=== PATIENT | male | born 1950 | race Caucasian/White ===

== ENCOUNTER 2022-06-06 20:53 | Inpatient (IN) ==
[2022-06-06] MEDS ORDERED: IOPAMIDOL 100 ML BOTTLE IV ONE (20:54)
[2022-06-06 22:09] LABS: Basophils # (Auto) 0.05 K/mcL (0.00-0.30); Basophils % (Auto) 0.4 % (0.0-2.0); Eosinophils # (Auto) 0.09 K/mcL (0.00-0.70); Eosinophils % (Auto) 0.6 % (0.0-7.0); Hematocrit 43.5 % (40.1-51.0); Hemoglobin 14.6 g/dL (13.7-17.5); Lymphocytes # (Auto) 2.25 K/mcL (1.50-4.80); Lymphocytes % (Auto) 16.2 % (15.5-49.0); Mean Cell Volume 90.4 fL (80.0-100.0); Mean Corpuscular HGB Conc 33.6 g/dL (31.0-36.0); Mean Platelet Volume 10.6 fL (7.4-10.4); Monocytes # (Auto) 0.84 K/mcL (0.10-0.90); Monocytes % (Auto) 6.1 % (1.0-12.0); Neutrophils % (Auto) 75.9 % (38.0-78.0); Platelet Count 277 K/mcL (140-440); RBC 4.81 M/mcL (4.63-6.08); WBC 13.9 K/mcL (4.5-11.0)
[2022-06-06] MEDS ORDERED: ONDANSETRON 4 MG/2 ML VIAL IV ONE (22:50)
[2022-06-06] MEDS ORDERED: morphine 4 MG/ML VIAL IV ONE (22:50)
[2022-06-06] MEDS ORDERED: LACTATED RINGERS 1,000 ML IV ONE (22:50)
[2022-06-06 22:55] LABS: ALT/SGPT 19 U/L (<40); AST/SGOT 18 U/L (<40); Albumin/Globulin Ratio 1.3 (1.0-2.3); Alkaline Phosphatase 52 U/L (39-117); Bilirubin,Total 0.7 mg/dL (0.1-1.0); Blood Urea Nitrogen 25 mg/dL (8-23); Carbon Dioxide 25 mmol/L (22-30); Chloride 100 mmol/L (96-108); Globulin 3.1 gm/dL (2.2-3.7); Glomerular Filtration Rate 34; Glucose 146 mg/dL (70-105)
[2022-06-07] MEDS ORDERED: METOCLOPRAMIDE 10 MG/2 ML VIAL IV ONE (00:09)
[2022-06-07] MEDS: LACTATED RINGERS 1,000 ML IV SCH ×4 (01:32→23:05)
[2022-06-07] MEDS ORDERED: morphine 4 MG/ML VIAL IV ONE ×2 (02:42→05:28)
--- NOTE | 2022-06-07 05:42 | Emergency Department Note ---
Abdominal Pain HPI General Chief Complaint: Abdominal Pain Stated Complaint: Abdominal pain Time Seen by Provider: 06/06/22 21:02 Source: patient Mode of arrival: wheelchair Limitations: no limitations History of Present Illness HPI Narrative: Narrative: Patient with a history of a complicated course of diverticulitis in the distant past requiring a partial colectomy ostomy and subsequent reversal and has since had several small bowel obstructions in the past presenting to the ED with 1 day of acute generalized abdominal pain initially starting on his left lower side becoming more diffuse associate with some nausea vomiting. Has not had bowel movement in about 24 hours which is atypical for him and as of the last few hours no longer passing flatus. Says it feels like either a developing bowel obstruction or diverticulitis no fever no chills no other complaints. Related Data Home Medications Medication Instructions Recorded Confirmed adalimumab 40 mg/0.8 mL 40 mg SQ WEEKLY 04/24/18 05/07/21 subcutaneous syringe kit (Humira) amlodipine 5 mg tablet 5 mg PO DAILY 04/24/18 05/07/21 aspirin 81 mg tablet,delayed 81 mg PO DAILY 04/24/18 05/07/21 release (Lo-Dose Aspirin) furosemide 20 mg tablet (Lasix) 20 mg PO BID 04/24/18 05/07/21 lisinopril 10 mg tablet (Zestril) 10 mg PO DAILY 04/24/18 05/07/21 ranitidine HCl 150 mg tablet (Acid 150 mg PO BID 04/24/18 05/07/21 Synchronizer (ranitidine)) atorvastatin 20 mg tablet 20 mg PO ONCE 04/24/21 05/07/21 metoprolol succinate 25 mg 25 mg PO ONCE 04/24/21 05/07/21 tablet,extended release 24 hr losartan 50 mg-hydrochlorothiazide 1 tab PO QDAY 05/07/21 05/07/21 12.5 mg tablet Allergies Allergy/AdvReac Type Severity Reaction Status Date / Time No Known Drug Allergies Allergy Verified 06/06/22 20:55 Review of Systems ROS ROS Narrative: Narrative: All systems ED: reviewed and negative except as stated. [facility] Narrative Patient History Narrative: Narrative: Medical/Surgical/Family History All Active Problems SBO (small bowel obstruction) (Acute) Radiculopathy, lumbosacral region (Acute) Lumbar radiculopathy (Chronic) Lumbar stenosis with neurogenic claudication (Chronic) GERD (gastroesophageal reflux disease) (Chronic) Psoriasis (Chronic) Diverticulitis (Chronic) Hypertension (Chronic) Kidney disease (Chronic) Lower back pain (Chronic) Strain of thoracic region (Chronic) Common cold virus (Chronic) Unstable angina pectoris (Chronic) Coronary atherosclerosis (Chronic) CRF (chronic renal failure) (Chronic) Medical History Common cold virus Coronary atherosclerosis CRF (chronic renal failure) stage III to IV Diverticulitis GERD (gastroesophageal reflux disease) Hypertension Kidney disease Lower back pain Lumbar radiculopathy Lumbar stenosis with neurogenic claudication Psoriasis Radiculopathy, lumbosacral region Strain of thoracic region Unstable angina pectoris Surgical History History of appendectomy History of back surgery L4-5 decompression History of cholecystectomy History of gastric surgery History of hernia repair History of neck surgery ACD History of spinal fusion Family History Father Heart attack Hypertension Arthritis Mother Heart attack Coronary artery disease Hypertension Family/Other Diabetes Cancer Kidney disease Brother Cancer Diabetes Hypertension Sister Diabetes Social History Smoking Status: Former smoker Alcohol Intake Frequency: does not drink Substance Use: does not use Exam Narrative Narrative: Narrative: Constitutional: normally developed, appears uncomfortable Head: Normocephalic, atraumatic, Eyes: No Icterus, ENT: Moist mucus membranes, Neck: Supple, Cardiac: Normal heart sounds, palpable radial pulses, Pulmonary: Normal respiratory effort. Breath sounds clear, no wheeze, rhonchi, rales, Gastrointestinal: Abdomen soft, multiple prior surgical scars, tender to his left mid abdomen no rebound no guarding, mildly distended Musculoskeletal: No gross deformities, well perfused Skin: warm, dry Neuro: Alert and oriented. General Limitations: no limitations Course Vital Signs Vital signs: Vital Signs Temperature 36.0 C L 06/06/22 20:53 Pulse Rate 81 06/06/22 20:53 Respiratory Rate 17 06/06/22 20:53 Blood Pressure 140/73 06/06/22 20:53 Pulse Oximetry (%) 99 06/06/22 20:53 Oxygen Delivery Method 06/06/22 20:53 Temperature 37.2 C 06/07/22 06:01 Pulse Rate 61 06/07/22 06:41 Respiratory Rate 17 06/06/22 20:53 Blood Pressure 116/67 06/07/22 06:41 Pulse Oximetry (%) 95 06/07/22 06:41 Oxygen Delivery Method 06/06/22 20:53 Oxygen Flow Rate (L/min) 0 06/07/22 06:01 [facility] MDM Narrative Medical decision making narrative: Narrative: Patient with a history of diverticulitis requiring partial colectomy, subsequent multiple bowel obstructions in the past presenting with acute left l ower abdominal pain for 1 day no longer passing flatus and nausea vomiting. Work-up is initiated Given antiemetics analgesics IV fluids Labs do show a leukocytosis 13.9 electrolytes show slight bump in his CKD creatinine 1.[address] of the abdomen per direct radiology reports some small bowel dilation 2.8 cm interpreted as a small bowel ileus functional no high-grade obstruction or perf oration. No evidence of diverticulitis Clinically given patient's history as well as his presentation I do suspect this is more likely an developing bowel obstruction given his known similar history as well as the fact he is no longer having bowel movements or passing flatus. Did discuss the case with Dr. Nobles who also agrees more likely early developing small bowel obstruction, recommends continue with SBO mgt, recommends medical admission given patient's comorbidities such as his CKD, continue symptom control, NG tube if patient starts vomiting otherwise okay without. Patient is agreeable to this plan. Will board in the ER for the remainder the night until bed becomes available later in the morning. 0700: accepted by hospitalist, Dr Darnell Lab Data Result diagrams: 06/06/22 21:09 06/06/22 21:09 Labs: Lab Results 06/06/22 06/06/22 Range/Units 21:09 21:09 WBC 13.9 H (4.5-11.0) K/mcL RBC 4.81 (4.63-6.08) M/mcL Hgb 14.6 (13.7-17.5) g/dL Hct 43.5 (40.1-51.0) % MCV 90.4 (80.0-100.0) fL MCH 30.4 (26.0-34.0) pg MCHC 33.6 (31.0-36.0) g/dL RDW 12.0 (11.5-14.5) % Plt Count 277 (140-440) K/mcL MPV 10.6 H (7.4-10.4) fL Immature Gran % (Auto) 0.8 H (0.0-0.5) % Neut % (Auto) 75.9 (38.0-78.0) % Lymph % (Auto) 16.2 (15.5-49.0) % Lares % (Auto) 6.1 (1.0-12.0) % Eos % (Auto) 0.6 (0.0-7.0) % Baso % (Auto) 0.4 (0.0-2.0) % Lymph # (Auto) 2.25 (1.50-4.80) K/mcL Lares # (Auto) 0.84 (0.10-0.90) K/mcL Eos # (Auto) 0.09 (0.00-0.70) K/mcL Baso # (Auto) 0.05 (0.00-0.30) K/mcL Immature Gran # 0.11 H (0.00-0.05) K/mcl Absolute Neutrophils 10.52 H (1.80-8.00) K/mcL Sodium 140 (133-145) mmol/L Potassium 4.6 (3.3-5.1) mmol/L Chloride 100 (96-108) mmol/L Carbon Dioxide 25 (22-30) mmol/L Anion Gap 15.0 (8.0-16.0) BUN 25 H (8-23) mg/dL Creatinine 1.9 H (0.7-1.2) mg/dL GFR Calculation 34 Glucose 146 H (70-105) mg/dL Calcium 10.0 (8.6-10.4) mg/dL Total Bilirubin 0.7 (0.1-1.0) mg/dL AST 18 (<40) U/L ALT 19 (<40) U/L Alkaline Phosphatase 52 (39-117) U/L Total Protein 7.1 (5.9-8.4) gm/dL Albumin 4.0 (3.2-5.2) gm/dL Globulin 3.1 (2.2-3.7) gm/dL Albumin/Globulin Ratio 1.3 (1.0-2.3) Lipase 16 (7-60) U/L Discharge Plan Patient/Caregiver Discharge Instructions Pt seen by [employer]/PA only: No Clinical Impression: SBO (small bowel obstruction) Patient Disposition: Xfer As Inpt ([facility]) Condition: Fair Follow up with: Kaylynn Lopes ARNP [Primary Care Provider] - Prescriptions: No Action metoprolol succinate 25 mg tablet extended release 24 hr 25 mg PO ONCE atorvastatin 20 mg tablet 20 mg PO ONCE losartan-hydrochlorothiazide 50-12.5 mg tablet 1 tab PO QDAY amlodipine 5 MG tablet 5 mg PO DAILY aspirin [Lo-Dose Aspirin] 81 MG tablet,delayed release (DR/EC) 81 mg PO DAILY ranitidine HCl [Acid Synchronizer (ranitidine)] 150 MG tablet 150 mg PO BID lisinopril [Zestril] 10 MG tablet 10 mg PO DAILY furosemide [Lasix] 20 MG tablet 20 mg PO BID adalimumab [Humira] 40 MG/0.8 ML syringe kit 40 mg SQ WEEKLY
--- NOTE | 2022-06-07 05:50 | Cat Scan Report ---
INDICATION: L sided pain, h/o divertics, h/o SBOs COMPARISON: None. TECHNIQUE: Axial images were obtained through the abdomen and pelvis. Sagittally and coronally reformatted images. 80 mL Isovue 370 injected intravenously. Oral contrast material was not administered FINDINGS: Examination was initially interpreted by [facility] Lung bases:Negative. No pulmonary parenchymal nodule. No pleural fluid or pericardial fluid Liver:Negative. No focal intrahepatic mass. No focal abnormality. Liver contour is smooth. No evidence for cirrhosis. Incidental note is made of a benign 13 mm cyst in the left lobe Gallbladder, bilary:Previous cholecystectomy. No dilated bile ducts Spleen:No splenomegaly. Normal enhancement of splenic and portal veins. Pancreas:No pancreatic mass. No peripancreatic abnormality Adrenal glands:Negative Kidneys,ureters,bladder:No solid renal mass. No hydronephrosis. No obstructing or nonobstructing calculi. Benign 3 cm right lower pole renal cyst No hydroureter. No ureteral calculus. No bladder stone. No detectable bladder mass. Gastrointestinal:Previous partial colectomy with anastomotic colonic suture line in the pelvis. There is no diverticulitis. No detectable colonic mass. There is dilated small bowel in the mid abdomen. This is deep to an anterior wall hernia patch. Small bowel is dilated to approximately 2.7 cm in cross-sectional diameter. There is mild small bowel feces. Appearance is consistent with partial mechanical small bowel obstruction. There is no closed-loop obstruction. There is no evidence for bowel ischemia. Negative stomach and duodenum. No focal abnormality. Appendix: The appendix is not identified. History of appendectomy Vascular:Extensive calcified atherosclerotic plaque. No abdominal aortic aneurysm. There is plaque at the origin of the celiac trunk and superior mesenteric artery but no stenosis. Lymphatic:No retroperitoneal or mesenteric adenopathy Mesentery, peritoneum: No free intraperitoneal fluid. No mesenteric or retroperitoneal mass. No intra-abdominal abscess. Reproductive:Prostate is not significantly enlarged Musculoskeletal:Multilevel degenerative disc disease. No lumbar compression fractures. Sacrum and pelvis are negative. Hips are negative. There is no inguinal hernia. Other findings consistent with anterior wall hernia patch. This is to the left of midline IMPRESSION: 1. Mildly distended fluid filled small bowel with small bowel feces. Deep to the hernia patch and findings are consistent with partial mechanical small bowel obstruction. There is no closed-loop obstruction 2. Previous partial colectomy. No diverticulitis 3. Previous cholecystectomy and appendectomy 4. Previous anterior wall hernia repair. No recurrent hernia 5. Atherosclerotic calcification. No abdominal aortic aneurysm The exam was performed using radiation dose optimization techniques including, but not limited to, automated exposure control, adjustment of the mA and/or kV according to patient size and use of iterative reconstruction technique. Interpreted and Authenticated by: Rosendo Gastelum 06/07/22
--- NOTE | 2022-06-07 07:35 | General Surg History&Physical ---
HPI History of Present Illness Patient information: Note initiated : 06/07/22 at 7:32 am Service Date, if different from initiated Date: [] Patient: Neo Chamorro a 71 y/o M admitted on for Abdominal pain. Chief Complaint: [] Chief complaint: Abdominal pain, nausea History of present illness: Mr. Chamorro is a 71 year old M with a significant past medical and surgical history of perforated diverticulitis, status post exploratory laparotomy with end ostomy. Patient then got his ostomy reversed. Since that time he has had several small bowel obstructions, none requiring operative intervention. He presents with 1 day history of abdominal distention, decreased bowel movements, decreased flatus associated with mild nausea without emesis at this time. He was seen and evaluated emergency room where CT scan is consistent with a partial small bowel obstruction without evidence of closed-loop obstruction. PFSH PFSH All Active Problems SBO (small bowel obstruction) (Acute) Radiculopathy, lumbosacral region (Acute) Lumbar radiculopathy (Chronic) Lumbar stenosis with neurogenic claudication (Chronic) GERD (gastroesophageal reflux disease) (Chronic) Psoriasis (Chronic) Diverticulitis (Chronic) Hypertension (Chronic) Kidney disease (Chronic) Lower back pain (Chronic) Strain of thoracic region (Chronic) Common cold virus (Chronic) Unstable angina pectoris (Chronic) Coronary atherosclerosis (Chronic) CRF (chronic renal failure) (Chronic) Medical History Common cold virus Coronary atherosclerosis CRF (chronic renal failure) stage III to IV Diverticulitis GERD (gastroesophageal reflux disease) Hypertension Kidney disease Lower back pain Lumbar radiculopathy Lumbar stenosis with neurogenic claudication Psoriasis Radiculopathy, lumbosacral region Strain of thoracic region Unstable angina pectoris Surgical History History of appendectomy History of back surgery L4-5 decompression History of cholecystectomy History of gastric surgery History of hernia repair History of neck surgery ACD History of spinal fusion Family History Father Heart attack Hypertension Arthritis Mother Heart attack Coronary artery disease Hypertension Family/Other Diabetes Cancer Kidney disease Brother Cancer Diabetes Hypertension Sister Diabetes Social History (Updated 05/07/21 @ 13:29 by Christi Allan) marital status: education level: high school occupational status: retired occupation: [employer] smoking status: Former smoker alcohol intake frequency: does not drink substance use type: does not use MEDS/ALLERGIES Home Medications and Allergies Home Medications Medication Instructions Recorded Confirmed Type adalimumab 40 mg/0.8 mL 40 mg SQ WEEKLY 04/24/18 05/07/21 History subcutaneous syringe kit (Humira) amlodipine 5 mg tablet 5 mg PO DAILY 04/24/18 05/07/21 History aspirin 81 mg tablet,delayed 81 mg PO DAILY 04/24/18 05/07/21 History release (Lo-Dose Aspirin) furosemide 20 mg tablet (Lasix) 20 mg PO BID 04/24/18 05/07/21 History lisinopril 10 mg tablet (Zestril) 10 mg PO DAILY 04/24/18 05/07/21 History ranitidine HCl 150 mg tablet (Acid 150 mg PO BID 04/24/18 05/07/21 History Mems Engineer (ranitidine)) atorvastatin 20 mg tablet 20 mg PO ONCE 04/24/21 05/07/21 History metoprolol succinate 25 mg 25 mg PO ONCE 04/24/21 05/07/21 History tablet,extended release 24 hr losartan 50 mg-hydrochlorothiazide 1 tab PO QDAY 05/07/21 05/07/21 History 12.5 mg tablet Allergies Allergy/AdvReac Type Severity Reaction Status Date / Time No Known Drug Allergies Allergy Verified 06/06/22 20:55 Physical Examination Vital Signs Vital signs: Temp Pulse Resp BP Pulse Ox O2 Del Method O2 Flow Rate 98.9 F 60 17 129/72 98 0 06/07/22 06:01 06/07/22 07:01 06/06/22 20:53 06/07/22 07:01 06/07/22 07:01 06/06/22 20:53 06/07/22 06:01 General physical appearance General physical exam: well developed, well nourished and no distress Eyes Eye exam: PERRL and normal ocular movement ENT ENT exam: normal pinna, normal nares, normal mucosa, no hearing loss and no congestion Head Head exam IM: Present atraumatic and normocephalic Neck Neck exam: no masses, no bruits, trachea midline, no lymphadenopathy and no venous distension Cardiovascular Cardiovascular exam IM: Present normal rate and rhythm Respiratory Respiratory exam: normal expansion, normal respiratory effort, clear to percussion and clear to auscultation Abdomen Abdomen: Present soft, non tender, surgical scars and distended; Absent bowel sounds, masses, guarding or rigid Hernia: Present none Genitourinary Genitourinary (Male): Present normal penis with no external lesions Rectum Rectum: Present normal sphincter tone, no hemorrhoids, no tenderness, no masses and no bleeding Integumentary Integumentary: Present no rash, no growths and no abnormal pigmentation Neurologic Neurologic: Present normal coordination and normal sensation Musculoskeletal Musculoskeletal: Present normal gait and normal posture Psychiatric Psychiatric: Present oriented to time, oriented to person, oriented to place, speech is normal and memory intact Results Labs Result diagrams: 06/06/22 21:09 06/06/22 21:09 Labs: Abnormal lab results 06/06/22 06/06/22 Range/Units 21:09 21:09 WBC 13.9 H (4.5-11.0) K/mcL MPV 10.6 H (7.4-10.4) fL Immature Gran % (Auto) 0.8 H (0.0-0.5) % Immature Gran # 0.11 H (0.00-0.05) K/mcl Absolute Neutrophils 10.52 H (1.80-8.00) K/mcL BUN 25 H (8-23) mg/dL Creatinine 1.9 H (0.7-1.2) mg/dL Glucose 146 H (70-105) mg/dL Diabetes panel 06/06/22 Range/Units 21:09 Sodium 140 (133-145) mmol/L Potassium 4.6 (3.3-5.1) mmol/L Chloride 100 (96-108) mmol/L Carbon Dioxide 25 (22-30) mmol/L BUN 25 H (8-23) mg/dL Creatinine 1.9 H (0.7-1.2) mg/dL Glucose 146 H (70-105) mg/dL Calcium 10.0 (8.6-10.4) mg/dL AST 18 (<40) U/L ALT 19 (<40) U/L Alkaline Phosphatase 52 (39-117) U/L Total Protein 7.1 (5.9-8.4) gm/dL Albumin 4.0 (3.2-5.2) gm/dL Calcium panel 06/06/22 Range/Units 21:09 Calcium 10.0 (8.6-10.4) mg/dL Albumin 4.0 (3.2-5.2) gm/dL Pituitary panel 06/06/22 Range/Units 21:09 Sodium 140 (133-145) mmol/L Potassium 4.6 (3.3-5.1) mmol/L Chloride 100 (96-108) mmol/L Carbon Dioxide 25 (22-30) mmol/L BUN 25 H (8-23) mg/dL Creatinine 1.9 H (0.7-1.2) mg/dL Glucose 146 H (70-105) mg/dL Calcium 10.0 (8.6-10.4) mg/dL Adrenal panel 06/06/22 Range/Units 21:09 Sodium 140 (133-145) mmol/L Potassium 4.6 (3.3-5.1) mmol/L Chloride 100 (96-108) mmol/L Carbon Dioxide 25 (22-30) mmol/L BUN 25 H (8-23) mg/dL Creatinine 1.9 H (0.7-1.2) mg/dL Glucose 146 H (70-105) mg/dL Calcium 10.0 (8.6-10.4) mg/dL Total Bilirubin 0.7 (0.1-1.0) mg/dL AST 18 (<40) U/L ALT 19 (<40) U/L Alkaline Phosphatase 52 (39-117) U/L Total Protein 7.1 (5.9-8.4) gm/dL Albumin 4.0 (3.2-5.2) gm/dL All other labs normal. A/P Assessment and plan (1) SBO (small bowel obstruction): Plan: This is a pleasant 71-year-old gentleman with a significant past surgical history with a known history of prior small bowel obstructions who presents with his typical small bowel obstruction symptoms. CT scan is consistent with a small bowel obstruction. Plan: Admit, n.p.o. Small bowel follow-through today. Status: Acute Time Spent With Patient Time: Total time spent is greater than 50% in coordination of care (as documented) at patient's floor/unit and/or counseling patient:
[2022-06-07] MEDS: ONDANSETRON 4 MG/2 ML VIAL IV PRN ×3 (08:13→18:33)
[2022-06-07] MEDS ORDERED: ROCURONIUM 10 MG/ML ML IV ONE (09:50)
[2022-06-07] MEDS ORDERED: MAGNESIUM SULFATE 2 GM/50 ML BAG IV ONE (09:50)
[2022-06-07] MEDS ORDERED: KETAMINE 50 MG/ML Syringe (ANEST) IV ONE (09:50)
[2022-06-07] MEDS ORDERED: SUCCINYLCHOLINE 20 MG/ML ML IV ONE (09:50)
[2022-06-07] MEDS ORDERED: PROPOFOL 200 MG/20 ML VIAL IV ONE (09:50)
[2022-06-07] MEDS ORDERED: SUGAMMADEX SODIUM 200 MG/2 ML VIAL IV ONE (09:50)
[2022-06-07] MEDS ORDERED: PHENYLephrine 1 MG/10 ML SYRINGE (ANEST) ONE (09:50)
[2022-06-07] MEDS ORDERED: LIDOCAINE HCL/PF 100 MG/5 ML SYRINGE IV ONE (09:50)
[2022-06-07] MEDS ORDERED: DEXAMETHASONE 10 MG/ML VIAL ONE (09:50)
[2022-06-07] MEDS ORDERED: GLYCOPYRROLATE 0.2 MG/ML VIAL IV ONE (09:50)
[2022-06-07] MEDS ORDERED: HYDROmorphone 1 MG/ML SYRINGE ONE (09:50)
[2022-06-07] MEDS ORDERED: ONDANSETRON 4 MG/2 ML VIAL ONE (09:50)
[2022-06-07] MEDS ORDERED: fentaNYL 250 MCG/5 ML VIAL IV ONE (09:50)
[2022-06-07] MEDS ORDERED: DEXTROSE 31 GM ORAL.SUSP PO PRN (14:10)
[2022-06-07] MEDS ORDERED: DEXTROSE 50% 50 ML VIAL IV PRN (14:10)
[2022-06-07] MEDS: ACETAMINOPHEN 650 MG/65 ML BAG IV PRN (14:28)
[2022-06-07] MEDS: 0.9 % SODIUM CHLORIDE 10 ML SYRINGE IV SCH ×2 (14:32→20:03)
[2022-06-07] MEDS ORDERED: DIATRIZOATE MEGLU/DIATRIZO SOD 120 ML BOTTLE PO ONE (15:17)
--- NOTE | 2022-06-07 15:41 | Internal Med History&Physical ---
HPI History of Present Illness Patient information: Note initiated : 06/07/22 at 3:37 pm Service Date, if different from initiated Date: [] Patient: Neo Chamorro a 71 y/o M admitted on 06/07/22 for Abdominal pain. Chief Complaint: [Abdominal pain, nausea and vomiting] Chief complaint: Abdominal pain History of present illness: Mr. Chamorro is a 71 year old M with a complex past medical history significant for multiple abdominal surgeries, diabetes mellitus type 2, CAD, hypertension, and CKD who presents to the hospital with 24-hour history of abdominal pain associate with nausea and vomiting. The patient's had prior episodes of bowel obstruction and states that this is very similar. As mentioned, he has had multiple abdominal surgeries including partial colectomy for diverticulitis, appendectomy, and cholecystectomy. The patient states that he was his usual self up until yesterday. He noticed that his abdomen was distended, and he was unable to have a bowel movement or pass gas. On presentation to the hospital, he was hemodynamically stable and afebrile. CT abdomen pelvis revealed mildly distended fluid-filled small bowel. Deep to the hernia patch and findings are consistent with partial mechanical small bowel obstruction. There was no closed-loop obstruction. He has a history of partial colectomy, partial cholecystectomy and appendectomy. There is previous anterior wall hernia repair. The hospitalist service was asked admit the patient in the setting of multiple medical comorbidities. General surgery were also consulted. Review of Systems All systems: reviewed and no additional remarkable complaints except as stated Constitutional Constitutional: Present as per HPI EENT Eyes: Present as per HPI; Absent blurry vision Cardiovascular Cardiovascular: Present as per HPI; Absent chest pain, dyspnea, dyspnea on exertion, leg edema or palpatations Respiratory Respiratory: Present as per HPI; Absent cough, dyspnea, dyspnea on exertion, wheezing or stridor Gastrointestinal Gastrointestinal: Present as per HPI, abdominal pain, nausea and vomiting; Absent diarrhea, dysphagia, hematemesis or melena Musculoskeletal Musculoskeletal: Present as per HPI; Absent joint swelling, limited range of motion, muscle cramps, muscle weakness or myalgias Integumentary Integumentary: Present as per HPI; Absent erythema, new lesions, rash or wounds Neurological Neurological: Present as per HPI; Absent abnormal gait, behavioral changes, focal weakness, headache(s), loss of vision, numbness, sensory deficit or syncope Endocrine Endocrine: Absent change in body appearance, fatigue or heat intolerance Hematologic/Lymphatic Hematologic/Lymphatic: Present as per HPI PFSH PFSH All Active Problems (Updated 06/07/22 @ 15:44 by Waldemar Darnell MD) CKD (chronic kidney disease) (Acute) DM2 (diabetes mellitus, type 2) (Acute) SBO (small bowel obstruction) (Acute) Radiculopathy, lumbosacral region (Acute) Lumbar radiculopathy (Chronic) Lumbar stenosis with neurogenic claudication (Chronic) GERD (gastroesophageal reflux disease) (Chronic) Psoriasis (Chronic) Diverticulitis (Chronic) Hypertension (Chronic) Kidney disease (Chronic) Lower back pain (Chronic) Strain of thoracic region (Chronic) Common cold virus (Chronic) Unstable angina pectoris (Chronic) Coronary atherosclerosis (Chronic) CRF (chronic renal failure) (Chronic) Medical History Common cold virus Coronary atherosclerosis CRF (chronic renal failure) stage III to IV Diverticulitis GERD (gastroesophageal reflux disease) Hypertension Kidney disease Lower back pain Lumbar radiculopathy Lumbar stenosis with neurogenic claudication Psoriasis Radiculopathy, lumbosacral region Strain of thoracic region Unstable angina pectoris Surgical History History of appendectomy History of back surgery L4-5 decompression History of cholecystectomy History of gastric surgery History of hernia repair History of neck surgery ACD History of spinal fusion Family History Father Heart attack Hypertension Arthritis Mother Heart attack Coronary artery disease Hypertension Family/Other Diabetes Cancer Kidney disease Brother Cancer Diabetes Hypertension Sister Diabetes Social History (Updated 05/07/21 @ 13:29 by Christi Allan) marital status: education level: high school occupational status: retired occupation: [employer] smoking status: Former smoker alcohol intake frequency: does not drink substance use type: does not use MEDS/ALLERGIES Home Medications and Allergies Home Medications Medication Instructions Recorded Confirmed Type adalimumab 40 mg/0.8 mL 40 mg SQ WEEKLY 04/24/18 06/07/22 History subcutaneous syringe kit (Humira) atorvastatin 20 mg tablet 20 mg PO ONCE 04/24/21 06/07/22 History metoprolol succinate 25 mg 25 mg PO BID 04/24/21 06/07/22 History tablet,extended release 24 hr losartan 50 mg-hydrochlorothiazide 1 tab PO QDAY 05/07/21 06/07/22 History 12.5 mg tablet Pepcid 20 mg PO DAILY 06/07/22 06/07/22 History amlodipine 5 mg tablet 1 tab PO QDAY 06/07/22 06/07/22 History cholecalciferol (vitamin D3) 50 mcg PO DAILY 06/07/22 06/07/22 History gabapentin 100 mg capsule 1 cap PO QID 06/07/22 06/07/22 History loperamide 2 mg capsule 1 cap PO QDAY 06/07/22 06/07/22 History (Anti-Diarrheal (loperamide)) metformin 500 mg tablet,extended 1 tab PO BID 06/07/22 06/07/22 History release 24 hr Allergies Allergy/AdvReac Type Severity Reaction Status Date / Time No Known Drug Allergies Allergy Verified 06/06/22 20:55 EXAM Constitutional Vitals: Temp Pulse Resp BP Pulse Ox O2 Del Method O2 Flow Rate 98.9 F 86 17 155/76 97 0 06/07/22 14:07 06/07/22 14:07 06/07/22 14:07 06/07/22 14:07 06/07/22 14:07 06/07/22 14:04 06/07/22 06:01 General appearance: average body habitus Head Head exam: Present atraumatic, normal inspection and normocephalic Eye Eye exam: Present EOMI, normal appearance and PERRL; Absent conjunctival injection ENT ENT exam: Present mucous membranes dry and normal exam Neck Neck exam: Present full ROM; Absent lymphadenopathy Respiratory Respiratory exam: Present normal respiratory exam and CTAB; Absent decreased breath sounds, respiratory distress or wheezes Cardiovascular Cardiovascular exam: Present normal rate and rhythm and RRR; Absent JVD GI/Abdominal GI/Abdominal exam: Present soft and distended; Absent normal bowel sounds, diminished bowel sounds, guarding, mass, rebound or tenderness Neurological Exam Neurological exam: Present alert, CN II-XII intact and oriented X3 Psychiatric Psychiatric exam: Present normal affect and normal mood Skin Skin exam: Present intact and warm; Absent erythema, pallor, petechiae or rash DATA Data Completed and Pending Labs: Labs from last 24 hours 06/06/22 06/06/22 21:09 21:09 WBC 13.9 H RBC 4.81 Hgb 14.6 Hct 43.5 MCV 90.4 MCH 30.4 MCHC 33.6 RDW 12.0 Plt Count 277 MPV 10.6 H Immature Gran % (Auto) 0.8 H Neut % (Auto) 75.9 Lymph % (Auto) 16.2 [place] % (Auto) 6.1 Eos % (Auto) 0.6 Baso % (Auto) 0.4 Lymph # (Auto) 2.25 [place] # (Auto) 0.84 Eos # (Auto) 0.09 Baso # (Auto) 0.05 Immature Gran # 0.11 H Absolute Neutrophils 10.52 H Sodium 140 Potassium 4.6 Chloride 100 Carbon Dioxide 25 Anion Gap 15.0 BUN 25 H Creatinine 1.9 H GFR Calculation 34 Glucose 146 H Calcium 10.0 Total Bilirubin 0.7 AST 18 ALT 19 Alkaline Phosphatase 52 Total Protein 7.1 Albumin 4.0 Globulin 3.1 Albumin/Globulin Ratio 1.3 Lipase 16 A/P Assessment and plan (1) SBO (small bowel obstruction): Status: Acute (2) Lumbar radiculopathy: Status: Chronic (3) Psoriasis: Status: Chronic (4) Coronary atherosclerosis: Status: Chronic Qualifiers: Associated angina: with unstable angina Coronary Disease-Associated Artery/Lesion type: [place] artery [place] vs. transplanted heart: [place] heart Qualified Code(s): I25.110 - Atherosclerotic heart disease of [place] coronary artery with unstable angina pectoris (5) DM2 (diabetes mellitus, type 2): Status: Acute (6) CKD (chronic kidney disease): Status: Acute Narrative A/P Narrative: The patient likely has a mechanical small bowel obstruction due to adhesions as he has a history of multiple intra-abdominal surgeries. General surgery will manage SBO. He may need NG tube decompression however placing an NG tube is difficult from patient report due to his anatomy. He may need to have this done under fluoroscopy. At this time the patient has multiple medical comorbidities and is on Humira for psoriasis. He gets 40 mg subcu weekly injection. We will hold his antihypertensives, his atorvastatin, gabapentin, losartanhydrochlorothiazide, metoprolol, and metformin. The patient will be placed on insulin sliding scale. Continue n.p.o. status, IV fluids, and monitor clinically. Time Spent With Patient Time: Total time spent is greater than 50% in coordination of care (as documented) at patient's floor/unit and/or counseling patient: Total time spent with greater than 50% in coordination of care (as documented) at patient's floor/unit and/or counseling patient:: Greater than 70 minutes QUALITY VTE Deep Vein Thrombosis/Pulmonary Embolism Present on Admission: No
[2022-06-07] MEDS: INSULIN LISPRO 1 UNIT/0.01 ML UNIT SQ SCH ×2 (16:59→20:03)
[2022-06-07] MEDS ORDERED: SENNOSIDES 1 TABLET PO SCH (21:00)
[2022-06-07] MEDS ORDERED: DOCUSATE SODIUM 100 MG CAPSULE PO SCH (21:00)
[2022-06-07] MEDS: HEPARIN 5,000 UNIT/ML VIAL SQ SCH (23:05)
[2022-06-08] MEDS: ACETAMINOPHEN 650 MG/65 ML BAG IV PRN ×2 (00:36→08:51)
[2022-06-08] MEDS: LACTATED RINGERS 1,000 ML IV SCH ×4 (00:40→20:13)
[2022-06-08] MEDS: 0.9 % SODIUM CHLORIDE 10 ML SYRINGE IV SCH ×3 (05:09→20:13)
[2022-06-08 06:17] LABS: Basophils # (Auto) 0.03 K/mcL (0.00-0.30); Basophils % (Auto) 0.3 % (0.0-2.0); Eosinophils # (Auto) 0.03 K/mcL (0.00-0.70); Eosinophils % (Auto) 0.3 % (0.0-7.0); Hematocrit 38.6 % (40.1-51.0); Hemoglobin 13.1 g/dL (13.7-17.5); Lymphocytes # (Auto) 1.68 K/mcL (1.50-4.80); Lymphocytes % (Auto) 16.3 % (15.5-49.0); Mean Corpuscular HGB Conc 33.9 g/dL (31.0-36.0); Mean Platelet Volume 10.4 fL (7.4-10.4); Monocytes # (Auto) 0.98 K/mcL (0.10-0.90); Monocytes % (Auto) 9.5 % (1.0-12.0); Platelet Count 233 K/mcL (140-440); RBC 4.29 M/mcL (4.63-6.08); Red Cell Distribution Width 12.1 % (11.5-14.5); WBC 10.3 K/mcL (4.5-11.0)
--- NOTE | 2022-06-08 06:27 | XRay Report ---
INDICATION: NGT placement TECHNIQUE: Supine abdomen. COMPARISON: None FINDINGS:There is an esophagogastric tube within the stomach. Sidehole of the catheter is just below the gastroesophageal junction. Catheter may be advanced for positioning more distally within the stomach. IMPRESSION: Esophagogastric tube within the stomach. Interpreted and Authenticated by: Rosendo Gastelum 06/08/22
[2022-06-08 06:46] LABS: Blood Urea Nitrogen 19 mg/dL (8-23); Calcium 9.7 mg/dL (8.6-10.4); Carbon Dioxide 30 mmol/L (22-30); Chloride 98 mmol/L (96-108); Glomerular Filtration Rate 39; Glucose 108 mg/dL (70-105)
--- NOTE | 2022-06-08 08:13 | XRay Report ---
INDICATION: follow up sbo TECHNIQUE: Water-soluble contrast material was ingested. Less than one cup of contrast was ingested. COMPARISON: CT scan dated 06/06/2022 FINDINGS: There is dilated small bowel consistent with mechanical small bowel obstruction. There is very slow passage of contrast material. At 24 hours post ingestion most of the contrast. No definite contrast within the colon. IMPRESSION: No colonic contrast identified by 24 hours postingestion Interpreted and Authenticated by: Rosendo Gastelum 06/08/22
--- NOTE | 2022-06-08 08:35 | General Surgery Progress Note ---
SUBJECTIVE Subjective Patient information: Note initiated : 06/08/22 at 8:32 am Service Date, if different from initiated Date: [] Patient: Neo Chamorro 71 y/o M admitted on 06/07/22 for Abdominal pain. Chief Complaint: [] Interval history: Small bowel follow-through done yesterday shows no contrast to the colon by 24 hours, patient got more distended overnight, more nauseous. NG tube was placed. Constitutional Vitals: Vital Signs Temp Pulse Resp BP Pulse Ox O2 Del Method O2 Flow Rate 97.7 F 79 18 139/74 94 0 06/08/22 07:07 06/08/22 07:07 06/08/22 07:07 06/08/22 07:07 06/08/22 07:07 06/08/22 07:07 06/07/22 06:01 Period Temp Pulse Resp BP Sys/[place] Pulse Ox O2 Del Method O2 Flow Rate Last 24 Hr 97.7 F-98.9 F 65-99 16-18 93-170/65-90 90-99 Room Air-Room Air Intake and Output 06/07/22 06/08/22 06/08/22 21:59 05:59 13:59 Intake Total 390 1065 Output Total 950 800 Balance -560 265 Weight 236 lb Intake & Output: Intake & Output 06/07/22 06/08/22 06/08/22 21:59 05:59 13:59 Intake Total 390 1065 Output Total 950 800 Balance -560 265 Weight 236 lb Intake: IV 290 1065 Lactated Ringers 1,000 ml @ 388 228 2826 mls/hr IV .Q10H [facility] Rx#: [id number] Oral 50 NG Tube Flush 50 Right Nare NG/OG 50 Output: Gastric Drainage 950 700 Right Nare NG/OG 950 700 Void Amount 100 Other: Urine Appearance Clear Urine Color Yellow Urine Odor Normal # Voids 1 General appearance: cooperative and no acute distress GI/Abdominal GI/Abdominal exam: Present soft and distended; Absent tenderness A/P Assessment and plan (1) SBO (small bowel obstruction): Plan: 71-year-old gentleman presented with partial small bowel obstruction, small bowel follow-through without contrast into the colon by 24 hours. Risk, benefits, alternatives to treatment including continued NG tube decompression versus operative intervention discussed with the patient at length. He verbalizes understanding, desires to continue with surgery. Plan: Robotic assisted exploratory laparoscopy. Status: Acute Time Spent With Patient Time: Total time spent is greater than 50% in coordination of care (as documented) at patient's floor/unit and/or counseling patient:
[2022-06-08] MEDS: INSULIN LISPRO 1 UNIT/0.01 ML UNIT SQ SCH ×4 (09:10→20:13)
[2022-06-08] MEDS: HEPARIN 5,000 UNIT/ML VIAL SQ SCH ×2 (09:10→20:16)
[2022-06-08] MEDS ORDERED: LIDOCAINE 1% 20 ML, BUPIVACAINE W/EPI 0.5% 20 ML SQ ONE (10:57)
[2022-06-08] MEDS ORDERED: IPRATROPIUM/ALBUTEROL 3 ML AMPUL.NEB NEB PRN (11:26)
[2022-06-08] MEDS ORDERED: ONDANSETRON 4 MG/2 ML VIAL IV PRN (11:26)
[2022-06-08] MEDS ORDERED: HYDROmorphone 0.5 MG/0.5 ML SYRINGE IV PRN (11:26)
[2022-06-08] MEDS ORDERED: METOPROLOL TARTRATE 5 MG/5 ML VIAL IV PRN (11:26)
[2022-06-08] MEDS ORDERED: METHOCARBAMOL 1,000 MG/10 ML VIAL IV PRN (11:26)
[2022-06-08] MEDS ORDERED: MEPERIDINE 25 MG/ML VIAL IV PRN (11:26)
[2022-06-08] MEDS ORDERED: LABETALOL 5 MG/ML ML IV PRN (11:26)
[2022-06-08] MEDS ORDERED: ACETAMINOPHEN 1,000 MG/100 ML BAG IV ONE (11:26)
[2022-06-08] MEDS ORDERED: NALOXONE HCL 0.4 MG/ML VIAL IV PRN (11:26)
[2022-06-08] MEDS ORDERED: LACTATED RINGERS 250 ML IV PRN (11:26)
[2022-06-08] MEDS ORDERED: LACTATED RINGERS 1,000 ML IV SCH (11:30)
--- NOTE | 2022-06-08 13:15 | Operative Note ---
Brief Operative Note Date of procedure: 06/08/22 Pre-op diagnosis: Partial small bowel obstruction secondary to adhesions Post-op diagnosis: same Procedure: Robotic assisted exploratory laparoscopy, extensive lysis of adhesions, removal of intra-abdominal mesh Grafts/Implants: No Anesthesia: GETA Findings: Extensive adhesions to prior abdominal mesh Complications: none Surgeon: Devon Nobles Estimated blood loss (cc): 50 Specimens Removed/Pathology: other (Prior abdominal mesh) Condition: stable Disposition: PACU Operative Note Operative Note: After all risk benefits and alternatives to the procedure were discussed with the patient at length he verbalized understanding and desire to continue with the procedure. Patient was taken main operating placed upon operative table. General esthesia was induced over a orotracheal tube. Patient's prepped and draped in the standard sterile surgical fashion. Surgical timeout was taken to verify patient and procedure being performed. 1% lidocaine half percent Marcaine was used for local anesthesia throughout the case. The left upper quadrant was then used to introduce a varies needle and the abdominal cavity was insufflated with carbon dioxide. Abdominal cavity was then entered under direct vision using a millimeter Optiview da Deven trocar and a right upper quadrant incision. Visual inspection revealed no injuries and the varies needle was removed under direct vision. Right-sided 8 mm and right lower quadrant 8 mm trochars were then placed under direct vision. The da Deven robot was then docked in standard fashion. Abdominal expiration revealed extensive midline adhesions with a point of transition in the left lower quadrant. Extensive lysis of adhesions was then carried out using sharp and electrocautery dissection. There was a large amount of omentum attached to the prior midline and this was carefully taken down. There were several loops of small bowel attached to the midline these were also taken down with sharp dissection. In the left lower quadrant a prior mesh hernia repair was identified and there was several loops of bowel densely adherent to the mesh. Several enterotomies were made which were inherent to the dense adhesions to the mesh these were carefully taken down and identified. The enterotomies were closed with interrupted 3-0 Vicryl sutures. Full lysis of adhesion was then taken care of to unkinked the bowel that was prior stuck to the mesh which was the area of obstruction. The abdominal cavity was then irrigated and all fluid was suctioned free from the abdominal cavity. The bowel was ran from the ligament of Treitz down to the terminal ileum and no further injuries were identified. No further kinking was identified. Secondary to the bowel being adherent to the mesh decision was made to remove the mesh therefore it was detached from the anterior abdominal wall with sharp and electrocautery dissection. Once it was removed it was passed off field for surgical pathology. Due to the enterotomies being stuck to the mesh decision was made to leave a drain therefore a 19 Arabic Efren drain was passed through the right lower quadrant trocar and placed into the pelvis. Once was done further exploration revealed no further injuries therefore the da Deven robot was undocked the CO2 and trochars were removed under direct vision. Trocar sites were inspected for hemostasis. Skin edges were closed with interrupted 4- 0 Monocryl sutures and the drain was sutured in place with a interrupted 2-0 nylon suture. Skin glue dressings were applied. Patient was then awakened from anesthesia transferred postanesthesia care unit awake alert in good condition.
[2022-06-08] MEDS: fentaNYL 100 MCG/2 ML VIAL IV PRN ×2 (13:22→13:26)
--- NOTE | 2022-06-08 14:54 | Internal Med Progress Note ---
SUBJECTIVE Subjective Patient information: Note initiated : 06/08/22 at 2:51 pm Service Date, if different from initiated Date: [] Patient: Neo Chamorro 71 y/o M admitted on 06/07/22 for Abdominal pain. Chief Complaint: [SBO] Principal diagnosis: SBO Interval history: The patient was resting comfortably in bed. Discussed the plan of care with the RN who was present at the bedside. Constitutional Vitals: Vital Signs Temp Pulse Resp BP Pulse Ox O2 Del Method O2 Flow Rate 97.7 F 91 H 10 L 142/68 91 4 06/08/22 07:07 06/08/22 13:51 06/08/22 13:51 06/08/22 13:51 06/08/22 13:51 06/08/22 07:07 06/08/22 13:25 Period Temp Pulse Resp BP Sys/[place] Pulse Ox O2 Del Method O2 Flow Rate Last 24 Hr 97.7 F-98.9 F 76-99 8-18 93-166/64-145 88-98 Room Air-Room Air 4-6 Intake and Output 06/08/22 06/08/22 06/08/22 05:59 13:59 21:59 Intake Total 1065 2165 1000 Output Total 800 215 400 Balance 265 1950 600 Weight 107.048 kg Patient Weight 06/09/22 05:59 Weight 107.048 kg Intake & Output: Intake & Output 06/08/22 06/08/22 06/08/22 05:59 13:59 21:59 Intake Total 1065 2165 1000 Output Total 800 215 400 Balance 265 1950 600 Weight 107.048 kg Intake: IV 7464 552 9317 Lactated Ringers 1,000 ml @ 100 1000 1000 mls/hr IV .Q10H [facility] Rx#: [id number] IV - Manual Only 1999 Output: Gastric Drainage 700 400 Right Nare NG/OG 700 400 Drainage 40 Right Lower Abdomen 40 Void Amount 100 150 Estimated Blood Loss 25 Other: Urine Appearance Clear Clear Urine Color Yellow Yellow Urine Odor Normal Normal Head Head exam: Present atraumatic and normal inspection Eye Eye exam: Present normal appearance ENT ENT exam: Present mucous membranes moist, normal exam and normal external ear exam Neck Neck exam: Present normal inspection Respiratory Respiratory exam: Present normal respiratory exam Cardiovascular Cardiovascular exam: Present normal rate and rhythm GI/Abdominal GI/Abdominal exam: Present soft, distended and tenderness; Absent normal bowel sounds Back Exam Back exam: Present normal inspection Neurological Exam Neurological exam: Present alert and oriented X3 Skin Skin exam: Present intact and warm OBJ DATA Labs CBC & Chem 7: 06/08/22 05:10 06/08/22 05:10 Labs: Abnormal Lab Results 06/08/22 06/08/22 06/06/22 05:10 05:10 21:09 WBC RBC 4.29 L Hgb 13.1 L Hct 38.6 L MPV Immature Gran % (Auto) 0.6 H [place] # (Auto) 0.98 H Immature Gran # 0.06 H Absolute Neutrophils BUN 25 H Creatinine 1.7 H 1.9 H Glucose 108 H 146 H 06/06/22 21:09 WBC 13.9 H RBC Hgb Hct MPV 10.6 H Immature Gran % (Auto) 0.8 H [place] # (Auto) Immature Gran # 0.11 H Absolute Neutrophils 10.52 H BUN Creatinine Glucose Meds: Medications Dextrose (Dextrose 50% 50 Ml Vial) 0 ml IV UD PRN PRN Reason: Per Sliding Scale Diagnostic Test (Pha) (Accu-Chek 1 Each Strip) 1 each FS [facility] Last Admin: 06/08/22 14:20 Dose: Not Given Glucose (Dextrose 31 Gm Oral.Susp) 15 gm PO PRN PRN PRN Reason: Hypoglycemia Heparin Sodium (Porcine) (Heparin 5,000 Unit/Ml Vial) 5,000 unit SQ Q12 [facility] Last Admin: 06/08/22 09:10 Dose: Not Given Lactated Ringer's (Lactated Ringers) 1,000 mls @ 100 mls/hr IV .Q10H [facility] Last Infusion: 06/08/22 14:13 Dose: Infused Acetaminophen (Ofirmev) 650 mg in 65 mls @ 130 mls/hr IV Q6HP PRN; Protocol PRN Reason: PAIN/FEVER > 101 Insulin Human Lispro (Insulin Lispro 1 Unit/0.01 Ml Unit) 0 unit SQ ACHS [facility]; Protocol Last Admin: 06/08/22 14:21 Dose: Not Given Ondansetron HCl (Ondansetron 4 Mg/2 Ml Vial) 4 mg IV Q6HP PRN PRN Reason: Nausea And Vomiting Last Admin: 06/07/22 18:33 Dose: 4 mg Sodium Chloride (0.9 % Sodium Chloride 10 Ml Syringe) 10 ml IV Q8 [facility] Last Admin: 06/08/22 05:09 Dose: Not Given A/P Assessment and plan (1) SBO (small bowel obstruction): Status: Acute (2) Lumbar radiculopathy: Status: Chronic (3) Psoriasis: Status: Chronic (4) Coronary atherosclerosis: Status: Chronic Qualifiers: Associated angina: with unstable angina Coronary Disease-Associated Artery/Lesion type: [place] artery [place] vs. transplanted heart: [place] heart Qualified Code(s): I25.110 - Atherosclerotic heart disease of [place] coronary artery with unstable angina pectoris (5) DM2 (diabetes mellitus, type 2): Status: Acute (6) CKD (chronic kidney disease): Status: Acute Narrative A/P Narrative: The patient likely has a mechanical small bowel obstruction due to adhesions as he has a history of multiple intra-abdominal surgeries. General surgery will manage SBO. He may need NG tube decompression however placing an NG tube is difficult from patient report due to his anatomy. He may need to have this done under fluoroscopy. At this time the patient has multiple medical comorbidities and is on Humira for psoriasis. He gets 40 mg subcu weekly injection. We will hold his antihypertensives, his atorvastatin, gabapentin, losartanhydrochlorothiazide, metoprolol, and metformin. The patient will be placed on insulin sliding scale. Continue n.p.o. status, IV fluids, and monitor clinically. 06/08: I evaluated the patient after he returned from the OR. The patient had lysis of his adhesions. He underwent exploratory laparotomy. He has an NG tube in place. Advance diet as tolerated per general surgery. He is on narcotic analgesics. A clamp trial will be performed once he has active bowel function. From a medical standpoint, we will continue to hold most of his oral medications from home. Continue insulin sliding scale. Time Spent With Patient Time: Total time spent is greater than 50% in coordination of care (as documented) at patient's floor/unit and/or counseling patient: Total time spent with greater than 50% in coordination of care (as documented) at patient's floor/unit and/or counseling patient:: 25 - 35 minutes QUALITY VTE Deep Vein Thrombosis/Pulmonary Embolism Present on Admission: No
[2022-06-08] MEDS: HYDROmorphone 0.5 MG/0.5 ML SYRINGE IV PRN (18:49)
[2022-06-08] MEDS ORDERED: HYDROmorphone 0.5 MG/0.5 ML SYRINGE ONE (18:56)
[2022-06-08] MEDS ORDERED: ACETAMINOPHEN 650 MG/65 ML BAG IV PRN (19:00)
[2022-06-08] MEDS: ACETAMINOPHEN 1,000 MG/100 ML BAG IV PRN (20:02)
[2022-06-09] MEDS: HYDROmorphone 0.5 MG/0.5 ML SYRINGE IV PRN ×3 (00:51→06:16)
[2022-06-09] MEDS: ACETAMINOPHEN 1,000 MG/100 ML BAG IV PRN ×4 (01:14→23:03)
[2022-06-09] MEDS: LACTATED RINGERS 1,000 ML IV SCH ×3 (01:53→14:36)
[2022-06-09 05:54] LABS: Basophils # (Auto) 0.01 K/mcL (0.00-0.30); Basophils % (Auto) 0.1 % (0.0-2.0); Eosinophils # (Auto) 0 K/mcL (0.00-0.70); Eosinophils % (Auto) 0 % (0.0-7.0); Hematocrit 41.9 % (40.1-51.0); Hemoglobin 14.1 g/dL (13.7-17.5); Lymphocytes # (Auto) 0.83 K/mcL (1.50-4.80); Lymphocytes % (Auto) 5.8 % (15.5-49.0); Mean Cell Volume 90.5 fL (80.0-100.0); Mean Corpuscular HGB Conc 33.7 g/dL (31.0-36.0); Mean Platelet Volume 10.2 fL (7.4-10.4); Monocytes # (Auto) 1.15 K/mcL (0.10-0.90); Monocytes % (Auto) 8.1 % (1.0-12.0); Neutrophils % (Auto) 85.4 % (38.0-78.0); Platelet Count 242 K/mcL (140-440); RBC 4.63 M/mcL (4.63-6.08); Red Cell Distribution Width 12.2 % (11.5-14.5); WBC 14.3 K/mcL (4.5-11.0)
[2022-06-09] MEDS: 0.9 % SODIUM CHLORIDE 10 ML SYRINGE IV SCH ×3 (05:59→20:27)
[2022-06-09 06:18] LABS: ALT/SGPT 14 U/L (<40); AST/SGOT 16 U/L (<40); Albumin 3.1 gm/dL (3.2-5.2); Albumin/Globulin Ratio 1.1 (1.0-2.3); Alkaline Phosphatase 37 U/L (39-117); Bilirubin,Total 0.8 mg/dL (0.1-1.0); Blood Urea Nitrogen 18 mg/dL (8-23); Calcium 9.1 mg/dL (8.6-10.4); Carbon Dioxide 28 mmol/L (22-30); Chloride 95 mmol/L (96-108); Globulin 2.7 gm/dL (2.2-3.7); Glomerular Filtration Rate 36; Glucose 150 mg/dL (70-105)
[2022-06-09] MEDS: INSULIN LISPRO 1 UNIT/0.01 ML UNIT SQ SCH ×4 (08:11→20:32)
[2022-06-09] MEDS: HEPARIN 5,000 UNIT/ML VIAL SQ SCH ×2 (08:12→20:32)
--- NOTE | 2022-06-09 09:05 | General Surgery Progress Note ---
SUBJECTIVE Subjective Patient information: Note initiated : 06/09/22 at 9:03 am Service Date, if different from initiated Date: [] Patient: Neo Chamorro 71 y/o M admitted on 06/07/22 for Abdominal pain. Chief Complaint: [] Principal diagnosis: SBO Interval history: Postop day #1 status post robotic exploration and removal of intra-abdominal mesh. Patient feels sore this morning, did ambulate a small amount last night. Tachycardic low-grade fever this morning. Constitutional Vitals: Vital Signs Temp Pulse Resp BP Pulse Ox O2 Del Method O2 Flow Rate 100.6 F H 121 H 16 132/67 94 4 06/09/22 06:23 06/09/22 06:23 06/09/22 06:23 06/09/22 06:23 06/09/22 06:23 06/09/22 06:23 06/08/22 13:25 Period Temp Pulse Resp BP Sys/[place] Pulse Ox O2 Del Method O2 Flow Rate Last 24 Hr 97.3 F-100.6 F 76-121 8-20 122-177/64-145 88-99 Room Air-Room Air 4-6 Intake and Output 06/08/22 06/09/22 06/09/22 21:59 05:59 13:59 Intake Total 1100 100 Output Total 873 355 Balance 227 -255 Weight 237 lb 11.2 oz Intake & Output: Intake & Output 06/08/22 06/09/22 06/09/22 21:59 05:59 13:59 Intake Total 1100 100 Output Total 873 355 Balance 227 -255 Weight 237 lb 11.2 oz Intake: IV 1100 100 Lactated Ringers 1,000 ml @ 100 1000 mls/hr IV .Q10H MEÑO Rx#: [id number] Oral 0 Output: Gastric Drainage 400 100 Right Nare NG/OG 400 100 Drainage 30 Right Lower Abdomen 30 Urine Catheter Amount 473 Void Amount 225 Other: Urine Appearance Clear Clear Urine Color Straw Yellow # Voids 1 General appearance: no acute distress GI/Abdominal GI/Abdominal exam: Present soft and tenderness; Absent distended Additional comments: [place] drain with serosanguineous fluid. A/P Assessment and plan (1) SBO (small bowel obstruction): Plan: Postop day #1 status post extensive robotic exploration with extensive lysis of adhesions. Mesh was densely adherent to the small bowel, mesh was removed. Clamp NG tube, clear liquid diet. Encourage ambulation. Follow white blood cell count and fever curve. Status: Acute Time Spent With Patient Time: Total time spent is greater than 50% in coordination of care (as documented) at patient's floor/unit and/or counseling patient:
--- NOTE | 2022-06-09 09:57 | Internal Med Progress Note ---
SUBJECTIVE Subjective Patient information: Note initiated : 06/09/22 at 9:55 am Service Date, if different from initiated Date: [] Patient: Neo Chamorro 71 y/o M admitted on 06/07/22 for Abdominal pain. Chief Complaint: [Abdominal pain, nausea, vomiting] Principal diagnosis: SBO Interval history: The patient is postoperative day #1. He continues to complain of abdominal pain and nausea. There was not much output from the NG tube. He denies passing flatus or having a bowel movement. Discussed plan of care with the RN who was present at the bedside Constitutional Vitals: Vital Signs Temp Pulse Resp BP Pulse Ox O2 Del Method O2 Flow Rate 100.6 F H 121 H 16 132/67 94 4 06/09/22 06:23 06/09/22 06:23 06/09/22 06:23 06/09/22 06:23 06/09/22 06:23 06/09/22 06:23 06/08/22 13:25 Period Temp Pulse Resp BP Sys/[place] Pulse Ox O2 Del Method O2 Flow Rate Last 24 Hr 97.3 F-100.6 F 76-121 8-20 122-177/64-145 88-99 Room Air-Room Air 4-6 Intake and Output 06/08/22 06/09/22 06/09/22 21:59 05:59 13:59 Intake Total 1100 100 Output Total 873 355 100 Balance 227 -255 -100 Weight 107.819 kg Intake & Output: Intake & Output 06/08/22 06/09/22 06/09/22 21:59 05:59 13:59 Intake Total 1100 100 Output Total 873 355 100 Balance 227 -255 -100 Weight 107.819 kg Intake: IV 1100 100 Lactated Ringers 1,000 ml @ 100 1000 mls/hr IV .Q10H MEÑO Rx#: [id number] Oral 0 Output: Gastric Drainage 400 100 Right Nare NG/OG 400 100 Drainage 30 Right Lower Abdomen 30 Urine Catheter Amount 473 Void Amount 225 100 Other: Urine Appearance Clear Clear Clear Urine Color Straw Yellow Dark Yellow # Voids 1 Head Head exam: Present atraumatic and normal inspection Eye Eye exam: Present normal appearance ENT ENT exam: Present mucous membranes moist, normal exam and normal external ear exam Neck Neck exam: Present normal inspection Respiratory Respiratory exam: Present normal respiratory exam Cardiovascular Cardiovascular exam: Present normal rate and rhythm GI/Abdominal GI/Abdominal exam: Present distended and tenderness; Absent normal bowel sounds, hyperactive bowel sounds, mass or rigid Back Exam Back exam: Present normal inspection Neurological Exam Neurological exam: Present alert and oriented X3 Skin Skin exam: Present intact and warm OBJ DATA Labs CBC & Chem 7: 06/09/22 05:09 06/09/22 05:09 Labs: Abnormal Lab Results 06/09/22 06/09/22 06/08/22 05:09 05:09 05:10 WBC 14.3 H RBC Hgb Hct MPV Immature Gran % (Auto) 0.6 H Neut % (Auto) 85.4 H Lymph % (Auto) 5.8 L Lymph # (Auto) 0.83 L [place] # (Auto) 1.15 H Immature Gran # 0.09 H Absolute Neutrophils 12.17 H Chloride 95 L BUN Creatinine 1.8 H 1.7 H Glucose 150 H 108 H Alkaline Phosphatase 37 L Total Protein 5.8 L Albumin 3.1 L 06/08/22 06/06/22 06/06/22 05:10 21:09 21:09 WBC 13.9 H RBC 4.29 L Hgb 13.1 L Hct 38.6 L MPV 10.6 H Immature Gran % (Auto) 0.6 H 0.8 H Neut % (Auto) Lymph % (Auto) Lymph # (Auto) [place] # (Auto) 0.98 H Immature Gran # 0.06 H 0.11 H Absolute Neutrophils 10.52 H Chloride BUN 25 H Creatinine 1.9 H Glucose 146 H Alkaline Phosphatase Total Protein Albumin Meds: Medications Dextrose (Dextrose 50% 50 Ml Vial) 0 ml IV UD PRN PRN Reason: Per Sliding Scale Diagnostic Test (Pha) (Accu-Chek 1 Each Strip) 1 each FS ACHS [facility] Last Admin: 06/09/22 07:40 Dose: 1 each Glucose (Dextrose 31 Gm Oral.Susp) 15 gm PO PRN PRN PRN Reason: Hypoglycemia Heparin Sodium (Porcine) (Heparin 5,000 Unit/Ml Vial) 5,000 unit SQ Q12 [facility] Last Admin: 06/09/22 08:12 Dose: 5,000 unit Hydromorphone HCl (Hydromorphone 0.5 Mg/0.5 Ml Syringe) 0.5 mg IV Q2HP PRN; P rotocol PRN Reason: Per Pain Protocol Last Admin: 06/09/22 06:16 Dose: 0.5 mg Lactated Ringer's (Lactated Ringers) 1,000 mls @ 100 mls/hr IV .Q10H MEÑO Last Admin: 06/09/22 06:51 Dose: Not Given Acetaminophen (Ofirmev) 1,000 mg in 100 mls @ 200 mls/hr IV Q6HP PRN; Protocol PRN Reason: PAIN/FEVER > 101 Last Admin: 06/09/22 08:11 Dose: 200 mls/hr Piperacillin Sod/Tazobactam (Sod 3.375 gm/ Dextrose) 50 mls @ 100 mls/hr IV Q6H MEÑO; Protocol Insulin Human Lispro (Insulin Lispro 1 Unit/0.01 Ml Unit) 0 unit SQ ACHS MEÑO; Protocol Last Admin: 06/09/22 08:11 Dose: Not Given Ondansetron HCl (Ondansetron 4 Mg/2 Ml Vial) 4 mg IV Q6HP PRN PRN Reason: Nausea And Vomiting Last Admin: 06/07/22 18:33 Dose: 4 mg Sodium Chloride (0.9 % Sodium Chloride 10 Ml Syringe) 10 ml IV Q8 MEÑO Last Admin: 06/09/22 05:59 Dose: Not Given A/P Assessment and plan (1) SBO (small bowel obstruction): Status: Acute (2) Lumbar radiculopathy: Status: Chronic (3) Psoriasis: Status: Chronic (4) Coronary atherosclerosis: Status: Chronic Qualifiers: Associated angina: with unstable angina Coronary Disease-Associated Artery/Lesion type: [place] artery [place] vs. transplanted heart: [place] heart Qualified Code(s): I25.110 - Atherosclerotic heart disease of [place] coronary artery with unstable angina pectoris (5) DM2 (diabetes mellitus, type 2): Status: Acute (6) CKD (chronic kidney disease): Status: Acute Narrative A/P Narrative: The patient likely has a mechanical small bowel obstruction due to adhesions as he has a history of multiple intra-abdominal surgeries. General surgery will manage SBO. He may need NG tube decompression however placing an NG tube is difficult from patient report due to his anatomy. He may need to have this done under fluoroscopy. At this time the patient has multiple medical comorbidities and is on Humira for psoriasis. He gets 40 mg subcu weekly injection. We will hold his antihypertensives, his atorvastatin, gabapentin, losartanhydr ochlorothiazide, metoprolol, and metformin. The patient will be placed on insulin sliding scale. Continue n.p.o. status, IV fluids, and monitor clinically. 06/08: I evaluated the patient after he returned from the OR. The patient had lysis of his adhesions. He underwent exploratory laparotomy. He has an NG tube in place. Advance diet as tolerated per general surgery. He is on narcotic analgesics. A clamp trial will be performed once he has active bowel function. From a medical standpoint, we will continue to hold most of his oral medications from home. Continue insulin sliding scale. 06/09: The patient is febrile with a temp of 100.6 and is tachycardic. Due to his recent intra-abdominal surgery, we will start Zosyn. Once the patient has passed gas or has had a bowel movement, he will have a clamp trial and subsequent NG tube removal and then advance diet as tolerated. l Time Spent With Patient Time: Total time spent is greater than 50% in coordination of care (as documented) at patient's floor/unit and/or counseling patient: Total time spent with greater than 50% in coordination of care (as documented) at patient's floor/unit and/or counseling patient:: 25 - 35 minutes QUALITY VTE Deep Vein Thrombosis/Pulmonary Embolism Present on Admission: No
[2022-06-09] MEDS: PIPERACILLIN SODIUM/TAZOBACTAM 3.375 GM in DEXTROSE 5% IN WATER 50 ML IV SCH ×4 (10:33→23:48)
[2022-06-10] MEDS: HYDROmorphone 0.5 MG/0.5 ML SYRINGE IV PRN ×4 (01:11→19:18)
[2022-06-10] MEDS: ONDANSETRON 4 MG/2 ML VIAL IV PRN (02:05)
[2022-06-10] MEDS: LACTATED RINGERS 1,000 ML IV SCH ×2 (02:05→12:26)
[2022-06-10] MEDS: ACETAMINOPHEN 1,000 MG/100 ML BAG IV PRN ×3 (04:56→21:26)
[2022-06-10] MEDS: 0.9 % SODIUM CHLORIDE 10 ML SYRINGE IV SCH ×3 (05:14→21:28)
[2022-06-10] MEDS: PIPERACILLIN SODIUM/TAZOBACTAM 3.375 GM in DEXTROSE 5% IN WATER 50 ML IV SCH ×3 (06:02→17:13)
[2022-06-10 06:23] LABS: Basophils # (Auto) 0.02 K/mcL (0.00-0.30); Basophils % (Auto) 0.2 % (0.0-2.0); Eosinophils # (Auto) 0 K/mcL (0.00-0.70); Eosinophils % (Auto) 0 % (0.0-7.0); Hematocrit 44.6 % (40.1-51.0); Hemoglobin 14.2 g/dL (13.7-17.5); Lymphocytes # (Auto) 0.49 K/mcL (1.50-4.80); Mean Cell Volume 92.9 fL (80.0-100.0); Mean Corpuscular HGB Conc 31.8 g/dL (31.0-36.0); Mean Platelet Volume 10.3 fL (7.4-10.4); Monocytes # (Auto) 0.72 K/mcL (0.10-0.90); Monocytes % (Auto) 5.9 % (1.0-12.0); Platelet Count 242 K/mcL (140-440); Red Cell Distribution Width 12.4 % (11.5-14.5); WBC 12.2 K/mcL (4.5-11.0)
[2022-06-10 06:53] LABS: ALT/SGPT 14 U/L (<40); AST/SGOT 14 U/L (<40); Albumin 2.8 gm/dL (3.2-5.2); Albumin/Globulin Ratio 0.8 (1.0-2.3); Alkaline Phosphatase 43 U/L (39-117); Bilirubin,Total 1.6 mg/dL (0.1-1.0); Blood Urea Nitrogen 19 mg/dL (8-23); Calcium 8.6 mg/dL (8.6-10.4); Carbon Dioxide 25 mmol/L (22-30); Chloride 95 mmol/L (96-108); Globulin 3.3 gm/dL (2.2-3.7); Glomerular Filtration Rate 34; Glucose 131 mg/dL (70-105)
[2022-06-10] MEDS: INSULIN LISPRO 1 UNIT/0.01 ML UNIT SQ SCH ×3 (07:33→17:13)
--- NOTE | 2022-06-10 08:06 | EKG ---
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 Measurements Intervals [place] Rate: 87 P: 30 GA: 141 QRS: 39 QRSD: 88 T: 29 QT: 362 QTc: 436 Interpretive Statements Sinus rhythm Borderline low voltage, extremity leads Electronically Signed On 06-10-2022 8:06:08 PDT by Rosendo Blackburn M.D. /store/[email or web address]/[id number].pdf
[2022-06-10] MEDS: HEPARIN 5,000 UNIT/ML VIAL SQ SCH ×2 (08:55→21:28)
[2022-06-10 13:38] LABS: Neutrophils % (Auto) 89.5 % (38.0-78.0)
--- NOTE | 2022-06-10 15:10 | XRay Report ---
CLINICAL INFORMATION: abdominal pain reason abdominal mesh removal. COMPARISON: None. FINDINGS: The stool gas pattern is unremarkable. There is no free air, soft tissue mass, organomegaly or pathologic calcification. Surgical drain overlies the false pelvis IMPRESSION: Normal abdomen Interpreted and Authenticated by: Rosendo Abdalla 06/10/22
--- NOTE | 2022-06-10 16:28 | Internal Med Progress Note ---
SUBJECTIVE Subjective Patient information: Note initiated : 06/10/22 at 4:28 pm Service Date, if different from initiated Date: [] Patient: Neo Chamorro 71 y/o M admitted on 06/07/22 for Abdominal pain. Chief Complaint: [] Principal diagnosis: SBO Interval history: Mr. Chamorro is a 71 year old M with a complex past medical history significant for multiple abdominal surgeries, diabetes mellitus type 2, CAD, hypertension, and CKD who presents to the hospital with 24-hour history of abdominal pain associate with nausea and vomiting. The patient's had prior episodes of bowel obstruction and states that this is very similar. As mentioned, he has had multiple abdominal surgeries including partial colectomy for diverticulitis, appendectomy, and cholecystectomy. The patient states that he was his usual self up until yesterday. He noticed that his abdomen was distended, and he was unable to have a bowel movement or pass gas. On presentation to the hospital, he was hemodynamically stable and afebrile. CT abdomen pelvis revealed mildly distended fluid-filled small bowel. Deep to the hernia patch and findings are consistent with partial mechanical small bowel obstruction. There was no closed-loop obstruction. He has a history of partial colectomy, partial cholecystectomy and appendectomy. There is previous anterior wall hernia repair. The hospitalist service was asked admit the patient in the setting of multiple medical comorbidities. General surgery were also consulted. 06/08: I evaluated the patient after he returned from the OR. The patient had laparoscopic lysis of adhesions. He has an NG tube in place. Advance diet as tolerated per general surgery. He is on narcotic analgesics. A clamp trial will be performed once he has active bowel function. From a medical standpoint, we will continue to hold most of his oral medications from home. Continue insulin sliding scale. 06/09: The patient is febrile with a temp of 100.6 and is tachycardic. Due to his recent intra-abdominal surgery, we will start Zosyn. Once the patient has passed gas or has had a bowel movement, he will have a clamp trial and subsequent NG tube removal and then advance diet as tolerated. 06/10: Postop day #2. Fever to 103 yesterday afternoon. Remains tachycardic. Home meds include metoprolol XL, which has been held. Still with abdominal pain, minimal nausea. Not much NG tube output this morning, is picked up this afternoon. KUB with normal bowel gas pattern this afternoon. Constitutional Vitals: Vital Signs Temp Pulse Resp BP Pulse Ox O2 Del Method O2 Flow Rate 98.3 F 126 H 20 133/71 92 4 06/10/22 15:15 06/10/22 11:58 06/10/22 11:58 06/10/22 11:58 06/10/22 11:58 06/10/22 11:58 06/08/22 13:25 Period Temp Pulse Resp BP Sys/[place] Pulse Ox O2 Del Method O2 Flow Rate Last 24 Hr 98.3 F-103.6 F 97-126 16-20 124-147/68-78 91-94 Room Air-Room Air Intake and Output 06/10/22 06/10/22 06/10/22 05:59 13:59 21:59 Intake Total 1525 1100 100 Output Total 290 360 100 Balance 1235 740 0 Intake & Output: Intake & Output 06/10/22 06/10/22 06/10/22 05:59 13:59 21:59 Intake Total 1525 1100 100 Output Total 290 360 100 Balance 1235 740 0 Intake: IV 1250 1100 100 Lactated Ringers 1,000 ml @ 100 1000 1000 mls/hr IV .Q10H MEÑO Rx#: [id number] Zosyn 3.375 gm In Dextrose 5% 50 100 in Water 50 ml @ 100 mls/hr IV Q6H MEÑO Rx#:[id number] Oral 275 Output: Drainage 65 10 Right Lower Abdomen 65 10 Void Amount 225 350 100 Other: Urine Appearance Clear Clear Urine Color Dark Yellow Dark Yellow Dark Yellow Urine Odor Normal Normal GENERAL: In bed, appears uncomfortable RESPIRATORY: Diminished at bases, no wheezes, no rales CARDIOVASCULAR: Regular ABDOMEN: Distended, mild diffuse tenderness to palpation without guarding or rebound tenderness, rare bowel sounds EXTREMITIES: Trace edema NEURO: Alert, oriented x3, moves all extremities OBJ DATA Labs CBC & Chem 7: 06/10/22 05:11 06/10/22 05:11 Labs: Abnormal Lab Results 06/10/22 06/10/22 06/09/22 05:11 05:11 05:09 WBC 12.2 H RBC Hgb Hct Immature Gran % (Auto) Neut % (Auto) 89.5 H Lymph % (Auto) 4.0 L Lymph # (Auto) 0.49 L [place] # (Auto) Immature Gran # Absolute Neutrophils 10.94 H Sodium 132 L Chloride 95 L 95 L Creatinine 1.9 H 1.8 H Glucose 131 H 150 H Total Bilirubin 1.6 H Alkaline Phosphatase 37 L Total Protein 5.8 L Albumin 2.8 L 3.1 L Albumin/Globulin Ratio 0.8 L 06/09/22 06/08/22 06/08/22 05:09 05:10 05:10 WBC 14.3 H RBC 4.29 L Hgb 13.1 L Hct 38.6 L Immature Gran % (Auto) 0.6 H 0.6 H Neut % (Auto) 85.4 H Lymph % (Auto) 5.8 L Lymph # (Auto) 0.83 L [place] # (Auto) 1.15 H 0.98 H Immature Gran # 0.09 H 0.06 H Absolute Neutrophils 12.17 H Sodium Chloride Creatinine 1.7 H Glucose 108 H Total Bilirubin Alkaline Phosphatase Total Protein Albumin Albumin/Globulin Ratio Meds: Medications Dextrose (Dextrose 50% 50 Ml Vial) 0 ml IV UD PRN PRN Reason: Per Sliding Scale Diagnostic Test (Pha) (Accu-Chek 1 Each Strip) 1 each FS ACHS [facility] Last Admin: 06/10/22 11:42 Dose: 1 each Glucose (Dextrose 31 Gm Oral.Susp) 15 gm PO PRN PRN PRN Reason: Hypoglycemia Heparin Sodium (Porcine) (Heparin 5,000 Unit/Ml Vial) 5,000 unit SQ Q12 [facility] Last Admin: 06/10/22 08:55 Dose: 5,000 unit Hydromorphone HCl (Hydromorphone 0.5 Mg/0.5 Ml Syringe) 0.5 mg IV Q2HP PRN; Protocol PRN Reason: Per Pain Protocol Last Admin: 06/10/22 08:55 Dose: 0.5 mg Lactated Ringer's (Lactated Ringers) 1,000 mls @ 100 mls/hr IV .Q10H MEÑO Last Admin: 06/10/22 12:26 Dose: 100 mls/hr Acetaminophen (Ofirmev) 1,000 mg in 100 mls @ 200 mls/hr IV Q6HP PRN; Protocol PRN Reason: PAIN/FEVER > 101 Last Infusion: 06/10/22 16:07 Dose: Infused Piperacillin Sod/Tazobactam (Sod 3.375 gm/ Dextrose) 50 mls @ 100 mls/hr IV Q6H MEÑO; Protocol Last Infusion: 06/10/22 13:01 Dose: Infused Insulin Human Lispro (Insulin Lispro 1 Unit/0.01 Ml Unit) 0 unit SQ ACHS MEÑO; Protocol Last Admin: 06/10/22 11:43 Dose: Not Given Metoprolol Tartrate (Metoprolol Tartrate 5 Mg/5 Ml Vial) 5 mg IV Q8H MEÑO Stop: 06/11/22 08:01 Ondansetron HCl (Ondansetron 4 Mg/2 Ml Vial) 4 mg IV Q6HP PRN PRN Reason: Nausea And Vomiting Last Admin: 06/10/22 02:05 Dose: 4 mg Sodium Chloride (0.9 % Sodium Chloride 10 Ml Syringe) 10 ml IV Q8 MEÑO Last Admin: 06/10/22 13:01 Dose: Not Given A/P Narrative A/P Narrative: 72-year-old male with psoriasis on Humira, coronary disease, lumbar disc disease and multiple prior abdominal surgeries presents with abdominal pain, found to have small bowel obstruction Small bowel obstruction -Lysis of adhesions with exploratory laparoscopy on 06/08 -Continues with distention and abdominal pain 06/10 -Repeat imaging 06/10 with normal bowel gas pattern on KUB -Remains on piperacillin/tazobactam (started 06/09) Fever -Unclear etiology -Remains on piperacillin/tazobactam -Immunosuppressed with Humira therapy -May need further abdominal imaging -Blood cultures obtained 06/10 Type 2 diabetes mellitus -On sliding scale insulin while n.p.o. Coronary artery disease -No current symptoms -Has had tachycardia postoperatively -Normally is on metoprolol XL at baseline, may represent beta-neno rebound Psoriasis -On Humira Chronic kidney disease -Creatinine 1.7 up to 1.9 Plan: * Continue NG to low wall suction * Further imaging as per surgery * Continue piperacillin/tazobactam * Follow-up cultures drawn 06/10 * Begin scheduled metoprolol, 5 mg every 8 hours to prevent beta-neno withdrawal * Continue with sliding scale insulin * Holding metformin * Holding atorvastatin, losartan/HCTZ * Holding gabapentin * Resume blood pressure and gabapentin when able to take p.o. Case discussed with Dr. Nobles Time Spent With Patient Time: Total time spent is greater than 50% in coordination of care (as documented) at patient's floor/unit and/or counseling patient: Total time spent with greater than 50% in coordination of care (as documented) at patient's floor/unit and/or counseling patient:: 35 - 50 minutes QUALITY VTE Deep Vein Thrombosis/Pulmonary Embolism Present on Admission: No
[2022-06-10] MEDS: METOPROLOL TARTRATE 5 MG/5 ML VIAL IV SCH (17:12)
[2022-06-10] MEDS: 0.9 % SODIUM CHLORIDE 1,000 ML IV SCH (21:27)
[2022-06-10] MEDS ORDERED: 0.9 % SODIUM CHLORIDE 1,000 ML IV ONE (22:42)
[2022-06-11] MEDS: METOPROLOL TARTRATE 5 MG/5 ML VIAL IV SCH ×2 (00:03→07:33)
[2022-06-11] MEDS: PIPERACILLIN SODIUM/TAZOBACTAM 3.375 GM in DEXTROSE 5% IN WATER 50 ML IV SCH ×5 (00:04→23:54)
[2022-06-11] MEDS: HYDROmorphone 0.5 MG/0.5 ML SYRINGE IV PRN ×5 (01:31→23:54)
[2022-06-11] MEDS: INSULIN LISPRO 1 UNIT/0.01 ML UNIT SQ SCH ×5 (01:58→21:59)
[2022-06-11] MEDS: ACETAMINOPHEN 1,000 MG/100 ML BAG IV PRN ×3 (04:44→19:30)
--- NOTE | 2022-06-11 04:46 | Cat Scan Report ---
CLINICAL INFORMATION: Hypotension with postoperative abdominal pain and dyspnea COMPARISON: None. TECHNIQUE: Enteric contrast was utilized. 80 cc of Isovue-370 were injected intravenously, and 50 seconds later, 0.625 mm helical slices were obtained from the lung apices through the subtrochanteric regions of the femurs. Following reconstruction, 2.5 mm sagittal, coronal and axial reformatted images were processed and reviewed at multiple windows and levels. 7 mm MIP reconstructions were obtained through the lungs to optimize nodule detection.The exam was performed using radiation dose optimization techniques including, but not limited to, automated exposure control, adjustment of the mA and/or kV according to patient size and use of iterative reconstruction technique. FINDINGS: Pulmonary parenchymal windows show small bilateral pleural effusions and subsegmental atelectasis in both posterior lower lobes. Mediastinal windows show the heart is mildly enlarged with heavy calcific plaque scattered within the coronary arteries. There is also likely scattered calcifications the mitral and aortic valves. The noncontrast thoracic aorta and pulmonary arteries are normal diameter. There is no adenopathy. Mild pneumomediastinum is seen anterior/inferiorly-predominantly in the pericardial fat. NG tube extends through the esophagus with the tip in the distal gastric antrum. Thyroid is unremarkable. Abdominal images show the gallbladder is surgically absent. Intrahepatic and common bile ducts are normal caliber: CBD is 6 mm. The noncontrasted liver, left kidney, both adrenal glands, spleen and aorta are normal in size, configuration and attenuation without focal lesion. A 3 cm simple cyst inferior pole right kidney is unchanged. No significant renal lesion. Pelvic images show prostate, seminal vesicles and urinary bladder are normal. A surgical drain enters Camper's fascia in the right lower quadrant and extends transversely across peritoneal cavity of the false pelvis. The distal end of the drain is located in the paracolic region of the left colon. There are few loops of mildly dilated small bowel in the lower central abdomen, adjacent to the anterior abdominal wall hernia repair site. The remainder of the small and large bowel are grossly normal. Minimal free intraperitoneal fluid and fluid are present-more concentrated in this region. There are also small amounts of extraperitoneal gas with a small amount of gas in Camper's fascia as expected in the immediate postoperative period. Edema is also seen in the subcutaneous soft tissue the left flank with scattered gas. Bone windows show no osseous abnormality. L3-4 L4-5 there is severe central canal stenosis due to facet arthropathy and disc protrusions. The lesion that IMPRESSION: 1. Mild dilatation of a few loops of small bowel in the left anterior false pelvis deep to the surgical site. This is nonspecific likely related to atypical ileus rather partial small bowel obstruction. Minimal free intraperitoneal fluid and gas are expected in the immediate postsurgical state. Minimal gas in the extraperitoneal soft tissues and Camper's fascia as expected. Pneumomediastinum in the pericardial fat and lower anterior mediastinum likely transmigrated from the peritoneal cavity. There is no support for esophageal perforation or other primary mediastinal pathology. There is no evidence of hemorrhage throughout the chest, abdomen or pelvis 2. Mild pancreatic atrophy. 3. Small bilateral pleural effusions with subsegmental atelectasis both posterior lower lobes Interpreted and Authenticated by: Rosendo Abdalla 06/11/22
[2022-06-11] MEDS: 0.9 % SODIUM CHLORIDE 10 ML SYRINGE IV SCH ×4 (05:39→22:00)
[2022-06-11 07:02] LABS: Blood Urea Nitrogen 32 mg/dL (8-23); Calcium 7.9 mg/dL (8.6-10.4); Carbon Dioxide 22 mmol/L (22-30); Chloride 99 mmol/L (96-108); Glomerular Filtration Rate 24; Glucose 112 mg/dL (70-105)
[2022-06-11] MEDS ORDERED: LACTATED RINGERS 1,000 ML IV ONE ×2 (07:33→20:44)
[2022-06-11 07:43] LABS: Basophils # (Auto) 0.09 K/mcL (0.00-0.30); Basophils % (Auto) 1.1 % (0.0-2.0); Eosinophils # (Auto) 0 K/mcL (0.00-0.70); Eosinophils % (Auto) 0 % (0.0-7.0); Hematocrit 42.1 % (40.1-51.0); Hemoglobin 13.9 g/dL (13.7-17.5); Lymphocytes % (Auto) 4.7 % (15.5-49.0); Mean Cell Volume 91.7 fL (80.0-100.0); Mean Platelet Volume 10.7 fL (7.4-10.4); Monocytes # (Auto) 0.43 K/mcL (0.10-0.90); Monocytes % (Auto) 5.1 % (1.0-12.0); Neutrophils % (Auto) 88.3 % (38.0-78.0); Platelet Count 184 K/mcL (140-440); RBC 4.59 M/mcL (4.63-6.08); Red Cell Distribution Width 12.5 % (11.5-14.5); WBC 8.5 K/mcL (4.5-11.0)
[2022-06-11] MEDS: 0.9 % SODIUM CHLORIDE 1,000 ML IV SCH ×3 (08:41→21:20)
[2022-06-11] MEDS: HEPARIN 5,000 UNIT/ML VIAL SQ SCH ×2 (09:52→21:57)
--- NOTE | 2022-06-11 11:13 | Internal Med Progress Note ---
SUBJECTIVE Subjective Patient information: Note initiated : 06/11/22 at 11:11 am Service Date, if different from initiated Date: [] Patient: Neo Chamorro 71 y/o M admitted on 06/07/22 for Abdominal pain. Chief Complaint: [] Principal diagnosis: SBO Interval history: Mr. Chamorro is a 71 year old M with a complex past medical history significant for multiple abdominal surgeries, diabetes mellitus type 2, CAD, hypertension, and CKD who presents to the hospital with 24-hour history of abdominal pain associate with nausea and vomiting. The patient's had prior episodes of bowel obstruction and states that this is very similar. As mentioned, he has had multiple abdominal surgeries including partial colectomy for diverticulitis, appendectomy, and cholecystectomy. The patient states that he was his usual self up until yesterday. He noticed that his abdomen was distended, and he was unable to have a bowel movement or pass gas. On presentation to the hospital, he was hemodynamically stable and afebrile. CT abdomen pelvis revealed mildly distended fluid-filled small bowel. Deep to the hernia patch and findings are consistent with partial mechanical small bowel obstruction. There was no closed-loop obstruction. He has a history of partial colectomy, partial cholecystectomy and appendectomy. There is previous anterior wall hernia repair. The hospitalist service was asked admit the patient in the setting of multiple medical comorbidities. General surgery were also consulted. 06/08: I evaluated the patient after he returned from the OR. The patient had laparoscopic lysis of adhesions. He has an NG tube in place. Advance diet as tolerated per general surgery. He is on narcotic analgesics. A clamp trial will be performed once he has active bowel function. From a medical standpoint, we will continue to hold most of his oral medications from home. Continue insulin sliding scale. 06/09: The patient is febrile with a temp of 100.6 and is tachycardic. Due to his recent intra-abdominal surgery, we will start Zosyn. Once the patient has passed gas or has had a bowel movement, he will have a clamp trial and subsequent NG tube removal and then advance diet as tolerated. 06/10: Postop day #2. Fever to 103 yesterday afternoon. Remains tachycardic. Home meds include metoprolol XL, which has been held. Still with abdominal pain, minimal nausea. Not much NG tube output this morning, is picked up this afternoon. KUB with normal bowel gas pattern this afternoon. 06/11: Postop day #3. Had recurrent fever yesterday, then yesterday evening blood pressure dropped to the 60s systolic. Responded to IV fluids. Overnight had blood pressures right at a map of 65. Urine output dropped off and CAROLINE on this morning's labs. Urine output has picked up after further fluid boluses. CTAP yesterday evening generally unrevealing. Initially when Dr. Nobles and I reviewed scan, concern for possible mediastinitis. Official read less concerning for that. For barium swallow to check for esophageal extravasation today. White count has normalized. Constitutional Vitals: Vital Signs Temp Pulse Resp BP Pulse Ox O2 Del Method O2 Flow Rate 98.6 F 104 H 25 H 113/80 93 2 06/11/22 10:00 06/11/22 10:00 06/11/22 10:00 06/11/22 10:00 06/11/22 10:00 06/11/22 07:49 06/11/22 09:00 Period Temp Pulse Resp BP Sys/Medellin Pulse Ox O2 Del Method O2 Flow Rate Last 24 Hr 98.1 F-100.8 F 95-135 19-40 62-163/40-109 89-100 Oxymask-Room Air 2-4 Intake and Output 06/10/22 06/11/22 06/11/22 21:59 05:59 13:59 Intake Total 247 3050 1150 Output Total 300 140 156 Balance -53 2910 994 Weight 241 lb 3.2 oz 242 lb 7 oz Intake & Output: Intake & Output 06/10/22 06/11/22 06/11/22 21:59 05:59 13:59 Intake Total 247 3050 1150 Output Total 300 140 156 Balance -53 2910 994 Weight 241 lb 3.2 oz 242 lb 7 oz Intake: IV 247 3050 1150 Sodium Chloride 0.9% 1,000 ml @ 2000 125 mls/hr IV .Q8H [facility] Rx#: [id number] Lactated Ringers 1,000 ml @ 1000 1000 Wide Open IV BOLUS ONE Rx#: [id number] Zosyn 3.375 gm In Dextrose 5% 50 50 50 in Water 50 ml @ 100 mls/hr IV Q6H [facility] Rx#:[id number] Oral 0 Tube Feeding 0 Output: Gastric Drainage 10 Right Nare NG/OG 10 Drainage 30 10 Right Lower Abdomen 30 10 Urine Catheter Amount 110 136 Void Amount 300 Other: Urine Appearance Clear Sediment Clear Uretheral (Woods) Sediment Urine Color Dark Yellow Dark Anita Dark Anita Uretheral (Woods) Dark Anita Dark Anita Urine Odor Normal GENERAL: Ill-appearing, in PCU RESPIRATORY: Lungs diminished bases, otherwise clear, unlabored CARDIOVASCULAR: Regular/tachycardic, no murmur ABDOMEN: Moderately distended, tender with mild-mod rebound tenderness, diminished bowel sounds EXTREMITIES: No peripheral edema NEURO: Alert, oriented x3, moves all extremities OBJ DATA Labs CBC & Chem 7: 06/11/22 05:40 06/11/22 05:40 Labs: Abnormal Lab Results 06/11/22 06/11/22 06/10/22 05:40 05:40 05:11 WBC RBC 4.59 L MPV 10.7 H Immature Gran % (Auto) 0.8 H Neut % (Auto) 88.3 H Lymph % (Auto) 4.7 L Lymph # (Auto) 0.[address] [place] # (Auto) Immature Gran # 0.07 H Absolute Neutrophils Sodium 132 L Chloride 95 L BUN 32 H Creatinine 2.5 H 1.9 H Glucose 112 H 131 H Calcium 7.9 L Total Bilirubin 1.6 H Alkaline Phosphatase Total Protein Albumin 2.8 L Albumin/Globulin Ratio 0.8 L 06/10/22 06/09/22 06/09/22 05:11 05:09 05:09 WBC 12.2 H 14.3 H RBC MPV Immature Gran % (Auto) 0.6 H Neut % (Auto) 89.5 H 85.4 H Lymph % (Auto) 4.0 L 5.8 L Lymph # (Auto) 0.[address] [place] # (Auto) 1.15 H Immature Gran # 0.09 H Absolute Neutrophils 10.94 H 12.17 H Sodium Chloride 95 L BUN Creatinine 1.8 H Glucose 150 H Calcium Total Bilirubin Alkaline Phosphatase 37 L Total Protein 5.8 L Albumin 3.1 L Albumin/Globulin Ratio Meds: Medications Dextrose (Dextrose 50% 50 Ml Vial) 0 ml IV UD PRN PRN Reason: Per Sliding Scale Diagnostic Test (Pha) (Accu-Chek 1 Each Strip) 1 each FS ACHS [facility] Last Admin: 06/11/22 07:07 Dose: 1 each Glucose (Dextrose 31 Gm Oral.Susp) 15 gm PO PRN PRN PRN Reason: Hypoglycemia Heparin Sodium (Porcine) (Heparin 5,000 Unit/Ml Vial) 5,000 unit SQ Q12 [facility] Last Admin: 06/11/22 09:52 Dose: 5,000 unit Hydromorphone HCl (Hydromorphone 0.5 Mg/0.5 Ml Syringe) 0.5 mg IV Q2HP PRN; Protocol PRN Reason: Per Pain Protocol Last Admin: 06/11/22 01:31 Dose: 0.5 mg Acetaminophen (Ofirmev) 1,000 mg in 100 mls @ 200 mls/hr IV Q6HP PRN; Protocol PRN Reason: PAIN/FEVER > 101 Last Infusion: 06/11/22 06:22 Dose: Infused Piperacillin Sod/Tazobactam (Sod 3.375 gm/ Dextrose) 50 mls @ 100 mls/hr IV Q6H [facility]; Protocol Last Infusion: 06/11/22 06:33 Dose: Infused Sodium Chloride (Sodium Chloride 0.9%) 1,000 mls @ 125 mls/hr IV .Q8H [facility] Last Admin: 06/11/22 08:41 Dose: 125 mls/hr Insulin Human Lispro (Insulin Lispro 1 Unit/0.01 Ml Unit) 0 unit SQ ACHS [facility]; Protocol Last Admin: 06/11/22 07:06 Dose: Not Given Ondansetron HCl (Ondansetron 4 Mg/2 Ml Vial) 4 mg IV Q6HP PRN PRN Reason: Nausea And Vomiting Last Admin: 06/10/22 02:05 Dose: 4 mg Sodium Chloride (0.9 % Sodium Chloride 10 Ml Syringe) 10 ml IV Q8 [facility] Last Admin: 06/11/22 05:39 Dose: 10 ml Imaging and cardiology CT scan - abdomen: Status: image reviewed by me Additional comments: IMPRESSION: 1. Mild dilatation of a few loops of small bowel in the left anterior false pelvis deep to the surgical site. This is nonspecific likely related to atypical ileus rather partial small bowel obstruction. Minimal free intraperitoneal fluid and gas are expected in the immediate postsurgical state. Minimal gas in the extraperitoneal soft tissues and Camper's fascia as expected. Pneumomediastinum in the pericardial fat and lower anterior mediastinum likely transmigrated from the peritoneal cavity. There is no support for esophageal perforation or other primary mediastinal pathology. There is no evidence of hemorrhage throughout the chest, abdomen or pelvis 2. Mild pancreatic atrophy. 3. Small bilateral pleural effusions with subsegmental atelectasis both posterior lower lobes A/P Narrative A/P Narrative: 72-year-old male with psoriasis on Humira, coronary disease, lumbar disc disease and multiple prior abdominal surgeries presents with abdominal pain, found to have small bowel obstruction Small bowel obstruction -Lysis of adhesions with exploratory laparoscopy on 06/08 -Continues with distention and abdominal pain 06/10 -Repeat imaging 06/10 with normal bowel gas pattern on KUB -Remains on piperacillin/tazobactam (started 06/09) -Transferred to PCU for hypotension evening 06/10 -Barium swallow to eval for esophageal perforation 06/11 Shock -Systolic blood pressures into the 60s evening 06/10 -Responded to IV fluid bolus of 1 L -As required further boluses a.m. 06/11 -Appears hypovolemia, less likely sepsis Acute kidney injury -Creatinine 2.5 06/11 -At presentation creatinine 1.6 -Suspect prerenal etiology Fever -Unclear etiology -Remains on piperacillin/tazobactam -Immunosuppressed with Humira therapy -May need further abdominal imaging -Blood cultures obtained 06/10, no growth to date 06/11 Type 2 diabetes mellitus -On sliding scale insulin while n.p.o. Coronary artery disease -No current symptoms -Has had tachycardia postoperatively -Normally is on metoprolol XL at baseline, may represent beta-neno rebound Psoriasis -On Humira Chronic kidney disease -Creatinine 1.7 up to 1.9 Plan: * Barium swallow to evaluate for esophageal perforation * Continue piperacillin/tazobactam * Follow-up blood cultures * Recheck renal function electrolytes this afternoon * Hold scheduled metoprolol due to low blood pressure * Continue with NG at low wall suction * Continue to hold metformin, atorvastatin, losartan/HCTZ, gabapentin * Further evaluation pending outcome of barium swallow Case discussed with Dr. Nobles last evening and this morning Time Spent With Patient Time: Total time spent is greater than 50% in coordination of care (as documented) at patient's floor/unit and/or counseling patient: Total time spent with greater than 50% in coordination of care (as documented) at patient's floor/unit and/or counseling patient:: 35 - 50 minutes QUALITY VTE Deep Vein Thrombosis/Pulmonary Embolism Present on Admission: No
[2022-06-11] MEDS ORDERED: DIATRIZOATE MEGLU/DIATRIZO SOD 120 ML BOTTLE PO ONE (11:48)
--- NOTE | 2022-06-11 12:24 | XRay Report ---
CLINICAL INFORMATION: Pneumomediastinum and pneumoperitoneum in the epigastric region on CT. Evaluate for esophageal perforation. TECHNIQUE: Water-soluble contrast was ingested under fluoroscopy was performed of the esophagus during deglutition. Total fluoroscopy time 16 seconds. FINDINGS: NG tube is in place. Tip is in the gastric body. Esophagus is normal in contour and caliber and motility. There is no extravasation to suggest esophageal perforation. The gastric fundus and proximal body are opacified. No extravasation from these regions. IMPRESSION: Normal esophagram. No evidence of extravasation to suggest esophageal perforation Interpreted and Authenticated by: Rosendo Abdalla 06/11/22
--- NOTE | 2022-06-11 14:01 | Internal Med Progress Note ---
SUBJECTIVE Subjective Patient information: Note initiated : 06/11/22 at 1:51 pm Service Date, if different from initiated Date: [] Patient: Neo Chamorro 71 y/o M admitted on 06/07/22 for Abdominal pain. Chief Complaint: [] Principal diagnosis: SBO Interval history: Mr. Chamorro is a 71 year old M with a complex past medical history significant for multiple abdominal surgeries, diabetes mellitus type 2, CAD, hypertension, and CKD who presents to the hospital with 24-hour history of abdominal pain associate with nausea and vomiting. The patient's had prior episodes of bowel obstruction and states that this is very similar. As mentioned, he has had multiple abdominal surgeries including partial colectomy for diverticulitis, appendectomy, and cholecystectomy. The patient states that he was his usual self up until yesterday. He noticed that his abdomen was distended, and he was unable to have a bowel movement or pass gas. On presentation to the hospital, he was hemodynamically stable and afebrile. CT abdomen pelvis revealed mildly distended fluid-filled small bowel. Deep to the hernia patch and findings are consistent with partial mechanical small bowel obstruction. There was no closed-loop obstruction. He has a history of partial colectomy, partial cholecystectomy and appendectomy. There is previous anterior wall hernia repair. The hospitalist service was asked admit the patient in the setting of multiple medical comorbidities. General surgery were also consulted. 06/08: I evaluated the patient after he returned from the OR. The patient had laparoscopic lysis of adhesions. He has an NG tube in place. Advance diet as tolerated per general surgery. He is on narcotic analgesics. A clamp trial will be performed once he has active bowel function. From a medical standpoint, we will continue to hold most of his oral medications from home. Continue insulin sliding scale. 06/09: The patient is febrile with a temp of 100.6 and is tachycardic. Due to his recent intra-abdominal surgery, we will start Zosyn. Once the patient has passed gas or has had a bowel movement, he will have a clamp trial and subsequent NG tube removal and then advance diet as tolerated. 06/10: Postop day #2. Fever to 103 yesterday afternoon. Remains tachycardic. Home meds include metoprolol XL, which has been held. Still with abdominal pain, minimal nausea. Not much NG tube output this morning, is picked up this afternoon. KUB with normal bowel gas pattern this afternoon. 06/11: Postop day #3. Had recurrent fever yesterday, then yesterday evening blood pressure dropped to the 60s systolic. Responded to IV fluids. Overnight had blood pressures right at a map of 65. Urine output dropped off and CAROLINE on this morning's labs. Urine output has picked up after further fluid boluses. CTAP yesterday evening generally unrevealing. Initially when Dr. Nobles and I reviewed scan, concern for possible mediastinitis. Official read less concerning for that. For barium swallow to check for esophageal extravasation today. White count has normalized. Constitutional Vitals: Vital Signs Temp Pulse Resp BP Pulse Ox O2 Del Method O2 Flow Rate 99.3 F H 104 H 23 H 124/82 93 1 06/11/22 12:11 06/11/22 10:00 06/11/22 12:11 06/11/22 12:11 06/11/22 10:00 06/11/22 07:49 06/11/22 12:11 Period Temp Pulse Resp BP Sys/Medellin Pulse Ox O2 Del Method O2 Flow Rate Last 24 Hr 98.1 F-100.8 F 95-135 19-40 62-163/40-109 89-100 Oxymask-Room Air 1-4 Intake and Output 06/10/22 06/11/22 06/11/22 21:59 05:59 13:59 Intake Total 247 3050 1300 Output Total 300 140 197 Balance -53 2910 1103 Weight 109.406 kg 109.968 kg 109.968 kg Patient Weight 06/12/22 05:59 Weight 109.968 kg Intake & Output: Intake & Output 06/10/22 06/11/22 06/11/22 21:59 05:59 13:59 Intake Total 247 3050 1300 Output Total 300 140 197 Balance -53 2910 1103 Weight 109.406 kg 109.968 kg 109.968 kg Intake: IV 247 3050 1300 Sodium Chloride 0.9% 1,000 ml @ 2000 125 mls/hr IV .Q8H [facility] Rx#: [id number] Lactated Ringers 1,000 ml @ 1000 1000 Wide Open IV BOLUS ONE Rx#: [id number] Zosyn 3.375 gm In Dextrose 5% 50 50 100 in Water 50 ml @ 100 mls/hr IV Q6H [facility] Rx#:[id number] Oral 0 Tube Feeding 0 Output: Gastric Drainage 10 Right Nare NG/OG 10 Drainage 30 10 Right Lower Abdomen 30 10 Urine Catheter Amount 110 177 Void Amount 300 Other: Urine Appearance Clear Sediment Clear Uretheral ([place]) Sediment Urine Color Dark Yellow Dark Anita Dark Anita Uretheral ([place]) Dark Anita Dark Anita Urine Odor Normal Exam: General: Alert, Awake, Ill-appearing, obese Eyes/N/T: EOMI, Head/Neck: neck supple, CV: RRR, No murmurs, Pulm: Lungs diminished bases, no wheezing Abd: Moderately distended, tender with mild-mod rebound tenderness, diminished bowel sounds Ext: no clubbing/cyanosis/edema Neuro: Alert, no focal deficits, moves all extremities, Skin: warm/dry OBJ DATA Labs CBC & Chem 7: 06/11/22 05:40 06/11/22 05:40 Labs: Abnormal Lab Results 06/11/22 06/11/22 06/10/22 05:40 05:40 05:11 WBC RBC 4.59 L MPV 10.7 H Immature Gran % (Auto) 0.8 H Neut % (Auto) 88.3 H Lymph % (Auto) 4.7 L Lymph # (Auto) 0.40 L [place] # (Auto) Immature Gran # 0.07 H Absolute Neutrophils Sodium 132 L Chloride 95 L BUN 32 H Creatinine 2.5 H 1.9 H Glucose 112 H 131 H Calcium 7.9 L Total Bilirubin 1.6 H Alkaline Phosphatase Total Protein Albumin 2.8 L Albumin/Globulin Ratio 0.8 L 06/10/22 06/09/22 06/09/22 05:11 05:09 05:09 WBC 12.2 H 14.3 H RBC MPV Immature Gran % (Auto) 0.6 H Neut % (Auto) 89.5 H 85.4 H Lymph % (Auto) 4.0 L 5.8 L Lymph # (Auto) 0.49 L 0.83 L [place] # (Auto) 1.15 H Immature Gran # 0.09 H Absolute Neutrophils 10.94 H 12.17 H Sodium Chloride 95 L BUN Creatinine 1.8 H Glucose 150 H Calcium Total Bilirubin Alkaline Phosphatase 37 L Total Protein 5.8 L Albumin 3.1 L Albumin/Globulin Ratio Meds: Medications Dextrose (Dextrose 50% 50 Ml Vial) 0 ml IV UD PRN PRN Reason: Per Sliding Scale Diagnostic Test (Pha) (Accu-Chek 1 Each Strip) 1 each FS ACHS [facility] Last Admin: 06/11/22 11:59 Dose: 1 each Glucose (Dextrose 31 Gm Oral.Susp) 15 gm PO PRN PRN PRN Reason: Hypoglycemia Heparin Sodium (Porcine) (Heparin 5,000 Unit/Ml Vial) 5,000 unit SQ Q12 [facility] Last Admin: 06/11/22 09:52 Dose: 5,000 unit Hydromorphone HCl (Hydromorphone 0.5 Mg/0.5 Ml Syringe) 0.5 mg IV Q2HP PRN; Protocol PRN Reason: Per Pain Protocol Last Admin: 06/11/22 01:31 Dose: 0.5 mg Acetaminophen (Ofirmev) 1,000 mg in 100 mls @ 200 mls/hr IV Q6HP PRN; Protocol PRN Reason: PAIN/FEVER > 101 Last Infusion: 06/11/22 12:40 Dose: Infused Piperacillin Sod/Tazobactam (Sod 3.375 gm/ Dextrose) 50 mls @ 100 mls/hr IV Q6H [facility]; Protocol Last Infusion: 06/11/22 12:40 Dose: Infused Sodium Chloride (Sodium Chloride 0.9%) 1,000 mls @ 125 mls/hr IV .Q8H [facility] Last Admin: 06/11/22 12:58 Dose: Not Given Insulin Human Lispro (Insulin Lispro 1 Unit/0.01 Ml Unit) 0 unit SQ [facility]; Protocol Last Admin: 06/11/22 11:59 Dose: Not Given Ondansetron HCl (Ondansetron 4 Mg/2 Ml Vial) 4 mg IV Q6HP PRN PRN Reason: Nausea And Vomiting Last Admin: 06/10/22 02:05 Dose: 4 mg Sodium Chloride (0.9 % Sodium Chloride 10 Ml Syringe) 10 ml IV Q8 [facility] Last Admin: 06/11/22 12:58 Dose: Not Given A/P Narrative A/P Narrative: A: *Small bowel obstruction: s/p Ex-lap w/Lysis of adhesions (06/08) -Continues with distention/abdominal pain -Repeat imaging 06/10 with normal bowel gas pattern on KUB -Transferred to PCU for hypotension evening 06/10 *Shock: Appears hypovolemia, less likely sepsis *CAROLINE on CKD III: possible ATN from hypotension -1.2>2.5 *Fever: Unclear etiology -Immunosuppressed with Humira therapy -Blood cultures obtained 06/10, no growth to date 06/11 *DM 2 w/neuropathy: *CAD: No current symptoms -Has had tachycardia postoperatively, Normally on BB at baseline, may represent beta-neno rebound *Psoriasis: On Humira *HTN: on bb/ccb/arb/hctz Plan: -Bowels and NGT per Surgery -Barium swallow to evaluate for esophageal perforation per surgery -IVF, NPO -Continue piperacillin/tazobactam, Follow-up blood cultures -Recheck renal function electrolytes this afternoon, monitor UOP -Hold scheduled metoprolol due to low blood pressure -Continue to hold norvasc/losartan/HCTZ -SSI, hold metformin -ppx: Heparin / H2 full code Time Spent With Patient Time: Total time spent is greater than 50% in coordination of care (as documented) at patient's floor/unit and/or counseling patient: QUALITY VTE Deep Vein Thrombosis/Pulmonary Embolism Present on Admission: No
[2022-06-11 14:14] LABS: Albumin 1.7 gm/dL (3.2-5.2); Blood Urea Nitrogen 35 mg/dL (8-23); Calcium 7.8 mg/dL (8.6-10.4); Carbon Dioxide 24 mmol/L (22-30); Chloride 99 mmol/L (96-108); Glomerular Filtration Rate 26; Glucose 127 mg/dL (70-105); Phosphorous 4.4 mg/dL (2.5-4.5)
[2022-06-11] MEDS ORDERED: ALBUMIN HUMAN 25 GM/100 ML BAG IV ONE (14:56)
[2022-06-11 16:02] LABS: Band Neutrophils % 4 % (0-10); Lymphocytes % 5 % (15-49); Monocytes % (Manual) 4 % (1-12); Platelet Estimate NORMAL (Normal); RBC Morphology NORMAL (Normal); Segmented Neutrophils % 87 % (38-78); Toxic Granulation OCC (None Seen)
--- NOTE | 2022-06-11 16:34 | General Surgery Progress Note ---
SUBJECTIVE Subjective Patient information: Note initiated : 06/11/22 at 4:32 pm Service Date, if different from initiated Date: [] Patient: Neo Chamorro 71 y/o M admitted on 06/07/22 for Abdominal pain. Chief Complaint: [] Principal diagnosis: SBO Interval history: Overnight events noted, CT scan with was read as normal postoperative changes. Swallow done today shows no esophageal perforation. Patient continues to have progressive and increasing abdominal pain, white blood cell count down to normal however lactate is elevated, creatinine elevated. Constitutional Vitals: Vital Signs Temp Pulse Resp BP Pulse Ox O2 Del Method O2 Flow Rate 99.2 F H 116 H 25 H 126/79 91 2 06/11/22 16:00 06/11/22 16:00 06/11/22 16:00 06/11/22 16:00 06/11/22 16:00 06/11/22 07:49 06/11/22 16:00 Period Temp Pulse Resp BP Sys/Medellin Pulse Ox O2 Del Method O2 Flow Rate Last 24 Hr 98.1 F-100.3 F 95-135 17-40 62-127/40-109 89-100 Oxymask-Room Air 1-4 Intake and Output 06/11/22 06/11/22 06/11/22 05:59 13:59 21:59 Intake Total 3050 1300 100 Output Total 140 197 78 Balance 2910 1103 22 Weight 242 lb 7 oz 242 lb 7 oz Patient Weight 06/12/22 05:59 Weight 242 lb 7 oz Intake & Output: Intake & Output 06/11/22 06/11/22 06/11/22 05:59 13:59 21:59 Intake Total 3050 1300 100 Output Total 140 197 78 Balance 2910 1103 22 Weight 242 lb 7 oz 242 lb 7 oz Intake: IV 3050 1300 100 Sodium Chloride 0.9% 1,000 ml @ 2000 125 mls/hr IV .Q8H [facility] Rx#: [id number] Lactated Ringers 1,000 ml @ 1000 1000 Wide Open IV BOLUS ONE Rx#: [id number] Zosyn 3.375 gm In Dextrose 5% 50 100 in Water 50 ml @ 100 mls/hr IV Q6H [facility] Rx#:[id number] Oral 0 Tube Feeding 0 Output: Gastric Drainage 10 Right Nare NG/OG 10 Drainage 30 10 15 Right Lower Abdomen 30 10 15 Drainage 25 Right Lower Abdomen 25 Urine Catheter Amount 110 177 38 Other: Urine Appearance Sediment Clear Clear Uretheral ([place]) Sediment Urine Color Dark Anita Dark Anita Dark Anita Uretheral ([place]) Dark Anita Dark Anita Urine Odor Strong General appearance: no acute distress GI/Abdominal GI/Abdominal exam: Present soft, distended, rebound and tenderness; Absent rigid A/P Assessment and plan (1) SBO (small bowel obstruction): Plan: Postop day #3 status post extensive lysis of adhesions. It is not progressing with increasing abdominal pain. Long discussion with patient and about continued conservative management versus repeat exploration. They verbalized understanding and desire to continue with exploration. Plan: Exploratory laparotomy. Status: Acute Time Spent With Patient Time: Total time spent is greater than 50% in coordination of care (as documented) at patient's floor/unit and/or counseling patient:
[2022-06-11] MEDS ORDERED: fentaNYL 100 MCG/2 ML VIAL IV ONE (17:40)
[2022-06-11] MEDS ORDERED: ROCURONIUM 10 MG/ML ML IV ONE (17:40)
[2022-06-11] MEDS ORDERED: SUGAMMADEX SODIUM 200 MG/2 ML VIAL IV ONE (17:40)
[2022-06-11] MEDS ORDERED: PHENYLephrine 1 MG/10 ML SYRINGE (ANEST) ONE (17:40)
[2022-06-11] MEDS ORDERED: DEXAMETHASONE 10 MG/ML VIAL ONE (17:40)
[2022-06-11] MEDS ORDERED: ONDANSETRON 4 MG/2 ML VIAL ONE (17:40)
[2022-06-11] MEDS ORDERED: LIDOCAINE HCL/PF 100 MG/5 ML SYRINGE IV ONE (17:40)
[2022-06-11] MEDS ORDERED: PROPOFOL 200 MG/20 ML VIAL IV ONE (17:40)
[2022-06-11] MEDS ORDERED: KETAMINE 50 MG/ML Syringe (ANEST) IV ONE (17:40)
--- NOTE | 2022-06-11 18:45 | Procedure Note ---
Procedures - Central Line Placement Right IJ Consent obtained: verbal consent (Performed at surgeons request while patient under anesthesia), written consent Date of Procedure: 06/11/22 Time out performed: Yes Patient placed on monitor/pulse ox: Yes prep: mask, sterile gown, sterile gloves, cap Central line prep: 2% Chlorhexidine scrub, large sterile drapes applied, proper hand hygiene Ultrasound used for placement: Yes Central line lumen inserted: 20 cm Post procedure: sutured in place, good blood return, all ports aspirated, flushed, capped, sterile dressing applied Patient tolerated procedure: well, no complications Complications: none Additional comments: Awaiting CXR; hospitalist to manage
[2022-06-11] MEDS ORDERED: ONDANSETRON 4 MG/2 ML VIAL IV PRN (18:47)
[2022-06-11] MEDS ORDERED: PROMETHAZINE 25 MG/ML VIAL IV PRN (18:47)
[2022-06-11] MEDS ORDERED: HYDROmorphone 0.5 MG/0.5 ML SYRINGE IV PRN (18:47)
[2022-06-11] MEDS ORDERED: IPRATROPIUM/ALBUTEROL 3 ML AMPUL.NEB NEB PRN (18:47)
[2022-06-11] MEDS ORDERED: LACTATED RINGERS 250 ML IV PRN (18:47)
[2022-06-11] MEDS ORDERED: NALOXONE HCL 0.4 MG/ML VIAL IV PRN (18:47)
[2022-06-11] MEDS ORDERED: MEPERIDINE 25 MG/ML VIAL IV PRN (18:47)
[2022-06-11] MEDS ORDERED: diphenhydrAMINE 50 MG/ML VIAL IV PRN (18:47)
[2022-06-11] MEDS ORDERED: METHOCARBAMOL 1,000 MG/10 ML VIAL IV PRN (18:47)
[2022-06-11] MEDS ORDERED: LACTATED RINGERS 1,000 ML IV SCH (19:00)
--- NOTE | 2022-06-11 19:26 | Operative Note ---
Brief Operative Note Date of procedure: 06/11/22 Pre-op diagnosis: Postop exploratory laparotomy extensive lysis of adhesions w ith suspected b Post-op diagnosis: same Procedure: Exploratory laparotomy, small bowel resection Grafts/Implants: No Anesthesia: GETA Findings: Several small perforations Complications: none Surgeon: Devon Nobles Estimated blood loss (cc): 50 Specimens Removed/Pathology: other (Portion of small bowel) Condition: stable Disposition: PACU Operative Note Operative Note: After all risk benefits and alternatives to the procedure were discussed with the patient at length he verbalized understanding and desire to continue with the procedure. Patient was taken main operating placed upon the operative table. General anesthesia was induced over endotracheal tube. Patient's prepped and draped in the standard sterile surgical fashion. Surgical timeout was taken to verify patient and procedure being performed. My incision was made carried down through skin subcutaneous tissue this was carried from just below the xiphoid to just below the umbilicus. The incision was carried down through the fascia and into the abdominal cavity. Upon entry into the abdominal cavity there was several 100 cc of yudi succus. This was suctioned free from the abdominal cavity the abdominal cavity was copiously irrigated and then extensive lysis of adhesion was taken out to be able to run the bowel from the ligament of Treitz down to the terminal ileum. At this time due to the extensive nature of the operation decision was made to have anesthesia place a central line. The portion of the bowel that had been densely adherent to the left lower quadrant mesh had 2 other small perforations, the prior enterotomies repairs were completely intact without evidence of perforation. Since this segment of bowel and had multiple injuries the decision was made to resect this part of the bowel. Just proximal and distal to the area of bowel that had been into the mesh was transected with a ELINOR stapler. The mesentery was removed with a energy device. The bowel was passed off the field for surgical pathology. A [id number] functional end-to-end stapled anastomosis was performed, the enterotomy was closed with a running 3-0 PDS suture. Lembert sutures of 3-0 Vicryl were then used to strengthen the staple line. The bowel was then returned to its anatomical location after once again running the bowel from the ligament of Treitz down to the terminal ileum with no further areas of suspected injury or serosal damage. The abdominal cavity was then copiously irrigated with 5 L of warmed normal saline. Full abdominal expiration was then once again undertaken, the stomach, remainder of the small bowel, colon were all intact without evidence of injury. A 19 [place] drain was then placed into the pelvis and brought out through the right upper quadrant stab incision. The midline fascial defect was then reapproximated with a running oh looped PDS suture. Skin was loosely approximated with surgical sandoval. Drain and midline dressings were then applied. Patient was then awakened from anesthesia transferred postanesthesia care unit awake alert in good condition.
[2022-06-11] MEDS: fentaNYL 100 MCG/2 ML VIAL IV PRN ×2 (19:49→19:53)
[2022-06-11] MEDS ORDERED: ALBUMIN HUMAN 12.5 GM/50 ML BAG IV ONE (20:44)
[2022-06-11] MEDS ORDERED: NOREPINEPHRINE BITARTRATE 8 MG in 0.9 % SODIUM CHLORIDE 242 ML IV PRN (20:46)
[2022-06-11] MEDS ORDERED: 0.9 % SODIUM CHLORIDE 250 ML IV SCH (21:00)
[2022-06-11] MEDS ORDERED: ALBUMIN HUMAN 50 ML IV ONE (21:09)
[2022-06-11] MEDS: FAMOTIDINE/PF 20 MG/2 ML VIAL IV SCH (21:57)
--- NOTE | 2022-06-12 02:53 | XRay Report ---
CLINICAL INFORMATION: Central line placement COMPARISON: 04/26/2018 TECHNIQUE: Portable FINDINGS: Moderate cardiomegaly is likely unchanged given technique differences. Mild mediastinal widening noted. Right IJ central line tip overlies the SVC right atrial junction. NG tube extends obvious the thrombolytics the gastric body. Moderate consolidated at atelectasis of most of the left lower lobe with small left pleural effusion is a new finding. Smaller region of atelectasis in the right lower lobe. IMPRESSION: Central line in satisfactory position. No complication from line placement Densely consolidated atelectasis of most of the left lower lobe with small left pleural effusion. Small region of right lower lobe atelectasis Moderate cardiomegaly-no evidence of CHF Interpreted and Authenticated by: Rosendo Abdalla 06/12/22
[2022-06-12] MEDS: HYDROmorphone 0.5 MG/0.5 ML SYRINGE IV PRN ×7 (04:19→21:14)
[2022-06-12] MEDS: 0.9 % SODIUM CHLORIDE 10 ML SYRINGE IV SCH ×3 (05:47→21:15)
[2022-06-12] MEDS: PIPERACILLIN SODIUM/TAZOBACTAM 3.375 GM in DEXTROSE 5% IN WATER 50 ML IV SCH ×3 (05:47→17:40)
[2022-06-12] MEDS: 0.9 % SODIUM CHLORIDE 1,000 ML IV SCH ×3 (05:51→23:30)
[2022-06-12 06:21] LABS: Hematocrit 39.6 % (40.1-51.0); Hemoglobin 12.7 g/dL (13.7-17.5); Mean Corpuscular HGB Conc 32.1 g/dL (31.0-36.0); Platelet Count 155 K/mcL (140-440); RBC 4.26 M/mcL (4.63-6.08); Red Cell Distribution Width 12.8 % (11.5-14.5); WBC 9.2 K/mcL (4.5-11.0)
[2022-06-12 06:47] LABS: ALT/SGPT 11 U/L (<40); AST/SGOT 17 U/L (<40); Albumin 2.1 gm/dL (3.2-5.2); Albumin/Globulin Ratio 0.8 (1.0-2.3); Alkaline Phosphatase 39 U/L (39-117); Bilirubin,Direct 0.5 mg/dL (<0.3); Blood Urea Nitrogen 41 mg/dL (8-23); Calcium 7.1 mg/dL (8.6-10.4); Carbon Dioxide 24 mmol/L (22-30); Chloride 101 mmol/L (96-108); Globulin 2.7 gm/dL (2.2-3.7); Glomerular Filtration Rate 24; Glucose 126 mg/dL (70-105); Lactate Dehydrogenase 208 U/L (135-225); Phosphorous 4.6 mg/dL (2.5-4.5); Triglycerides 183 mg/dL (<150); Uric Acid 5.3 mg/dL (2.5-8.0)
[2022-06-12 06:56] LABS: Band Neutrophils % 30 % (0-10); Lymphocytes % 3 % (15-49); Monocytes % (Manual) 4 % (1-12); Platelet Estimate NORMAL (Normal); RBC Morphology NORMAL (Normal); Segmented Neutrophils % 63 % (38-78)
[2022-06-12] MEDS: INSULIN LISPRO 1 UNIT/0.01 ML UNIT SQ SCH ×4 (07:00→21:26)
[2022-06-12] MEDS: ACETAMINOPHEN 1,000 MG/100 ML BAG IV PRN ×2 (07:01→16:23)
--- NOTE | 2022-06-12 07:26 | Internal Med Progress Note ---
SUBJECTIVE Subjective Patient information: Note initiated : 06/12/22 at 7:19 am Service Date, if different from initiated Date: [] Patient: Neo Chamorro 71 y/o M admitted on 06/07/22 for Abdominal pain. Chief Complaint: [] Principal diagnosis: SBO Interval history: Mr. Chamorro is a 71 year old M with a complex past medical history significant for multiple abdominal surgeries, diabetes mellitus type 2, CAD, hypertension, and CKD who presents to the hospital with 24-hour history of abdominal pain associate with nausea and vomiting. The patient's had prior episodes of bowel obstruction and states that this is very similar. As mentioned, he has had multiple abdominal surgeries including partial colectomy for diverticulitis, appendectomy, and cholecystectomy. The patient states that he was his usual self up until yesterday. He noticed that his abdomen was distended, and he was unable to have a bowel movement or pass gas. On presentation to the hospital, he was hemodynamically stable and afebrile. CT abdomen pelvis revealed mildly distended fluid-filled small bowel. Deep to the hernia patch and findings are consistent with partial mechanical small bowel obstruction. There was no closed-loop obstruction. He has a history of partial colectomy, partial cholecystectomy and appendectomy. There is previous anterior wall hernia repair. The hospitalist service was asked admit the patient in the setting of multiple medical comorbidities. General surgery were also consulted. 06/08: I evaluated the patient after he returned from the OR. The patient had laparoscopic lysis of adhesions. He has an NG tube in place. Advance diet as tolerated per general surgery. He is on narcotic analgesics. A clamp trial will be performed once he has active bowel function. From a medical standpoint, we will continue to hold most of his oral medications from home. Continue insulin sliding scale. 06/09: The patient is febrile with a temp of 100.6 and is tachycardic. Due to his recent intra-abdominal surgery, we will start Zosyn. Once the patient has passed gas or has had a bowel movement, he will have a clamp trial and subsequent NG tube removal and then advance diet as tolerated. 06/10: Postop day #2. Fever to 103 yesterday afternoon. Remains tachycardic. Home meds include metoprolol XL, which has been held. Still with abdominal pain, minimal nausea. Not much NG tube output this morning, is picked up this afternoon. KUB with normal bowel gas pattern this afternoon. 06/11: Postop day #3. Had recurrent fever yesterday, then yesterday evening blood pressure dropped to the 60s systolic. Responded to IV fluids. Overnight had blood pressures right at a map of 65. Urine output dropped off and CAROLIEN on this morning's labs. Urine output has picked up after further fluid boluses. CTAP yesterday evening generally unrevealing. Initially when Dr. Nobles and I reviewed scan, concern for possible mediastinitis. Official read less concerning for that. For barium swallow to check for esophageal extravasation today. White count has normalized. 06/12 Patient feeling a little better today after exploratory laparotomy yesterday with several small micro perforations noted and subsequent bowel resection. Urine output borderline at 30 cc/h the last 1 was 15 cc. Patient just went into A. fib RVR, asymptomatic. Patient denies history of A. fib. Abdominal pain relatively controlled. He has some nausea but no vomiting. Patient denies flatus or bowel movements Review of Systems: denies headache/fever/chills/vomiting/chest pain/diarrhea. Otherwise see above. Constitutional Vitals: Vital Signs Temp Pulse Resp BP Pulse Ox O2 Del Method O2 Flow Rate 97.1 F 96 H 22 116/91 96 4 06/12/22 07:01 06/12/22 07:01 06/12/22 07:01 06/12/22 07:01 06/12/22 07:01 06/11/22 21:00 06/12/22 07:01 Period Temp Pulse Resp BP Sys/Medellin Pulse Ox O2 Del Method O2 Flow Rate Last 24 Hr 97.1 F-99.5 F 75-123 14-33 86-173/34-111 86-100 Oxymask-Simple Mask 1-6 Intake and Output 06/11/22 06/12/22 06/12/22 21:59 05:59 13:59 Intake Total 2899 2049 50 Output Total 548 627 26 Balance 2352 1423 24 Weight 112.151 kg Intake & Output: Intake & Output 06/11/22 06/12/22 06/12/22 21:59 05:59 13:59 Intake Total 2902049 50 Output Total 548 627 26 Balance 2352 1423 24 Weight 112.151 kg Intake: IV 1300 2050 50 Sodium Chloride 0.9% 1,000 ml @ 1000 1000 125 mls/hr IV .Q8H [facility] Rx#: [id number] Lactated Ringers 1,000 ml @ 1000 Wide Open IV BOLUS ONE Rx#: [id number] Zosyn 3.375 gm In Dextrose 5% 50 50 50 in Water 50 ml @ 100 mls/hr IV Q6H [facility] Rx#:[id number] Oral 0 Tube Feeding 0 IV - Manual Only 1600 Output: Gastric Drainage 100 300 Right Nare NG/OG 100 300 Drainage 105 80 Abdomen [place] Drain 80 Right Lower Abdomen 105 Drainage 105 Abdomen [place] Drain 80 Right Lower Abdomen 25 Urine Catheter Amount 188 247 26 Estimated Blood Loss 50 Other: Urine Appearance Sediment Sediment Clear Uretheral (Woods) Sediment Clear Urine Color Tea Colored Yellow Brown Dark Yellow Uretheral (Woods) Tea Colored Dark Anita Urine Odor Strong Exam: General: Alert, Awake, obese Eyes/N/T: EOMI, Head/Neck: neck supple, CV: Tacky and irregular, No murmurs, Pulm: Lungs diminished bases, no wheezing Abd: Moderately distended, tender generalized, diminished bowel sounds Ext: no clubbing/cyanosis, trace b/l LE edema Neuro: Alert, no focal deficits, moves all extremities, Skin: warm/dry OBJ DATA Labs CBC & Chem 7: 06/12/22 04:41 06/12/22 04:42 Labs: Abnormal Lab Results 06/12/22 06/12/22 06/11/22 04:42 04:41 14:47 WBC RBC 4.26 L Hgb 12.7 L Hct 39.6 L MPV 11.0 H Immature Gran % (Auto) Neut % (Auto) Lymph % (Auto) Lymph # (Auto) Seg Neutrophils % Band Neutrophils % 30 H Lymphocytes % 3 L Immature Gran # Absolute Neutrophils Toxic Granulation VBG Lactic Acid 3.7 H Sodium Chloride BUN 41 H Creatinine 2.5 H Glucose 126 H Calcium 7.1 L Phosphorus 4.6 H Total Bilirubin Direct Bilirubin 0.5 H GGT 7 L Total Protein 4.8 L Albumin 2.1 L Albumin/Globulin Ratio 0.8 L Triglycerides 183 H 06/11/22 06/11/22 06/11/22 14:40 13:13 05:40 WBC RBC Hgb Hct MPV Immature Gran % (Auto) Neut % (Auto) Lymph % (Auto) Lymph # (Auto) Seg Neutrophils % 87 H Band Neutrophils % Lymphocytes % 5 L Immature Gran # Absolute Neutrophils Toxic Granulation Occ A VBG Lactic Acid Sodium Chloride BUN 35 H 32 H Creatinine 2.4 H 2.5 H Glucose 127 H 112 H Calcium 7.8 L 7.9 L Phosphorus Total Bilirubin Direct Bilirubin GGT Total Protein Albumin 1.7 L Albumin/Globulin Ratio Triglycerides 06/11/22 06/10/22 06/10/22 05:40 05:11 05:11 WBC 12.2 H RBC 4.59 L Hgb Hct MPV 10.7 H Immature Gran % (Auto) 0.8 H Neut % (Auto) 88.3 H 89.5 H Lymph % (Auto) 4.7 L 4.0 L Lymph # (Auto) 0.40 L 0.49 L Seg Neutrophils % Band Neutrophils % Lymphocytes % Immature Gran # 0.07 H Absolute Neutrophils 10.94 H Toxic Granulation VBG Lactic Acid Sodium 132 L Chloride 95 L BUN Creatinine 1.9 H Glucose 131 H Calcium Phosphorus Total Bilirubin 1.6 H Direct Bilirubin GGT Total Protein Albumin 2.8 L Albumin/Globulin Ratio 0.8 L Triglycerides Meds: Medications Dextrose (Dextrose 50% 50 Ml Vial) 0 ml IV UD PRN PRN Reason: Per Sliding Scale Diagnostic Test (Pha) (Accu-Chek 1 Each Strip) 1 each FS ACHS [facility] Last Admin: 06/12/22 07:00 Dose: 1 each Famotidine (Famotidine/Pf 20 Mg/2 Ml Vial) 20 mg IV HS [facility] Last Admin: 06/11/22 21:57 Dose: 20 mg Glucose (Dextrose 31 Gm Oral.Susp) 15 gm PO PRN PRN PRN Reason: Hypoglycemia Heparin Sodium (Porcine) (Heparin 5,000 Unit/Ml Vial) 5,000 unit SQ Q12 [facility] Last Admin: 06/11/22 21:57 Dose: 5,000 unit Hydromorphone HCl (Hydromorphone 0.5 Mg/0.5 Ml Syringe) 0.5 mg IV Q2HP PRN; Protocol PRN Reason: Per Pain Protocol Last Admin: 06/12/22 04:19 Dose: 0.5 mg Acetaminophen (Ofirmev) 1,000 mg in 100 mls @ 200 mls/hr IV Q6HP PRN; Protocol PRN Reason: PAIN/FEVER > 101 Last Admin: 06/12/22 07:01 Dose: 200 mls/hr Piperacillin Sod/Tazobactam (Sod 3.375 gm/ Dextrose) 50 mls @ 100 mls/hr IV Q6H [facility]; Protocol Last Infusion: 06/12/22 06:17 Dose: Infused Sodium Chloride (Sodium Chloride 0.9%) 1,000 mls @ 125 mls/hr IV .Q8H [facility] Last Admin: 06/12/22 05:51 Dose: 125 mls/hr Norepinephrine Bitartrate 8 mg (/ Sodium Chloride) 250 mls @ 18.75 mls/hr IV Q12HP PRN; Protocol PRN Reason: Hypotension Sodium Chloride (Sodium Chloride 0.9%) 250 mls @ 20 mls/hr IV .[id number] [facility] Last Admin: 06/12/22 00:05 Dose: Not Given Insulin Human Lispro (Insulin Lispro 1 Unit/0.01 Ml Unit) 0 unit SQ ACHS [facility]; Protocol Last Admin: 06/12/22 07:00 Dose: Not Given Ondansetron HCl (Ondansetron 4 Mg/2 Ml Vial) 4 mg IV Q6HP PRN PRN Reason: Nausea And Vomiting Last Admin: 06/10/22 02:05 Dose: 4 mg Sodium Chloride (0.9 % Sodium Chloride 10 Ml Syringe) 10 ml IV Q8 [facility] Last Admin: 06/12/22 05:47 Dose: Not Given Sodium Chloride (0.9 % Sodium Chloride 10 Ml Syringe) 10 ml IV Q12 [facility] Last Admin: 06/11/22 21:59 Dose: 10 ml Sodium Chloride (0.9 % Sodium Chloride 10 Ml Syringe) 10 ml IV UD PRN PRN Reason: Maintain line patency A/P Narrative A/P Narrative: A: *Small bowel obstruction: s/p Ex-lap w/Lysis of adhesions (06/08), s/p Ex-lap SB resection for microperf's (06/11) -Transferred to PCU for hypotension evening 06/10 *Shock,septic: responded to IVF -bandemia, fevers(improved) -cvp *CAROLINE on CKD III: possible ATN from hypotension -1.9>1.7>>1.9>>2.5 -UOP mediocre *Atelectasis: *Afib w/RVR: no history of, likely 2/2 acute illness and being off home BB *CAD: No current symptoms -Has had tachycardia postoperatively, Normally on BB at baseline, may represent beta-neno rebound *DM 2 w/neuropathy: *Psoriasis: On Humira *HTN: on bb/ccb/arb/hctz Plan: -Bowels and NGT per Surgery -IVF, NPO -monitor cvp and UOP -Continue piperacillin/tazobactam, Follow-up blood cultures -IS -restart home metoprolol but as IV d/t npo, prn lopressor, echo for afib -Continue to hold norvasc/losartan/HCTZ -SSI, hold metformin -ppx: Heparin / H2 full code Time Spent With Patient Time: Total time spent is greater than 50% in coordination of care (as documented) at patient's floor/unit and/or counseling patient: Critical Care Time: Yes Total Critical Care Time: 50 QUALITY VTE Deep Vein Thrombosis/Pulmonary Embolism Present on Admission: No
[2022-06-12] MEDS: HEPARIN 5,000 UNIT/ML VIAL SQ SCH ×2 (09:19→21:14)
[2022-06-12] MEDS: METOPROLOL TARTRATE 5 MG/5 ML VIAL IV SCH ×3 (09:19→21:45)
[2022-06-12] MEDS ORDERED: ALBUMIN HUMAN 12.5 GM/50 ML BAG IV ONE (11:35)
[2022-06-12] MEDS: METOPROLOL TARTRATE 5 MG/5 ML VIAL IV PRN ×2 (11:39→19:33)
[2022-06-12] MEDS: oxyCODONE HCL 5 MG TABLET PO PRN (11:52)
--- NOTE | 2022-06-12 12:26 | General Surgery Progress Note ---
SUBJECTIVE Subjective Patient information: Note initiated : 06/12/22 at 12:23 pm Service Date, if different from initiated Date: [] Patient: Neo Chamorro 71 y/o M admitted on 06/07/22 for Abdominal pain. Chief Complaint: [] Principal diagnosis: SBO Interval history: Postop day #1 status post exploratory laparotomy, small bowel resection. Patient feels somewhat better today, minimal output out of NG tube. Constitutional Vitals: Vital Signs Temp Pulse Resp BP Pulse Ox O2 Del Method O2 Flow Rate 97.3 F 117 H 19 116/82 94 3 06/12/22 12:01 06/12/22 12:01 06/12/22 12:01 06/12/22 12:01 06/12/22 12:01 06/12/22 08:28 06/12/22 12:01 Period Temp Pulse Resp BP Sys/Medellin Pulse Ox O2 Del Method O2 Flow Rate Last 24 Hr 96.9 F-99.5 F 61-134 0-33 86-173/34-138 86-100 Nasal Cannula- Simple Mask 2-6 Intake and Output 06/11/22 06/12/22 06/12/22 21:59 05:59 13:59 Intake Total 2900 2050 150 Output Total 548 627 130 Balance 2352 1423 20 Weight 247 lb 4 oz Intake & Output: Intake & Output 06/11/22 06/12/22 06/12/22 21:59 05:59 13:59 Intake Total 2900 2050 150 Output Total 548 627 130 Balance 2352 1423 20 Weight 247 lb 4 oz Intake: IV 1300 2050 150 Sodium Chloride 0.9% 1,000 ml @ 1000 1000 125 mls/hr IV .Q8H [facility] Rx#: [id number] Lactated Ringers 1,000 ml @ 1000 Wide Open IV [facility]OLUS ONE Rx#: [id number] Zosyn 3.375 gm In Dextrose 5% 50 50 50 in Water 50 ml @ 100 mls/hr IV Q6H [facility] Rx#:[id number] Oral 0 Tube Feeding 0 0 IV - Manual Only 1600 Output: Gastric Drainage 100 300 Right Nare NG/OG 100 300 Drainage 105 80 Abdomen [place] Drain 80 Right Lower Abdomen 105 Drainage 105 Abdomen [place] Drain 80 Right Lower Abdomen 25 Urine Catheter Amount 188 247 130 Estimated Blood Loss 50 Other: Urine Appearance Sediment Sediment Clear Uretheral (Woods) Sediment Clear Cloudy Urine Color Tea Colored Yellow Brown Dark Yellow Uretheral ([place]s) Tea Colored Dark Anita Light Ainta Urine Color Tea Colored Urine Odor Strong General appearance: no acute distress GI/Abdominal GI/Abdominal exam: Present soft and tenderness; Absent distended Additional comments: Dressing is clean dry and intact A/P Assessment and plan (1) SBO (small bowel obstruction): Plan: Continue n.p.o. Continuing G-tube. Continue to follow labs, encourage ambulation. Status: Acute Time Spent With Patient Time: Total time spent is greater than 50% in coordination of care (as documented) at patient's floor/unit and/or counseling patient:
--- NOTE | 2022-06-12 13:00 | EKG ---
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 Measurements Intervals [place] Rate: 139 P: [place]: QRS: 11 QRSD: 77 T: -88 QT: 352 QTc: 536 Interpretive Statements Atrial fibrillation Low voltage, extremity leads Nonspecific T abnormalities, lateral leads Prolonged QT interval Electronically Signed On 06-12-2022 13:00:30 PDT by Charles Hood D.O. /store/M0/[id number]
[2022-06-12] MEDS ORDERED: LACTATED RINGERS 1,000 ML IV ONE (18:02)
[2022-06-12] MEDS ORDERED: AMIODARONE 150 MG in DEXTROSE 5% IN WATER 50 ML IV ONE (20:27)
[2022-06-12] MEDS ORDERED: AMIODARONE 150 MG/3 ML VIAL IV ONE (21:10)
[2022-06-12] MEDS: FAMOTIDINE/PF 20 MG/2 ML VIAL IV SCH (21:15)
[2022-06-12] MEDS ORDERED: DILTIAZEM 125 MG/25 ML VIAL IV ONE (22:33)
[2022-06-12] MEDS: DILTIAZEM 125 MG in DEXTROSE 5% IN WATER 100 ML IV SCH (22:34)
[2022-06-13] MEDS: PIPERACILLIN SODIUM/TAZOBACTAM 3.375 GM in DEXTROSE 5% IN WATER 50 ML IV SCH ×2 (00:06→05:43)
[2022-06-13] MEDS: ACETAMINOPHEN 1,000 MG/100 ML BAG IV PRN ×2 (01:26→09:18)
[2022-06-13] MEDS ORDERED: LACTATED RINGERS 250 ML IV ONE (02:05)
[2022-06-13] MEDS: HYDROmorphone 0.5 MG/0.5 ML SYRINGE IV PRN ×3 (05:08→18:01)
[2022-06-13] MEDS: 0.9 % SODIUM CHLORIDE 1,000 ML IV SCH ×3 (05:22→16:37)
[2022-06-13 07:22] LABS: ALT/SGPT 12 U/L (<40); AST/SGOT 17 U/L (<40); Albumin 1.8 gm/dL (3.2-5.2); Albumin/Globulin Ratio 0.6 (1.0-2.3); Alkaline Phosphatase 58 U/L (39-117); Bilirubin,Direct 0.3 mg/dL (<0.3); Bilirubin,Total 0.6 mg/dL (0.1-1.0); Blood Urea Nitrogen 58 mg/dL (8-23); Calcium 6.8 mg/dL (8.6-10.4); Carbon Dioxide 22 mmol/L (22-30); Chloride 105 mmol/L (96-108); Globulin 3.1 gm/dL (2.2-3.7); Glomerular Filtration Rate 22; Glucose 127 mg/dL (70-105); Lactate Dehydrogenase 263 U/L (135-225); Phosphorous 4.5 mg/dL (2.5-4.5); Triglycerides 239 mg/dL (<150); Uric Acid 6.3 mg/dL (2.5-8.0)
--- NOTE | 2022-06-13 07:38 | Internal Med Progress Note ---
SUBJECTIVE Subjective Patient information: Note initiated : 06/13/22 at 7:30 am Service Date, if different from initiated Date: [] Patient: Neo Chamorro 71 y/o M admitted on 06/07/22 for Abdominal pain. Chief Complaint: [] Principal diagnosis: SBO Interval history: Mr. Chamorro is a 71 year old M with a complex past medical history significant for multiple abdominal surgeries, diabetes mellitus type 2, CAD, hypertension, and CKD who presents to the hospital with 24-hour history of abdominal pain associate with nausea and vomiting. The patient's had prior episodes of bowel obstruction and states that this is very similar. As mentioned, he has had multiple abdominal surgeries including partial colectomy for diverticulitis, appendectomy, and cholecystectomy. The patient states that he was his usual self up until yesterday. He noticed that his abdomen was distended, and he was unable to have a bowel movement or pass gas. On presentation to the hospital, he was hemodynamically stable and afebrile. CT abdomen pelvis revealed mildly distended fluid-filled small bowel. Deep to the hernia patch and findings are consistent with partial mechanical small bowel obstruction. There was no closed-loop obstruction. He has a history of partial colectomy, partial cholecystectomy and appendectomy. There is previous anterior wall hernia repair. The hospitalist service was asked admit the patient in the setting of multiple medical comorbidities. General surgery were also consulted. 06/08: I evaluated the patient after he returned from the OR. The patient had laparoscopic lysis of adhesions. He has an NG tube in place. Advance diet as tolerated per general surgery. He is on narcotic analgesics. A clamp trial will be performed once he has active bowel function. From a medical standpoint, we will continue to hold most of his oral medications from home. Continue insulin sliding scale. 06/09: The patient is febrile with a temp of 100.6 and is tachycardic. Due to his recent intra-abdominal surgery, we will start Zosyn. Once the patient has passed gas or has had a bowel movement, he will have a clamp trial and subsequent NG tube removal and then advance diet as tolerated. 06/10: Postop day #2. Fever to 103 yesterday afternoon. Remains tachycardic. Home meds include metoprolol XL, which has been held. Still with abdominal pain, minimal nausea. Not much NG tube output this morning, is picked up this afternoon. KUB with normal bowel gas pattern this afternoon. 06/11: Postop day #3. Had recurrent fever yesterday, then yesterday evening blood pressure dropped to the 60s systolic. Responded to IV fluids. Overnight had blood pressures right at a map of 65. Urine output dropped off and CAROLINE on this morning's labs. Urine output has picked up after further fluid boluses. CTAP yesterday evening generally unrevealing. Initially when Dr. Nobles and I reviewed scan, concern for possible mediastinitis. Official read less concerning for that. For barium swallow to check for esophageal extravasation today. White count has normalized. 06/12 Patient feeling a little better today after exploratory laparotomy yesterday with several small micro perforations noted and subsequent bowel resection. Urine output borderline at 30 cc/h the last 1 was 15 cc. Patient just went into A. fib RVR, asymptomatic. Patient denies history of A. fib. Abdominal pain relatively controlled. He has some nausea but no vomiting. Patient denies flatus or bowel movements 06/13 Patient is not passing gas. Patient has abdominal pain. Feels about the same as yesterday. Urine output mediocre. Creatinine mild minimally worse today. We will get renal ultrasound and consult nephrology. Patient started on diltiazem drip last night for difficult to control A. fib flutter. Converted to normal sinus rhythm early this morning. Will need to start nutrition today, TPN given his n.p.o. status. Leukocytosis but bandemia improving. Lactic acidosis improved. Review of Systems: denies headache/fever/chills/vomiting/chest pain/diarrhea. Otherwise see above. Constitutional Vitals: Vital Signs Temp Pulse Resp BP Pulse Ox O2 Del Method O2 Flow Rate 97.2 F 79 18 179/157 93 0 06/13/22 06:00 06/13/22 06:00 06/13/22 06:00 06/13/22 06:00 06/13/22 06:00 06/12/22 20:00 06/13/22 06:00 Period Temp Pulse Resp BP Sys/Medellin Pulse Ox O2 Del Method O2 Flow Rate Last 24 Hr 96.9 F-98.4 F 59-134 0-31 87-179/64-157 91-99 Nasal Cannula- Oxymask 0-5 Intake and Output 06/12/22 06/13/22 06/13/22 21:59 05:59 13:59 Intake Total 902 1421 50 Output Total 458 464 27 Balance 444 957 23 Weight 116.392 kg Intake & Output: Intake & Output 06/12/22 06/13/22 06/13/22 21:59 05:59 13:59 Intake Total 902 1421 50 Output Total 458 464 27 Balance 444 957 23 Weight 116.392 kg Intake: IV 902 1421 50 Sodium Chloride 0.9% 1,000 ml @ 1000 125 mls/hr IV .Q8H [facility] Rx#: [id number] Cordarone 150 mg In Dextrose 5% 53 in Water 50 ml @ 300 mls/hr IV ONCE ONE Rx#:[id number] Cardizem 125 mg In Dextrose 5% 21 in Water 100 ml @ 5 MG/HR 5 mls /hr IV Q12H [facility] Rx#:[id number] Lactated Ringers 250 ml @ Wide 699 250 Open IV BOLUS ONE Rx#: [id number] Zosyn 3.375 gm In Dextrose 5% 50 50 50 in Water 50 ml @ 100 mls/hr IV Q6H [facility] Rx#:[id number] Tube Feeding 0 Output: Gastric Drainage 200 200 Right Nare NG/OG 200 200 Drainage 40 10 Abdomen [place] Drain 40 10 Urine Catheter Amount 218 254 27 Other: Urine Appearance Clear Clear Clear Uretheral (Woods) Clear Clear Urine Color Bright Yellow Bright Yellow Bright Yellow Uretheral (Woods) Bright Yellow Bright Yellow Exam: General: Alert, Awake, obese Eyes/N/T: EOMI, Head/Neck: neck supple, CV: RRR, No murmurs, Pulm: mildly diminished b/l, no wheezing Abd: Moderately distended, tender generalized, diminished bowel sounds Ext: no clubbing/cyanosis, trace b/l LE edema, UE edema Neuro: Alert, no focal deficits, moves all extremities, Skin: warm/dry OBJ DATA Labs CBC & Chem 7: 06/13/22 05:47 06/13/22 05:47 Labs: Abnormal Lab Results 06/13/22 06/12/22 06/12/22 05:47 08:08 04:42 RBC Hgb Hct MPV Immature Gran % (Auto) Neut % (Auto) Lymph % (Auto) Lymph # (Auto) Seg Neutrophils % Band Neutrophils % Lymphocytes % Immature Gran # Toxic Granulation VBG Lactic Acid 3.2 H BUN 58 H 41 H Creatinine 2.7 H 2.5 H Glucose 127 H 126 H Calcium 6.8 L 7.1 L Phosphorus 4.6 H Magnesium 2.6 H Direct Bilirubin 0.3 H 0.5 H GGT 6 L 7 L Lactate Dehydrogenase 263 H Total Protein 4.9 L 4.8 L Albumin 1.8 L 2.1 L Albumin/Globulin Ratio 0.6 L 0.8 L Triglycerides 239 H 183 H 06/12/22 06/11/22 06/11/22 04:41 14:47 14:40 RBC 4.26 L Hgb 12.7 L Hct 39.6 L MPV 11.0 H Immature Gran % (Auto) Neut % (Auto) Lymph % (Auto) Lymph # (Auto) Seg Neutrophils % 87 H Band Neutrophils % 30 H Lymphocytes % 3 L 5 L Immature Gran # Toxic Granulation Occ A VBG Lactic Acid 3.7 H BUN Creatinine Glucose Calcium Phosphorus Magnesium Direct Bilirubin GGT Lactate Dehydrogenase Total Protein Albumin Albumin/Globulin Ratio Triglycerides 06/11/22 06/11/22 06/11/22 13:13 05:40 05:40 RBC 4.59 L Hgb Hct MPV 10.7 H Immature Gran % (Auto) 0.8 H Neut % (Auto) 88.3 H Lymph % (Auto) 4.7 L Lymph # (Auto) 0.40 L Seg Neutrophils % Band Neutrophils % Lymphocytes % Immature Gran # 0.07 H Toxic Granulation VBG Lactic Acid BUN 35 H 32 H Creatinine 2.4 H 2.5 H Glucose 127 H 112 H Calcium 7.8 L 7.9 L Phosphorus Magnesium Direct Bilirubin GGT Lactate Dehydrogenase Total Protein Albumin 1.7 L Albumin/Globulin Ratio Triglycerides 06/10/22 05:11 RBC Hgb Hct MPV Immature Gran % (Auto) Neut % (Auto) 89.5 H Lymph % (Auto) Lymph # (Auto) Seg Neutrophils % Band Neutrophils % Lymphocytes % Immature Gran # Toxic Granulation VBG Lactic Acid BUN Creatinine Glucose Calcium Phosphorus Magnesium Direct Bilirubin GGT Lactate Dehydrogenase Total Protein Albumin Albumin/Globulin Ratio Triglycerides Meds: Medications Dextrose (Dextrose 50% 50 Ml Vial) 0 ml IV UD PRN PRN Reason: Per Sliding Scale Diagnostic Test (Pha) (Accu-Chek 1 Each Strip) 1 each FS ACHS SOFIA Last Admin: 06/12/22 21:25 Dose: 1 each Famotidine (Famotidine/Pf 20 Mg/2 Ml Vial) 20 mg IV HS SOFIA Last Admin: 06/12/22 21:15 Dose: 20 mg Glucose (Dextrose 31 Gm Oral.Susp) 15 gm PO PRN PRN PRN Reason: Hypoglycemia Heparin Sodium (Porcine) (Heparin 5,000 Unit/Ml Vial) 5,000 unit SQ Q12 SOFIA Last Admin: 06/12/22 21:14 Dose: 5,000 unit Hydromorphone HCl (Hydromorphone 0.5 Mg/0.5 Ml Syringe) 0.5 mg IV Q1HP PRN; Protocol PRN Reason: Per Pain Protocol Last Admin: 06/13/22 05:08 Dose: 0.5 mg Acetaminophen (Ofirmev) 1,000 mg in 100 mls @ 200 mls/hr IV Q6HP PRN; Protocol PRN Reason: PAIN/FEVER > 101 Last Infusion: 06/13/22 02:56 Dose: Infused Piperacillin Sod/Tazobactam (Sod 3.375 gm/ Dextrose) 50 mls @ 100 mls/hr IV Q6H [facility]; Protocol Last Infusion: 06/13/22 06:13 Dose: Infused Sodium Chloride (Sodium Chloride 0.9%) 1,000 mls @ 125 mls/hr IV .Q8H [facility] Last Admin: 06/13/22 05:22 Dose: Not Given Norepinephrine Bitartrate 8 mg (/ Sodium Chloride) 250 mls @ 18.75 mls/hr IV Q12HP PRN; Protocol PRN Reason: Hypotension Diltiazem HCl 125 mg/ Dextrose 125 mls @ 5 mls/hr IV Q12H [facility]; Protocol Last Titration: 06/13/22 02:40 Dose: 0 mg/hr, 0 mls/hr Insulin Human Lispro (Insulin Lispro 1 Unit/0.01 Ml Unit) 0 unit SQ [facility]; Protocol Last Admin: 06/12/22 21:26 Dose: Not Given Metoprolol Tartrate (Metoprolol Tartrate 5 Mg/5 Ml Vial) 5 mg IV Q2HP PRN PRN Reason: Tachyarrhythmias HR>110 Last Admin: 06/12/22 19:33 Dose: 5 mg Ondansetron HCl (Ondansetron 4 Mg/2 Ml Vial) 4 mg IV Q6HP PRN PRN Reason: Nausea And Vomiting Last Admin: 06/10/22 02:05 Dose: 4 mg Oxycodone HCl (Oxycodone Hcl 5 Mg Tablet) 5 mg PO Q4HP PRN; Protocol PRN Reason: Per Pain Protocol Last Admin: 06/12/22 11:52 Dose: 5 mg Sodium Chloride (0.9 % Sodium Chloride 10 Ml Syringe) 10 ml IV Q12 SOFIA Last Admin: 06/12/22 21:15 Dose: 10 ml Sodium Chloride (0.9 % Sodium Chloride 10 Ml Syringe) 10 ml IV UD PRN PRN Reason: Maintain line patency A/P Narrative A/P Narrative: A: *Small bowel obstruction: s/p Ex-lap w/Lysis of adhesions (06/08), s/p Ex-lap SB resection for microperf's (06/11) -Transferred to PCU for hypotension evening 06/10 *Severe Sepsis w/Hypotension and lactic acidosis: responded to IVF -Leukocytosis but bandemia resolved, fevers(resolved) -lactic acidosis resolved *CAROLINE on CKD III: possible ATN from hypotension -1.9>1.7>>1.9>>2.5>>2.7 -UOP mediocre *Atelectasis: *Afib/flutter w/RVR: no history of, likely 2/2 acute illness and being off home BB -echo with good EF -started on dilt gtt last night and converted to NSR 0238 *CAD: No current symptoms -Has had tachycardia postoperatively, Normally on BB at baseline, may represent beta-neno rebound *DM 2 w/neuropathy: *Psoriasis: On Humira *HTN: on bb/ccb/arb/hctz Plan: -Bowels and NGT per Surgery -NPO, start TPN, IVF per nephro -monitor UOP -renal u/s and Consult nephrology -Continue piperacillin/tazobactam, Follow-up blood cultures neg thus far -wean of dilt gtt to sofia IV BB -IS -Continue to hold norvasc/losartan/HCTZ -SSI, hold metformin -ppx: Heparin / H2 full code Time Spent With Patient Time: Total time spent is greater than 50% in coordination of care (as documented) at patient's floor/unit and/or counseling patient: Total time spent with greater than 50% in coordination of care (as documented) at patient's floor/unit and/or counseling patient:: 35 - 50 minutes QUALITY VTE Deep Vein Thrombosis/Pulmonary Embolism Present on Admission: No
[2022-06-13 07:48] LABS: Basophils % (Auto) 0.6 % (0.0-2.0); Eosinophils # (Auto) 0 K/mcL (0.00-0.70); Eosinophils % (Auto) 0 % (0.0-7.0); Hematocrit 38.4 % (40.1-51.0); Hemoglobin 12.6 g/dL (13.7-17.5); Lymphocytes # (Auto) 0.71 K/mcL (1.50-4.80); Lymphocytes % (Auto) 4.1 % (15.5-49.0); Mean Cell Volume 92.3 fL (80.0-100.0); Mean Corpuscular HGB Conc 32.8 g/dL (31.0-36.0); Mean Platelet Volume 11.4 fL (7.4-10.4); Monocytes # (Auto) 0.62 K/mcL (0.10-0.90); Monocytes % (Auto) 3.6 % (1.0-12.0); Neutrophils % (Auto) 85.4 % (38.0-78.0); Platelet Count 146 K/mcL (140-440); RBC 4.16 M/mcL (4.63-6.08); Red Cell Distribution Width 13.1 % (11.5-14.5); WBC 17.4 K/mcL (4.5-11.0)
[2022-06-13] MEDS: INSULIN LISPRO 1 UNIT/0.01 ML UNIT SQ SCH ×3 (07:54→17:32)
[2022-06-13 08:01] LABS: Anisocytosis 1+ (None Seen); Band Neutrophils % 1 % (0-10); Dohle Bodies OCC (None Seen); Lymphocytes % 2 % (15-49); Metamyelocytes % 1 %; Myelocytes % 1 %; Platelet Estimate NORMAL (Normal); Poikilocytosis 1+ (None Seen); Polychromasia OCC (None Seen); RBC Morphology ABNORMAL (Normal); Reactive Lymphocytes 1 % (0-2); Segmented Neutrophils % 94 % (38-78); Toxic Granulation 1+ (None Seen)
--- NOTE | 2022-06-13 08:40 | Nephrology Consult Note ---
HPI Data of Consult Patient: new to practice Consult date: 06/13/22 Requesting physician: Prashanth Chaves Primary Care Provider: Kaylynn Lopes Consult Narrative Patient Information: Note initiated : 06/13/22 at 8:33 am Patient: Neo Chamorro 71 y/o M admitted on 06/07/22 for Abdominal pain. Chief Complaint: Abdominal pain Neo Chamorro is a 71-year-old male with a history of multiple abdominal surgeries, diabetes mellitus type 2, CAD, hypertension, and CKD stage 3 (followed by Dr. Paulino). He presented to ED for 24-hour history of abdominal pain associated with nausea and vomiting. He was admitted on 06/07/22. He had robotic assisted exploratory laparoscopy, extensive lysis of adhesions, removal of intra-abdominal mesh on 06/08/22. He had exploratory laparotomy, small bowel resection on 06/11/22. Serum creatinine had a rising trend since admission. Urine output has been >500 ml/day. cc:: CC: Waldemar Darnell MD Constitutional Constitutional: Present lethargy and weakness EENT Nose, mouth and throat: Present other (NG tube) Cardiovascular Cardiovascular: Present edema; Absent chest pain Respiratory Respiratory: Absent dyspnea or wheezing Gastrointestinal Gastrointestinal: Present abdominal pain Genitourinary Genitourinary: other (Woods catheter) Musculoskeletal Musculoskeletal: Absent joint swelling Integumentary Integumentary: Absent pruritus or rash Neurological Neurological: Present weakness; Absent confusion Psychiatric Psychiatric: Absent anxiety or panic attacks Hematologic/Lymphatic Hematologic/Lymphatic: Absent easy bleeding or easy bruising Allergic/Immunologic Allergic/Immunologic: Absent tongue swelling or uticaria PFSH PFSH All Active Problems (Updated 06/13/22 @ 08:38 by Vilma Bliss MD) Acute renal failure with acute tubular necrosis superimposed on stage 3a chronic kidney disease (Acute) CKD (chronic kidney disease) (Acute) DM2 (diabetes mellitus, type 2) (Acute) SBO (small bowel obstruction) (Acute) Radiculopathy, lumbosacral region (Acute) Lumbar radiculopathy (Chronic) Lumbar stenosis with neurogenic claudication (Chronic) GERD (gastroesophageal reflux disease) (Chronic) Psoriasis (Chronic) Diverticulitis (Chronic) Hypertension (Chronic) Kidney disease (Chronic) Lower back pain (Chronic) Strain of thoracic region (Chronic) Common cold virus (Chronic) Unstable angina pectoris (Chronic) Coronary atherosclerosis (Chronic) CRF (chronic renal failure) (Chronic) Medical History Common cold virus Coronary atherosclerosis CRF (chronic renal failure) stage III to IV Diverticulitis GERD (gastroesophageal reflux disease) Hypertension Kidney disease Lower back pain Lumbar radiculopathy Lumbar stenosis with neurogenic claudication Psoriasis Radiculopathy, lumbosacral region Strain of thoracic region Unstable angina pectoris Surgical History History of appendectomy History of back surgery L4-5 decompression History of cholecystectomy History of gastric surgery History of hernia repair History of neck surgery ACD History of spinal fusion Family History Father Heart attack Hypertension Arthritis Mother Heart attack Coronary artery disease Hypertension Family/Other Diabetes Cancer Kidney disease Brother Cancer Diabetes Hypertension Sister Diabetes Social History (Updated 05/07/21 @ 13:29 by Christi Allan) marital status: education level: high school occupational status: retired occupation: [employer] smoking status: Former smoker alcohol intake frequency: does not drink substance use type: does not use MEDS/ALLERGIES Home Medications and Allergies Home Medications Medication Instructions Recorded Confirmed Type adalimumab 40 mg/0.8 mL 40 mg SQ WEEKLY 04/24/18 06/07/22 History subcutaneous syringe kit (Humira) atorvastatin 20 mg tablet 20 mg PO ONCE 04/24/21 06/07/22 History metoprolol succinate 25 mg 25 mg PO BID 04/24/21 06/07/22 History tablet,extended release 24 hr losartan 50 mg-hydrochlorothiazide 1 tab PO QDAY 05/07/21 06/07/22 History 12.5 mg tablet Pepcid 20 mg PO DAILY 06/07/22 06/07/22 History amlodipine 5 mg tablet 1 tab PO QDAY 06/07/22 06/07/22 History cholecalciferol (vitamin D3) 50 mcg PO DAILY 06/07/22 06/07/22 History gabapentin 100 mg capsule 1 cap PO QID 06/07/22 06/07/22 History loperamide 2 mg capsule 1 cap PO QDAY 06/07/22 06/07/22 History (Anti-Diarrheal (loperamide)) metformin 500 mg tablet,extended 1 tab PO BID 06/07/22 06/07/22 History release 24 hr Allergies Allergy/AdvReac Type Severity Reaction Status Date / Time No Known Drug Allergies Allergy Verified 06/06/22 20:55 Physical Examination Vital Signs Vital signs: Temp Pulse Resp BP Pulse Ox O2 Del Method O2 Flow Rate 97.2 F 87 26 H 131/96 92 0 06/13/22 08:00 06/13/22 08:00 06/13/22 08:00 06/13/22 08:00 06/13/22 08:00 06/12/22 20:00 06/13/22 06:00 General Appearance General appearance: well-developed and well-nourished EENT EENT: mucous membranes moist Respiratory Respiratory: course breath sounds Cardiovascular Cardiology: edema and regular rate Gastrointestinal Gastrointestinal: tenderness Integumentary Integumentary: no rash Neurologic Neurologic: no focal deficit and alert and oriented x3 Psychiatric Psychiatric: mood/affect appropriate and cooperative Results Lab Results Result Diagrams: 06/13/22 05:47 06/13/22 05:47 Lab results: Most recent lab results Calcium 6.8 mg/dL (8.6-10.4) L 06/13/22 05:47 Phosphorus 4.5 mg/dL (2.5-4.5) 06/13/22 05:47 Magnesium 2.6 mg/dL (1.6-2.5) H 06/13/22 05:47 A/P Assessment and plan (1) Acute renal failure with acute tubular necrosis superimposed on stage 3a chronic kidney disease: Assessment and plan: Neo Chamorro is a 71-year-old male with a history of multiple abdominal surgeries, diabetes mellitus type 2, CAD, hypertension, and CKD stage 3 (followed by Dr. Paulino). He presented to ED for 24-hour history of abdominal pain associated with nausea and vomiting. He was admitted on 06/07/22. He had robotic assisted exploratory laparoscopy, extensive lysis of adhesions, removal of intra-abdominal mesh on 06/08/22. He had exploratory laparotomy, small bowel resection on 06/11/22. Serum creatinine had a rising trend since admission. Urine output has been >500 ml/day. Acute kidney injury, likely prerenal initially, suspected progression to acute tubular necrosis on chronic kidney disease stage 3a. There is recent IV contrast administration with CT on 06/06/22. There is no history of NSAID use. Work up: No urinalysis. Urine Sodium on 06/11/22: 14 mmol/L. CT Abdomen and Pelvis without contrast on 06/11/22: The noncontrasted liver, left kidney, both adrenal glands, spleen and aorta are normal in size, configuration and attenuation without focal lesion. A 3 cm simple cyst inferior pole right kidney is unchanged. No significant renal lesion. CT Abdomen and Pelvis with contrast on 06/06/22: No solid renal mass. No hydronephrosis. No obstructing or nonobstructing calculi. Benign 3 cm right lower pole renal cyst. No hydroureter. No ureteral calculus. No bladder stone. No detectable bladder mass. Progress: Serum creatinine increased from 2.5 to 2.7 in the past 24 hours. Baseline serum creatinine: 1.5 (eGFR 47) on 04/24/18, 1.9 (eGFR 34) on 06/06/22. Urine output: 350 ml reported in the past 12 hours. Fluid overload. I/O: +16L since admit. No obvious uremic symptoms. Recommendations/Plan: No urgent acute hemodialysis need. Avoid fluid overload which may lead to hemodialysis. IVF at a total rate of 100 ml/hr or less. Furosemide 80 mg IV Q12 ordered. Avoid NSAIDs, nephrotoxic medications and IV contrast. Monitor BMP and urine output. Status: Acute Time Spent With Patient Time: Total time spent is greater than 50% in coordination of care (as documented) at patient's floor/unit and/or counseling patient:
[2022-06-13] MEDS: FUROSEMIDE 100 MG/10 ML VIAL IV SCH ×2 (08:57→20:35)
[2022-06-13] MEDS: 0.9 % SODIUM CHLORIDE 10 ML SYRINGE IV SCH ×2 (08:57→20:37)
[2022-06-13] MEDS: HEPARIN 5,000 UNIT/ML VIAL SQ SCH ×2 (08:57→20:36)
[2022-06-13] MEDS ORDERED: TPN PER PHARMACY IV SCH (09:00)
[2022-06-13] MEDS: DILTIAZEM 125 MG in DEXTROSE 5% IN WATER 100 ML IV SCH ×2 (10:49→21:25)
[2022-06-13] MEDS: METOPROLOL TARTRATE 5 MG/5 ML VIAL IV SCH ×4 (10:51→22:34)
[2022-06-13] MEDS: PIPERACILLIN SODIUM/TAZOBACTAM 2.25 GM in DEXTROSE 5% IN WATER 50 ML IV SCH ×2 (11:30→17:32)
--- NOTE | 2022-06-13 12:06 | Ultrasound Report ---
CLINICAL INFORMATION: Acute renal failure COMPARISON: Abdomen and pelvic CT 06/06/2022 FINDINGS: Both kidneys are normal and symmetric in size, position, configuration and echotexture: The right is 11.5 x 5 cm and the left ethmoid 6 x 6 cm. A 3.2 cm simple cyst is again seen in the inferior pole the right kidney. No stones or solid lesions. No evidence of hydronephrosis. The arterial blood flow is grossly normal to both kidneys on color Doppler. Woods catheter is within the urinary bladder which is decompressed. No gross abnormality. IMPRESSION: 2 x 2 centimeters simple cyst inferior pole right kidney unchanged from CT. No significant renal abnormality. Interpreted and Authenticated by: Rosendo Abdalla 06/13/22
--- NOTE | 2022-06-13 13:09 | General Surgery Progress Note ---
SUBJECTIVE Subjective Patient information: Note initiated : 06/13/22 at 1:07 pm Service Date, if different from initiated Date: [] Patient: Neo Chamorro 71 y/o M admitted on 06/07/22 for Abdominal pain. Chief Complaint: [] Principal diagnosis: SBO Interval history: Status post exploratory laparotomy with small bowel resection for bowel perforation. Patient feels somewhat better this morning although still distended, no flatus, no bowel movement. Patient having difficulty ambulating. Constitutional Vitals: Vital Signs Temp Pulse Resp BP Pulse Ox O2 Del Method O2 Flow Rate 97.2 F 87 26 H 131/96 92 0 06/13/22 08:00 06/13/22 08:00 06/13/22 08:00 06/13/22 08:00 06/13/22 08:00 06/12/22 20:00 06/13/22 06:00 Period Temp Pulse Resp BP Sys/Medellin Pulse Ox O2 Del Method O2 Flow Rate Last 24 Hr 97.0 F-98.4 F 59-133 12-31 87-179/64-157 92-99 Oxymask 0-3 Intake and Output 06/12/22 06/13/22 06/13/22 21:59 05:59 13:59 Intake Total 902 1421 1200 Output Total 458 464 440 Balance 444 957 760 Weight 256 lb 9.6 oz 256 lb 9.6 oz Patient Weight 06/14/22 05:59 Weight 256 lb 9.6 oz Intake & Output: Intake & Output 06/12/22 06/13/22 06/13/22 21:59 05:59 13:59 Intake Total 902 1421 1200 Output Total 458 464 440 Balance 444 957 760 Weight 256 lb 9.6 oz 256 lb 9.6 oz Intake: IV 902 1421 1200 Sodium Chloride 0.9% 1,000 ml @ 1000 1000 125 mls/hr IV .Q8H [facility] Rx#: [id number] Cordarone 150 mg In Dextrose 5% 53 in Water 50 ml @ 300 mls/hr IV ONCE ONE Rx#:[id number] Cardizem 125 mg In Dextrose 5% 21 in Water 100 ml @ 5 MG/HR 5 mls /hr IV Q12H [facility] Rx#:[id number] Lactated Ringers 250 ml @ Wide 699 250 Open IV BOLUS ONE Rx#: [id number] Zosyn 2.25 gm In Dextrose 5% in 50 Water 50 ml @ 100 mls/hr IV Q6H [facility] Rx#:[id number] Zosyn 3.375 gm In Dextrose 5% 50 50 50 in Water 50 ml @ 100 mls/hr IV Q6H [facility] Rx#:[id number] Tube Feeding 0 0 Output: Gastric Drainage 200 200 Right Nare NG/OG 200 200 Drainage 40 10 Abdomen [place] Drain 40 10 Urine Catheter Amount 218 254 440 Other: Urine Appearance Clear Clear Clear Uretheral (Woods) Clear Clear Clear Urine Color Bright Yellow Bright Yellow Tea Colored Uretheral (Woods) Bright Yellow Bright Yellow Tea Colored General appearance: no acute distress GI/Abdominal GI/Abdominal exam: Present soft, distended and tenderness Additional comments: Incision clean dry and intact, [place] drain with serous fluid A/P Assessment and plan (1) SBO (small bowel obstruction): Plan: Continue to push abilities. Agree with decision to start TPN. Physical therapy to help with ambulation. Status: Acute Time Spent With Patient Time: Total time spent is greater than 50% in coordination of care (as documented) at patient's floor/unit and/or counseling patient:
[2022-06-13] MEDS ORDERED: [UNRECOGNIZED DRUG - REMARK] IV SCH (14:00)
[2022-06-13] MEDS ORDERED: FAT EMULSION 20% 250 ML in PREMIX 1 BAG IV SCH (16:00)
[2022-06-13] MEDS: LABETALOL 5 MG/ML ML IV PRN ×2 (17:31→21:37)
[2022-06-13] MEDS: FAMOTIDINE/PF 20 MG/2 ML VIAL IV SCH (20:36)
[2022-06-13] MEDS ORDERED: HALOPERIDOL LACTATE 5 MG/ML VIAL IV PRN ×2 (20:56→21:04)
[2022-06-13] MEDS ORDERED: diphenhydrAMINE 50 MG/ML VIAL IV ONE (21:00)
[2022-06-13] MEDS: HALOPERIDOL LACTATE 5 MG/ML VIAL IV PRN (21:15)
[2022-06-13] MEDS ORDERED: HALOPERIDOL LACTATE 5 MG/ML VIAL ONE (21:20)
[2022-06-13] MEDS ORDERED: diphenhydrAMINE 50 MG/ML VIAL ONE (21:20)
[2022-06-14] MEDS: HYDROmorphone 0.5 MG/0.5 ML SYRINGE IV PRN ×5 (00:34→17:35)
[2022-06-14] MEDS: INSULIN LISPRO 1 UNIT/0.01 ML UNIT SQ SCH ×5 (00:36→23:50)
[2022-06-14] MEDS: ACETAMINOPHEN 1,000 MG/100 ML BAG IV PRN ×3 (00:41→18:02)
[2022-06-14] MEDS: METOPROLOL TARTRATE 5 MG/5 ML VIAL IV SCH ×4 (04:13→22:11)
[2022-06-14] MEDS: PIPERACILLIN SODIUM/TAZOBACTAM 2.25 GM in DEXTROSE 5% IN WATER 50 ML IV SCH ×5 (05:29→23:50)
--- NOTE | 2022-06-14 08:03 | EKG ---
[facility] Test Date: 2022-06-12 Pat Name: Neo Chamorro Department: ICU Room: 120A Gender: Male Speech Coach: : [id number] Requested By: Prashanth Chaves Order Number: [id number] Reading MD: García Self Measurements Intervals [place] Rate: 133 P: SC: QRS: 24 QRSD: 75 T: -8 QT: 335 QTc: 499 Interpretive Statements Atrial flutter with predominant 2:1 AV block Low voltage, extremity and precordial leads Minimal ST depression Borderline prolonged QT interval Baseline wander in lead(s) V2 Electronically Signed On 06-14-2022 8:02:30 PDT by García Self /store/[email or web address]/[id number]
--- NOTE | 2022-06-14 08:04 | Internal Med Progress Note ---
SUBJECTIVE Subjective Patient information: Note initiated : 06/14/22 at 7:58 am Service Date, if different from initiated Date: [] Patient: Neo Chamorro 71 y/o M admitted on 06/07/22 for Abdominal pain. Chief Complaint: [] Principal diagnosis: SBO Interval history: Mr. Chamorro is a 71 year old M with a complex past medical history significant for multiple abdominal surgeries, diabetes mellitus type 2, CAD, hypertension, and CKD who presents to the hospital with 24-hour history of abdominal pain associate with nausea and vomiting. The patient's had prior episodes of bowel obstruction and states that this is very similar. As mentioned, he has had multiple abdominal surgeries including partial colectomy for diverticulitis, appendectomy, and cholecystectomy. The patient states that he was his usual self up until yesterday. He noticed that his abdomen was distended, and he was unable to have a bowel movement or pass gas. On presentation to the hospital, he was hemodynamically stable and afebrile. CT abdomen pelvis revealed mildly distended fluid-filled small bowel. Deep to the hernia patch and findings are consistent with partial mechanical small bowel obstruction. There was no closed-loop obstruction. He has a history of partial colectomy, partial cholecystectomy and appendectomy. There is previous anterior wall hernia repair. The hospitalist service was asked admit the patient in the setting of multiple medical comorbidities. General surgery were also consulted. 06/08: I evaluated the patient after he returned from the OR. The patient had laparoscopic lysis of adhesions. He has an NG tube in place. Advance diet as tolerated per general surgery. He is on narcotic analgesics. A clamp trial will be performed once he has active bowel function. From a medical standpoint, we will continue to hold most of his oral medications from home. Continue insulin sliding scale. 06/09: The patient is febrile with a temp of 100.6 and is tachycardic. Due to his recent intra-abdominal surgery, we will start Zosyn. Once the patient has passed gas or has had a bowel movement, he will have a clamp trial and subsequent NG tube removal and then advance diet as tolerated. 06/10: Postop day #2. Fever to 103 yesterday afternoon. Remains tachycardic. Home meds include metoprolol XL, which has been held. Still with abdominal pain, minimal nausea. Not much NG tube output this morning, is picked up this afternoon. KUB with normal bowel gas pattern this afternoon. 06/11: Postop day #3. Had recurrent fever yesterday, then yesterday evening blood pressure dropped to the 60s systolic. Responded to IV fluids. Overnight had blood pressures right at a map of 65. Urine output dropped off and CAROLINE on this morning's labs. Urine output has picked up after further fluid boluses. CTAP yesterday evening generally unrevealing. Initially when Dr. Nobles and I reviewed scan, concern for possible mediastinitis. Official read less concerning for that. For barium swallow to check for esophageal extravasation today. White count has normalized. 06/12 Patient feeling a little better today after exploratory laparotomy yesterday with several small micro perforations noted and subsequent bowel resection. Urine output borderline at 30 cc/h the last 1 was 15 cc. Patient just went into A. fib RVR, asymptomatic. Patient denies history of A. fib. Abdominal pain relatively controlled. He has some nausea but no vomiting. Patient denies flatus or bowel movements 06/13 Patient is not passing gas. Patient has abdominal pain. Feels about the same as yesterday. Urine output mediocre. Creatinine mild minimally worse today. We will get renal ultrasound and consult nephrology. Patient started on diltiazem drip last night for difficult to control A. fib flutter. Converted to normal sinus rhythm early this morning. Will need to start nutrition today, TPN given his n.p.o. status. Leukocytosis but bandemia improving. Lactic acidosis improved. 06/14 Patient did spike a fever of 101.8 last night. His white blood cell count still elevated at 20 today 17 yesterday although his bandemia prior to that was 30% and no more bandemia yesterday or today. We will repeat blood cultures check procalcitonin. Patient did have a large bowel movement overnight which was quite positive sign. Renal function remains the same. Did have good urine output over the past 24 hours with the high-dose IV Lasix per nephrology. Patient did have confusion last night for some agitation concern for safety of IV's lines and patient did get Haldol. Review of Systems: denies headache/fever/chills/vomiting/chest pain/diarrhea. Otherwise see above. Constitutional Vitals: Vital Signs Temp Pulse Resp BP Pulse Ox O2 Del Method O2 Flow Rate 98.8 F 83 20 149/68 95 0 06/14/22 04:01 06/14/22 06:01 06/14/22 04:01 06/14/22 06:01 06/14/22 06:01 06/13/22 19:23 06/14/22 06:01 Period Temp Pulse Resp BP Sys/Medellin Pulse Ox O2 Del Method O2 Flow Rate Last 24 Hr 97.2 F-101.8 F 74-100 - 81-171/42-104 89-99 Room Air 0-0 Intake and Output 06/13/22 06/14/22 06/14/22 21:59 05:59 13:59 Intake Total 702 450 50 Output Total 1235 1860 410 Balance -533 -1410 -360 Weight 116.619 kg Intake & Output: Intake & Output 06/13/22 06/14/22 06/14/22 21:59 05:59 13:59 Intake Total 702 450 50 Output Total 1235 1860 410 Balance -533 -1410 -360 Weight 116.619 kg Intake: IV 702 400 50 Sodium Chloride 0.9% 1,000 ml @ 652 125 mls/hr IV .Q8H [facility] Rx#: [id number] Intralipid 20% 250 ml In Premix 250 1 Bag @ 25 mls/hr IV TuThSa@ 1600 [facility] Rx#:[id number] Zosyn 2.25 gm In Dextrose 5% in 50 50 50 Water 50 ml @ 100 mls/hr IV Q6H SO[facility] Rx#:[id number] Oral 50 Tube Feeding 0 0 Input, Drain Irrigation Amount 0 Abdomen [place] Drain 0 Output: Gastric Drainage 200 200 Right Nare NG/OG 200 200 Drainage 5 5 Abdomen [place] Drain 5 5 Urine Catheter Amount 1030 1655 410 Other: Urine Appearance Clear Clear Clear Uretheral (Woods) Clear Clear Urine Color Bright Yellow Bright Yellow Yellow Uretheral (Woods) Bright Yellow Bright Yellow Urine Odor Normal Stool Size Small Smear Stool Color Black Brown # Bowel Movements 1 # of times incontinent of 1 Bowels Exam: General: drowsy, Awakens, obese Eyes/N/T: EOMI, Head/Neck: neck supple, CV: RRR, No murmurs, Pulm: mildly diminished b/l, no wheezing Abd: distended, mild tender generalized, better bowel sounds Ext: no clubbing/cyanosis, mild LE/UE edema, Neuro: drowsy but answers questions, no focal deficits, moves all extremities, Skin: warm/dry OBJ DATA Labs CBC & Chem 7: 06/14/22 05:26 06/14/22 05:26 Labs: Abnormal Lab Results 06/13/22 06/13/22 06/13/22 05:47 05:47 05:30 WBC 17.4 H RBC 4.16 L Hgb 12.6 L Hct 38.4 L MPV 11.4 H Immature Gran % (Auto) 6.3 H Neut % (Auto) 85.4 H Lymph % (Auto) 4.1 L Lymph # (Auto) 0.71 L Seg Neutrophils % 94 H Band Neutrophils % Lymphocytes % 2 L Immature Gran # 1.09 H Absolute Neutrophils 14.91 H Toxic Granulation 1+ A Dohle Bodies Occ A RBC Morphology Abnormal A Polychromasia Occ A Poikilocytosis 1+ A Anisocytosis 1+ A VBG Lactic Acid BUN 58 H Creatinine 2.7 H Glucose 127 H Calcium 6.8 L Phosphorus Magnesium 2.6 H Direct Bilirubin 0.3 H GGT 6 L Lactate Dehydrogenase 263 H Total Protein 4.9 L Albumin 1.8 L Albumin/Globulin Ratio 0.6 L Triglycerides 239 H 06/12/22 06/12/22 06/12/22 08:08 04:42 04:41 WBC RBC 4.26 L Hgb 12.7 L Hct 39.6 L MPV 11.0 H Immature Gran % (Auto) Neut % (Auto) Lymph % (Auto) Lymph # (Auto) Seg Neutrophils % Band Neutrophils % 30 H Lymphocytes % 3 L Immature Gran # Absolute Neutrophils Toxic Granulation Dohle Bodies RBC Morphology Polychromasia Poikilocytosis Anisocytosis VBG Lactic Acid 3.2 H BUN 41 H Creatinine 2.5 H Glucose 126 H Calcium 7.1 L Phosphorus 4.6 H Magnesium Direct Bilirubin 0.5 H GGT 7 L Lactate Dehydrogenase Total Protein 4.8 L Albumin 2.1 L Albumin/Globulin Ratio 0.8 L Triglycerides 183 H 06/11/22 06/11/22 06/11/22 14:47 14:40 13:13 WBC RBC Hgb Hct MPV Immature Gran % (Auto) Neut % (Auto) Lymph % (Auto) Lymph # (Auto) Seg Neutrophils % 87 H Band Neutrophils % Lymphocytes % 5 L Immature Gran # Absolute Neutrophils Toxic Granulation Occ A Dohle Bodies RBC Morphology Polychromasia Poikilocytosis Anisocytosis VBG Lactic Acid 3.7 H BUN 35 H Creatinine 2.4 H Glucose 127 H Calcium 7.8 L Phosphorus Magnesium Direct Bilirubin GGT Lactate Dehydrogenase Total Protein Albumin 1.7 L Albumin/Globulin Ratio Triglycerides Meds: Medications Diagnostic Test (Pha) (Accu-Chek 1 Each Strip) 1 each FS Q6 [facility] Last Admin: 06/14/22 05:28 Dose: 1 each Famotidine (Famotidine/Pf 20 Mg/2 Ml Vial) 20 mg IV HS [facility] Last Admin: 06/13/22 20:36 Dose: 20 mg Furosemide (Furosemide 100 Mg/10 Ml Vial) 80 mg IV Q12 [facility] Last Admin: 06/13/22 20:35 Dose: 80 mg Haloperidol Lactate (Haloperidol Lactate 5 Mg/Ml Vial) 2 - 5 mg IV Q6HP PRN PRN Reason: ANXIETY/SEDATION Last Admin: 06/13/22 21:15 Dose: 4 mg Heparin Sodium (Porcine) (Heparin 5,000 Unit/Ml Vial) 5,000 unit SQ Q12 [facility] Last Admin: 06/13/22 20:36 Dose: 5,000 unit Hydromorphone HCl (Hydromorphone 0.5 Mg/0.5 Ml Syringe) 0.5 mg IV Q1HP PRN; Protocol PRN Reason: Per Pain Protocol Last Admin: 06/14/22 07:25 Dose: 0.5 mg Acetaminophen (Ofirmev) 1,000 mg in 100 mls @ 200 mls/hr IV Q6HP PRN; Protocol PRN Reason: PAIN/FEVER > 101 Last Admin: 06/14/22 07:26 Dose: 200 mls/hr Norepinephrine Bitartrate 8 mg (/ Sodium Chloride) 250 mls @ 18.75 mls/hr IV Q12HP PRN; Protocol PRN Reason: Hypotension Diltiazem HCl 125 mg/ Dextrose 125 mls @ 5 mls/hr IV Q12H [facility]; Protocol Last Admin: 06/13/22 21:25 Dose: Not Given Piperacillin Sod/Tazobactam (Sod 2.25 gm/ Dextrose) 50 mls @ 100 mls/hr IV Q6H [facility] Last Infusion: 06/14/22 06:06 Dose: Infused Calcium Gluconate 5 meq/Potassium Chloride 20 meq/Multivitamins/Minerals 10 ml/Amino Acids 1,030.7526 mls @ 40 mls/hr IV Q24H [facility] Last Admin: 06/13/22 14:13 Dose: 40 mls/hr Fat Emulsion Intravenous 250 (ml/ Premix) 250 mls @ 25 mls/hr IV TuThSa@1600 [facility] Last Infusion: 06/14/22 02:25 Dose: Infused Insulin Human Lispro (Insulin Lispro 1 Unit/0.01 Ml Unit) 0 unit SQ Q6 [facility]; Protocol Last Admin: 06/14/22 05:33 Dose: 2 units Labetalol HCl (Labetalol 5 Mg/Ml Ml) 0 mg IV Q2HP PRN PRN Reason: Hypertension Last Admin: 06/13/22 21:37 Dose: 10 mg Metoprolol Tartrate (Metoprolol Tartrate 5 Mg/5 Ml Vial) 5 mg IV Q2HP PRN PRN Reason: Tachyarrhythmias HR>110 Last Admin: 06/12/22 19:33 Dose: 5 mg Metoprolol Tartrate (Metoprolol Tartrate 5 Mg/5 Ml Vial) 5 mg IV Q6H [facility] Last Admin: 06/14/22 04:13 Dose: 5 mg Ondansetron HCl (Ondansetron 4 Mg/2 Ml Vial) 4 mg IV Q6HP PRN PRN Reason: Nausea And Vomiting Last Admin: 06/10/22 02:05 Dose: 4 mg Oxycodone HCl (Oxycodone Hcl 5 Mg Tablet) 5 mg PO Q4HP PRN; Protocol PRN Reason: Per Pain Protocol Last Admin: 06/12/22 11:52 Dose: 5 mg Sodium Chloride (0.9 % Sodium Chloride 10 Ml Syringe) 10 ml IV Q12 [facility] Last Admin: 06/13/22 20:37 Dose: 10 ml Sodium Chloride (0.9 % Sodium Chloride 10 Ml Syringe) 10 ml IV UD PRN PRN Reason: Maintain line patency A/P Narrative A/P Narrative: A: *Small bowel obstruction: s/p Ex-lap w/Lysis of adhesions (06/08) & s/p Ex-lap w/SB-resection for microperf's (06/11) -Transferred to PCU for hypotension evening 06/10 -awaiting bowel function *Severe Sepsis w/Hypotension and Lactic acidosis(resolved): responded to IVF -Leukocytosis but bandemia resolved, fevers(resolved) *CAROLINE on CKD III: possible ATN from hypotension -1.9>1.7>>1.9>>2.5>>2.7>2.8 -UOP improved with diuresis *Atelectasis: *Afib/flutter w/RVR episode: no history of, likely 2/2 acute illness and being off home BB -echo with good EF -started on dilt gtt and converted to NSR 06/13 @0238 *CAD: No current symptoms *DM 2 w/neuropathy: *Psoriasis: On Humira *HTN: on bb/ccb/arb/hctz Plan: -Bowels and NGT per Surgery -NPO, TPN started, IVF/diuretics per nephro -monitor UOP/renal fxn -Nephrology following -Continue piperacillin/tazobactam, repeat BC, -cont sofia IV BB -IS -Continue to hold norvasc/losartan/HCTZ. BP now elevating > prn IV meds -SSI, hold metformin -ppx: Heparin / H2 full code Time Spent With Patient Time: Total time spent is greater than 50% in coordination of care (as documented) at patient's floor/unit and/or counseling patient: Total time spent with greater than 50% in coordination of care (as documented) at patient's floor/unit and/or counseling patient:: 50 - 70 minutes QUALITY VTE Deep Vein Thrombosis/Pulmonary Embolism Present on Admission: No
[2022-06-14 08:35] LABS: Hematocrit 33.8 % (40.1-51.0); Mean Cell Volume 91.8 fL (80.0-100.0); Mean Corpuscular HGB Conc 32.5 g/dL (31.0-36.0); Mean Platelet Volume 11.8 fL (7.4-10.4); Platelet Count 111 K/mcL (140-440); RBC 3.68 M/mcL (4.63-6.08); Red Cell Distribution Width 13.3 % (11.5-14.5)
[2022-06-14 08:50] LABS: ALT/SGPT 13 U/L (<40); AST/SGOT 29 U/L (<40); Albumin 1.9 gm/dL (3.2-5.2); Albumin/Globulin Ratio 0.6 (1.0-2.3); Alkaline Phosphatase 85 U/L (39-117); Bilirubin,Direct 0.3 mg/dL (<0.3); Bilirubin,Total 0.6 mg/dL (0.1-1.0); Blood Urea Nitrogen 77 mg/dL (8-23); Calcium 6.9 mg/dL (8.6-10.4); Carbon Dioxide 24 mmol/L (22-30); Chloride 102 mmol/L (96-108); Globulin 3.2 gm/dL (2.2-3.7); Glomerular Filtration Rate 21; Glucose 163 mg/dL (70-105); Lactate Dehydrogenase 395 U/L (135-225); Phosphorous 4.1 mg/dL (2.5-4.5); Triglycerides 219 mg/dL (<150)
[2022-06-14 08:59] LABS: Band Neutrophils % 6 % (0-10); Lymphocytes % 6 % (15-49); Monocytes % (Manual) 6 % (1-12); Myelocytes % 2 %; Platelet Estimate DECREASED (Normal); RBC Morphology NORMAL (Normal); Reactive Lymphocytes 2 % (0-2); Segmented Neutrophils % 78 % (38-78)
--- NOTE | 2022-06-14 09:03 | Nephrology Progress Note ---
SUBJECTIVE Subjective Patient information: Note initiated : 06/14/22 at 9:02 am Patient: Neo Chamorro 71 y/o M admitted on 06/07/22 for Abdominal pain. Chief Complaint: Abdominal discomfort Principal diagnosis: SBO Pertinent ROS: Weakness NG tube Abdomen distended Edema of all four extremities and dependent areas Woods catheter with clear yellow urine Constitutional Vitals: Vital Signs Temp Pulse Resp BP Pulse Ox O2 Del Method O2 Flow Rate 98.9 F 91 H 20 137/64 95 0 06/14/22 08:01 06/14/22 08:01 06/14/22 04:01 06/14/22 08:01 06/14/22 08:01 06/14/22 08:00 06/14/22 06:01 Period Temp Pulse Resp BP Sys/Medellin Pulse Ox O2 Del Method O2 Flow Rate Last 24 Hr 98.4 F-101.8 F 74-100 16-20 81-171/42-104 89-99 Room Air-Room Air 0-0 Intake and Output 06/13/22 06/14/22 06/14/22 21:59 05:59 13:59 Intake Total 702 450 150 Output Total 1235 1860 410 Balance -533 -1410 -260 Weight 257 lb 1.6 oz Intake & Output: Intake & Output 06/13/22 06/14/22 06/14/22 21:59 05:59 13:59 Intake Total 702 450 150 Output Total 1235 1860 410 Balance -533 -1410 -260 Weight 257 lb 1.6 oz Intake: IV 702 400 150 Sodium Chloride 0.9% 1,000 ml @ 652 125 mls/hr IV .Q8H [facility] Rx#: [id number] Intralipid 20% 250 ml In Premix 250 1 Bag @ 25 mls/hr IV TuThSa@ 1600 [facility] Rx#:[id number] Zosyn 2.25 gm In Dextrose 5% in 50 50 50 Water 50 ml @ 100 mls/hr IV Q6H [facility] Rx#:[id number] Oral 50 Tube Feeding 0 0 Input, Drain Irrigation Amount 0 Abdomen [place] Drain 0 Output: Gastric Drainage 200 200 Right Nare NG/OG 200 200 Drainage 5 5 Abdomen [place] Drain 5 5 Urine Catheter Amount 1030 1655 410 Other: Urine Appearance Clear Clear Clear Uretheral (Woods) Clear Clear Clear Urine Color Bright Yellow Bright Yellow Yellow Uretheral (Woods) Bright Yellow Bright Yellow Bright Yellow Urine Odor Normal Stool Size Small Smear Stool Color Black Brown # Bowel Movements 1 # of times incontinent of 1 Bowels General appearance: cooperative and no acute distress Head Head exam: Present normal inspection Eye Eye exam: Present normal appearance ENT ENT exam: Present mucous membranes dry Additional comments: NG tube Respiratory Respiratory exam: Absent respiratory distress Cardiovascular Cardiovascular exam: Present normal rate and rhythm GI/Abdominal GI/Abdominal exam: Present distended Extremities Exam Extremities exam: Present pedal edema; Absent joint swelling Neurological Exam Neurological exam: Present alert and oriented X3 Psychiatric Psychiatric exam: Present normal affect and normal mood Skin Skin exam: Present warm; Absent rash A/P Assessment and plan (1) Acute renal failure with acute tubular necrosis superimposed on stage 3a chronic kidney disease: Assessment and plan: Neo Chamorro is a 71-year-old male with a history of multiple abdominal surgeries, diabetes mellitus type 2, CAD, hypertension, and CKD stage 3 (followed by Dr. Paulino). He presented to ED for 24-hour history of abdominal pain associated with nausea and vomiting. He was admitted on 06/07/22. He had robotic assisted exploratory laparoscopy, extensive lysis of adhesions, removal of intra-abdominal mesh on 06/08/22. He had exploratory laparotomy, small bowel resection on 06/11/22. Serum creatinine had a rising trend since admission. Urine output has been >500 ml/day. Acute kidney injury, likely prerenal initially, suspected progression to acute tubular necrosis on chronic kidney disease stage 3a. History of IV contrast administration with CT on 06/06/22. No history of NSAID use. Work up: No urinalysis. Urine Sodium on 06/11/22: 14 mmol/L. Renal US on 06/13/22: 2 x 2 centimeters simple cyst inferior pole right kidney unchanged from CT. No significant renal abnormality. CT Abdomen and Pelvis without contrast on 06/11/22: The noncontrasted liver, left kidney, both adrenal glands, spleen and aorta are normal in size, configuration and attenuation without focal lesion. A 3 cm simple cyst inferior pole right kidney is unchanged. No significant renal lesion. CT Abdomen and Pelvis with contrast on 06/06/22: No solid renal mass. No hydronephrosis. No obstructing or nonobstructing calculi. Benign 3 cm right lower pole renal cyst. No hydroureter. No ureteral calculus. No bladder stone. No detectable bladder mass. Progress: Serum creatinine increased from 2.7 to 2.8 in the past 24 hours. Baseline serum creatinine: 1.5 (eGFR 47) on 04/24/18, 1.9 (eGFR 34) on 06/06/22. Corrected serum calcium calcium 8.5. Urine output: 3,265 ml reported in the past 12 hours. Fluid overload. I/O: +14.4L since admit. No obvious uremic symptoms. Recommendations/Plan: No acute hemodialysis need. Continue TPN without IVF. Continue Furosemide 80 mg IV Q12. Avoid NSAIDs, nephrotoxic medications and IV contrast. Monitor BMP and urine output. Status: Acute Time Spent With Patient Time: Total time spent is greater than 50% in coordination of care (as documented) at patient's floor/unit and/or counseling patient:
[2022-06-14] MEDS: FUROSEMIDE 100 MG/10 ML VIAL IV SCH (09:10)
[2022-06-14] MEDS: 0.9 % SODIUM CHLORIDE 10 ML SYRINGE IV SCH ×2 (09:11→20:45)
[2022-06-14] MEDS: HEPARIN 5,000 UNIT/ML VIAL SQ SCH (09:11)
[2022-06-14] MEDS: DILTIAZEM 125 MG in DEXTROSE 5% IN WATER 100 ML IV SCH ×2 (09:55→20:45)
[2022-06-14] MEDS ORDERED: CALCIUM GLUCONATE 4.65 MEQ in DEXTROSE 5% IN WATER 50 ML IV ONE (10:07)
--- NOTE | 2022-06-14 11:19 | General Surgery Progress Note ---
SUBJECTIVE Subjective Patient information: Note initiated : 06/14/22 at 11:16 am Service Date, if different from initiated Date: [] Patient: Neo Chamorro 71 y/o M admitted on 06/07/22 for Abdominal pain. Chief Complaint: [] Principal diagnosis: SBO Interval history: Large bowel movement overnight, decreased NG tube output. Fever overnight, increase white blood cell count this morning. Constitutional Vitals: Vital Signs Temp Pulse Resp BP Pulse Ox O2 Del Method O2 Flow Rate 98.9 F 81 20 131/78 96 0 06/14/22 08:01 06/14/22 10:01 06/14/22 04:01 06/14/22 10:01 06/14/22 10:01 06/14/22 08:00 06/14/22 06:01 Period Temp Pulse Resp BP Sys/Medellin Pulse Ox O2 Del Method O2 Flow Rate Last 24 Hr 98.4 F-101.8 F 74-100 16-20 81-171/42-104 89-99 Room Air-Room Air 0-0 Intake and Output 06/13/22 06/14/22 06/14/22 21:59 05:59 13:59 Intake Total 702 450 150 Output Total 1235 1860 870 Balance -533 -1410 -720 Weight 257 lb 1.6 oz Intake & Output: Intake & Output 06/13/22 06/14/22 06/14/22 21:59 05:59 13:59 Intake Total 702 450 150 Output Total 1235 1860 870 Balance -533 -1410 -720 Weight 257 lb 1.6 oz Intake: IV 702 400 150 Sodium Chloride 0.9% 1,000 ml @ 652 125 mls/hr IV .Q8H [facility] Rx#: [id number] Intralipid 20% 250 ml In Premix 250 1 Bag @ 25 mls/hr IV TuThSa@ 1600 [facility] Rx#:[id number] Zosyn 2.25 gm In Dextrose 5% in 50 50 50 Water 50 ml @ 100 mls/hr IV Q6H [facility] Rx#:[id number] Oral 50 Tube Feeding 0 0 Input, Drain Irrigation Amount 0 Abdomen [place] Drain 0 Output: Gastric Drainage 200 200 Right Nare NG/OG 200 200 Drainage 5 5 Abdomen [place] Drain 5 5 Urine Catheter Amount 1030 1655 870 Other: Urine Appearance Clear Clear Clear Uretheral (Woods) Clear Clear Clear Urine Color Bright Yellow Bright Yellow Bright Yellow Uretheral (Woods) Bright Yellow Bright Yellow Bright Yellow Urine Odor Normal Stool Size Small Small Stool Color Black Brown Stool Consistency Liquid # Bowel Movements 1 # of times incontinent of 1 Bowels General appearance: cooperative and no acute distress GI/Abdominal GI/Abdominal exam: Present soft, distended and tenderness Additional comments: [place] drain with serous fluid, no bilious fluid. A/P Assessment and plan (1) SBO (small bowel obstruction): Plan: Postop day #2 status post exploratory laparotomy small bowel resection. Clinically has evidence of return of bowel function, fever and increased white blood cell count continues concern of intra-abdominal problems. [place] drain with serous fluid which counteracts question of intra-abdominal pathology. Discussed with hospitalist changing antibiotics. Continue n.p.o., TPN. Continue to work with physical therapy. Status: Acute Time Spent With Patient Time: Total time spent is greater than 50% in coordination of care (as documented) at patient's floor/unit and/or counseling patient:
[2022-06-14] MEDS ORDERED: [UNRECOGNIZED DRUG - REMARK] IV SCH (14:00)
[2022-06-14] MEDS: hydrALAZINE 20 MG/ML VIAL IV PRN ×2 (14:05→17:07)
[2022-06-14] MEDS ORDERED: 0.9 % SODIUM CHLORIDE 250 ML IV SCH (15:30)
--- NOTE | 2022-06-14 15:49 | Event Note ---
Event Note Event Note: Patient with heme positive stool and gastric contents. We will stop heparin DVT prophylaxis and keep SCDs. protonix drip placed. Gen Surg to evaluate.
[2022-06-14] MEDS: PANTOPRAZOLE 80 MG in 0.9 % SODIUM CHLORIDE 100 ML IV SCH (16:18)
[2022-06-14 16:19] LABS: Hematocrit 36.3 % (40.1-51.0); Hemoglobin 11.9 g/dL (13.7-17.5)
[2022-06-14 16:36] LABS: Blood Urea Nitrogen 89 mg/dL (8-23); Calcium 7.5 mg/dL (8.6-10.4); Carbon Dioxide 25 mmol/L (22-30); Chloride 102 mmol/L (96-108); Glomerular Filtration Rate 22; Glucose 157 mg/dL (70-105); Phosphorous 3.4 mg/dL (2.5-4.5)
[2022-06-14] MEDS: HALOPERIDOL LACTATE 5 MG/ML VIAL IV PRN (16:38)
--- NOTE | 2022-06-14 16:46 | XRay Report ---
CLINICAL INFORMATION: r/o free air in abd abdominal pain COMPARISON: None. FINDINGS: The stool gas pattern is unremarkable. There is no free air, soft tissue mass, organomegaly or pathologic calcification. IMPRESSION: Normal abdomen. No free air to suggest GI tract rupture Interpreted and Authenticated by: Rosendo Abdalla 06/14/22
[2022-06-14] MEDS: LORazepam 2 MG/ML VIAL IV PRN (17:50)
[2022-06-14] MEDS ORDERED: LORazepam 2 MG/ML VIAL ONE (17:55)
[2022-06-14] MEDS: METOPROLOL TARTRATE 5 MG/5 ML VIAL IV PRN (18:03)
[2022-06-14] MEDS ORDERED: FAMOTIDINE/PF 20 MG/2 ML VIAL IV SCH (21:00)
[2022-06-14 21:05] LABS: Hematocrit 31.6 % (40.1-51.0); Hemoglobin 10.5 g/dL (13.7-17.5)
[2022-06-15] MEDS: PANTOPRAZOLE 80 MG in 0.9 % SODIUM CHLORIDE 100 ML IV SCH ×3 (01:17→21:10)
[2022-06-15] MEDS: METOPROLOL TARTRATE 5 MG/5 ML VIAL IV SCH ×4 (04:03→21:50)
[2022-06-15] MEDS: hydrALAZINE 20 MG/ML VIAL IV PRN ×2 (04:07→14:01)
--- NOTE | 2022-06-15 04:16 | Cat Scan Report ---
CLINICAL INFORMATION: Hypotension with postoperative abdominal pain and dyspnea COMPARISON: Chest abdomen and pelvic CT 06/10/2022 TECHNIQUE: Enteric contrast was utilized. 80 cc of Isovue-370 were injected intravenously, and 50 seconds later, 0.625 mm helical slices were obtained from the lung apices through the subtrochanteric regions of the femurs. Following reconstruction, 2.5 mm sagittal, coronal and axial reformatted images were processed and reviewed at multiple windows and levels. 7 mm MIP reconstructions were obtained through the lungs to optimize nodule detection.The exam was performed using radiation dose optimization techniques including, but not limited to, automated exposure control, adjustment of the mA and/or kV according to patient size and use of iterative reconstruction technique. FINDINGS: Pulmonary parenchymal windows show interval increase in left pleural effusion now moderate there is now near complete left lower lobe atelectasis with superior segment sparing. Small right pleural effusion with subsegmental atelectasis posterior right lower lobe is unchanged. Mediastinal windows show the heart is mildly enlarged with heavy calcific plaque scattered within the coronary arteries. There is also likely scattered calcifications the mitral and aortic valves. The noncontrast thoracic aorta and pulmonary arteries are normal diameter. There is no adenopathy. Pneumomediastinum in the lower region has resolved since prior exam. NG tube extends through the esophagus with the tip in the distal gastric antrum. Thyroid is unremarkable. Abdominal images show the gallbladder is surgically absent. Intrahepatic and common bile ducts are normal caliber: CBD is 6 mm. The noncontrasted liver, left kidney, both adrenal glands, spleen and aorta are normal in size, configuration and attenuation without focal lesion. A 3 cm simple cyst inferior pole right kidney is unchanged. No significant renal lesion. Pelvic images show prostate, seminal vesicles and urinary bladder are normal. The surgical drain, previously seen anterior in the right lower quadrant has been removed. A new drain enters the right upper quadrant descend in the right anterior mesenteric cavity with the main tip in the central false pelvis. Since prior CT, a midline laparotomy has been performed. Minimal gas and and edema is seen in Camper's fascia-as expected. There are few loops of nonopacified small bowel in the anterior mesenteric cavity of the lower abdomen with interloop fluid demonstrates typical postoperative surgical appearance. Surgical clips present in the mid sigmoid following primary anastomosis. Stomach is grossly normal. Bone windows show no osseous abnormality. L3-4 L4-5 there is severe central canal stenosis due to facet arthropathy and disc protrusions. IMPRESSION: 1. Mild dilatation of a few loops of small bowel in the anterior mesenteric cavity with minimal interloop fluid as expected in the immediate postsurgical state. No evidence of abdominal or intrapelvic hemorrhage. 2. Mild pancreatic atrophy. 3. Small /moderate left pleural effusion which shows elevated attenuation. This could indicate hemothorax. Subtotal atelectasis left lower lobe superior segment sparing-progressing. Interpreted and Authenticated by: Rosendo Abdalla 06/15/22
[2022-06-15] MEDS: PIPERACILLIN SODIUM/TAZOBACTAM 2.25 GM in DEXTROSE 5% IN WATER 50 ML IV SCH ×4 (05:26→23:45)
[2022-06-15] MEDS: INSULIN LISPRO 1 UNIT/0.01 ML UNIT SQ SCH ×4 (05:28→23:45)
[2022-06-15 07:00] LABS: INR 0.9 (0.9-1.1); Prothrombin Time 12.1 sec (11.9-14.5)
[2022-06-15] MEDS: ACETAMINOPHEN 1,000 MG/100 ML BAG IV PRN ×2 (07:04→15:23)
[2022-06-15 07:20] LABS: ALT/SGPT 16 U/L (<40); AST/SGOT 40 U/L (<40); Albumin 1.8 gm/dL (3.2-5.2); Albumin/Globulin Ratio 0.5 (1.0-2.3); Alkaline Phosphatase 93 U/L (39-117); Bilirubin,Direct 0.3 mg/dL (<0.3); Bilirubin,Total 0.7 mg/dL (0.1-1.0); Blood Urea Nitrogen 86 mg/dL (8-23); Calcium 7.8 mg/dL (8.6-10.4); Carbon Dioxide 24 mmol/L (22-30); Chloride 104 mmol/L (96-108); Globulin 3.4 gm/dL (2.2-3.7); Glomerular Filtration Rate 26; Glucose 203 mg/dL (70-105); Lactate Dehydrogenase 403 U/L (135-225); Phosphorous 1.9 mg/dL (2.5-4.5); Triglycerides 255 mg/dL (<150); Uric Acid 8.1 mg/dL (2.5-8.0)
[2022-06-15] MEDS: METOPROLOL TARTRATE 5 MG/5 ML VIAL IV PRN (07:35)
--- NOTE | 2022-06-15 07:53 | Internal Med Progress Note ---
SUBJECTIVE Subjective Patient information: Note initiated : 06/15/22 at 7:48 am Service Date, if different from initiated Date: [] Patient: Neo Chamorro 71 y/o M admitted on 06/07/22 for Abdominal pain. Chief Complaint: [] Principal diagnosis: SBO Interval history: Mr. Chamorro is a 71 year old M with a complex past medical history significant for multiple abdominal surgeries, diabetes mellitus type 2, CAD, hypertension, and CKD who presents to the hospital with 24-hour history of abdominal pain associate with nausea and vomiting. The patient's had prior episodes of bowel obstruction and states that this is very similar. As mentioned, he has had multiple abdominal surgeries including partial colectomy for diverticulitis, appendectomy, and cholecystectomy. The patient states that he was his usual self up until yesterday. He noticed that his abdomen was distended, and he was unable to have a bowel movement or pass gas. On presentation to the hospital, he was hemodynamically stable and afebrile. CT abdomen pelvis revealed mildly distended fluid-filled small bowel. Deep to the hernia patch and findings are consistent with partial mechanical small bowel obstruction. There was no closed-loop obstruction. He has a history of partial colectomy, partial cholecystectomy and appendectomy. There is previous anterior wall hernia repair. The hospitalist service was asked admit the patient in the setting of multiple medical comorbidities. General surgery were also consulted. 06/08: I evaluated the patient after he returned from the OR. The patient had laparoscopic lysis of adhesions. He has an NG tube in place. Advance diet as tolerated per general surgery. He is on narcotic analgesics. A clamp trial will be performed once he has active bowel function. From a medical standpoint, we will continue to hold most of his oral medications from home. Continue insulin sliding scale. 06/09: The patient is febrile with a temp of 100.6 and is tachycardic. Due to his recent intra-abdominal surgery, we will start Zosyn. Once the patient has passed gas or has had a bowel movement, he will have a clamp trial and subsequent NG tube removal and then advance diet as tolerated. 06/10: Postop day #2. Fever to 103 yesterday afternoon. Remains tachycardic. Home meds include metoprolol XL, which has been held. Still with abdominal pain, minimal nausea. Not much NG tube output this morning, is picked up this afternoon. KUB with normal bowel gas pattern this afternoon. 06/11: Postop day #3. Had recurrent fever yesterday, then yesterday evening blood pressure dropped to the 60s systolic. Responded to IV fluids. Overnight had blood pressures right at a map of 65. Urine output dropped off and THEO on this morning's labs. Urine output has picked up after further fluid boluses. CTAP yesterday evening generally unrevealing. Initially when Dr. Nobles and I reviewed scan, concern for possible mediastinitis. Official read less concerning for that. For barium swallow to check for esophageal extravasation today. White count has normalized. 06/12 Patient feeling a little better today after exploratory laparotomy yesterday with several small micro perforations noted and subsequent bowel resection. Urine output borderline at 30 cc/h the last 1 was 15 cc. Patient just went into A. fib RVR, asymptomatic. Patient denies history of A. fib. Abdominal pain relatively controlled. He has some nausea but no vomiting. Patient denies flatus or bowel movements 06/13 Patient is not passing gas. Patient has abdominal pain. Feels about the same as yesterday. Urine output mediocre. Creatinine mild minimally worse today. We will get renal ultrasound and consult nephrology. Patient started on diltiazem drip last night for difficult to control A. fib flutter. Converted to normal sinus rhythm early this morning. Will need to start nutrition today, TPN given his n.p.o. status. Leukocytosis but bandemia improving. Lactic acidosis improved. 06/14 Patient did spike a fever of 101.8 last night. His white blood cell count still elevated at 20 today 17 yesterday although his bandemia prior to that was 30% and no more bandemia yesterday or today. We will repeat blood cultures check procalcitonin. Patient did have a large bowel movement overnight which was quite positive sign. Renal function remains the same. Did have good urine output over the past 24 hours with the high-dose IV Lasix per nephrology. Patient did have confusion last night for some agitation concern for safety of IV's lines and patient did get Haldol. Patient with heme positive stool and gastric contents. We will stop heparin DVT prophylaxis and keep SCDs. protonix drip placed. Gen Surg to evaluate. CT c/a/p no acute path. 06/15 Patient seems to be feeling a little better today. Have a T-max of 101 last night. Tachycardic in the low 100s. Good urine output and creatinine improving today to 2.4. Patient complains of some shortness of breath but no coughing chest pain, stomach pain seems to be a bit better. Leukocytosis that went from 17-20 yesterday is now back down to 17 and no more bandemia. Thrombocytopenia noted at 87, down from 111 yesterday. likely from consumtion d/t bleeding, but will send HIT-ab's. Review of Systems: denies headache/fever/chills/vomiting/chest pain. Otherwise see above. Constitutional Vitals: Vital Signs Temp Pulse Resp BP Pulse Ox O2 Del Method O2 Flow Rate 100.2 F H 108 H 29 H 128/64 93 0 06/15/22 06:56 06/15/22 06:01 06/15/22 06:56 06/15/22 06:01 06/15/22 06:01 06/15/22 01:55 06/15/22 06:01 Period Temp Pulse Resp BP Sys/Medellin Pulse Ox O2 Del Method O2 Flow Rate Last 24 Hr 97.1 F-101.1 F 79-122 16-31 98-218/53-193 85-100 Room Air-Room Air 0-0 Intake and Output 06/14/22 06/15/22 06/15/22 21:59 05:59 13:59 Intake Total 175 160 170 Output Total 2785 1485 775 Balance -2610 -1325 -605 Weight 110.087 kg Intake & Output: Intake & Output 06/14/22 06/15/22 06/15/22 21:59 05:59 13:59 Intake Total 175 160 170 Output Total 2785 1485 775 Balance -2610 -1325 -605 Weight 110.087 kg Intake: IV 150 140 50 Protonix 80 mg In Sodium 90 Chloride 0.9% 100 ml @ 8 MG/HR 10 mls/hr IV Q10H [facility] Rx#: [id number] Zosyn 2.25 gm In Dextrose 5% in 50 50 50 Water 50 ml @ 100 mls/hr IV Q6H SOFIA Rx#:[id number] Oral 25 20 120 Tube Feeding 0 0 Output: Gastric Drainage 175 200 Right Nare NG/OG 175 200 Drainage 10 10 Abdomen [place] Drain 10 10 Urine Catheter Amount 2600 1050 775 Stool 225 Other: Urine Appearance Clear Clear Clear Uretheral (Woods) Clear Clear Urine Color Bright Yellow Bright Yellow Pale Uretheral (Woods) Bright Yellow Bright Yellow Urine Odor Normal Normal Stool Size Smear Large Stool Color Green Black Black Stool Consistency Liquid Soft Liquid # Bowel Movements 1 3 # of times incontinent of 1 Bowels Exam: General: alert, Awake, obese Eyes/N/T: EOMI, Head/Neck: neck supple, CV: RRR, No murmurs, Pulm: subtle rales at bases, no wheezing Abd: distended, mild tender generalized, better bowel sounds Ext: no clubbing/cyanosis, mild LE/UE edema improving and pedal edema continues, Neuro: alert, no focal deficits, moves all extremities, mentation better this morning Skin: warm/dry OBJ DATA Labs CBC & Chem 7: 06/15/22 05:23 06/15/22 05:22 Labs: Abnormal Lab Results 06/15/22 06/15/22 06/14/22 05:22 05:22 20:30 WBC RBC Hgb 10.5 L Hct 31.6 L Plt Count MPV Immature Gran % (Auto) Neut % (Auto) Lymph % (Auto) Lymph # (Auto) Seg Neutrophils % Lymphocytes % Immature Gran # Absolute Neutrophils Toxic Granulation Dohle Bodies Platelet Estimate RBC Morphology Polychromasia Poikilocytosis Anisocytosis VBG Lactic Acid BUN 86 H Creatinine 2.4 H Glucose 203 H Uric Acid 8.1 H Calcium 7.8 L Phosphorus 1.9 L Magnesium Direct Bilirubin 0.3 H GGT AST 40 H Lactate Dehydrogenase 403 H Total Protein 5.2 L Albumin 1.8 L Albumin/Globulin Ratio 0.5 L Triglycerides 255 H Procalcitonin 12.63 H 06/14/22 06/14/22 06/14/22 15:24 15:24 10:18 WBC RBC Hgb 11.9 L Hct 36.3 L Plt Count MPV Immature Gran % (Auto) Neut % (Auto) Lymph % (Auto) Lymph # (Auto) Seg Neutrophils % Lymphocytes % Immature Gran # Absolute Neutrophils Toxic Granulation Dohle Bodies Platelet Estimate RBC Morphology Polychromasia Poikilocytosis Anisocytosis VBG Lactic Acid BUN 89 H Creatinine 2.7 H Glucose 157 H Uric Acid Calcium 7.5 L Phosphorus Magnesium 2.6 H Direct Bilirubin GGT AST Lactate Dehydrogenase Total Protein Albumin 2.0 L Albumin/Globulin Ratio Triglycerides Procalcitonin 21.11 H 06/14/22 06/14/22 06/13/22 05:26 05:26 05:47 WBC 20.0 H 17.4 H RBC 3.68 L 4.16 L Hgb 11.0 L 12.6 L Hct 33.8 L 38.4 L Plt Count 111 L MPV 11.8 H 11.4 H Immature Gran % (Auto) 6.3 H Neut % (Auto) 85.4 H Lymph % (Auto) 4.1 L Lymph # (Auto) 0.71 L Seg Neutrophils % Lymphocytes % 6 L Immature Gran # 1.09 H Absolute Neutrophils 14.91 H Toxic Granulation Dohle Bodies Platelet Estimate Decreased A RBC Morphology Polychromasia Poikilocytosis Anisocytosis VBG Lactic Acid BUN 77 H Creatinine 2.8 H Glucose 163 H Uric Acid Calcium 6.9 L Phosphorus Magnesium 2.6 H Direct Bilirubin 0.3 H GGT AST Lactate Dehydrogenase 395 H Total Protein 5.1 L Albumin 1.9 L Albumin/Globulin Ratio 0.6 L Triglycerides 219 H Procalcitonin 06/13/22 06/13/22 06/12/22 05:47 05:30 08:08 WBC RBC Hgb Hct Plt Count MPV Immature Gran % (Auto) Neut % (Auto) Lymph % (Auto) Lymph # (Auto) Seg Neutrophils % 94 H Lymphocytes % 2 L Immature Gran # Absolute Neutrophils Toxic Granulation 1+ A Dohle Bodies Occ A Platelet Estimate RBC Morphology Abnormal A Polychromasia Occ A Poikilocytosis 1+ A Anisocytosis 1+ A VBG Lactic Acid 3.2 H BUN 58 H Creatinine 2.7 H Glucose 127 H Uric Acid Calcium 6.8 L Phosphorus Magnesium 2.6 H Direct Bilirubin 0.3 H GGT 6 L AST Lactate Dehydrogenase 263 H Total Protein 4.9 L Albumin 1.8 L Albumin/Globulin Ratio 0.6 L Triglycerides 239 H Procalcitonin Meds: Medications Albuterol/Ipratropium (Ipratropium/Albuterol 3 Ml Ampul.Neb) 3 ml NEB Q4HP PRN PRN Reason: Shortness Of Breath Diagnostic Test (Pha) (Accu-Chek 1 Each Strip) 1 each FS Q6 SOFIA Last Admin: 06/15/22 05:22 Dose: 1 each Haloperidol Lactate (Haloperidol Lactate 5 Mg/Ml Vial) 2 - 5 mg IV Q6HP PRN PRN Reason: ANXIETY/SEDATION Last Admin: 06/14/22 16:38 Dose: 5 mg Hydralazine HCl (Hydralazine 20 Mg/Ml Vial) 0 mg IV Q2HP PRN PRN Reason: Hypertension Last Admin: 06/15/22 04:07 Dose: 10 mg Hydromorphone HCl (Hydromorphone 0.5 Mg/0.5 Ml Syringe) 0.5 mg IV Q1HP PRN; Protocol PRN Reason: Per Pain Protocol Last Admin: 06/14/22 17:35 Dose: 0.5 mg Acetaminophen (Ofirmev) 1,000 mg in 100 mls @ 200 mls/hr IV Q6HP PRN; Protocol PRN Reason: PAIN/FEVER > 101 Last Admin: 06/15/22 07:04 Dose: 200 mls/hr Norepinephrine Bitartrate 8 mg (/ Sodium Chloride) 250 mls @ 18.75 mls/hr IV Q12HP PRN; Protocol PRN Reason: Hypotension Diltiazem HCl 125 mg/ Dextrose 125 mls @ 5 mls/hr IV Q12H [facility]; Protocol Last Admin: 06/14/22 20:45 Dose: Not Given Piperacillin Sod/Tazobactam (Sod 2.25 gm/ Dextrose) 50 mls @ 100 mls/hr IV Q6H [facility] Last Infusion: 06/15/22 06:00 Dose: Infused Fat Emulsion Intravenous 250 (ml/ Premix) 250 mls @ 25 mls/hr IV TuThSa@1600 [facility] Last Infusion: 06/14/22 02:25 Dose: Infused Calcium Gluconate 20 meq/Potassium Chloride 80 meq/Multivitamins/Minerals 10 ml/Amino Acids 2,093.0107 mls @ 85 mls/hr IV Q24H [facility] Last Admin: 06/14/22 13:53 Dose: 85 mls/hr Pantoprazole Sodium 80 mg/ (Sodium Chloride) 100 mls @ 10 mls/hr IV Q10H [facility] Last Admin: 06/15/22 01:17 Dose: 8 mg/hr, 10 mls/hr Insulin Human Lispro (Insulin Lispro 1 Unit/0.01 Ml Unit) 0 unit SQ Q6 [facility]; Protocol Last Admin: 06/15/22 05:28 Dose: 6 units Labetalol HCl (Labetalol 5 Mg/Ml Ml) 0 mg IV Q2HP PRN PRN Reason: Hypertension Last Admin: 06/13/22 21:37 Dose: 10 mg Lorazepam (Lorazepam 2 Mg/Ml Vial) 0.5 mg IV Q4HP PRN PRN Reason: ANXIETY/SEDATION Last Admin: 06/14/22 17:50 Dose: 0.5 mg Metoprolol Tartrate (Metoprolol Tartrate 5 Mg/5 Ml Vial) 5 mg IV Q2HP PRN PRN Reason: Tachyarrhythmias HR>110 Last Admin: 06/15/22 07:35 Dose: 5 mg Metoprolol Tartrate (Metoprolol Tartrate 5 Mg/5 Ml Vial) 5 mg IV Q6H SOFIA Last Admin: 06/15/22 04:03 Dose: 5 mg Ondansetron HCl (Ondansetron 4 Mg/2 Ml Vial) 4 mg IV Q6HP PRN PRN Reason: Nausea And Vomiting Last Admin: 06/10/22 02:05 Dose: 4 mg Oxycodone HCl (Oxycodone Hcl 5 Mg Tablet) 5 mg PO Q4HP PRN; Protocol PRN Reason: Per Pain Protocol Last Admin: 06/12/22 11:52 Dose: 5 mg Sodium Chloride (0.9 % Sodium Chloride 10 Ml Syringe) 10 ml IV Q12 [facility] Last Admin: 06/14/22 20:45 Dose: 10 ml Sodium Chloride (0.9 % Sodium Chloride 10 Ml Syringe) 10 ml IV UD PRN PRN Reason: Maintain line patency A/P Narrative A/P Narrative: A: *Small bowel obstruction & perforations: s/p Ex-lap w/Lysis of adhesions (06/08) & s/p Ex-lap w/SB-resection for microperf's (06/11) -Transferred to PCU for hypotension evening 06/10 -awaiting bowel function *Severe Sepsis w/Hypotension and Lactic acidosis(resolved): responded to IVF -Leukocytosis but bandemia resolved, fevers(resolved) -Tmax 101.1 yesterday evening *THEO on CKD III: possible ATN from hypotension -1.9>1.7>>1.9>>2.8>2.4 -UOP improved with diuresis *GI Bleed, appears to be upper: *Anemia, acute blood loss: hold in 10's *Thrombocytopenia: likely consumptive from bleeding, but r/o HIT, lab sent *Atelectasis: *Afib/flutter w/RVR episode: no history of, likely 2/2 acute illness and being off home BB -echo with good EF -started on dilt gtt and converted to NSR 06/13 @0238 *CAD: No current symptoms *DM 2 w/neuropathy: *Psoriasis: On Humira *HTN: on bb/ccb/arb/hctz, Plan: -Bowels and NGT per Surgery -NPO, TPN started, IVF/diuretics per nephro -monitor UOP/renal fxn -Nephrology following -Continue piperacillin/tazobactam, repeat BC pending, -protonix gtt, monitor H&H/plts -cont sofia IV BB -IS,Acapella -hold oral BP meds (norvasc/losartan/HCTZ) until oral intake and theo resolved. BP now elevating > prn IV meds -SSI, hold metformin -ppx: SCD / H2 full code Time Spent With Patient Time: Total time spent is greater than 50% in coordination of care (as documented) at patient's floor/unit and/or counseling patient: Critical Care Time: Yes Total Critical Care Time: 55 QUALITY VTE Deep Vein Thrombosis/Pulmonary Embolism Present on Admission: No
[2022-06-15 08:18] LABS: Band Neutrophils % 5 % (0-10); Lymphocytes % 4 % (15-49); Metamyelocytes % 1 %; Monocytes % (Manual) 4 % (1-12); Myelocytes % 4 %; Platelet Estimate DECREASED (Normal); RBC Morphology NORMAL (Normal); Segmented Neutrophils % 82 % (38-78)
[2022-06-15] MEDS ORDERED: POTASSIUM PHOSPHATE 40 MEQ in DEXTROSE 5% IN WATER 500 ML IV SCH (08:30)
[2022-06-15 08:44] LABS: Basophils # (Auto) 0.11 K/mcL (0.00-0.30); Basophils % (Auto) 0.6 % (0.0-2.0); Eosinophils # (Auto) 0.01 K/mcL (0.00-0.70); Eosinophils % (Auto) 0.1 % (0.0-7.0); Hematocrit 33.6 % (40.1-51.0); Hemoglobin 10.9 g/dL (13.7-17.5); Lymphocytes # (Auto) 0.93 K/mcL (1.50-4.80); Lymphocytes % (Auto) 5.5 % (15.5-49.0); Mean Cell Volume 92.8 fL (80.0-100.0); Mean Corpuscular HGB Conc 32.4 g/dL (31.0-36.0); Mean Platelet Volume 12.4 fL (7.4-10.4); Monocytes # (Auto) 0.72 K/mcL (0.10-0.90); Monocytes % (Auto) 4.2 % (1.0-12.0); Neutrophils % (Auto) 79.8 % (38.0-78.0); Platelet Count 87 K/mcL (140-440); RBC 3.62 M/mcL (4.63-6.08); Red Cell Distribution Width 13.3 % (11.5-14.5); WBC 17.1 K/mcL (4.5-11.0)
[2022-06-15] MEDS: 0.9 % SODIUM CHLORIDE 10 ML SYRINGE IV SCH ×2 (08:44→21:10)
[2022-06-15] MEDS: DILTIAZEM 125 MG in DEXTROSE 5% IN WATER 100 ML IV SCH (08:44)
--- NOTE | 2022-06-15 09:19 | Nephrology Progress Note ---
SUBJECTIVE Subjective Patient information: Note initiated : 06/15/22 at 9:15 am Patient: Neo Chamorro 71 y/o M admitted on 06/07/22 for Abdominal pain. Chief Complaint: Abdominal pain Principal diagnosis: SBO Pertinent ROS: Weakness Confusion improved NG tube Abdominal pain and distention Edema [place] catheter with clear urine Constitutional Vitals: Vital Signs Temp Pulse Resp BP Pulse Ox O2 Del Method O2 Flow Rate 100.2 F H 108 H 29 H 128/64 93 0 06/15/22 06:56 06/15/22 06:01 06/15/22 06:56 06/15/22 06:01 06/15/22 06:01 06/15/22 01:55 06/15/22 06:01 Period Temp Pulse Resp BP Sys/Medellin Pulse Ox O2 Del Method O2 Flow Rate Last 24 Hr 97.1 F-101.1 F 79-122 16-31 98-218/53-193 85-100 Room Air-Room Air 0-0 Intake and Output 06/14/22 06/15/22 06/15/22 21:59 05:59 13:59 Intake Total 175 160 270 Output Total 2785 1485 775 Balance -2610 -1325 -505 Weight 242 lb 11.2 oz Intake & Output: Intake & Output 06/14/22 06/15/22 06/15/22 21:59 05:59 13:59 Intake Total 175 160 270 Output Total 2785 1485 775 Balance -2610 -1325 -505 Weight 242 lb 11.2 oz Intake: IV 150 140 150 Protonix 80 mg In Sodium 90 Chloride 0.9% 100 ml @ 8 MG/HR 10 mls/hr IV Q10H MEÑO Rx#: [id number] Zosyn 2.25 gm In Dextrose 5% in 50 50 50 Water 50 ml @ 100 mls/hr IV Q6H MEÑO Rx#:[id number] Oral 25 20 120 Tube Feeding 0 0 Output: Gastric Drainage 175 200 Right Nare NG/OG 175 200 Drainage 10 10 Abdomen [place] Drain 10 10 Urine Catheter Amount 2600 1050 775 Stool 225 Other: Urine Appearance Clear Clear Clear Uretheral (Woods) Clear Clear Clear Urine Color Bright Yellow Bright Yellow Pale Uretheral (Woods) Bright Yellow Bright Yellow Pale Urine Odor Normal Normal Stool Size Smear Large Stool Color Green Black Brown Black Stool Consistency Liquid Soft Loose Liquid # Bowel Movements 1 3 # of times incontinent of 1 Bowels General appearance: cooperative and no acute distress Head Head exam: Present normal inspection Eye Eye exam: Present normal appearance ENT ENT exam: Present mucous membranes moist Respiratory Respiratory exam: Absent respiratory distress Cardiovascular Cardiovascular exam: Present normal rate and rhythm GI/Abdominal GI/Abdominal exam: Present distended Extremities Exam Extremities exam: Present pedal edema; Absent joint swelling Neurological Exam Neurological exam: Present alert and oriented X3 Psychiatric Psychiatric exam: Present normal affect and normal mood Skin Skin exam: Present warm; Absent rash A/P Assessment and plan (1) Acute renal failure with acute tubular necrosis superimposed on stage 3a chronic kidney disease: Assessment and plan: Neo Chamorro is a 71-year-old male with a history of multiple abdominal surgeries, diabetes mellitus type 2, CAD, hypertension, and CKD stage 3 (followed by Dr. Paulino). He presented to ED for 24-hour history of abdominal pain associated with nausea and vomiting. He was admitted on 06/07/22. He had robotic assisted exploratory laparoscopy, extensive lysis of adhesions, removal of intra-abdominal mesh on 06/08/22. He had exploratory laparotomy, small bowel resection on 06/11/22. Serum creatinine had a rising trend since admission. Urine output has been >500 ml/day. Acute kidney injury, likely prerenal initially, suspected progression to acute tubular necrosis on chronic kidney disease stage 3a, resolving. History of IV contrast administration with CT on 06/06/22. No history of NSAID use. Work up: No urinalysis. Urine Sodium on 06/11/22: 14 mmol/L. Renal US on 06/13/22: 2 x 2 centimeters simple cyst inferior pole right kidney unchanged from CT. No significant renal abnormality. CT Abdomen and Pelvis without contrast on 06/11/22: The noncontrasted liver, left kidney, both adrenal glands, spleen and aorta are normal in size, configuration and attenuation without focal lesion. A 3 cm simple cyst inferior pole right kidney is unchanged. No significant renal lesion. CT Abdomen and Pelvis with contrast on 06/06/22: No solid renal mass. No hydronephrosis. No obstructing or nonobstructing calculi. Benign 3 cm right lower pole renal cyst. No hydroureter. No ureteral calculus. No bladder stone. No detectable bladder mass. Progress: Serum creatinine decreased from 2.7 to 2.4 in the past 12 hours. Baseline serum creatinine: 1.5 (eGFR 47) on 04/24/18, 1.9 (eGFR 34) on 06/06/22. Serum calcium 7.8. Serum phosphorus 1.9, being replaced. Urine output: 5,370 ml reported in the past 24 hours. Fluid overload, resolving. I/O: +9.7L since admit. No obvious uremic symptoms. Recommendations/Plan: Anticipate no acute hemodialysis need. Nephrology will sign off. Status: Acute Time Spent With Patient Time: Total time spent is greater than 50% in coordination of care (as documented) at patient's floor/unit and/or counseling patient:
[2022-06-15] MEDS ORDERED: [UNRECOGNIZED DRUG - REMARK] IV SCH ×2 (09:30→14:00)
--- NOTE | 2022-06-15 10:08 | General Surgery Progress Note ---
SUBJECTIVE Subjective Patient information: Note initiated : 06/15/22 at 10:05 am Service Date, if different from initiated Date: [] Patient: Neo Chamorro 71 y/o M admitted on 06/07/22 for Abdominal pain. Chief Complaint: [] Principal diagnosis: SBO Interval history: Overnight events noted. Patient was seen and evaluated multiple times throughout the day, abdomen remains soft, CT scan chest abdomen pelvis with no obvious pathology intra-abdominal other than cystitis and pleural effusion. Patient continues to have bowel function, abdomen is less distended this morning. Labs reviewed, decreased white blood cell count, decreased neutrophils, decreased procalcitonin. Constitutional Vitals: Vital Signs Temp Pulse Resp BP Pulse Ox O2 Del Method O2 Flow Rate 99.5 F H 108 H 28 H 137/60 93 0 06/15/22 09:01 06/15/22 06:01 06/15/22 09:01 06/15/22 09:01 06/15/22 07:01 06/15/22 01:55 06/15/22 09:01 Period Temp Pulse Resp BP Sys/Medellin Pulse Ox O2 Del Method O2 Flow Rate Last 24 Hr 97.1 F-101.1 F 79-122 16-31 98-218/53-193 85-100 Room Air-Room Air 0-0 Intake and Output 06/14/22 06/15/22 06/15/22 21:59 05:59 13:59 Intake Total 175 160 270 Output Total 2785 1485 775 Balance -2610 -1325 -505 Weight 242 lb 11.2 oz Intake & Output: Intake & Output 06/14/22 06/15/22 06/15/22 21:59 05:59 13:59 Intake Total 175 160 270 Output Total 2785 1485 775 Balance -2610 -1325 -505 Weight 242 lb 11.2 oz Intake: IV 150 140 150 Protonix 80 mg In Sodium 90 Chloride 0.9% 100 ml @ 8 MG/HR 10 mls/hr IV Q10H [facility] Rx#: [id number] Zosyn 2.25 gm In Dextrose 5% in 50 50 50 Water 50 ml @ 100 mls/hr IV Q6H [facility] Rx#:[id number] Oral 25 20 120 Tube Feeding 0 0 Output: Gastric Drainage 175 200 Right Nare NG/OG 175 200 Drainage 10 10 Abdomen [place] Drain 10 10 Urine Catheter Amount 2600 1050 775 Stool 225 Other: Urine Appearance Clear Clear Clear Uretheral (Woods) Clear Clear Clear Urine Color Bright Yellow Bright Yellow Pale Uretheral (Woods) Bright Yellow Bright Yellow Pale Urine Odor Normal Normal Stool Size Smear Large Stool Color Green Black Brown Black Stool Consistency Liquid Soft Loose Liquid # Bowel Movements 1 3 # of times incontinent of 1 Bowels General appearance: no acute distress GI/Abdominal GI/Abdominal exam: Present soft and tenderness; Absent distended Additional comments: Incision is clean dry and intact, [place] with minimal serous output. A/P Assessment and plan (1) SBO (small bowel obstruction): Plan: Slowly improving. Patient has return of bowel function. We will clamp NG tube, start clear liquid diet. If tolerates clear liquid diet throughout the day will remove NG tube later tonight or first thing tomorrow morning. Continue to observe [place], abdomen and follow labs. Status: Acute Time Spent With Patient Time: Total time spent is greater than 50% in coordination of care (as documented) at patient's floor/unit and/or counseling patient:
[2022-06-15] MEDS: IPRATROPIUM/ALBUTEROL 3 ML AMPUL.NEB NEB PRN (10:34)
[2022-06-15] MEDS: LABETALOL 5 MG/ML ML IV PRN (11:42)
[2022-06-15] MEDS ORDERED: [UNRECOGNIZED DRUG - REMARK] IV SCH (14:00)
[2022-06-15] MEDS: ONDANSETRON 4 MG/2 ML VIAL IV PRN (14:16)
[2022-06-16] MEDS: METOPROLOL TARTRATE 5 MG/5 ML VIAL IV SCH ×4 (04:06→21:19)
[2022-06-16] MEDS: PIPERACILLIN SODIUM/TAZOBACTAM 2.25 GM in DEXTROSE 5% IN WATER 50 ML IV SCH ×3 (05:44→17:43)
[2022-06-16] MEDS: INSULIN LISPRO 1 UNIT/0.01 ML UNIT SQ SCH ×3 (05:44→17:48)
[2022-06-16] MEDS: ACETAMINOPHEN 1,000 MG/100 ML BAG IV PRN (06:24)
[2022-06-16] MEDS: ONDANSETRON 4 MG/2 ML VIAL IV PRN ×2 (06:32→20:34)
[2022-06-16 06:58] LABS: ALT/SGPT 24 U/L (<40); AST/SGOT 39 U/L (<40); Albumin 1.8 gm/dL (3.2-5.2); Albumin/Globulin Ratio 0.6 (1.0-2.3); Alkaline Phosphatase 108 U/L (39-117); Basophils # (Auto) 0.07 K/mcL (0.00-0.30); Basophils % (Auto) 0.4 % (0.0-2.0); Bilirubin,Direct 0.3 mg/dL (<0.3); Bilirubin,Total 0.6 mg/dL (0.1-1.0); Blood Urea Nitrogen 58 mg/dL (8-23); Calcium 7.7 mg/dL (8.6-10.4); Carbon Dioxide 26 mmol/L (22-30); Chloride 107 mmol/L (96-108); Eosinophils # (Auto) 0.01 K/mcL (0.00-0.70); Eosinophils % (Auto) 0.1 % (0.0-7.0); Globulin 3.2 gm/dL (2.2-3.7); Glomerular Filtration Rate 36; Glucose 281 mg/dL (70-105); Hematocrit 31.4 % (40.1-51.0); Hemoglobin 9.9 g/dL (13.7-17.5); Lactate Dehydrogenase 315 U/L (135-225); Lymphocytes # (Auto) 1.08 K/mcL (1.50-4.80); Lymphocytes % (Auto) 6.6 % (15.5-49.0); Mean Cell Volume 94.3 fL (80.0-100.0); Mean Corpuscular HGB Conc 31.5 g/dL (31.0-36.0); Mean Platelet Volume 12.7 fL (7.4-10.4); Monocytes # (Auto) 0.92 K/mcL (0.10-0.90); Monocytes % (Auto) 5.6 % (1.0-12.0); Neutrophils % (Auto) 78.1 % (38.0-78.0); Phosphorous 1.4 mg/dL (2.5-4.5); Platelet Count 78 K/mcL (140-440); RBC 3.33 M/mcL (4.63-6.08); Red Cell Distribution Width 13.3 % (11.5-14.5); Triglycerides 333 mg/dL (<150); Uric Acid 5.7 mg/dL (2.5-8.0); WBC 16.4 K/mcL (4.5-11.0)
--- NOTE | 2022-06-16 08:04 | Internal Med Progress Note ---
SUBJECTIVE Subjective Patient information: Note initiated : 06/16/22 at 7:53 am Service Date, if different from initiated Date: [] Patient: Neo Chamorro 71 y/o M admitted on 06/07/22 for Abdominal pain. Chief Complaint: [] Principal diagnosis: SBO Interval history: Mr. Chamorro is a 71 year old M with a complex past medical history significant for multiple abdominal surgeries, diabetes mellitus type 2, CAD, hypertension, and CKD who presents to the hospital with 24-hour history of abdominal pain associate with nausea and vomiting. The patient's had prior episodes of bowel obstruction and states that this is very similar. As mentioned, he has had multiple abdominal surgeries including partial colectomy for diverticulitis, appendectomy, and cholecystectomy. The patient states that he was his usual self up until yesterday. He noticed that his abdomen was distended, and he was unable to have a bowel movement or pass gas. On presentation to the hospital, he was hemodynamically stable and afebrile. CT abdomen pelvis revealed mildly distended fluid-filled small bowel. Deep to the hernia patch and findings are consistent with partial mechanical small bowel obstruction. There was no closed-loop obstruction. He has a history of partial colectomy, partial cholecystectomy and appendectomy. There is previous anterior wall hernia repair. The hospitalist service was asked admit the patient in the setting of multiple medical comorbidities. General surgery were also consulted. 06/08: I evaluated the patient after he returned from the OR. The patient had laparoscopic lysis of adhesions. He has an NG tube in place. Advance diet as tolerated per general surgery. He is on narcotic analgesics. A clamp trial will be performed once he has active bowel function. From a medical standpoint, we will continue to hold most of his oral medications from home. Continue insulin sliding scale. 06/09: The patient is febrile with a temp of 100.6 and is tachycardic. Due to his recent intra-abdominal surgery, we will start Zosyn. Once the patient has passed gas or has had a bowel movement, he will have a clamp trial and subsequent NG tube removal and then advance diet as tolerated. 06/10: Postop day #2. Fever to 103 yesterday afternoon. Remains tachycardic. Home meds include metoprolol XL, which has been held. Still with abdominal pain, minimal nausea. Not much NG tube output this morning, is picked up this afternoon. KUB with normal bowel gas pattern this afternoon. 06/11: Postop day #3. Had recurrent fever yesterday, then yesterday evening blood pressure dropped to the 60s systolic. Responded to IV fluids. Overnight had blood pressures right at a map of 65. Urine output dropped off and THEO on this morning's labs. Urine output has picked up after further fluid boluses. CTAP yesterday evening generally unrevealing. Initially when Dr. Nobles and I reviewed scan, concern for possible mediastinitis. Official read less concerning for that. For barium swallow to check for esophageal extravasation today. White count has normalized. 06/12 Patient feeling a little better today after exploratory laparotomy yesterday with several small micro perforations noted and subsequent bowel resection. Urine output borderline at 30 cc/h the last 1 was 15 cc. Patient just went into A. fib RVR, asymptomatic. Patient denies history of A. fib. Abdominal pain relatively controlled. He has some nausea but no vomiting. Patient denies flatus or bowel movements 06/13 Patient is not passing gas. Patient has abdominal pain. Feels about the same as yesterday. Urine output mediocre. Creatinine mild minimally worse today. We will get renal ultrasound and consult nephrology. Patient started on diltiazem drip last night for difficult to control A. fib flutter. Converted to normal sinus rhythm early this morning. Will need to start nutrition today, TPN given his n.p.o. status. Leukocytosis but bandemia improving. Lactic acidosis improved. 06/14 Patient did spike a fever of 101.8 last night. His white blood cell count still elevated at 20 today 17 yesterday although his bandemia prior to that was 30% and no more bandemia yesterday or today. We will repeat blood cultures check procalcitonin. Patient did have a large bowel movement overnight which was quite positive sign. Renal function remains the same. Did have good urine output over the past 24 hours with the high-dose IV Lasix per nephrology. Patient did have confusion last night for some agitation concern for safety of IV's lines and patient did get Haldol. Patient with heme positive stool and gastric contents. We will stop heparin DVT prophylaxis and keep SCDs. protonix drip placed. Gen Surg to evaluate. CT c/a/p no acute path. 06/15 Patient seems to be feeling a little better today. Have a T-max of 101 last night. Tachycardic in the low 100s. Good urine output and creatinine improving today to 2.4. Patient complains of some shortness of breath but no coughing chest pain, stomach pain seems to be a bit better. Leukocytosis that went from 17-20 yesterday is now back down to 17 and no more bandemia. Thrombocytopenia noted at 87, down from 111 yesterday. likely from consumtion d/t bleeding, but will send HIT-ab's. 06/16 Patient feeling better today. Bowel movement last night still dark but gastric contents are now clear. Leukocytosis slowly trending in the right direction. Hemoglobin 9.9. Fever curve continues to improve. Still generally tenuous state. Respiratory tenuous at times likely compounded by abdominal process. No function improving. Hypo-phosphatemia replete. Patient states abdominal pain improving. Review of Systems: denies headache/fever/chills/vomiting/chest pain. Otherwise see above. Constitutional Vitals: Vital Signs Temp Pulse Resp BP Pulse Ox O2 Del Method O2 Flow Rate 99.8 F H 100 H 28 H 138/59 95 0 06/16/22 06:00 06/16/22 05:00 06/16/22 06:00 06/16/22 06:00 06/16/22 06:00 06/16/22 02:00 06/16/22 06:00 Period Temp Pulse Resp BP Sys/Medellin Pulse Ox O2 Del Method O2 Flow Rate Last 24 Hr 98.5 F-100.1 F 88-110 19-33 114-170/54-81 91-98 Room Air-Room Air 0-0 Intake and Output 06/15/22 06/16/22 06/16/22 21:59 05:59 13:59 Intake Total 3388.0909 750 150 Output Total 1100 960 Balance 2288.0909 -210 150 Weight 108.409 kg Intake & Output: Intake & Output 06/15/22 06/16/22 06/16/22 21:59 05:59 13:59 Intake Total 3388.0909 750 150 Output Total 1100 960 Balance 2288.0909 -210 150 Weight 108.409 kg Intake: IV 2818.0909 50 150 Calcium Gluconate 20 Meq 2064 Potassium Chloride 80 Meq Infuvite Adult 10 ml In Clinimix 5%-20% Solution 2,000 ml @ 85 mls/hr IV Q24H [facility] Rx#: [id number] Protonix 80 mg In Sodium 95 Chloride 0.9% 100 ml @ 8 MG/HR 10 mls/hr IV Q10H [facility] Rx#: [id number] Zosyn 2.25 gm In Dextrose 5% in 50 50 50 Water 50 ml @ 100 mls/hr IV Q6H [facility] Rx#:[id number] Potassium Phosphate 40 Meq In 509.0909 Dextrose 5% in Water 500 ml @ 63.636 mls/hr IV 0830 [facility] Rx#: [id number] Oral 570 700 Tube Feeding 0 Output: Gastric Drainage 140 Right Nare NG/OG 140 Drainage 10 60 Abdomen [place] Drain 10 60 Urine Catheter Amount 950 850 Stool 50 Other: Urine Appearance Clear Clear Uretheral ([place]s) Clear Clear Clear Urine Color Bright Yellow Yellow Uretheral ([place]s) Bright Yellow Bright Yellow Yellow Stool Size Small Moderate Stool Color Black Green Black Stool Consistency Loose Loose # Bowel Movements 1 1 # of times incontinent of 1 1 Bowels Exam: General: alert, Awake, obese Eyes/N/T: EOMI, Head/Neck: neck supple, CV: RRR, No murmurs, Pulm: subtle rales at bases, no wheezing Abd: distended, mild tender generalized, better bowel sounds Ext: no clubbing/cyanosis, mild LE/UE edema and pedal edema continue to improve Neuro: alert, no focal deficits, moves all extremities, mentation continues to improve Skin: warm/dry OBJ DATA Labs CBC & Chem 7: 06/16/22 05:39 06/16/22 05:39 Labs: Abnormal Lab Results 06/16/22 06/16/22 06/16/22 05:39 05:39 05:39 WBC 16.4 H RBC 3.33 L Hgb 9.9 L Hct 31.4 L Plt Count 78 L MPV 12.7 H Immature Gran % (Auto) 9.2 H Neut % (Auto) 78.1 H Lymph % (Auto) 6.6 L Lymph # (Auto) 1.08 L [place] # (Auto) 0.92 H Seg Neutrophils % Lymphocytes % Immature Gran # 1.51 H Absolute Neutrophils 12.81 H Toxic Granulation Dohle Bodies Platelet Estimate RBC Morphology Polychromasia Poikilocytosis Anisocytosis BUN 58 H Creatinine 1.8 H Glucose 281 H Uric Acid Calcium 7.7 L Phosphorus 1.4 L Magnesium Direct Bilirubin 0.3 H AST Lactate Dehydrogenase 315 H Total Protein 5.0 L Albumin 1.8 L Albumin/Globulin Ratio 0.6 L Prealbumin 13.2 L Triglycerides 333 H Procalcitonin 06/15/22 06/15/22 06/15/22 05:23 05:23 05:22 WBC 17.1 H RBC 3.62 L Hgb 10.9 L Hct 33.6 L Plt Count 87 L MPV 12.4 H Immature Gran % (Auto) 9.8 H Neut % (Auto) 79.8 H Lymph % (Auto) 5.5 L Lymph # (Auto) 0.93 L [place] # (Auto) Seg Neutrophils % 82 H Lymphocytes % 4 L Immature Gran # 1.67 H Absolute Neutrophils 13.62 H Toxic Granulation Dohle Bodies Platelet Estimate Decreased A RBC Morphology Polychromasia Poikilocytosis Anisocytosis BUN Creatinine Glucose Uric Acid Calcium Phosphorus Magnesium Direct Bilirubin AST Lactate Dehydrogenase Total Protein Albumin Albumin/Globulin Ratio Prealbumin Triglycerides Procalcitonin 12.63 H 06/15/22 06/14/22 06/14/22 05:22 20:30 15:24 WBC RBC Hgb 10.5 L Hct 31.6 L Plt Count MPV Immature Gran % (Auto) Neut % (Auto) Lymph % (Auto) Lymph # (Auto) [place] # (Auto) Seg Neutrophils % Lymphocytes % Immature Gran # Absolute Neutrophils Toxic Granulation Dohle Bodies Platelet Estimate RBC Morphology Polychromasia Poikilocytosis Anisocytosis BUN 86 H 89 H Creatinine 2.4 H 2.7 H Glucose 203 H 157 H Uric Acid 8.1 H Calcium 7.8 L 7.5 L Phosphorus 1.9 L Magnesium 2.6 H Direct Bilirubin 0.3 H AST 40 H Lactate Dehydrogenase 403 H Total Protein 5.2 L Albumin 1.8 L 2.0 L Albumin/Globulin Ratio 0.5 L Prealbumin Triglycerides 255 H Procalcitonin 06/14/22 06/14/22 06/14/22 15:24 10:18 05:26 WBC RBC Hgb 11.9 L Hct 36.3 L Plt Count MPV Immature Gran % (Auto) Neut % (Auto) Lymph % (Auto) Lymph # (Auto) [place] # (Auto) Seg Neutrophils % Lymphocytes % Immature Gran # Absolute Neutrophils Toxic Granulation Dohle Bodies Platelet Estimate RBC Morphology Polychromasia Poikilocytosis Anisocytosis BUN 77 H Creatinine 2.8 H Glucose 163 H Uric Acid Calcium 6.9 L Phosphorus Magnesium 2.6 H Direct Bilirubin 0.3 H AST Lactate Dehydrogenase 395 H Total Protein 5.1 L Albumin 1.9 L Albumin/Globulin Ratio 0.6 L Prealbumin Triglycerides 219 H Procalcitonin 21.11 H 06/14/22 06/13/22 05:26 05:30 WBC 20.0 H RBC 3.68 L Hgb 11.0 L Hct 33.8 L Plt Count 111 L MPV 11.8 H Immature Gran % (Auto) Neut % (Auto) Lymph % (Auto) Lymph # (Auto) [place] # (Auto) Seg Neutrophils % 94 H Lymphocytes % 6 L 2 L Immature Gran # Absolute Neutrophils Toxic Granulation 1+ A Dohle Bodies Occ A Platelet Estimate Decreased A RBC Morphology Abnormal A Polychromasia Occ A Poikilocytosis 1+ A Anisocytosis 1+ A BUN Creatinine Glucose Uric Acid Calcium Phosphorus Magnesium Direct Bilirubin AST Lactate Dehydrogenase Total Protein Albumin Albumin/Globulin Ratio Prealbumin Triglycerides Procalcitonin Meds: Medications Albuterol/Ipratropium (Ipratropium/Albuterol 3 Ml Ampul.Neb) 3 ml NEB Q4HP PRN PRN Reason: Shortness Of Breath Last Admin: 06/15/22 10:34 Dose: 3 ml Diagnostic Test (Pha) (Accu-Chek 1 Each Strip) 1 each FS Q6 [facility] Last Admin: 06/16/22 05:43 Dose: 1 each Haloperidol Lactate (Haloperidol Lactate 5 Mg/Ml Vial) 2 - 5 mg IV Q6HP PRN PRN Reason: ANXIETY/SEDATION Last Admin: 06/14/22 16:38 Dose: 5 mg Hydralazine HCl (Hydralazine 20 Mg/Ml Vial) 0 mg IV Q2HP PRN PRN Reason: Hypertension Last Admin: 06/15/22 14:01 Dose: 10 mg Hydromorphone HCl (Hydromorphone 0.5 Mg/0.5 Ml Syringe) 0.5 mg IV Q1HP PRN; Protocol PRN Reason: Per Pain Protocol Last Admin: 06/14/22 17:35 Dose: 0.5 mg Acetaminophen (Ofirmev) 1,000 mg in 100 mls @ 200 mls/hr IV Q6HP PRN; Protocol PRN Reason: PAIN/FEVER > 101 Last Infusion: 06/16/22 07:18 Dose: Infused Norepinephrine Bitartrate 8 mg (/ Sodium Chloride) 250 mls @ 18.75 mls/hr IV Q12HP PRN; Protocol PRN Reason: Hypotension Piperacillin Sod/Tazobactam (Sod 2.25 gm/ Dextrose) 50 mls @ 100 mls/hr IV Q6H [facility] Last Infusion: 06/16/22 06:17 Dose: Infused Pantoprazole Sodium 80 mg/ (Sodium Chloride) 100 mls @ 10 mls/hr IV Q10H [facility] Last Admin: 06/15/22 21:10 Dose: 8 mg/hr, 10 mls/hr Calcium Gluconate 10 meq/Potassium Chloride 40 meq/Multivitamins/Minerals 10 ml/Potassium Phosphate 20 meq/Amino Acids 2,056.0508 mls @ 85 mls/hr IV Q24H [facility] Last Admin: 06/15/22 13:42 Dose: 85 mls/hr Fat Emulsion Intravenous 250 (ml/ Premix) 250 mls @ 25 mls/hr IV TuThSa@1600 SOFIA Insulin Human Lispro (Insulin Lispro 1 Unit/0.01 Ml Unit) 0 unit SQ Q6 [facility]; Protocol Last Admin: 06/16/22 05:44 Dose: 6 units Labetalol HCl (Labetalol 5 Mg/Ml Ml) 0 mg IV Q2HP PRN PRN Reason: Hypertension Last Admin: 06/15/22 11:42 Dose: 10 mg Lorazepam (Lorazepam 2 Mg/Ml Vial) 0.5 mg IV Q4HP PRN PRN Reason: ANXIETY/SEDATION Last Admin: 06/14/22 17:50 Dose: 0.5 mg Metoprolol Tartrate (Metoprolol Tartrate 5 Mg/5 Ml Vial) 5 mg IV Q2HP PRN PRN Reason: Tachyarrhythmias HR>110 Last Admin: 06/15/22 07:35 Dose: 5 mg Metoprolol Tartrate (Metoprolol Tartrate 5 Mg/5 Ml Vial) 5 mg IV Q6H [facility] Last Admin: 06/16/22 04:06 Dose: 5 mg Ondansetron HCl (Ondansetron 4 Mg/2 Ml Vial) 4 mg IV Q6HP PRN PRN Reason: Nausea And Vomiting Last Admin: 06/16/22 06:32 Dose: 4 mg Oxycodone HCl (Oxycodone Hcl 5 Mg Tablet) 5 mg PO Q4HP PRN; Protocol PRN Reason: Per Pain Protocol Last Admin: 06/12/22 11:52 Dose: 5 mg Sodium Chloride (0.9 % Sodium Chloride 10 Ml Syringe) 10 ml IV Q12 [facility] Last Admin: 06/15/22 21:10 Dose: 10 ml Sodium Chloride (0.9 % Sodium Chloride 10 Ml Syringe) 10 ml IV UD PRN PRN Reason: Maintain line patency A/P Narrative A/P Narrative: A: *Small bowel obstruction & perforations: s/p Ex-lap w/Lysis of adhesions (06/08) & s/p Ex-lap w/SB-resection for microperf's (06/11) -Transferred to PCU for hypotension evening 06/10 -awaiting bowel function *Severe Sepsis w/Hypotension and Lactic acidosis(resolved): responded to IVF -Leukocytosis slowly improving -fever curve improved, Tmax 100.0 o/n *THEO on CKD III: possible ATN from hypotension -1.9>1.7>>2.8>>1.8 -UOP improved s/p diuresis *GI Bleed, appears to be upper, possibly gastritis: seems to have stopped *Anemia, acute blood loss: down to 9.9 *Thrombocytopenia: likely consumptive from bleeding, but r/o HIT, lab sent *Atelectasis: *Afib/flutter w/RVR episode: no history of, likely 2/2 acute illness and being off home BB -echo with good EF -started on dilt gtt and converted to NSR 06/13 @0238 *CAD: No current symptoms *DM 2 w/neuropathy: *Psoriasis: On Humira *HTN: on bb/ccb/arb/hctz, *Electrolyte disorder hypophosphatemia: Replete Plan: -Bowels and NGT per Surgery, GI bleed per surgery -clear, TPN started, IVF/diuretics per nephro -Nephrology following -monitor UOP/renal fxn -Continue piperacillin/tazobactam, repeat BC pending neg, -protonix gtt, monitor H&H/plts -cont sofia IV BB -IS,Acapella -hold oral BP meds (norvasc/losartan/HCTZ) until oral intake and theo resolved. BP now elevating > prn IV meds -SSI, hold metformin. lantus 12u today -ppx: SCD / ppi full code Time Spent With Patient Time: Total time spent is greater than 50% in coordination of care (as documented) at patient's floor/unit and/or counseling patient: Total time spent with greater than 50% in coordination of care (as documented) at patient's floor/unit and/or counseling patient:: 35 - 50 minutes QUALITY VTE Deep Vein Thrombosis/Pulmonary Embolism Present on Admission: No
[2022-06-16] MEDS: PANTOPRAZOLE 80 MG in 0.9 % SODIUM CHLORIDE 100 ML IV SCH ×2 (08:14→18:37)
[2022-06-16] MEDS ORDERED: INSULIN GLARGINE, HUMAN 1 UNIT/0.01 ML SQ SCH (08:25)
[2022-06-16] MEDS: NEUTRA PHOS 1 PACKET PO SCH ×2 (08:27→20:35)
[2022-06-16] MEDS ORDERED: POTASSIUM PHOSPHATE 40 MEQ in DEXTROSE 5% IN WATER 500 ML IV SCH (09:00)
[2022-06-16] MEDS: 0.9 % SODIUM CHLORIDE 10 ML SYRINGE IV SCH ×2 (09:04→20:35)
[2022-06-16] MEDS: IPRATROPIUM/ALBUTEROL 3 ML AMPUL.NEB NEB PRN (09:28)
--- NOTE | 2022-06-16 09:38 | General Surgery Progress Note ---
SUBJECTIVE Subjective Patient information: Note initiated : 06/16/22 at 9:35 am Service Date, if different from initiated Date: [] Patient: Neo Chamorro 71 y/o M admitted on 06/07/22 for Abdominal pain. Chief Complaint: [] Principal diagnosis: SBO Interval history: Continues to have bowel movements overnight, tolerated clear liquid diet. Occasionally got some nausea however when NG tube was placed back to suction onl y minimal output. [place] drain, white blood cell count all improved. Constitutional Vitals: Vital Signs Temp Pulse Resp BP Pulse Ox O2 Del Method O2 Flow Rate 99.8 F H 103 H 22 105/62 95 0 06/16/22 08:08 06/16/22 09:28 06/16/22 09:28 06/16/22 08:08 06/16/22 08:08 06/16/22 02:00 06/16/22 06:00 Period Temp Pulse Resp BP Sys/Medellin Pulse Ox O2 Del Method O2 Flow Rate Last 24 Hr 98.5 F-100.0 F 88-110 19-36 105-170/54-81 91-98 Room Air-Room Air 0-0 Intake and Output 06/15/22 06/16/22 06/16/22 21:59 05:59 13:59 Intake Total 3388.0909 750 250 Output Total 1100 960 320 Balance 2288.0909 -210 -70 Weight 239 lb Intake & Output: Intake & Output 06/15/22 06/16/22 06/16/22 21:59 05:59 13:59 Intake Total 3388.0909 750 250 Output Total 1100 960 320 Balance 2288.0909 -210 -70 Weight 239 lb Intake: IV 2818.0909 50 250 Calcium Gluconate 20 Meq 2064 Potassium Chloride 80 Meq Infuvite Adult 10 ml In Clinimix 5%-20% Solution 2,000 ml @ 85 mls/hr IV Q24H [facility] Rx#: [id number] Protonix 80 mg In Sodium 95 100 Chloride 0.9% 100 ml @ 8 MG/HR 10 mls/hr IV Q10H [facility] Rx#: [id number] Zosyn 2.25 gm In Dextrose 5% in 50 50 50 Water 50 ml @ 100 mls/hr IV Q6H [facility] Rx#:[id number] Potassium Phosphate 40 Meq In 509.0909 Dextrose 5% in Water 500 ml @ 63.636 mls/hr IV 0830 [facility] Rx#: [id number] Oral 570 700 Tube Feeding 0 Output: Gastric Drainage 140 Right Nare NG/OG 140 Drainage 10 60 Abdomen [place] Drain 10 60 Urine Catheter Amount 950 850 320 Stool 50 Other: Urine Appearance Clear Clear Uretheral ([place]) Clear Clear Clear Urine Color Bright Yellow Yellow Uretheral ([place]) Bright Yellow Bright Yellow Yellow Stool Size Small Moderate Stool Color Black Green Black Stool Consistency Loose Loose # Bowel Movements 1 1 # of times incontinent of 1 1 Bowels General appearance: no acute distress GI/Abdominal GI/Abdominal exam: Present normal bowel sounds, soft and tenderness; Absent distended Additional comments: Incision clean dry and intact. [place] drain with only serosanguineous fluid. A/P Assessment and plan (1) SBO (small bowel obstruction): Plan: Much improved this morning. DC NG tube. Full liquid diet. Status: Acute Time Spent With Patient Time: Total time spent is greater than 50% in coordination of care (as documented) at patient's floor/unit and/or counseling patient:
[2022-06-16] MEDS ORDERED: [UNRECOGNIZED DRUG - REMARK] IV SCH (14:00)
[2022-06-16] MEDS: hydrALAZINE 20 MG/ML VIAL IV PRN (14:56)
[2022-06-16] MEDS: oxyCODONE HCL 5 MG TABLET PO PRN (16:48)
[2022-06-16] MEDS ORDERED: MAG HYDROX/AL HYDROX/SIMETH 30 ML ORAL.SUSP PO SCH (20:45)
[2022-06-16] MEDS ORDERED: MAGNESIUM HYDROXIDE 30 ML ORAL.SUSP ONE (20:47)
[2022-06-17] MEDS: INSULIN LISPRO 1 UNIT/0.01 ML UNIT SQ SCH ×7 (00:28→23:53)
[2022-06-17] MEDS: PIPERACILLIN SODIUM/TAZOBACTAM 2.25 GM in DEXTROSE 5% IN WATER 50 ML IV SCH ×5 (00:28→23:53)
[2022-06-17] MEDS: METOPROLOL TARTRATE 5 MG/5 ML VIAL IV PRN ×2 (02:34→06:48)
[2022-06-17] MEDS: hydrALAZINE 20 MG/ML VIAL IV PRN (02:34)
[2022-06-17] MEDS: METOPROLOL TARTRATE 5 MG/5 ML VIAL IV SCH ×4 (03:49→21:24)
[2022-06-17] MEDS: PANTOPRAZOLE 80 MG in 0.9 % SODIUM CHLORIDE 100 ML IV SCH ×2 (04:22→05:29)
[2022-06-17 06:45] LABS: ALT/SGPT 43 U/L (<40); AST/SGOT 44 U/L (<40); Albumin 2.1 gm/dL (3.2-5.2); Albumin/Globulin Ratio 0.6 (1.0-2.3); Alkaline Phosphatase 122 U/L (39-117); Bilirubin,Total 0.5 mg/dL (0.1-1.0); Blood Urea Nitrogen 47 mg/dL (8-23); Calcium 7.8 mg/dL (8.6-10.4); Carbon Dioxide 25 mmol/L (22-30); Chloride 106 mmol/L (96-108); Globulin 3.3 gm/dL (2.2-3.7); Glomerular Filtration Rate 42; Glucose 273 mg/dL (70-105)
[2022-06-17] MEDS: ACETAMINOPHEN 1,000 MG/100 ML BAG IV PRN ×3 (07:17→23:59)
--- NOTE | 2022-06-17 07:48 | Internal Med Progress Note ---
SUBJECTIVE Subjective Patient information: Note initiated : 06/17/22 at 7:45 am Service Date, if different from initiated Date: [] Patient: Neo Chamorro 71 y/o M admitted on 06/07/22 for Abdominal pain. Chief Complaint: [] Principal diagnosis: SBO Interval history: Mr. Chamorro is a 71 year old M with a complex past medical history significant for multiple abdominal surgeries, diabetes mellitus type 2, CAD, hypertension, and CKD who presents to the hospital with 24-hour history of abdominal pain associate with nausea and vomiting. The patient's had prior episodes of bowel obstruction and states that this is very similar. As mentioned, he has had multiple abdominal surgeries including partial colectomy for diverticulitis, appendectomy, and cholecystectomy. The patient states that he was his usual self up until yesterday. He noticed that his abdomen was distended, and he was unable to have a bowel movement or pass gas. On presentation to the hospital, he was hemodynamically stable and afebrile. CT abdomen pelvis revealed mildly distended fluid-filled small bowel. Deep to the hernia patch and findings are consistent with partial mechanical small bowel obstruction. There was no closed-loop obstruction. He has a history of partial colectomy, partial cholecystectomy and appendectomy. There is previous anterior wall hernia repair. The hospitalist service was asked admit the patient in the setting of multiple medical comorbidities. General surgery were also consulted. 06/08: I evaluated the patient after he returned from the OR. The patient had laparoscopic lysis of adhesions. He has an NG tube in place. Advance diet as tolerated per general surgery. He is on narcotic analgesics. A clamp trial will be performed once he has active bowel function. From a medical standpoint, we will continue to hold most of his oral medications from home. Continue insulin sliding scale. 06/09: The patient is febrile with a temp of 100.6 and is tachycardic. Due to his recent intra-abdominal surgery, we will start Zosyn. Once the patient has passed gas or has had a bowel movement, he will have a clamp trial and subsequent NG tube removal and then advance diet as tolerated. 06/10: Postop day #2. Fever to 103 yesterday afternoon. Remains tachycardic. Home meds include metoprolol XL, which has been held. Still with abdominal pain, minimal nausea. Not much NG tube output this morning, is picked up this afternoon. KUB with normal bowel gas pattern this afternoon. 06/11: Postop day #3. Had recurrent fever yesterday, then yesterday evening blood pressure dropped to the 60s systolic. Responded to IV fluids. Overnight had blood pressures right at a map of 65. Urine output dropped off and THEO on this morning's labs. Urine output has picked up after further fluid boluses. CTAP yesterday evening generally unrevealing. Initially when Dr. Nobles and I reviewed scan, concern for possible mediastinitis. Official read less concerning for that. For barium swallow to check for esophageal extravasation today. White count has normalized. 06/12 Patient feeling a little better today after exploratory laparotomy yesterday with several small micro perforations noted and subsequent bowel resection. Urine output borderline at 30 cc/h the last 1 was 15 cc. Patient just went into A. fib RVR, asymptomatic. Patient denies history of A. fib. Abdominal pain relatively controlled. He has some nausea but no vomiting. Patient denies flatus or bowel movements 06/13 Patient is not passing gas. Patient has abdominal pain. Feels about the same as yesterday. Urine output mediocre. Creatinine mild minimally worse today. We will get renal ultrasound and consult nephrology. Patient started on diltiazem drip last night for difficult to control A. fib flutter. Converted to normal sinus rhythm early this morning. Will need to start nutrition today, TPN given his n.p.o. status. Leukocytosis but bandemia improving. Lactic acidosis improved. 06/14 Patient did spike a fever of 101.8 last night. His white blood cell count still elevated at 20 today 17 yesterday although his bandemia prior to that was 30% and no more bandemia yesterday or today. We will repeat blood cultures check procalcitonin. Patient did have a large bowel movement overnight which was quite positive sign. Renal function remains the same. Did have good urine output over the past 24 hours with the high-dose IV Lasix per nephrology. Patient did have confusion last night for some agitation concern for safety of IV's lines and patient did get Haldol. Patient with heme positive stool and gastric contents. We will stop heparin DVT prophylaxis and keep SCDs. protonix drip placed. Gen Surg to evaluate. CT c/a/p no acute path. 06/15 Patient seems to be feeling a little better today. Have a T-max of 101 last night. Tachycardic in the low 100s. Good urine output and creatinine improving today to 2.4. Patient complains of some shortness of breath but no coughing chest pain, stomach pain seems to be a bit better. Leukocytosis that went from 17-20 yesterday is now back down to 17 and no more bandemia. Thrombocytopenia noted at 87, down from 111 yesterday. likely from consumtion d/t bleeding, but will send HIT-ab's. 06/16 Patient feeling better today. Bowel movement last night still dark but gastric contents are now clear. Leukocytosis slowly trending in the right direction. Hemoglobin 9.9. Fever curve continues to improve. Still generally tenuous state. Respiratory tenuous at times likely compounded by abdominal process. No function improving. Hypo-phosphatemia replete. Patient states abdominal pain improving. 06/17 Patient started having low-grade fevers again over night. States he feels about the same as yesterday. No bowel movement or passing gas. Little more t achycardic for the past day or 2. Will obtain blood culture through the central line. Previous blood cultures from 126 unremarkable. Leukocytosis worsened again today. We will check manual differential. Obtain chest x-ray. Low Phos but better. Review of Systems: denies headache/fever/chills/vomiting/chest pain. Otherwise see above. Constitutional Vitals: Vital Signs Temp Pulse Resp BP Pulse Ox O2 Del Method O2 Flow Rate 100.2 F H 116 H 28 H 145/62 97 0 06/17/22 06:01 06/17/22 06:01 06/17/22 06:01 06/17/22 06:01 06/17/22 06:01 06/17/22 01:47 06/17/22 06:01 Period Temp Pulse Resp BP Sys/Medellin Pulse Ox O2 Del Method O2 Flow Rate Last 24 Hr 98.8 F-100.6 F 100-120 22-44 105-161/38-74 90-97 Room Air-Room Air 0-0 Intake and Output 06/16/22 06/17/22 06/17/22 21:59 05:59 13:59 Intake Total 3055.1417 750 50 Output Total 1065 770 Balance 50 Weight 109.406 kg Intake & Output: Intake & Output 06/16/22 06/17/22 06/17/22 21:59 05:59 13:59 Intake Total 3055.1417 750 50 Output Total 1065 770 Balance 50 Weight 109.406 kg Intake: Nourishment/Supplement quantity 240 (ml) IV 2715.1417 150 50 Calcium Gluconate 10 Meq 2056.0508 Potassium Chloride 40 Meq Infuvite Adult 10 ml Potassium Phosphate 20 Meq In Clinimix 5% -20% Solution 2,000 ml @ 85 mls /hr IV Q24H [facility] Rx#:[id number] Protonix 80 mg In Sodium 100 100 Chloride 0.9% 100 ml @ 8 MG/HR 10 mls/hr IV Q10H [facility] Rx#: [id number] Zosyn 2.25 gm In Dextrose 5% in 50 50 50 Water 50 ml @ 100 mls/hr IV Q6H [facility] Rx#:[id number] Potassium Phosphate 40 Meq In 509.0909 Dextrose 5% in Water 500 ml @ 63.636 mls/hr IV 0900 [facility] Rx#: [id number] Oral 100 600 Output: Drainage 40 60 Abdomen [place] Drain 40 60 Drainage 60 Abdomen [place] Drain 60 Urine Catheter Amount 1025 650 Other: Nourishment/Supplement name glucerna Urine Appearance Clear Clear Uretheral ([place]) Clear Clear Urine Color Bright Yellow Bright Yellow Uretheral ([place]) Bright Yellow Bright Yellow Urine Odor Normal Stool Size Moderate Moderate Stool Color Green Green Black Black Stool Consistency Soft Soft # Bowel Movements 1 1 # of times incontinent of 1 1 Bowels Exam: General: alert, Awake, obese. appear a little more uncomfortable than yesterday Eyes/N/T: EOMI, Head/Neck: neck supple, CV: RRR, No murmurs, Pulm: subtle rales right side, left clear laterally, no wheezing Abd: distended, mild tender generalized, better bowel sounds Ext: no clubbing/cyanosis, mild LE/UE edema and pedal edema continue to improve. trunk edema Neuro: alert, no focal deficits, moves all extremities, mentation continues to improve Skin: warm/dry OBJ DATA Labs CBC & Chem 7: 06/17/22 08:27 06/17/22 05:36 Labs: Abnormal Lab Results 06/17/22 06/17/22 06/16/22 05:36 05:36 05:39 WBC RBC Hgb Hct Plt Count MPV Immature Gran % (Auto) Neut % (Auto) Lymph % (Auto) Lymph # (Auto) [place] # (Auto) Seg Neutrophils % Lymphocytes % Immature Gran # Absolute Neutrophils Platelet Estimate BUN 47 H Creatinine 1.6 H Glucose 273 H Uric Acid Calcium 7.8 L Phosphorus Magnesium Direct Bilirubin AST 44 H ALT 43 H Alkaline Phosphatase 122 H Lactate Dehydrogenase Total Protein 5.4 L Albumin 2.1 L Albumin/Globulin Ratio 0.6 L Prealbumin 14.6 L Triglycerides Procalcitonin 6.25 H 06/16/22 06/16/22 06/16/22 05:39 05:39 05:39 WBC 16.4 H RBC 3.33 L Hgb 9.9 L Hct 31.4 L Plt Count 78 L MPV 12.7 H Immature Gran % (Auto) 9.2 H Neut % (Auto) 78.1 H Lymph % (Auto) 6.6 L Lymph # (Auto) 1.08 L [place] # (Auto) 0.92 H Seg Neutrophils % Lymphocytes % Immature Gran # 1.51 H Absolute Neutrophils 12.81 H Platelet Estimate BUN 58 H Creatinine 1.8 H Glucose 281 H Uric Acid Calcium 7.7 L Phosphorus 1.4 L Magnesium Direct Bilirubin 0.3 H AST ALT Alkaline Phosphatase Lactate Dehydrogenase 315 H Total Protein 5.0 L Albumin 1.8 L Albumin/Globulin Ratio 0.6 L Prealbumin 13.2 L Triglycerides 333 H Procalcitonin 06/15/22 06/15/22 06/15/22 05:23 05:23 05:22 WBC 17.1 H RBC 3.62 L Hgb 10.9 L Hct 33.6 L Plt Count 87 L MPV 12.4 H Immature Gran % (Auto) 9.8 H Neut % (Auto) 79.8 H Lymph % (Auto) 5.5 L Lymph # (Auto) 0.93 L [place] # (Auto) Seg Neutrophils % 82 H Lymphocytes % 4 L Immature Gran # 1.67 H Absolute Neutrophils 13.62 H Platelet Estimate Decreased A BUN Creatinine Glucose Uric Acid Calcium Phosphorus Magnesium Direct Bilirubin AST ALT Alkaline Phosphatase Lactate Dehydrogenase Total Protein Albumin Albumin/Globulin Ratio Prealbumin Triglycerides Procalcitonin 12.63 H 06/15/22 06/14/22 06/14/22 05:22 20:30 15:24 WBC RBC Hgb 10.5 L Hct 31.6 L Plt Count MPV Immature Gran % (Auto) Neut % (Auto) Lymph % (Auto) Lymph # (Auto) [place] # (Auto) Seg Neutrophils % Lymphocytes % Immature Gran # Absolute Neutrophils Platelet Estimate BUN 86 H 89 H Creatinine 2.4 H 2.7 H Glucose 203 H 157 H Uric Acid 8.1 H Calcium 7.8 L 7.5 L Phosphorus 1.9 L Magnesium 2.6 H Direct Bilirubin 0.3 H AST 40 H ALT Alkaline Phosphatase Lactate Dehydrogenase 403 H Total Protein 5.2 L Albumin 1.8 L 2.0 L Albumin/Globulin Ratio 0.5 L Prealbumin Triglycerides 255 H Procalcitonin 06/14/22 06/14/22 06/14/22 15:24 10:18 05:26 WBC RBC Hgb 11.9 L Hct 36.3 L Plt Count MPV Immature Gran % (Auto) Neut % (Auto) Lymph % (Auto) Lymph # (Auto) [place] # (Auto) Seg Neutrophils % Lymphocytes % Immature Gran # Absolute Neutrophils Platelet Estimate BUN 77 H Creatinine 2.8 H Glucose 163 H Uric Acid Calcium 6.9 L Phosphorus Magnesium 2.6 H Direct Bilirubin 0.3 H AST ALT Alkaline Phosphatase Lactate Dehydrogenase 395 H Total Protein 5.1 L Albumin 1.9 L Albumin/Globulin Ratio 0.6 L Prealbumin Triglycerides 219 H Procalcitonin 21.11 H 06/14/22 05:26 WBC 20.0 H RBC 3.68 L Hgb 11.0 L Hct 33.8 L Plt Count 111 L MPV 11.8 H Immature Gran % (Auto) Neut % (Auto) Lymph % (Auto) Lymph # (Auto) [place] # (Auto) Seg Neutrophils % Lymphocytes % 6 L Immature Gran # Absolute Neutrophils Platelet Estimate Decreased A BUN Creatinine Glucose Uric Acid Calcium Phosphorus Magnesium Direct Bilirubin AST ALT Alkaline Phosphatase Lactate Dehydrogenase Total Protein Albumin Albumin/Globulin Ratio Prealbumin Triglycerides Procalcitonin Meds: Medications Albuterol/Ipratropium (Ipratropium/Albuterol 3 Ml Ampul.Neb) 3 ml NEB Q4HP PRN PRN Reason: Shortness Of Breath Last Admin: 06/16/22 09:28 Dose: 3 ml Diagnostic Test (Pha) (Accu-Chek 1 Each Strip) 1 each FS Q6 [facility] Last Admin: 06/17/22 05:38 Dose: 1 each Haloperidol Lactate (Haloperidol Lactate 5 Mg/Ml Vial) 2 - 5 mg IV Q6HP PRN PRN Reason: ANXIETY/SEDATION Last Admin: 06/14/22 16:38 Dose: 5 mg Hydralazine HCl (Hydralazine 20 Mg/Ml Vial) 0 mg IV Q2HP PRN PRN Reason: Hypertension Last Admin: 06/17/22 02:34 Dose: 10 mg Hydromorphone HCl (Hydromorphone 0.5 Mg/0.5 Ml Syringe) 0.5 mg IV Q1HP PRN; Protocol PRN Reason: Per Pain Protocol Last Admin: 06/14/22 17:35 Dose: 0.5 mg Acetaminophen (Ofirmev) 1,000 mg in 100 mls @ 200 mls/hr IV Q6HP PRN; Protocol PRN Reason: PAIN/FEVER > 101 Last Admin: 06/17/22 07:17 Dose: 200 mls/hr Norepinephrine Bitartrate 8 mg (/ Sodium Chloride) 250 mls @ 18.75 mls/hr IV Q12HP PRN; Protocol PRN Reason: Hypotension Piperacillin Sod/Tazobactam (Sod 2.25 gm/ Dextrose) 50 mls @ 100 mls/hr IV Q6H [facility] Last Infusion: 06/17/22 06:00 Dose: Infused Pantoprazole Sodium 80 mg/ (Sodium Chloride) 100 mls @ 10 mls/hr IV Q10H [facility] Last Admin: 06/17/22 05:29 Dose: 8 mg/hr, 10 mls/hr Fat Emulsion Intravenous 250 (ml/ Premix) 250 mls @ 25 mls/hr IV TuThSa@1600 [facility] Calcium Gluconate 10 meq/Potassium Chloride 20 meq/Multivitamins/Minerals 10 ml/Potassium Phosphate 40 meq/Amino Acids 2,050.5962 mls @ 85 mls/hr IV Q24H [facility] Last Admin: 06/16/22 14:30 Dose: 85 mls/hr Insulin Human Lispro (Insulin Lispro 1 Unit/0.01 Ml Unit) 0 unit SQ Q6 [facility]; Protocol Last Admin: 06/17/22 05:38 Dose: 8 units Labetalol HCl (Labetalol 5 Mg/Ml Ml) 0 mg IV Q2HP PRN PRN Reason: Hypertension Last Admin: 06/15/22 11:42 Dose: 10 mg Lorazepam (Lorazepam 2 Mg/Ml Vial) 0.5 mg IV Q4HP PRN PRN Reason: ANXIETY/SEDATION Last Admin: 06/14/22 17:50 Dose: 0.5 mg Metoprolol Tartrate (Metoprolol Tartrate 5 Mg/5 Ml Vial) 5 mg IV Q2HP PRN PRN Reason: Tachyarrhythmias HR>110 Last Admin: 06/17/22 06:48 Dose: 5 mg Metoprolol Tartrate (Metoprolol Tartrate 5 Mg/5 Ml Vial) 5 mg IV Q6H [facility] Last Admin: 06/17/22 03:49 Dose: Not Given Ondansetron HCl (Ondansetron 4 Mg/2 Ml Vial) 4 mg IV Q6HP PRN PRN Reason: Nausea And Vomiting Last Admin: 06/16/22 20:34 Dose: 4 mg Oxycodone HCl (Oxycodone Hcl 5 Mg Tablet) 5 mg PO Q4HP PRN; Protocol PRN Reason: Per Pain Protocol Last Admin: 06/16/22 16:48 Dose: 5 mg Sodium Chloride (0.9 % Sodium Chloride 10 Ml Syringe) 10 ml IV Q12 [facility] Last Admin: 06/16/22 20:35 Dose: 10 ml Sodium Chloride (0.9 % Sodium Chloride 10 Ml Syringe) 10 ml IV UD PRN PRN Reason: Maintain line patency A/P Narrative A/P Narrative: A: *Small bowel obstruction & perforations: s/p Ex-lap w/Lysis of adhesions (06/08) & s/p Ex-lap w/SB-resection (06/11) -Transferred to PCU for hypotension evening 06/10 -awaiting bowel function *Severe Sepsis w/Hypotension and Lactic acidosis(resolved): responded to IVF -Leukocytosis slowly improving but worsened again -fever curve improved but low grade fevers again 100.6 o/n *THEO on CKD III: possible ATN from hypotension -1.9>1.7>>2.8>>1.8>1.6 -UOP improved s/p diuresis *GI Bleed, appears to be upper, possibly gastritis: seems to have stopped *Anemia, acute blood loss: down to 9.8, stable *Thrombocytopenia: likely consumptive from bleeding, but r/o HIT, lab sent. improving *Atelectasis: *Afib/flutter w/RVR episode: no history of, likely 2/2 acute illness and being off home BB -echo with good EF -started on dilt gtt and converted to NSR 06/13 @0238 *CAD: No current symptoms *DM 2 w/neuropathy: hyperglycemia while on TPN, add long-acting to the sliding scale *Psoriasis: On Humira *HTN: on bb/ccb/arb/hctz, *Electrolyte disorder hypophosphatemia: Replete Plan: -Bowels and NGT per Surgery, GI bleed per surgery -clears diet per surgery, TPN started, -monitor UOP/renal fxn -Continue piperacillin/tazobactam, repeat BC pending neg -protonix gtt, monitor H&H/plts -check BC via CVC and obtain cxr and abg,pct, bnp trend, monitor temp/cbc -cont sofia IV BB -IS,Acapella -restart norvasc, hold losartan/HCTZ for theo resolved -SSI, hold metformin. lantus 15u daily while on tpn -ppx: SCD / ppi full code Time Spent With Patient Time: Total time spent is greater than 50% in coordination of care (as documented) at patient's floor/unit and/or counseling patient: Total time spent with greater than 50% in coordination of care (as documented) at patient's floor/unit and/or counseling patient:: 35 - 50 minutes QUALITY VTE Deep Vein Thrombosis/Pulmonary Embolism Present on Admission: No
[2022-06-17] MEDS ORDERED: 0.9 % SODIUM CHLORIDE 250 ML IV ONE (07:52)
[2022-06-17 08:44] LABS: Basophils % (Auto) 0.5 % (0.0-2.0); Eosinophils # (Auto) 0.04 K/mcL (0.00-0.70); Eosinophils % (Auto) 0.2 % (0.0-7.0); Hematocrit 31.2 % (40.1-51.0); Hemoglobin 9.8 g/dL (13.7-17.5); Lymphocytes # (Auto) 1.35 K/mcL (1.50-4.80); Lymphocytes % (Auto) 7.1 % (15.5-49.0); Mean Cell Volume 94.8 fL (80.0-100.0); Mean Corpuscular HGB Conc 31.4 g/dL (31.0-36.0); Mean Platelet Volume 12.9 fL (7.4-10.4); Monocytes # (Auto) 1.04 K/mcL (0.10-0.90); Monocytes % (Auto) 5.5 % (1.0-12.0); Neutrophils % (Auto) 77.4 % (38.0-78.0); Platelet Count 109 K/mcL (140-440); RBC 3.29 M/mcL (4.63-6.08); Red Cell Distribution Width 13.5 % (11.5-14.5); WBC 19.1 K/mcL (4.5-11.0)
[2022-06-17 08:49] LABS: Phosphorous 1.8 mg/dL (2.5-4.5)
--- NOTE | 2022-06-17 08:53 | XRay Report ---
HISTORY: Short of breath FINDINGS: There is opacification inferiorly and medially in the left lower thorax. This corresponds with atelectasis of the left lower lobe and layering pleural effusion seen on the recent chest CT performed on 06/14/22. The CT scan also revealed a very small layering right-sided pleural effusion which is much less apparent on today's portable chest x-ray. The heart appears enlarged. However, the recent CT scan demonstrated large epicardial fat pads on both sides of the heart, making the heart appear larger than it really is. There is no congestive heart failure. Right internal jugular catheter is placed in the superior vena cava. There is no widening in the mediastinum. IMPRESSION: Stable atelectasis and pleural effusion in the left lower thorax Interpreted and Authenticated by: Arnol Blackburn 06/17/22
[2022-06-17] MEDS ORDERED: GABAPENTIN 100 MG CAPSULE PO SCH (09:00)
[2022-06-17] MEDS ORDERED: POTASSIUM PHOSPHATE 40 MEQ in DEXTROSE 5% IN WATER 500 ML IV SCH (09:30)
[2022-06-17] MEDS: INSULIN GLARGINE, HUMAN 1 UNIT/0.01 ML SQ SCH (09:34)
[2022-06-17] MEDS: 0.9 % SODIUM CHLORIDE 10 ML SYRINGE IV SCH ×2 (09:34→20:54)
[2022-06-17] MEDS: GABAPENTIN 100 MG CAPSULE PO SCH ×4 (09:34→21:24)
[2022-06-17] MEDS: amLODIPine 5 MG TABLET PO SCH (09:34)
[2022-06-17 09:48] LABS: Band Neutrophils % 6 % (0-10); Hypochromasia FEW (None Seen); Lymphocytes % 10 % (15-49); Metamyelocytes % 2 %; Monocytes % (Manual) 5 % (1-12); Myelocytes % 7 %; Platelet Estimate DECREASED (Normal); Polychromasia FEW (None Seen); RBC Morphology ABNORMAL (Normal); Reactive Lymphocytes 1 % (0-2); Segmented Neutrophils % 69 % (38-78); Toxic Granulation 1+ (None Seen)
--- NOTE | 2022-06-17 09:58 | General Surgery Progress Note ---
SUBJECTIVE Subjective Patient information: Note initiated : 06/17/22 at 9:56 am Service Date, if different from initiated Date: [] Patient: Neo Chamorro 71 y/o M admitted on 06/07/22 for Abdominal pain. Chief Complaint: [] Principal diagnosis: SBO Interval history: Patient continues to tolerate full liquid diet, continues to have bowel movement and soft abdomen. Patient reports he feels about the same today as he did yesterday, continues to feel weak. Patient continued to have low-grade fevers throughout the day yesterday, white blood cell count elevated today, absolute neutrophils and procalcitonin both returned towards normal. Constitutional Vitals: Vital Signs Temp Pulse Resp BP Pulse Ox O2 Del Method O2 Flow Rate 98 F 96 H 29 H 122/62 97 0 06/17/22 09:10 06/17/22 09:02 06/17/22 09:02 06/17/22 09:02 06/17/22 09:02 06/17/22 01:47 06/17/22 06:01 Period Temp Pulse Resp BP Sys/Medellin Pulse Ox O2 Del Method O2 Flow Rate Last 24 Hr 98 F-100.6 F 92-120 23-44 106-161/38-74 90-97 Room Air-Room Air 0-0 Intake and Output 06/16/22 06/17/22 06/17/22 21:59 05:59 13:59 Intake Total 3055.1417 750 194 Output Total 1065 770 Balance 194 Weight 241 lb 3.2 oz Intake & Output: Intake & Output 06/16/22 06/17/22 06/17/22 21:59 05:59 13:59 Intake Total 3055.1417 750 194 Output Total 1065 770 Balance 194 Weight 241 lb 3.2 oz Intake: Nourishment/Supplement quantity 240 (ml) IV 2715.1417 150 194 Calcium Gluconate 10 Meq 2056.0508 Potassium Chloride 40 Meq Infuvite Adult 10 ml Potassium Phosphate 20 Meq In Clinimix 5% -20% Solution 2,000 ml @ 85 mls /hr IV Q24H [facility] Rx#:[id number] Protonix 80 mg In Sodium 100 100 44 Chloride 0.9% 100 ml @ 8 MG/HR 10 mls/hr IV Q10H [facility] Rx#: [id number] Zosyn 2.25 gm In Dextrose 5% in 50 50 50 Water 50 ml @ 100 mls/hr IV Q6H [facility] Rx#:[id number] Potassium Phosphate 40 Meq In 509.0909 Dextrose 5% in Water 500 ml @ 63.636 mls/hr IV 0900 [facility] Rx#: [id number] Oral 100 600 Output: Drainage 40 60 Abdomen [place] Drain 40 60 Drainage 60 Abdomen [place] Drain 60 Urine Catheter Amount 1025 650 Other: Nourishment/Supplement name glucerna Urine Appearance Clear Clear Uretheral ([place]) Clear Clear Urine Color Bright Yellow Bright Yellow Uretheral ([place]) Bright Yellow Bright Yellow Urine Odor Normal Stool Size Moderate Moderate Stool Color Green Green Black Black Stool Consistency Soft Soft # Bowel Movements 1 1 # of times incontinent of 1 1 Bowels General appearance: cooperative and no acute distress GI/Abdominal GI/Abdominal exam: Present soft; Absent distended or tenderness Additional comments: Incision is clean dry and intact. [place] drain with serous fluid. A/P Assessment and plan (1) SBO (small bowel obstruction): Plan: Small bowel obstruction now resolved, tolerating full liquid diet, has return of bowel function. Continues with low-grade fevers as well as increase blood cell count today. Will need to investigate all possible secondary causes of fevers including intra-abdominal, line, [place] catheter possibilities. Status: Acute Time Spent With Patient Time: Total time spent is greater than 50% in coordination of care (as documented) at patient's floor/unit and/or counseling patient:
[2022-06-17] MEDS ORDERED: CASPOFUNGIN ACETATE 70 MG in 0.9 % SODIUM CHLORIDE 250 ML IV SCH (10:00)
[2022-06-17] MEDS ORDERED: ALBUMIN HUMAN 12.5 GM/50 ML BAG IV SCH (10:10)
[2022-06-17] MEDS ORDERED: FUROSEMIDE 40 MG/4 ML VIAL IV SCH (10:10)
[2022-06-17] MEDS: ONDANSETRON 4 MG/2 ML VIAL IV PRN (10:27)
[2022-06-17] MEDS: IPRATROPIUM/ALBUTEROL 3 ML AMPUL.NEB NEB PRN (10:36)
--- NOTE | 2022-06-17 11:54 | Ultrasound Report ---
History: Tachycardia, evaluate for deep venous thrombosis FINDINGS: Both legs were imaged from the groin through the lower calf. There is normal augmentation and compressibility in the deep veins and saphenous vein in both legs, without evidence of deep venous thrombosis. Doppler shows normal waveform patterns bilaterally. No abnormal fluid collection is present. IMPRESSION: Normal exam, without evidence of deep venous thrombosis in either leg Interpreted and Authenticated by: Arnol Blackburn 06/17/22
[2022-06-17] MEDS ORDERED: [UNRECOGNIZED DRUG - REMARK] IV SCH (14:00)
[2022-06-17] MEDS: PANTOPRAZOLE 40 MG VIAL IV SCH (16:17)
[2022-06-18] MEDS: INSULIN LISPRO 1 UNIT/0.01 ML UNIT SQ SCH ×5 (04:16→20:40)
[2022-06-18] MEDS: METOPROLOL TARTRATE 5 MG/5 ML VIAL IV SCH ×4 (04:16→20:34)
[2022-06-18] MEDS: PIPERACILLIN SODIUM/TAZOBACTAM 2.25 GM in DEXTROSE 5% IN WATER 50 ML IV SCH ×4 (05:50→23:23)
[2022-06-18 06:44] LABS: Hemoglobin 8.8 g/dL (13.7-17.5); Mean Corpuscular HGB Conc 31.4 g/dL (31.0-36.0); Mean Platelet Volume 11.8 fL (7.4-10.4); Platelet Count 142 K/mcL (140-440); RBC 2.98 M/mcL (4.63-6.08); Red Cell Distribution Width 13.8 % (11.5-14.5); WBC 16.6 K/mcL (4.5-11.0)
[2022-06-18 06:52] LABS: ALT/SGPT 36 U/L (<40); AST/SGOT 27 U/L (<40); Albumin/Globulin Ratio 0.6 (1.0-2.3); Alkaline Phosphatase 89 U/L (39-117); Bilirubin,Total 0.5 mg/dL (0.1-1.0); Blood Urea Nitrogen 47 mg/dL (8-23); Calcium 7.4 mg/dL (8.6-10.4); Carbon Dioxide 23 mmol/L (22-30); Chloride 105 mmol/L (96-108); Globulin 3.1 gm/dL (2.2-3.7); Glomerular Filtration Rate 39; Glucose 207 mg/dL (70-105); Phosphorous 2.8 mg/dL (2.5-4.5)
[2022-06-18 07:26] LABS: Anisocytosis 1+ (None Seen); Band Neutrophils % 2 % (0-10); Eosinophils % (Manual) 2 % (0-7); Hypochromasia 1+ (None Seen); Lymphocytes % 6 % (15-49); Metamyelocytes % 3 %; Monocytes % (Manual) 4 % (1-12); Platelet Estimate NORMAL (Normal); RBC Morphology ABNORMAL (Normal); Reactive Lymphocytes 4 % (0-2); Segmented Neutrophils % 79 % (38-78); Toxic Granulation 1+ (None Seen)
[2022-06-18] MEDS: PANTOPRAZOLE 40 MG VIAL IV SCH ×2 (07:31→17:10)
[2022-06-18] MEDS: INSULIN GLARGINE, HUMAN 1 UNIT/0.01 ML SQ SCH (07:44)
[2022-06-18] MEDS: GABAPENTIN 100 MG CAPSULE PO SCH ×4 (08:03→20:40)
[2022-06-18] MEDS: amLODIPine 5 MG TABLET PO SCH (08:03)
[2022-06-18] MEDS: 0.9 % SODIUM CHLORIDE 10 ML SYRINGE IV SCH ×2 (08:04→20:41)
[2022-06-18] MEDS: CASPOFUNGIN ACETATE 50 MG in 0.9 % SODIUM CHLORIDE 250 ML IV SCH (09:33)
--- NOTE | 2022-06-18 11:40 | Internal Med Progress Note ---
SUBJECTIVE Subjective Patient information: Note initiated : 06/18/22 at 11:29 am Service Date, if different from initiated Date: [] Patient: Neo Chamorro 71 y/o M admitted on 06/07/22 for Abdominal pain. Chief Complaint: [] Principal diagnosis: SBO Interval history: Mr. Chamorro is a 71 year old M with a complex past medical history significant for multiple abdominal surgeries, diabetes mellitus type 2, CAD, hypertension, and CKD who presents to the hospital with 24-hour history of abdominal pain associate with nausea and vomiting. The patient's had prior episodes of bowel obstruction and states that this is very similar. As mentioned, he has had multiple abdominal surgeries including partial colectomy for diverticulitis, appendectomy, and cholecystectomy. The patient states that he was his usual self up until yesterday. He noticed that his abdomen was distended, and he was unable to have a bowel movement or pass gas. On presentation to the hospital, he was hemodynamically stable and afebrile. CT abdomen pelvis revealed mildly distended fluid-filled small bowel. Deep to the hernia patch and findings are consistent with partial mechanical small bowel obstruction. There was no closed-loop obstruction. He has a history of partial colectomy, partial cholecystectomy and appendectomy. There is previous anterior wall hernia repair. The hospitalist service was asked admit the patient in the setting of multiple medical comorbidities. General surgery were also consulted. 06/08: I evaluated the patient after he returned from the OR. The patient had laparoscopic lysis of adhesions. He has an NG tube in place. Advance diet as tolerated per general surgery. He is on narcotic analgesics. A clamp trial will be performed once he has active bowel function. From a medical standpoint, we will continue to hold most of his oral medications from home. Continue insulin sliding scale. 06/09: The patient is febrile with a temp of 100.6 and is tachycardic. Due to his recent intra-abdominal surgery, we will start Zosyn. Once the patient has passed gas or has had a bowel movement, he will have a clamp trial and subsequent NG tube removal and then advance diet as tolerated. 06/10: Postop day #2. Fever to 103 yesterday afternoon. Remains tachycardic. Home meds include metoprolol XL, which has been held. Still with abdominal pain, minimal nausea. Not much NG tube output this morning, is picked up this afternoon. KUB with normal bowel gas pattern this afternoon. 06/11: Postop day #3. Had recurrent fever yesterday, then yesterday evening blood pressure dropped to the 60s systolic. Responded to IV fluids. Overnight had blood pressures right at a map of 65. Urine output dropped off and CAROLINE on this morning's labs. Urine output has picked up after further fluid boluses. CTAP yesterday evening generally unrevealing. Initially when Dr. Nobles and I reviewed scan, concern for possible mediastinitis. Official read less concerning for that. For barium swallow to check for esophageal extravasation today. White count has normalized. 06/12 Patient feeling a little better today after exploratory laparotomy yesterday with several small micro perforations noted and subsequent bowel resection. Urine output borderline at 30 cc/h the last 1 was 15 cc. Patient just went into A. fib RVR, asymptomatic. Patient denies history of A. fib. Abdominal pain relatively controlled. He has some nausea but no vomiting. Patient denies flatus or bowel movements 06/13 Patient is not passing gas. Patient has abdominal pain. Feels about the same as yesterday. Urine output mediocre. Creatinine mild minimally worse today. We will get renal ultrasound and consult nephrology. Patient started on diltiazem drip last night for difficult to control A. fib flutter. Converted to normal sinus rhythm early this morning. Will need to start nutrition today, TPN given his n.p.o. status. Leukocytosis but bandemia improving. Lactic acidosis improved. 06/14 Patient did spike a fever of 101.8 last night. His white blood cell count still elevated at 20 today 17 yesterday although his bandemia prior to that was 30% and no more bandemia yesterday or today. We will repeat blood cultures check procalcitonin. Patient did have a large bowel movement overnight which was quite positive sign. Renal function remains the same. Did have good urine output over the past 24 hours with the high-dose IV Lasix per nephrology. Patient did have confusion last night for some agitation concern for safety of IV's lines and patient did get Haldol. Patient with heme positive stool and gastric contents. We will stop heparin DVT prophylaxis and keep SCDs. protonix drip placed. Gen Surg to evaluate. CT c/a/p no acute path. 06/15 Patient seems to be feeling a little better today. Have a T-max of 101 last night. Tachycardic in the low 100s. Good urine output and creatinine improving today to 2.4. Patient complains of some shortness of breath but no coughing chest pain, stomach pain seems to be a bit better. Leukocytosis that went from 17-20 yesterday is now back down to 17 and no more bandemia. Thrombocytopenia noted at 87, down from 111 yesterday. likely from consumtion d/t bleeding, but will send HIT-ab's. 06/16 Patient feeling better today. Bowel movement last night still dark but gastric contents are now clear. Leukocytosis slowly trending in the right direction. Hemoglobin 9.9. Fever curve continues to improve. Still generally tenuous state. Respiratory tenuous at times likely compounded by abdominal process. No function improving. Hypo-phosphatemia replete. Patient states abdominal pain improving. 06/17 Patient started having low-grade fevers again over night. States he feels about the same as yesterday. No bowel movement or passing gas. Little more t achycardic for the past day or 2. Will obtain blood culture through the central line. Previous blood cultures from 126 unremarkable. Leukocytosis worsened again today. We will check manual differential. Obtain chest x-ray. Low Phos but better. Will start caspofungin given the continued low-grade fevers on broad-spectrum antibiotics already. And get fungal cultures as well as BC's. Given the mild tachycardia low-grade fevers. We will check a venous Doppler of the lower extremities. He has been on prophylactic anticoagulation entire stay with the exception of the last couple days when he was found to have a GI bleed but has been on SCDs during that time. However given his risk we will check ultrasound study. 06/18: Venous Doppler study negative for any DVT. Chest x-ray from yesterday also showing stable atelectasis and pleural effusion left lower thorax. All cultures no growth to date. Fever with T-max 38.1 this morning. WBC down trended from 19.1-16.6 this morning. Patient denies any abdominal pain. He is tolerating full liquid diet. He is complaining of subjective fever but denies any chills or diaphoresis. Denies any shortness of breath or chest pain or palpitations. Continue broad-spectrum antibiotics and antifungal with Zosyn and caspofungin while waiting for culture results. Resumed oral beta-neno for better heart rate control. Continue IV Protonix and TPN while advancing patient's diet. Overall patient is still very guarded. Continue physical therapy. Constitutional Vitals: Vital Signs Temp Pulse Resp BP Pulse Ox O2 Del Method O2 Flow Rate 38.1 C H 94 H 26 H 125/57 95 0 06/18/22 11:00 06/18/22 11:00 06/18/22 11:00 06/18/22 11:00 06/18/22 11:00 06/17/22 01:47 06/17/22 06:01 Period Temp Pulse Resp BP Sys/Medellin Pulse Ox O2 Del Method O2 Flow Rate Last 24 Hr 37.1 C-38.2 C 83-110 22-36 101-145/48-69 91-100 Intake and Output 06/17/22 06/18/22 06/18/22 21:59 05:59 13:59 Intake Total 3062.0909 150 777 Output Total 590 850 330 Balance 2472.0909 -700 447 Weight 111.901 kg Intake & Output: Intake & Output 06/17/22 06/18/22 06/18/22 21:59 05:59 13:59 Intake Total 3062.0909 150 777 Output Total 590 850 330 Balance 2472.0909 -700 447 Weight 111.901 kg Intake: Nourishment/Supplement quantity 240 237 (ml) IV 2702.0909 150 300 Calcium Gluconate 10 Meq 2043 Potassium Chloride 20 Meq Infuvite Adult 10 ml Potassium Phosphate 40 Meq In Clinimix 5% -20% Solution 2,000 ml @ 85 mls /hr IV Q24H MEÑO Rx#:[id number] Cancidas 50 mg In Sodium 250 Chloride 0.9% 250 ml @ 250 mls/ hr IV Q24H MEÑO Rx#:[id number] Zosyn 2.25 gm In Dextrose 5% in 50 50 50 Water 50 ml @ 100 mls/hr IV Q6H MEÑO Rx#:[id number] Potassium Phosphate 40 Meq In 509.0909 Dextrose 5% in Water 500 ml @ 63.636 mls/hr IV 0930 MEÑO Rx#: [id number] Oral 120 240 Output: Drainage 30 Abdomen [place] Drain 30 Drainage 15 Abdomen [place] Drain 15 Urine Catheter Amount 575 850 300 Other: Meal Breakfast Percent of Meal Consumed 50% Feeding Ability Independent Nourishment/Supplement name glucdevin glucerna Urine Appearance Cloudy Clear Sediment Uretheral (Woods) Clear Clear Sediment Urine Color Dark Yellow Dark Yellow Yellow Uretheral (Woods) Dark Yellow Dark Yellow Urine Odor Normal Normal Normal Stool Size Moderate Stool Color Brown Stool Consistency Soft # Bowel Movements 1 # of times incontinent of 1 Bowels Head Head exam: Present atraumatic and normal inspection Eye Eye exam: Present normal appearance ENT ENT exam: Present mucous membranes moist, normal exam and normal external ear exam Neck Neck exam: Present normal inspection Additional comments: Right IJ central line in place Respiratory Respiratory exam: Present normal respiratory exam Cardiovascular Cardiovascular exam: Present normal rate and rhythm GI/Abdominal GI/Abdominal exam: Present normal bowel sounds Additional comments: [place] drain x1. Multiple surgical incisions with surgical dressing. Additional comments: Woods catheter in place Back Exam Back exam: Present normal inspection Neurological Exam Neurological exam: Present alert and oriented X3 Skin Skin exam: Present intact and warm OBJ DATA Labs CBC & Chem 7: 06/18/22 04:46 06/18/22 04:46 Labs: Abnormal Lab Results 06/18/22 06/18/22 06/18/22 04:46 04:46 04:46 WBC 16.6 H RBC 2.98 L Hgb 8.8 L Hct 28.0 L Plt Count MPV 11.8 H Immature Gran % (Auto) Neut % (Auto) Lymph % (Auto) Lymph # (Auto) Callahan # (Auto) Seg Neutrophils % 79 H Lymphocytes % 6 L Immature Gran # Absolute Neutrophils WBC Morphology Reactive Lymphocytes 4 H Toxic Granulation 1+ A Platelet Estimate RBC Morphology Abnormal A Polychromasia Hypochromasia 1+ A Anisocytosis 1+ A POC pO2 BUN 47 H Creatinine 1.7 H Glucose 207 H Calcium 7.4 L Phosphorus Direct Bilirubin AST ALT Alkaline Phosphatase Lactate Dehydrogenase NT-Pro-B Natriuret Pep 1022.0 H Total Protein 5.1 L Albumin 2.0 L Albumin/Globulin Ratio 0.6 L Prealbumin Triglycerides Procalcitonin 06/17/22 06/17/22 06/17/22 09:18 09:02 09:01 WBC RBC Hgb Hct Plt Count MPV Immature Gran % (Auto) Neut % (Auto) Lymph % (Auto) Lymph # (Auto) Callahan # (Auto) Seg Neutrophils % Lymphocytes % Immature Gran # Absolute Neutrophils WBC Morphology Reactive Lymphocytes Toxic Granulation Platelet Estimate RBC Morphology Polychromasia Hypochromasia Anisocytosis POC pO2 79 L BUN Creatinine Glucose Calcium Phosphorus Direct Bilirubin AST ALT Alkaline Phosphatase Lactate Dehydrogenase NT-Pro-B Natriuret Pep 1612.0 H Total Protein Albumin Albumin/Globulin Ratio Prealbumin Triglycerides Procalcitonin 4.08 H 06/17/22 06/17/22 06/17/22 08:55 08:27 08:27 WBC 19.1 H RBC 3.29 L Hgb 9.8 L Hct 31.2 L Plt Count 109 L MPV 12.9 H Immature Gran % (Auto) 9.3 H Neut % (Auto) Lymph % (Auto) 7.1 L Lymph # (Auto) 1.35 L Callahan # (Auto) 1.04 H Seg Neutrophils % Lymphocytes % 10 L Immature Gran # 1.78 H Absolute Neutrophils 14.74 H WBC Morphology Abnormal A Reactive Lymphocytes Toxic Granulation 1+ A Platelet Estimate Decreased A RBC Morphology Abnormal A Polychromasia Few A Hypochromasia Few A Anisocytosis POC pO2 BUN Creatinine Glucose Calcium Phosphorus 1.8 L Direct Bilirubin AST ALT Alkaline Phosphatase Lactate Dehydrogenase NT-Pro-B Natriuret Pep Total Protein Albumin Albumin/Globulin Ratio Prealbumin Triglycerides Procalcitonin 06/17/22 06/17/22 06/16/22 05:36 05:36 05:39 WBC RBC Hgb Hct Plt Count MPV Immature Gran % (Auto) Neut % (Auto) Lymph % (Auto) Lymph # (Auto) Callahan # (Auto) Seg Neutrophils % Lymphocytes % Immature Gran # Absolute Neutrophils WBC Morphology Reactive Lymphocytes Toxic Granulation Platelet Estimate RBC Morphology Polychromasia Hypochromasia Anisocytosis POC pO2 BUN 47 H Creatinine 1.6 H Glucose 273 H Calcium 7.8 L Phosphorus Direct Bilirubin AST 44 H ALT 43 H Alkaline Phosphatase 122 H Lactate Dehydrogenase NT-Pro-B Natriuret Pep Total Protein 5.4 L Albumin 2.1 L Albumin/Globulin Ratio 0.6 L Prealbumin 14.6 L Triglycerides Procalcitonin 6.25 H 06/16/22 06/16/22 06/16/22 05:39 05:39 05:39 WBC 16.4 H RBC 3.33 L Hgb 9.9 L Hct 31.4 L Plt Count 78 L MPV 12.7 H Immature Gran % (Auto) 9.2 H Neut % (Auto) 78.1 H Lymph % (Auto) 6.6 L Lymph # (Auto) 1.08 L Callahan # (Auto) 0.92 H Seg Neutrophils % Lymphocytes % Immature Gran # 1.51 H Absolute Neutrophils 12.81 H WBC Morphology Reactive Lymphocytes Toxic Granulation Platelet Estimate RBC Morphology Polychromasia Hypochromasia Anisocytosis POC pO2 BUN 58 H Creatinine 1.8 H Glucose 281 H Calcium 7.7 L Phosphorus 1.4 L Direct Bilirubin 0.3 H AST ALT Alkaline Phosphatase Lactate Dehydrogenase 315 H NT-Pro-B Natriuret Pep Total Protein 5.0 L Albumin 1.8 L Albumin/Globulin Ratio 0.6 L Prealbumin 13.2 L Triglycerides 333 H Procalcitonin Meds: Medications Albuterol/Ipratropium (Ipratropium/Albuterol 3 Ml Ampul.Neb) 3 ml NEB Q4HP PRN PRN Reason: Shortness Of Breath Last Admin: 06/17/22 10:36 Dose: 3 ml Amlodipine Besylate (Amlodipine 5 Mg Tablet) 5 mg PO QDAY [facility] Last Admin: 06/18/22 08:03 Dose: 5 mg Diagnostic Test (Pha) (Accu-Chek 1 Each Strip) 1 each FS Q4 MEÑO Last Admin: 06/18/22 07:40 Dose: 1 each Gabapentin (Gabapentin 100 Mg Capsule) 100 mg PO QID [facility] Last Admin: 06/18/22 08:03 Dose: 100 mg Haloperidol Lactate (Haloperidol Lactate 5 Mg/Ml Vial) 2 - 5 mg IV Q6HP PRN PRN Reason: ANXIETY/SEDATION Last Admin: 06/14/22 16:38 Dose: 5 mg Hydralazine HCl (Hydralazine 20 Mg/Ml Vial) 0 mg IV Q2HP PRN PRN Reason: Hypertension Last Admin: 06/17/22 02:34 Dose: 10 mg Hydromorphone HCl (Hydromorphone 0.5 Mg/0.5 Ml Syringe) 0.5 mg IV Q1HP PRN; Protocol PRN Reason: Per Pain Protocol Last Admin: 06/14/22 17:35 Dose: 0.5 mg Acetaminophen (Ofirmev) 1,000 mg in 100 mls @ 200 mls/hr IV Q6HP PRN; Protocol PRN Reason: PAIN/FEVER > 101 Last Infusion: 06/18/22 00:49 Dose: Infused Norepinephrine Bitartrate 8 mg (/ Sodium Chloride) 250 mls @ 18.75 mls/hr IV Q12HP PRN; Protocol PRN Reason: Hypotension Piperacillin Sod/Tazobactam (Sod 2.25 gm/ Dextrose) 50 mls @ 100 mls/hr IV Q6H [facility] Last Infusion: 06/18/22 06:31 Dose: Infused Calcium Gluconate 10 meq/Potassium Chloride 20 meq/Multivitamins/Minerals 10 ml/Potassium Phosphate 60 meq/Magnesium Sulfate 8.12 meq/Amino Acids 2,057.1417 mls @ 63 mls/hr IV Q24H [facility] Stop: 06/18/22 13:59 Last Admin: 06/17/22 13:59 Dose: 63 mls/hr Caspofungin 50 mg/ Sodium (Chloride) 250 mls @ 250 mls/hr IV Q24H [facility] Last Infusion: 06/18/22 10:37 Dose: Infused Calcium Gluconate 20 meq/Potassium Chloride 40 meq/Multivitamins/Minerals 10 ml/Potassium Phosphate 40 meq/Magnesium Sulfate 16.24 meq/Amino Acids 2,086.1016 mls @ 63 mls/hr IV Q24H [facility] Insulin Glargine (Insulin Glargine, Human 1 Unit/0.01 Ml) 15 unit SQ DAILY [facility] Last Admin: 06/18/22 07:44 Dose: 15 units Insulin Human Lispro (Insulin Lispro 1 Unit/0.01 Ml Unit) 0 unit SQ Q4 [facility]; Protocol Last Admin: 06/18/22 07:44 Dose: 4 units Labetalol HCl (Labetalol 5 Mg/Ml Ml) 0 mg IV Q2HP PRN PRN Reason: Hypertension Last Admin: 06/15/22 11:42 Dose: 10 mg Lorazepam (Lorazepam 2 Mg/Ml Vial) 0.5 mg IV Q4HP PRN PRN Reason: ANXIETY/SEDATION Last Admin: 06/14/22 17:50 Dose: 0.5 mg Metoprolol Succinate (Metoprolol Succinate 25 Mg Tab.Xl.24h) 25 mg PO BID [facility] Metoprolol Tartrate (Metoprolol Tartrate 5 Mg/5 Ml Vial) 5 mg IV Q2HP PRN PRN Reason: Tachyarrhythmias HR>110 Last Admin: 06/17/22 06:48 Dose: 5 mg Metoprolol Tartrate (Metoprolol Tartrate 5 Mg/5 Ml Vial) 5 mg IV Q6H [facility] Last Admin: 06/18/22 09:33 Dose: 5 mg Ondansetron HCl (Ondansetron 4 Mg/2 Ml Vial) 4 mg IV Q6HP PRN PRN Reason: Nausea And Vomiting Last Admin: 06/17/22 10:27 Dose: 4 mg Oxycodone HCl (Oxycodone Hcl 5 Mg Tablet) 5 mg PO Q4HP PRN; Protocol PRN Reason: Per Pain Protocol Last Admin: 06/16/22 16:48 Dose: 5 mg Pantoprazole Sodium (Pantoprazole 40 Mg Vial) 40 mg IV BIDAC [facility] Last Admin: 06/18/22 07:31 Dose: 40 mg Sodium Chloride (0.9 % Sodium Chloride 10 Ml Syringe) 10 ml IV Q12 [facility] Last Admin: 06/18/22 08:04 Dose: 10 ml Sodium Chloride (0.9 % Sodium Chloride 10 Ml Syringe) 10 ml IV UD PRN PRN Reason: Maintain line patency A/P Assessment and plan (1) DM2 (diabetes mellitus, type 2): Status: Acute (2) SBO (small bowel obstruction): Status: Acute (3) GERD (gastroesophageal reflux disease): Status: Chronic (4) Acute renal failure with acute tubular necrosis superimposed on stage 3a chronic kidney disease: Status: Acute (5) Hypertension: Status: Chronic (6) Coronary atherosclerosis: Status: Chronic Qualifiers: Associated angina: with unstable angina Coronary Disease-Associated Artery/Lesion type: jackson artery [place] vs. transplanted heart: jackson heart Qualified Code(s): I25.110 - Atherosclerotic heart disease of jackson coronary artery with unstable angina pectoris (7) Sepsis: Status: Acute Narrative A/P Narrative: Assessment and Plans: 1. Sepsis: Currently not on any pressor Monitor culture results including blood culture, central line culture, urine culture Continue current course of broad-spectrum antibiotics and antifungal with Zosyn and caspofungin When patient is able to get most of his nutrition is from GI tract, will co nsider discontinuing TPN to minimize risk of bloodstream infections Daily CBC with auto differential to trend WBC 2. small bowel obstructions with perforations: s/p Ex-lap w/Lysis of adhesions (06/08) & s/p Ex-lap w/SB-resection (06/11) Currently on clear liquid diets. When patient is able to get most of his nutrition is from GI tract, will consider discontinuing TPN to minimize risk of bloodstream infections Protonix IV twice daily Rest of the surgical management as per surgical team 3. T2DM: HgA1c Hold any oral hypoglycemics Lantus 15 unit daily Lispro SSI q4 Accu Chek Hypoglycemia protocol Clear liquid diet +TPN 4. Essential HTN: Currently normotensive Lopressor 5mg IV q6hr scheduled Metoprolol Succinate 25mg PO BID Amlodipine 5. CAROLINE on CKD: Avoid nephrotoxic agents Kidney functions returned back to the baseline, resume hydrochlorothiazide with losartan Daily CMP to trend kidney functions 6. GERD: Protonix IV twice daily 7. h/o CAD: Resume statin Resume Metoprolol Succinate GI ppx: Protonix IV twice daily DVT ppx: SCDs Code status: Full Prognosis: guarded Disposition: inpatient ICU; PT Critical Care Time: 1hr Time Spent With Patient Time: Total time spent is greater than 50% in coordination of care (as documented) at patient's floor/unit and/or counseling patient: Total time spent with greater than 50% in coordination of care (as documented) at patient's floor/unit and/or counseling patient:: 50 - 70 minutes Total Critical Care Time: 60 QUALITY VTE Deep Vein Thrombosis/Pulmonary Embolism Present on Admission: No
[2022-06-18 11:48] LABS: Appearance,Urine Slightly Cloudy (Clear); Bilirubin,Urine Negative (Negative); Color,Urine Yellow; Culture Indicated,Urine No; Ketones,Urine Negative (Negative); Leukocyte Esterase,Urine Negative /uL (Negative); Mucus,Urine FEW /hpf; Nitrate,Urine Negative (Negative); PH,Urine 5.5 (5.0-9.0); Specific Gravity,Urine 1.015 (1.000-1.035); Urine Blood Large ery/mcL (Negative); Urine RBC 1 /hpf (0-3); Urine Squamous Epithelial Cell 3 /hpf (0-4); Urine Transitional Epi Cells 1 /hpf (0-2); Urine WBC 8 /hpf (0-4); Urobilinogen,Urine Normal
[2022-06-18] MEDS: ACETAMINOPHEN 1,000 MG/100 ML BAG IV PRN ×2 (13:39→22:46)
[2022-06-18] MEDS: [UNRECOGNIZED DRUG - REMARK] IV SCH (14:28)
[2022-06-18 15:38] LABS: Prealbumin 13.5 mg/dL (20.0-40.0)
[2022-06-18] MEDS ORDERED: FAT EMULSION 20% 250 ML in PREMIX 1 BAG IV SCH (16:00)
--- NOTE | 2022-06-18 17:03 | General Surgery Progress Note ---
SUBJECTIVE Subjective Patient information: Note initiated : 06/18/22 at 5:02 pm Service Date, if different from initiated Date: [] Patient: Neo Chamorro 71 y/o M admitted on 06/07/22 for Abdominal pain. Chief Complaint: [] Principal diagnosis: SBO Interval history: Overnight events noted, patient feels better today although continues with low- grade fevers. Tolerating full liquid diet without difficulty. Continues to have return of bowel function. Constitutional Vitals: Vital Signs Temp Pulse Resp BP Pulse Ox O2 Del Method O2 Flow Rate 99.7 F H 85 24 H 115/51 97 0 06/18/22 16:01 06/18/22 16:01 06/18/22 16:01 06/18/22 16:01 06/18/22 16:01 06/17/22 01:47 06/17/22 06:01 Period Temp Pulse Resp BP Sys/Medellin Pulse Ox O2 Del Method O2 Flow Rate Last 24 Hr 99 F-101.0 F 83-108 22-34 101-145/51-69 91-98 Intake and Output 06/18/22 06/18/22 06/18/22 05:59 13:59 21:59 Intake Total 600 429 5431 Output Total 850 330 505 Balance -198 659 7186 Intake & Output: Intake & Output 06/18/22 06/18/22 06/18/22 05:59 13:59 21:59 Intake Total 711 098 8361 Output Total 850 330 505 Balance -590 579 0379 Intake: Nourishment/Supplement quantity 237 (ml) IV 123 471 2868 Calcium Gluconate 10 Meq 1550 Potassium Chloride 20 Meq Infuvite Adult 10 ml Potassium Phosphate 60 Meq Magnesium Sulfate 8.12 Meq In Clinimix 5% -20% Solution 2,000 ml @ 63 mls /hr IV Q24H MEÑO Rx#:[id number] Cancidas 50 mg In Sodium 250 Chloride 0.9% 250 ml @ 250 mls/ hr IV Q24H MEÑO Rx#:[id number] Zosyn 2.25 gm In Dextrose 5% in 50 100 Water 50 ml @ 100 mls/hr IV Q6H MEÑO Rx#:[id number] Oral 240 100 Output: Drainage 30 Abdomen [place] Drain 30 Drainage 30 Abdomen [place] Drain 30 Urine Catheter Amount 850 300 475 Other: Meal Breakfast Lunch Percent of Meal Consumed 50% 25% Feeding Ability Independent Independent Nourishment/Supplement name rosaura Urine Appearance Clear Sediment Cloudy Sediment Uretheral (Woods) Clear Sediment Sediment Urine Color Dark Yellow Yellow Yellow Uretheral ([place]s) Dark Yellow Yellow Urine Odor Normal Normal Normal Stool Size Moderate Moderate Moderate Stool Color Brown Brown Brown Stool Consistency Soft Liquid Loose # Bowel Movements 1 1 # of times incontinent of 1 1 Bowels General appearance: cooperative and no acute distress GI/Abdominal GI/Abdominal exam: Present soft; Absent distended or tenderness Additional comments: Incision is clean dry and intact A/P Assessment and plan (1) SBO (small bowel obstruction): Plan: Much improved from a GI standpoint. Advance diet to regular as tolerated. Wean TPN, DC central line as soon as possible. Status: Acute Time Spent With Patient Time: Total time spent is greater than 50% in coordination of care (as documented) at patient's floor/unit and/or counseling patient:
[2022-06-18] MEDS: METOPROLOL SUCCINATE 25 MG TAB.XL.24H PO SCH (20:40)
[2022-06-18] MEDS: ATORVASTATIN 20 MG TABLET PO SCH (20:40)
[2022-06-19] MEDS: INSULIN LISPRO 1 UNIT/0.01 ML UNIT SQ SCH ×6 (00:08→20:55)
[2022-06-19] MEDS: METOPROLOL TARTRATE 5 MG/5 ML VIAL IV SCH (04:02)
[2022-06-19] MEDS: PIPERACILLIN SODIUM/TAZOBACTAM 2.25 GM in DEXTROSE 5% IN WATER 50 ML IV SCH ×3 (05:41→17:40)
[2022-06-19 06:59] LABS: ALT/SGPT 30 U/L (<40); AST/SGOT 24 U/L (<40); Albumin/Globulin Ratio 0.6 (1.0-2.3); Alkaline Phosphatase 93 U/L (39-117); Bilirubin,Total 0.4 mg/dL (0.1-1.0); Blood Urea Nitrogen 39 mg/dL (8-23); Calcium 7.6 mg/dL (8.6-10.4); Carbon Dioxide 24 mmol/L (22-30); Chloride 106 mmol/L (96-108); Globulin 3.2 gm/dL (2.2-3.7); Glomerular Filtration Rate 45; Glucose 196 mg/dL (70-105); Phosphorous 2.8 mg/dL (2.5-4.5)
[2022-06-19 07:26] LABS: Hematocrit 27.4 % (40.1-51.0); Hemoglobin 8.6 g/dL (13.7-17.5); Mean Cell Volume 95.5 fL (80.0-100.0); Mean Corpuscular HGB Conc 31.4 g/dL (31.0-36.0); Mean Platelet Volume 11.6 fL (7.4-10.4); Platelet Count 195 K/mcL (140-440); RBC 2.87 M/mcL (4.63-6.08); WBC 17.1 K/mcL (4.5-11.0)
[2022-06-19] MEDS: PANTOPRAZOLE 40 MG VIAL IV SCH (07:33)
[2022-06-19] MEDS: METOPROLOL SUCCINATE 25 MG TAB.XL.24H PO SCH ×2 (08:34→20:56)
[2022-06-19] MEDS: LOSARTAN 50 MG TABLET PO SCH (08:34)
[2022-06-19] MEDS: HYDROCHLOROTHIAZIDE 12.5 MG CAPSULE PO SCH (08:35)
[2022-06-19] MEDS: GABAPENTIN 100 MG CAPSULE PO SCH ×4 (08:35→20:56)
[2022-06-19 08:44] LABS: Anisocytosis 1+ (None Seen); Band Neutrophils % 3 % (0-10); Hypochromasia 1+ (None Seen); Lymphocytes % 3 % (15-49); Monocytes % (Manual) 4 % (1-12); Platelet Estimate NORMAL (Normal); Poikilocytosis 1+ (None Seen); RBC Morphology ABNORMAL (Normal); Reactive Lymphocytes 2 % (0-2); Segmented Neutrophils % 88 % (38-78); Toxic Granulation 1+ (None Seen)
[2022-06-19] MEDS: CASPOFUNGIN ACETATE 50 MG in 0.9 % SODIUM CHLORIDE 250 ML IV SCH (08:57)
[2022-06-19] MEDS ORDERED: LOSARTAN/HCTZ 50/12.5 TABLET PO SCH (09:00)
--- NOTE | 2022-06-19 09:26 | Internal Med Progress Note ---
SUBJECTIVE Subjective Patient information: Note initiated : 06/19/22 at 9:21 am Service Date, if different from initiated Date: [] Patient: Neo Chamorro 71 y/o M admitted on 06/07/22 for Abdominal pain. Chief Complaint: [] Principal diagnosis: SBO Interval history: Mr. Chamorro is a 71 year old M with a complex past medical history significant for multiple abdominal surgeries, diabetes mellitus type 2, CAD, hypertension, and CKD who presents to the hospital with 24-hour history of abdominal pain associate with nausea and vomiting. The patient's had prior episodes of bowel obstruction and states that this is very similar. As mentioned, he has had multiple abdominal surgeries including partial colectomy for diverticulitis, appendectomy, and cholecystectomy. The patient states that he was his usual self up until yesterday. He noticed that his abdomen was distended, and he was unable to have a bowel movement or pass gas. On presentation to the hospital, he was hemodynamically stable and afebrile. CT abdomen pelvis revealed mildly distended fluid-filled small bowel. Deep to the hernia patch and findings are consistent with partial mechanical small bowel obstruction. There was no closed-loop obstruction. He has a history of partial colectomy, partial cholecystectomy and appendectomy. There is previous anterior wall hernia repair. The hospitalist service was asked admit the patient in the setting of multiple medical comorbidities. General surgery were also consulted. 06/08: I evaluated the patient after he returned from the OR. The patient had laparoscopic lysis of adhesions. He has an NG tube in place. Advance diet as tolerated per general surgery. He is on narcotic analgesics. A clamp trial will be performed once he has active bowel function. From a medical standpoint, we will continue to hold most of his oral medications from home. Continue insulin sliding scale. 06/09: The patient is febrile with a temp of 100.6 and is tachycardic. Due to his recent intra-abdominal surgery, we will start Zosyn. Once the patient has passed gas or has had a bowel movement, he will have a clamp trial and subsequent NG tube removal and then advance diet as tolerated. 06/10: Postop day #2. Fever to 103 yesterday afternoon. Remains tachycardic. Home meds include metoprolol XL, which has been held. Still with abdominal pain, minimal nausea. Not much NG tube output this morning, is picked up this afternoon. KUB with normal bowel gas pattern this afternoon. 06/11: Postop day #3. Had recurrent fever yesterday, then yesterday evening blood pressure dropped to the 60s systolic. Responded to IV fluids. Overnight had blood pressures right at a map of 65. Urine output dropped off and CAROLINE on this morning's labs. Urine output has picked up after further fluid boluses. CTAP yesterday evening generally unrevealing. Initially when Dr. Nobles and I reviewed scan, concern for possible mediastinitis. Official read less concerning for that. For barium swallow to check for esophageal extravasation today. White count has normalized. 06/12 Patient feeling a little better today after exploratory laparotomy yesterday with several small micro perforations noted and subsequent bowel resection. Urine output borderline at 30 cc/h the last 1 was 15 cc. Patient just went into A. fib RVR, asymptomatic. Patient denies history of A. fib. Abdominal pain relatively controlled. He has some nausea but no vomiting. Patient denies flatus or bowel movements 06/13 Patient is not passing gas. Patient has abdominal pain. Feels about the same as yesterday. Urine output mediocre. Creatinine mild minimally worse today. We will get renal ultrasound and consult nephrology. Patient started on diltiazem drip last night for difficult to control A. fib flutter. Converted to normal sinus rhythm early this morning. Will need to start nutrition today, TPN given his n.p.o. status. Leukocytosis but bandemia improving. Lactic acidosis improved. 06/14 Patient did spike a fever of 101.8 last night. His white blood cell count still elevated at 20 today 17 yesterday although his bandemia prior to that was 30% and no more bandemia yesterday or today. We will repeat blood cultures check procalcitonin. Patient did have a large bowel movement overnight which was quite positive sign. Renal function remains the same. Did have good urine output over the past 24 hours with the high-dose IV Lasix per nephrology. Patient did have confusion last night for some agitation concern for safety of IV's lines and patient did get Haldol. Patient with heme positive stool and gastric contents. We will stop heparin DVT prophylaxis and keep SCDs. protonix drip placed. Gen Surg to evaluate. CT c/a/p no acute path. 06/15 Patient seems to be feeling a little better today. Have a T-max of 101 last night. Tachycardic in the low 100s. Good urine output and creatinine improving today to 2.4. Patient complains of some shortness of breath but no coughing chest pain, stomach pain seems to be a bit better. Leukocytosis that went from 17-20 yesterday is now back down to 17 and no more bandemia. Thrombocytopenia noted at 87, down from 111 yesterday. likely from consumtion d/t bleeding, but will send HIT-ab's. 06/16 Patient feeling better today. Bowel movement last night still dark but gastric contents are now clear. Leukocytosis slowly trending in the right direction. Hemoglobin 9.9. Fever curve continues to improve. Still generally tenuous state. Respiratory tenuous at times likely compounded by abdominal process. No function improving. Hypo-phosphatemia replete. Patient states abdominal pain improving. 06/17 Patient started having low-grade fevers again over night. States he feels about the same as yesterday. No bowel movement or passing gas. Little more ta chycardic for the past day or 2. Will obtain blood culture through the central line. Previous blood cultures from 126 unremarkable. Leukocytosis worsened again today. We will check manual differential. Obtain chest x-ray. Low Phos but better. Will start caspofungin given the continued low-grade fevers on broad-spectrum antibiotics already. And get fungal cultures as well as BC's. Given the mild tachycardia low-grade fevers. We will check a venous Doppler of the lower extremities. He has been on prophylactic anticoagulation entire stay with the exception of the last couple days when he was found to have a GI bleed but has been on SCDs during that time. However given his risk we will check ultrasound study. 06/18: Venous Doppler study negative for any DVT. Chest x-ray from yesterday also showing stable atelectasis and pleural effusion left lower thorax. All cultures no growth to date. Fever with T-max 38.1 this morning. WBC down trended from 19.1-16.6 this morning. Patient denies any abdominal pain. He is tolerating full liquid diet. He is complaining of subjective fever but denies any chills or diaphoresis. Denies any shortness of breath or chest pain or palpitations. Continue broad-spectrum antibiotics and antifungal with Zosyn and caspofungin while waiting for culture results. Resumed oral beta-neno for better heart rate control. Continue IV Protonix and TPN while advancing patient's diet. Overall patient is still very guarded. Continue physical therapy. 06/19: Fever with T-max 38.3 overnight. Patient is being switched from liquid diet to regular diet this morning, tolerate maybe half of the breakfast. WBC went up slightly from 16.6-17.1. Patient denies any abdominal pain. Denies any shortness of breath or chest pain or palpitations. Continue broad-spectrum antibiotics and antifungal with Zosyn and caspofungin while waiting for culture results. Protonix IV-->PO. d/c scheduled IV Lopressor. If the patient's cannot tolerate most of the regular diet provided for multiple meals, will consider stopping TPN. Overall patient is still very guarded. Continue physical therapy. Constitutional Vitals: Vital Signs Temp Pulse Resp BP Pulse Ox O2 Del Method O2 Flow Rate 37.6 C H 106 H 21 151/69 98 0 06/19/22 08:02 06/19/22 08:02 06/19/22 08:02 06/19/22 08:02 06/19/22 08:02 06/19/22 04:01 06/19/22 04:01 Period Temp Pulse Resp BP Sys/Medellin Pulse Ox O2 Del Method O2 Flow Rate Last 24 Hr 37.1 C-38.3 C 85-110 15-39 102-151/51-69 93-98 Room Air-Room Air 0-0 Intake and Output 06/18/22 06/19/22 06/19/22 21:59 05:59 13:59 Intake Total 2277 350 50 Output Total 505 940 Balance 1772 -590 50 Weight 112.808 kg Intake & Output: Intake & Output 06/18/22 06/19/22 06/19/22 21:59 05:59 13:59 Intake Total 2277 350 50 Output Total 505 940 Balance 1772 -590 50 Weight 112.808 kg Intake: Nourishment/Supplement quantity 477 (ml) IV 1700 150 50 Calcium Gluconate 10 Meq 1550 Potassium Chloride 20 Meq Infuvite Adult 10 ml Potassium Phosphate 60 Meq Magnesium Sulfate 8.12 Meq In Clinimix 5% -20% Solution 2,000 ml @ 63 mls /hr IV Q24H [facility] Rx#:[id number] Zosyn 2.25 gm In Dextrose 5% in 50 50 50 Water 50 ml @ 100 mls/hr IV Q6H [facility] Rx#:[id number] Oral 100 200 Output: Drainage 40 Abdomen [place] Drain 40 Drainage 30 Abdomen [place] Drain 30 Urine Catheter Amount 475 900 Other: Meal Lunch Percent of Meal Consumed 25% Feeding Ability Independent Nourishment/Supplement name Ensure Urine Appearance Sediment Sediment Uretheral (Woods) Sediment Sediment Urine Color Dark Yellow Yellow Uretheral (Woods) Yellow Yellow Urine Odor Normal Stool Size Moderate Moderate Stool Color Brown Brown Stool Consistency Loose Loose # of times incontinent of 1 1 Bowels Head Head exam: Present atraumatic and normal inspection Eye Eye exam: Present normal appearance ENT ENT exam: Present mucous membranes moist, normal exam and normal external ear exam Neck Neck exam: Present normal inspection Additional comments: Right IJ catheter in place Respiratory Respiratory exam: Present normal respiratory exam Cardiovascular Cardiovascular exam: Present normal rate and rhythm GI/Abdominal GI/Abdominal exam: Present normal bowel sounds Back Exam Back exam: Present normal inspection Neurological Exam Neurological exam: Present alert and oriented X3 Skin Skin exam: Present intact and warm OBJ DATA Labs CBC & Chem 7: 06/19/22 05:08 06/19/22 05:08 Labs: Abnormal Lab Results 06/19/22 06/19/22 06/18/22 05:08 05:08 10:30 WBC 17.1 H RBC 2.87 L Hgb 8.6 L Hct 27.4 L Plt Count MPV 11.6 H Immature Gran % (Auto) Lymph % (Auto) Lymph # (Auto) [place] # (Auto) Seg Neutrophils % 88 H Lymphocytes % 3 L Immature Gran # Absolute Neutrophils WBC Morphology Reactive Lymphocytes Toxic Granulation 1+ A Platelet Estimate RBC Morphology Abnormal A Polychromasia Hypochromasia 1+ A Poikilocytosis 1+ A Anisocytosis 1+ A POC pO2 Anion Gap 6.0 L BUN 39 H Creatinine 1.5 H Glucose 196 H Calcium 7.6 L Phosphorus AST ALT Alkaline Phosphatase NT-Pro-B Natriuret Pep Total Protein 5.2 L Albumin 2.0 L Albumin/Globulin Ratio 0.6 L Prealbumin Procalcitonin Urine Appearance Slightly cloudy A Urine Protein 30 mg/dl A Urine Glucose (UA) 100 mg/dl A Urine Occult Blood Large A Urine WBC 8 H Urine Mucus Few A 06/18/22 06/18/22 06/18/22 04:46 04:46 04:46 WBC 16.6 H RBC 2.98 L Hgb 8.8 L Hct 28.0 L Plt Count MPV 11.8 H Immature Gran % (Auto) Lymph % (Auto) Lymph # (Auto) [place] # (Auto) Seg Neutrophils % 79 H Lymphocytes % 6 L Immature Gran # Absolute Neutrophils WBC Morphology Reactive Lymphocytes 4 H Toxic Granulation 1+ A Platelet Estimate RBC Morphology Abnormal A Polychromasia Hypochromasia 1+ A Poikilocytosis Anisocytosis 1+ A POC pO2 Anion Gap BUN 47 H Creatinine 1.7 H Glucose 207 H Calcium 7.4 L Phosphorus AST ALT Alkaline Phosphatase NT-Pro-B Natriuret Pep 1022.0 H Total Protein 5.1 L Albumin 2.0 L Albumin/Globulin Ratio 0.6 L Prealbumin 13.5 L Procalcitonin Urine Appearance Urine Protein Urine Glucose (UA) Urine Occult Blood Urine WBC Urine Mucus 06/17/22 06/17/22 06/17/22 09:18 09:02 09:01 WBC RBC Hgb Hct Plt Count MPV Immature Gran % (Auto) Lymph % (Auto) Lymph # (Auto) [place] # (Auto) Seg Neutrophils % Lymphocytes % Immature Gran # Absolute Neutrophils WBC Morphology Reactive Lymphocytes Toxic Granulation Platelet Estimate RBC Morphology Polychromasia Hypochromasia Poikilocytosis Anisocytosis POC pO2 79 L Anion Gap BUN Creatinine Glucose Calcium Phosphorus AST ALT Alkaline Phosphatase NT-Pro-B Natriuret Pep 1612.0 H Total Protein Albumin Albumin/Globulin Ratio Prealbumin Procalcitonin 4.08 H Urine Appearance Urine Protein Urine Glucose (UA) Urine Occult Blood Urine WBC Urine Mucus 06/17/22 06/17/22 06/17/22 08:55 08:27 08:27 WBC 19.1 H RBC 3.29 L Hgb 9.8 L Hct 31.2 L Plt Count 109 L MPV 12.9 H Immature Gran % (Auto) 9.3 H Lymph % (Auto) 7.1 L Lymph # (Auto) 1.35 L [place] # (Auto) 1.04 H Seg Neutrophils % Lymphocytes % 10 L Immature Gran # 1.78 H Absolute Neutrophils 14.74 H WBC Morphology Abnormal A Reactive Lymphocytes Toxic Granulation 1+ A Platelet Estimate Decreased A RBC Morphology Abnormal A Polychromasia Few A Hypochromasia Few A Poikilocytosis Anisocytosis POC pO2 Anion Gap BUN Creatinine Glucose Calcium Phosphorus 1.8 L AST ALT Alkaline Phosphatase NT-Pro-B Natriuret Pep Total Protein Albumin Albumin/Globulin Ratio Prealbumin Procalcitonin Urine Appearance Urine Protein Urine Glucose (UA) Urine Occult Blood Urine WBC Urine Mucus 06/17/22 06/17/22 05:36 05:36 WBC RBC Hgb Hct Plt Count MPV Immature Gran % (Auto) Lymph % (Auto) Lymph # (Auto) [place] # (Auto) Seg Neutrophils % Lymphocytes % Immature Gran # Absolute Neutrophils WBC Morphology Reactive Lymphocytes Toxic Granulation Platelet Estimate RBC Morphology Polychromasia Hypochromasia Poikilocytosis Anisocytosis POC pO2 Anion Gap BUN 47 H Creatinine 1.6 H Glucose 273 H Calcium 7.8 L Phosphorus AST 44 H ALT 43 H Alkaline Phosphatase 122 H NT-Pro-B Natriuret Pep Total Protein 5.4 L Albumin 2.1 L Albumin/Globulin Ratio 0.6 L Prealbumin 14.6 L Procalcitonin Urine Appearance Urine Protein Urine Glucose (UA) Urine Occult Blood Urine WBC Urine Mucus Meds: Medications Albuterol/Ipratropium (Ipratropium/Albuterol 3 Ml Ampul.Neb) 3 ml NEB Q4HP PRN PRN Reason: Shortness Of Breath Last Admin: 06/17/22 10:36 Dose: 3 ml Amlodipine Besylate (Amlodipine 5 Mg Tablet) 5 mg PO QDAY [facility] Last Admin: 06/18/22 08:03 Dose: 5 mg Atorvastatin Calcium (Atorvastatin 20 Mg Tablet) 20 mg PO HS [facility] Last Admin: 06/18/22 20:40 Dose: 20 mg Diagnostic Test (Pha) (Accu-Chek 1 Each Strip) 1 each FS Q4 [facility] Last Admin: 06/19/22 08:07 Dose: 1 each Gabapentin (Gabapentin 100 Mg Capsule) 100 mg PO QID [facility] Last Admin: 06/19/22 08:35 Dose: 100 mg Haloperidol Lactate (Haloperidol Lactate 5 Mg/Ml Vial) 2 - 5 mg IV Q6HP PRN PRN Reason: ANXIETY/SEDATION Last Admin: 06/14/22 16:38 Dose: 5 mg Hydralazine HCl (Hydralazine 20 Mg/Ml Vial) 0 mg IV Q2HP PRN PRN Reason: Hypertension Last Admin: 06/17/22 02:34 Dose: 10 mg Hydrochlorothiazide (Hydrochlorothiazide 12.5 Mg Capsule) 12.5 mg PO DAILY [facility] Last Admin: 06/19/22 08:35 Dose: 12.5 mg Hydromorphone HCl (Hydromorphone 0.5 Mg/0.5 Ml Syringe) 0.5 mg IV Q1HP PRN; Protocol PRN Reason: Per Pain Protocol Last Admin: 06/14/22 17:35 Dose: 0.5 mg Acetaminophen (Ofirmev) 1,000 mg in 100 mls @ 200 mls/hr IV Q6HP PRN; Protocol PRN Reason: PAIN/FEVER > 101 Last Infusion: 06/18/22 23:22 Dose: Infused Norepinephrine Bitartrate 8 mg (/ Sodium Chloride) 250 mls @ 18.75 mls/hr IV Q12HP PRN; Protocol PRN Reason: Hypotension Piperacillin Sod/Tazobactam (Sod 2.25 gm/ Dextrose) 50 mls @ 100 mls/hr IV Q6H [facility] Last Infusion: 06/19/22 06:22 Dose: Infused Caspofungin 50 mg/ Sodium (Chloride) 250 mls @ 250 mls/hr IV Q24H [facility] Last Admin: 06/19/22 08:57 Dose: 250 mls/hr Calcium Gluconate 20 meq/Potassium Chloride 40 meq/Multivitamins/Minerals 10 ml/Potassium Phosphate 40 meq/Magnesium Sulfate 16.24 meq/Amino Acids 2,086.1016 mls @ 63 mls/hr IV Q24H [facility] Last Admin: 06/18/22 14:28 Dose: 63 mls/hr Insulin Glargine (Insulin Glargine, Human 1 Unit/0.01 Ml) 15 unit SQ DAILY [facility] Last Admin: 06/18/22 07:44 Dose: 15 units Insulin Human Lispro (Insulin Lispro 1 Unit/0.01 Ml Unit) 0 unit SQ Q4 [facility]; Protocol Last Admin: 06/19/22 08:07 Dose: 6 units Labetalol HCl (Labetalol 5 Mg/Ml Ml) 0 mg IV Q2HP PRN PRN Reason: Hypertension Last Admin: 06/15/22 11:42 Dose: 10 mg Lorazepam (Lorazepam 2 Mg/Ml Vial) 0.5 mg IV Q4HP PRN PRN Reason: ANXIETY/SEDATION Last Admin: 06/14/22 17:50 Dose: 0.5 mg Losartan Potassium (Losartan 50 Mg Tablet) 50 mg PO DAILY [facility] Last Admin: 06/19/22 08:34 Dose: 50 mg Metoprolol Succinate (Metoprolol Succinate 25 Mg Tab.Xl.24h) 25 mg PO BID [facility] Last Admin: 06/19/22 08:34 Dose: 25 mg Metoprolol Tartrate (Metoprolol Tartrate 5 Mg/5 Ml Vial) 5 mg IV Q2HP PRN PRN Reason: Tachyarrhythmias HR>110 Last Admin: 06/17/22 06:48 Dose: 5 mg Ondansetron HCl (Ondansetron 4 Mg/2 Ml Vial) 4 mg IV Q6HP PRN PRN Reason: Nausea And Vomiting Last Admin: 06/17/22 10:27 Dose: 4 mg Oxycodone HCl (Oxycodone Hcl 5 Mg Tablet) 5 mg PO Q4HP PRN; Protocol PRN Reason: Per Pain Protocol Last Admin: 06/16/22 16:48 Dose: 5 mg Pantoprazole Sodium (Pantoprazole 40 Mg Packet) 40 mg PO BIDAC [facility] Sodium Chloride (0.9 % Sodium Chloride 10 Ml Syringe) 10 ml IV Q12 [facility] Last Admin: 06/18/22 20:41 Dose: 10 ml Sodium Chloride (0.9 % Sodium Chloride 10 Ml Syringe) 10 ml IV UD PRN PRN Reason: Maintain line patency A/P Assessment and plan (1) DM2 (diabetes mellitus, type 2): Status: Acute (2) SBO (small bowel obstruction): Status: Acute (3) GERD (gastroesophageal reflux disease): Status: Chronic (4) Acute renal failure with acute tubular necrosis superimposed on stage 3a chronic kidney disease: Status: Acute (5) Hypertension: Status: Chronic (6) Coronary atherosclerosis: Status: Chronic Qualifiers: Associated angina: with unstable angina Coronary Disease-Associated Artery/Lesion type: [place] artery [place] vs. transplanted heart: [place] heart Qualified Code(s): I25.110 - Atherosclerotic heart disease of [place] coronary artery with unstable angina pectoris (7) Sepsis: Status: Acute Narrative A/P Narrative: Assessment and Plans: 1. Sepsis: Currently not on any pressor Monitor culture results including blood culture, central line culture, urine culture Continue current course of broad-spectrum antibiotics and antifungal with Zosyn and caspofungin When patient is able to tolerate multiple regular diets, will consider discontinuing TPN to minimize risk of bloodstream infections Daily CBC with auto differential to trend WBC 2. small bowel obstructions with perforations: s/p Ex-lap w/Lysis of adhesions (06/08) & s/p Ex-lap w/SB-resection (06/11) Currently on clear liquid diets. When patient is able to get most of his nutrition is from GI tract, will consider discontinuing TPN to minimize risk of bloodstream infections Protonix PO BID Rest of the surgical management as per surgical team 3. T2DM: HgA1c Hold any oral hypoglycemics Lantus 15 unit daily (d/c when d/c TPN) Lispro SSI q4 Accu Chek Hypoglycemia protocol Clear liquid diet +TPN 4. Essential HTN: Currently normotensive d/c scheduled Lopressor 5mg IV Metoprolol Succinate 25mg PO BID Amlodipine 5. CAROLINE on CKD: Avoid nephrotoxic agents Kidney functions returned back to the baseline, resume hydrochlorothiazide with losartan Daily CMP to trend kidney functions 6. GERD: Protonix PO BID 7. h/o CAD: Resume statin Resume Metoprolol Succinate GI ppx: Protonix PO BID DVT ppx: SCDs Code status: Full Prognosis: guarded Disposition: inpatient ICU; PT Critical Care Time: 1hr Time Spent With Patient Time: Total time spent is greater than 50% in coordination of care (as documented) at patient's floor/unit and/or counseling patient: Total time spent with greater than 50% in coordination of care (as documented) at patient's floor/unit and/or counseling patient:: 50 - 70 minutes QUALITY VTE Deep Vein Thrombosis/Pulmonary Embolism Present on Admission: No
[2022-06-19] MEDS ORDERED: 0.9 % SODIUM CHLORIDE 10 ML SYRINGE IV PRN (09:56)
[2022-06-19] MEDS: 0.9 % SODIUM CHLORIDE 10 ML SYRINGE IV SCH ×3 (09:58→20:57)
[2022-06-19] MEDS: amLODIPine 5 MG TABLET PO SCH (10:17)
[2022-06-19] MEDS: INSULIN GLARGINE, HUMAN 1 UNIT/0.01 ML SQ SCH (10:48)
[2022-06-19 10:54] LABS: Prothrombin Time 13.7 sec (11.9-14.5)
--- NOTE | 2022-06-19 12:17 | General Surgery Progress Note ---
SUBJECTIVE Subjective Patient information: Note initiated : 06/19/22 at 12:16 pm Service Date, if different from initiated Date: [] Patient: Neo Chamorro 71 y/o M admitted on 06/07/22 for Abdominal pain. Chief Complaint: [] Principal diagnosis: SBO Interval history: Overnight events noted. Patient continues to tolerate a regular diet, continues to have active bowel function. Continues with low-grade fever overnight and white blood cell count. Constitutional Vitals: Vital Signs Temp Pulse Resp BP Pulse Ox O2 Del Method O2 Flow Rate 100.5 F H 98 H 21 126/54 94 0 06/19/22 12:01 06/19/22 12:01 06/19/22 08:02 06/19/22 12:01 06/19/22 12:01 06/19/22 08:00 06/19/22 04:01 Period Temp Pulse Resp BP Sys/Medellin Pulse Ox O2 Del Method O2 Flow Rate Last 24 Hr 98.7 F-101.0 F 85-110 15-39 102-151/51-69 93-98 Room Air-Room Air 0-0 Intake and Output 06/18/22 06/19/22 06/19/22 21:59 05:59 13:59 Intake Total 2277 350 540 Output Total 505 940 Balance 1772 -590 540 Weight 248 lb 11.2 oz 248 lb 11.2 oz Patient Weight 06/20/22 05:59 Weight 248 lb 11.2 oz Intake & Output: Intake & Output 06/18/22 06/19/22 06/19/22 21:59 05:59 13:59 Intake Total 2277 350 540 Output Total 505 940 Balance 1772 -590 540 Weight 248 lb 11.2 oz 248 lb 11.2 oz Intake: Nourishment/Supplement quantity 477 (ml) IV 1700 150 300 Calcium Gluconate 10 Meq 1550 Potassium Chloride 20 Meq Infuvite Adult 10 ml Potassium Phosphate 60 Meq Magnesium Sulfate 8.12 Meq In Clinimix 5% -20% Solution 2,000 ml @ 63 mls /hr IV Q24H [facility] Rx#:[id number] Cancidas 50 mg In Sodium 250 Chloride 0.9% 250 ml @ 250 mls/ hr IV Q24H [facility] Rx#:[id number] Zosyn 2.25 gm In Dextrose 5% in 50 50 50 Water 50 ml @ 100 mls/hr IV Q6H [facility] Rx#:[id number] Oral 100 200 240 Output: Drainage 40 Abdomen [place] Drain 40 Drainage 30 Abdomen [place] Drain 30 Urine Catheter Amount 475 900 Other: Meal Lunch Breakfast Percent of Meal Consumed 25% 50% Feeding Ability Independent Independent Nourishment/Supplement name Ensure Urine Appearance Sediment Sediment Uretheral (Woods) Sediment Sediment Sediment Urine Color Dark Yellow Yellow Uretheral (Woods) Yellow Yellow Yellow Urine Odor Normal Stool Size Moderate Moderate Stool Color Brown Brown Stool Consistency Loose Loose # of times incontinent of 1 1 Bowels General appearance: cooperative and no acute distress GI/Abdominal GI/Abdominal exam: Present soft; Absent distended, guarding or tenderness Additional comments: Incision clean dry intact. [place] drain with serous fluid. A/P Assessment and plan (1) SBO (small bowel obstruction): Plan: Much improved from a surgical standpoint, tolerating regular diet. Would recommend weaning TPN to off removing central line as a potential source of low-grade fevers. Will remove [place] drain today or tomorrow. Status: Acute Time Spent With Patient Time: Total time spent is greater than 50% in coordination of care (as documented) at patient's floor/unit and/or counseling patient:
[2022-06-19] MEDS: ACETAMINOPHEN 1,000 MG/100 ML BAG IV PRN (13:14)
[2022-06-19] MEDS: [UNRECOGNIZED DRUG - REMARK] IV SCH (13:53)
--- NOTE | 2022-06-19 14:29 | XRay Report ---
HISTORY: PICC line insertion FINDINGS: A PICC line has been inserted through the left arm. The tip is in the superior vena cava at the level of the azygos arch. There is also an indwelling right internal jugular catheter located with the tip at the same location. There is no widening of the mediastinum and no pneumothorax. The heart is moderately enlarged. There is mild consolidation in the left lower lobe, which has improved slightly since 06/17/22. IMPRESSION: Well-positioned PICC line ICU nursing was called with the results Interpreted and Authenticated by: Arnol Blackburn 06/19/22
[2022-06-19] MEDS: PANTOPRAZOLE 40 MG PACKET PO SCH (17:01)
[2022-06-19] MEDS: ATORVASTATIN 20 MG TABLET PO SCH (20:56)
[2022-06-20] MEDS: PIPERACILLIN SODIUM/TAZOBACTAM 2.25 GM in DEXTROSE 5% IN WATER 50 ML IV SCH ×5 (00:10→23:42)
[2022-06-20] MEDS: INSULIN LISPRO 1 UNIT/0.01 ML UNIT SQ SCH ×6 (00:10→21:22)
[2022-06-20 07:09] LABS: Hematocrit 25.1 % (40.1-51.0); Mean Cell Volume 96.2 fL (80.0-100.0); Mean Corpuscular HGB Conc 31.9 g/dL (31.0-36.0); Mean Platelet Volume 11.2 fL (7.4-10.4); Platelet Count 248 K/mcL (140-440); RBC 2.61 M/mcL (4.63-6.08); Red Cell Distribution Width 13.9 % (11.5-14.5); WBC 14.3 K/mcL (4.5-11.0)
[2022-06-20] MEDS: PANTOPRAZOLE 40 MG PACKET PO SCH ×2 (07:29→17:19)
[2022-06-20 07:37] LABS: ALT/SGPT 31 U/L (<40); AST/SGOT 25 U/L (<40); Albumin 1.9 gm/dL (3.2-5.2); Albumin/Globulin Ratio 0.6 (1.0-2.3); Alkaline Phosphatase 77 U/L (39-117); Bilirubin,Total 0.4 mg/dL (0.1-1.0); Blood Urea Nitrogen 35 mg/dL (8-23); Calcium 7.8 mg/dL (8.6-10.4); Carbon Dioxide 22 mmol/L (22-30); Chloride 107 mmol/L (96-108); Globulin 3.1 gm/dL (2.2-3.7); Glomerular Filtration Rate 45; Glucose 198 mg/dL (70-105); Phosphorous 2.7 mg/dL (2.5-4.5)
[2022-06-20 08:19] LABS: Eosinophils % (Manual) 2 % (0-7); Hypochromasia 1+ (None Seen); Lymphocytes % 13 % (15-49); Monocytes % (Manual) 5 % (1-12); Myelocytes % 1 %; Platelet Estimate NORMAL (Normal); RBC Morphology ABNORMAL (Normal); Segmented Neutrophils % 79 % (38-78)
--- NOTE | 2022-06-20 08:43 | Internal Med Progress Note ---
SUBJECTIVE Subjective Patient information: Note initiated : 06/20/22 at 8:37 am Service Date, if different from initiated Date: [] Patient: Neo Chamorro 71 y/o M admitted on 06/07/22 for Abdominal pain. Chief Complaint: [] Principal diagnosis: SBO Interval history: Mr. Chamorro is a 71 year old M with a complex past medical history significant for multiple abdominal surgeries, diabetes mellitus type 2, CAD, hypertension, and CKD who presents to the hospital with 24-hour history of abdominal pain associate with nausea and vomiting. The patient's had prior episodes of bowel obstruction and states that this is very similar. As mentioned, he has had multiple abdominal surgeries including partial colectomy for diverticulitis, appendectomy, and cholecystectomy. The patient states that he was his usual self up until yesterday. He noticed that his abdomen was distended, and he was unable to have a bowel movement or pass gas. On presentation to the hospital, he was hemodynamically stable and afebrile. CT abdomen pelvis revealed mildly distended fluid-filled small bowel. Deep to the hernia patch and findings are consistent with partial mechanical small bowel obstruction. There was no closed-loop obstruction. He has a history of partial colectomy, partial cholecystectomy and appendectomy. There is previous anterior wall hernia repair. The hospitalist service was asked admit the patient in the setting of multiple medical comorbidities. General surgery were also consulted. 06/08: I evaluated the patient after he returned from the OR. The patient had laparoscopic lysis of adhesions. He has an NG tube in place. Advance diet as tolerated per general surgery. He is on narcotic analgesics. A clamp trial will be performed once he has active bowel function. From a medical standpoint, we will continue to hold most of his oral medications from home. Continue insulin sliding scale. 06/09: The patient is febrile with a temp of 100.6 and is tachycardic. Due to his recent intra-abdominal surgery, we will start Zosyn. Once the patient has passed gas or has had a bowel movement, he will have a clamp trial and subsequent NG tube removal and then advance diet as tolerated. 06/10: Postop day #2. Fever to 103 yesterday afternoon. Remains tachycardic. Home meds include metoprolol XL, which has been held. Still with abdominal pain, minimal nausea. Not much NG tube output this morning, is picked up this afternoon. KUB with normal bowel gas pattern this afternoon. 06/11: Postop day #3. Had recurrent fever yesterday, then yesterday evening blood pressure dropped to the 60s systolic. Responded to IV fluids. Overnight had blood pressures right at a map of 65. Urine output dropped off and CAROLINE on this morning's labs. Urine output has picked up after further fluid boluses. CTAP yesterday evening generally unrevealing. Initially when Dr. Nobles and I reviewed scan, concern for possible mediastinitis. Official read less concerning for that. For barium swallow to check for esophageal extravasation today. White count has normalized. 06/12 Patient feeling a little better today after exploratory laparotomy yesterday with several small micro perforations noted and subsequent bowel resection. Urine output borderline at 30 cc/h the last 1 was 15 cc. Patient just went into A. fib RVR, asymptomatic. Patient denies history of A. fib. Abdominal pain relatively controlled. He has some nausea but no vomiting. Patient denies flatus or bowel movements 06/13 Patient is not passing gas. Patient has abdominal pain. Feels about the same as yesterday. Urine output mediocre. Creatinine mild minimally worse today. We will get renal ultrasound and consult nephrology. Patient started on diltiazem drip last night for difficult to control A. fib flutter. Converted to normal sinus rhythm early this morning. Will need to start nutrition today, TPN given his n.p.o. status. Leukocytosis but bandemia improving. Lactic acidosis improved. 06/14 Patient did spike a fever of 101.8 last night. His white blood cell count still elevated at 20 today 17 yesterday although his bandemia prior to that was 30% and no more bandemia yesterday or today. We will repeat blood cultures check procalcitonin. Patient did have a large bowel movement overnight which was quite positive sign. Renal function remains the same. Did have good urine output over the past 24 hours with the high-dose IV Lasix per nephrology. Patient did have confusion last night for some agitation concern for safety of IV's lines and patient did get Haldol. Patient with heme positive stool and gastric contents. We will stop heparin DVT prophylaxis and keep SCDs. protonix drip placed. Gen Surg to evaluate. CT c/a/p no acute path. 06/15 Patient seems to be feeling a little better today. Have a T-max of 101 last night. Tachycardic in the low 100s. Good urine output and creatinine improving today to 2.4. Patient complains of some shortness of breath but no coughing chest pain, stomach pain seems to be a bit better. Leukocytosis that went from 17-20 yesterday is now back down to 17 and no more bandemia. Thrombocytopenia noted at 87, down from 111 yesterday. likely from consumtion d/t bleeding, but will send HIT-ab's. 06/16 Patient feeling better today. Bowel movement last night still dark but gastric contents are now clear. Leukocytosis slowly trending in the right direction. Hemoglobin 9.9. Fever curve continues to improve. Still generally tenuous state. Respiratory tenuous at times likely compounded by abdominal process. No function improving. Hypo-phosphatemia replete. Patient states abdominal pain improving. 06/17 Patient started having low-grade fevers again over night. States he feels about the same as yesterday. No bowel movement or passing gas. Little more ta chycardic for the past day or 2. Will obtain blood culture through the central line. Previous blood cultures from 126 unremarkable. Leukocytosis worsened again today. We will check manual differential. Obtain chest x-ray. Low Phos but better. Will start caspofungin given the continued low-grade fevers on broad-spectrum antibiotics already. And get fungal cultures as well as BC's. Given the mild tachycardia low-grade fevers. We will check a venous Doppler of the lower extremities. He has been on prophylactic anticoagulation entire stay with the exception of the last couple days when he was found to have a GI bleed but has been on SCDs during that time. However given his risk we will check ultrasound study. 06/18: Venous Doppler study negative for any DVT. Chest x-ray from yesterday also showing stable atelectasis and pleural effusion left lower thorax. All cultures no growth to date. Fever with T-max 38.1 this morning. WBC down trended from 19.1-16.6 this morning. Patient denies any abdominal pain. He is tolerating full liquid diet. He is complaining of subjective fever but denies any chills or diaphoresis. Denies any shortness of breath or chest pain or palpitations. Continue broad-spectrum antibiotics and antifungal with Zosyn and caspofungin while waiting for culture results. Resumed oral beta-neno for better heart rate control. Continue IV Protonix and TPN while advancing patient's diet. Overall patient is still very guarded. Continue physical therapy. 06/19: Fever with T-max 38.3 overnight. Patient is being switched from liquid diet to regular diet this morning, tolerate maybe half of the breakfast. WBC went up slightly from 16.6-17.1. Patient denies any abdominal pain. Denies any shortness of breath or chest pain or palpitations. Continue broad-spectrum antibiotics and antifungal with Zosyn and caspofungin while waiting for culture results. Protonix IV-->PO. d/c scheduled IV Lopressor. If the patient's can tolerate most of the regular diet provided for multiple meals, will consider stopping TPN. Overall patient is still very guarded. Continue physical therapy. 06/20: Low-grade fever with T-max 37.8 overnight. All cultures including blood culture, central line culture, type of central line culture no growth today. Central line was removed and PICC line inserted on 06/19. blood pressure stable. Patient tolerated somewhat regular diet yesterday, waiting to observe how he is doing for breakfast this morning. He is complain of mild abdominal pain. Denies fever or chills. Denies nausea or vomiting. Good appetite. Continue broad-spectrum antibiotics and antifungal with Zosyn and caspofungin while waiting for culture results. If the patient's can tolerate most of the regular diet provided for multiple meals, will consider stopping TPN. Overall patient is still very guarded. Continue physical therapy. Transfer from ICU to PCU. Constitutional Vitals: Vital Signs Temp Pulse Resp BP Pulse Ox O2 Del Method O2 Flow Rate 37.4 C H 89 16 138/53 95 0 06/20/22 08:01 06/20/22 08:01 06/20/22 07:01 06/20/22 08:01 06/20/22 08:01 06/20/22 06:01 06/20/22 03:01 Period Temp Pulse Resp BP Sys/Medellin Pulse Ox O2 Del Method O2 Flow Rate Last 24 Hr 37.3 C-38.3 C 83-107 16-20 110-145/46-59 91-98 Room Air-Room Air 0-0 Intake and Output 06/19/22 06/20/22 06/20/22 21:59 05:59 13:59 Intake Total 150 300 50 Output Total 1100 750 400 Balance -950 -450 -350 Weight 113.035 kg Intake & Output: Intake & Output 06/19/22 06/20/22 06/20/22 21:59 05:59 13:59 Intake Total 150 300 50 Output Total 1100 750 400 Balance -950 -450 -350 Weight 113.035 kg Intake: IV 50 50 50 Zosyn 2.25 gm In Dextrose 5% in 50 50 50 Water 50 ml @ 100 mls/hr IV Q6H [facility] Rx#:[id number] Oral 100 250 Output: Drainage 25 Abdomen [place] Drain 25 Drainage 75 Abdomen [place] Drain 75 Urine Catheter Amount 1025 725 400 Other: Urine Appearance Sediment Sediment Clear Uretheral (Woods) Sediment Sediment Urine Color Yellow Yellow Dark Yellow Uretheral (Woods) Yellow Yellow Urine Odor Normal Stool Size Small Moderate Stool Color Brown Stool Consistency Liquid Soft Loose # Bowel Movements 1 # of times incontinent of 1 1 Bowels General appearance: average body habitus, cooperative and no acute distress Head Head exam: Present atraumatic and normal inspection Eye Eye exam: Present normal appearance ENT ENT exam: Present mucous membranes moist, normal exam and normal external ear exam Neck Neck exam: Present normal inspection Respiratory Respiratory exam: Present normal respiratory exam Cardiovascular Cardiovascular exam: Present normal rate and rhythm GI/Abdominal GI/Abdominal exam: Present normal bowel sounds Additional comments: Multiple abdominal surgical incisions with dressing Additional comments: Woods catheter in place Extremities Exam Extremities exam: Present pedal edema Back Exam Back exam: Present normal inspection Neurological Exam Neurological exam: Present alert and oriented X3 Skin Skin exam: Present intact and warm OBJ DATA Labs CBC & Chem 7: 06/20/22 05:12 06/20/22 05:12 Labs: Abnormal Lab Results 06/20/22 06/20/22 06/19/22 05:12 05:12 05:08 WBC 14.3 H RBC 2.61 L Hgb 8.0 L Hct 25.1 L Plt Count MPV 11.2 H Immature Gran % (Auto) Lymph % (Auto) Lymph # (Auto) Clark # (Auto) Seg Neutrophils % 79 H Lymphocytes % 13 L Immature Gran # Absolute Neutrophils WBC Morphology Reactive Lymphocytes Toxic Granulation Platelet Estimate RBC Morphology Abnormal A Polychromasia Hypochromasia 1+ A Poikilocytosis Anisocytosis POC pO2 Anion Gap 6.0 L 6.0 L BUN 35 H 39 H Creatinine 1.5 H 1.5 H Glucose 198 H 196 H Calcium 7.8 L 7.6 L Phosphorus NT-Pro-B Natriuret Pep Total Protein 5.0 L 5.2 L Albumin 1.9 L 2.0 L Albumin/Globulin Ratio 0.6 L 0.6 L Prealbumin Procalcitonin Urine Appearance Urine Protein Urine Glucose (UA) Urine Occult Blood Urine WBC Urine Mucus 06/19/22 06/18/22 06/18/22 05:08 10:30 04:46 WBC 17.1 H RBC 2.87 L Hgb 8.6 L Hct 27.4 L Plt Count MPV 11.6 H Immature Gran % (Auto) Lymph % (Auto) Lymph # (Auto) Clark # (Auto) Seg Neutrophils % 88 H Lymphocytes % 3 L Immature Gran # Absolute Neutrophils WBC Morphology Reactive Lymphocytes Toxic Granulation 1+ A Platelet Estimate RBC Morphology Abnormal A Polychromasia Hypochromasia 1+ A Poikilocytosis 1+ A Anisocytosis 1+ A POC pO2 Anion Gap BUN 47 H Creatinine 1.7 H Glucose 207 H Calcium 7.4 L Phosphorus NT-Pro-B Natriuret Pep Total Protein 5.1 L Albumin 2.0 L Albumin/Globulin Ratio 0.6 L Prealbumin Procalcitonin Urine Appearance Slightly cloudy A Urine Protein 30 mg/dl A Urine Glucose (UA) 100 mg/dl A Urine Occult Blood Large A Urine WBC 8 H Urine Mucus Few A 06/18/22 06/18/22 06/17/22 04:46 04:46 09:18 WBC 16.6 H RBC 2.98 L Hgb 8.8 L Hct 28.0 L Plt Count MPV 11.8 H Immature Gran % (Auto) Lymph % (Auto) Lymph # (Auto) Clark # (Auto) Seg Neutrophils % 79 H Lymphocytes % 6 L Immature Gran # Absolute Neutrophils WBC Morphology Reactive Lymphocytes 4 H Toxic Granulation 1+ A Platelet Estimate RBC Morphology Abnormal A Polychromasia Hypochromasia 1+ A Poikilocytosis Anisocytosis 1+ A POC pO2 Anion Gap BUN Creatinine Glucose Calcium Phosphorus NT-Pro-B Natriuret Pep 1022.0 H 1612.0 H Total Protein Albumin Albumin/Globulin Ratio Prealbumin 13.5 L Procalcitonin Urine Appearance Urine Protein Urine Glucose (UA) Urine Occult Blood Urine WBC Urine Mucus 06/17/22 06/17/22 06/17/22 09:02 09:01 08:55 WBC RBC Hgb Hct Plt Count MPV Immature Gran % (Auto) Lymph % (Auto) Lymph # (Auto) Clark # (Auto) Seg Neutrophils % Lymphocytes % 10 L Immature Gran # Absolute Neutrophils WBC Morphology Abnormal A Reactive Lymphocytes Toxic Granulation 1+ A Platelet Estimate Decreased A RBC Morphology Abnormal A Polychromasia Few A Hypochromasia Few A Poikilocytosis Anisocytosis POC pO2 79 L Anion Gap BUN Creatinine Glucose Calcium Phosphorus NT-Pro-B Natriuret Pep Total Protein Albumin Albumin/Globulin Ratio Prealbumin Procalcitonin 4.08 H Urine Appearance Urine Protein Urine Glucose (UA) Urine Occult Blood Urine WBC Urine Mucus 06/17/22 06/17/22 08:27 08:27 WBC 19.1 H RBC 3.29 L Hgb 9.8 L Hct 31.2 L Plt Count 109 L MPV 12.9 H Immature Gran % (Auto) 9.3 H Lymph % (Auto) 7.1 L Lymph # (Auto) 1.35 L Clark # (Auto) 1.04 H Seg Neutrophils % Lymphocytes % Immature Gran # 1.78 H Absolute Neutrophils 14.74 H WBC Morphology Reactive Lymphocytes Toxic Granulation Platelet Estimate RBC Morphology Polychromasia Hypochromasia Poikilocytosis Anisocytosis POC pO2 Anion Gap BUN Creatinine Glucose Calcium Phosphorus 1.8 L NT-Pro-B Natriuret Pep Total Protein Albumin Albumin/Globulin Ratio Prealbumin Procalcitonin Urine Appearance Urine Protein Urine Glucose (UA) Urine Occult Blood Urine WBC Urine Mucus Meds: Medications Albuterol/Ipratropium (Ipratropium/Albuterol 3 Ml Ampul.Neb) 3 ml NEB Q4HP PRN PRN Reason: Shortness Of Breath Last Admin: 06/17/22 10:36 Dose: 3 ml Amlodipine Besylate (Amlodipine 5 Mg Tablet) 5 mg PO QDAY [facility] Last Admin: 06/19/22 10:17 Dose: 5 mg Atorvastatin Calcium (Atorvastatin 20 Mg Tablet) 20 mg PO HS [facility] Last Admin: 06/19/22 20:56 Dose: 20 mg Diagnostic Test (Pha) (Accu-Chek 1 Each Strip) 1 each FS Q4 [facility] Last Admin: 06/20/22 07:38 Dose: 1 each Gabapentin (Gabapentin 100 Mg Capsule) 100 mg PO QID [facility] Last Admin: 06/19/22 20:56 Dose: 100 mg Haloperidol Lactate (Haloperidol Lactate 5 Mg/Ml Vial) 2 - 5 mg IV Q6HP PRN PRN Reason: ANXIETY/SEDATION Last Admin: 06/14/22 16:38 Dose: 5 mg Heparin Sodium (Porcine) (Heparin Flush 10 Units/Ml 5 Ml Syringe) 2 ml IV Q12 [facility] Last Admin: 06/19/22 20:56 Dose: 2 ml Hydralazine HCl (Hydralazine 20 Mg/Ml Vial) 0 mg IV Q2HP PRN PRN Reason: Hypertension Last Admin: 06/17/22 02:34 Dose: 10 mg Hydrochlorothiazide (Hydrochlorothiazide 12.5 Mg Capsule) 12.5 mg PO DAILY [facility] Last Admin: 06/19/22 08:35 Dose: 12.5 mg Hydromorphone HCl (Hydromorphone 0.5 Mg/0.5 Ml Syringe) 0.5 mg IV Q1HP PRN; Protocol PRN Reason: Per Pain Protocol Last Admin: 06/14/22 17:35 Dose: 0.5 mg Acetaminophen (Ofirmev) 1,000 mg in 100 mls @ 200 mls/hr IV Q6HP PRN; Protocol PRN Reason: PAIN/FEVER > 101 Last Infusion: 06/19/22 13:44 Dose: Infused Norepinephrine Bitartrate 8 mg (/ Sodium Chloride) 250 mls @ 18.75 mls/hr IV Q12HP PRN; Protocol PRN Reason: Hypotension Piperacillin Sod/Tazobactam (Sod 2.25 gm/ Dextrose) 50 mls @ 100 mls/hr IV Q6H [facility] Last Infusion: 06/20/22 06:12 Dose: Infused Caspofungin 50 mg/ Sodium (Chloride) 250 mls @ 250 mls/hr IV Q24H [facility] Last Infusion: 06/19/22 09:57 Dose: Infused Calcium Gluconate 20 meq/Potassium Chloride 40 meq/Multivitamins/Minerals 10 ml/Potassium Phosphate 40 meq/Magnesium Sulfate 16.24 meq/Amino Acids 2,086.1016 mls @ 63 mls/hr IV Q24H [facility] Last Admin: 06/19/22 13:53 Dose: 63 mls/hr Insulin Glargine (Insulin Glargine, Human 1 Unit/0.01 Ml) 15 unit SQ DAILY [facility] Last Admin: 06/19/22 10:48 Dose: 15 units Insulin Human Lispro (Insulin Lispro 1 Unit/0.01 Ml Unit) 0 unit SQ Q4 [facility]; Protocol Last Admin: 06/20/22 03:59 Dose: 6 units Labetalol HCl (Labetalol 5 Mg/Ml Ml) 0 mg IV Q2HP PRN PRN Reason: Hypertension Last Admin: 06/15/22 11:42 Dose: 10 mg Lorazepam (Lorazepam 2 Mg/Ml Vial) 0.5 mg IV Q4HP PRN PRN Reason: ANXIETY/SEDATION Last Admin: 06/14/22 17:50 Dose: 0.5 mg Losartan Potassium (Losartan 50 Mg Tablet) 50 mg PO DAILY [facility] Last Admin: 06/19/22 08:34 Dose: 50 mg Metoprolol Succinate (Metoprolol Succinate 25 Mg Tab.Xl.24h) 25 mg PO BID [facility] Last Admin: 06/19/22 20:56 Dose: 25 mg Metoprolol Tartrate (Metoprolol Tartrate 5 Mg/5 Ml Vial) 5 mg IV Q2HP PRN PRN Reason: Tachyarrhythmias HR>110 Last Admin: 06/17/22 06:48 Dose: 5 mg Ondansetron HCl (Ondansetron 4 Mg/2 Ml Vial) 4 mg IV Q6HP PRN PRN Reason: Nausea And Vomiting Last Admin: 06/17/22 10:27 Dose: 4 mg Oxycodone HCl (Oxycodone Hcl 5 Mg Tablet) 5 mg PO Q4HP PRN; Protocol PRN Reason: Per Pain Protocol Last Admin: 06/16/22 16:48 Dose: 5 mg Pantoprazole Sodium (Pantoprazole 40 Mg Packet) 40 mg PO BIDAC [facility] Last Admin: 06/20/22 07:29 Dose: 40 mg Sodium Chloride (0.9 % Sodium Chloride 10 Ml Syringe) 10 ml IV Q12 [facility] Last Admin: 06/19/22 20:57 Dose: Not Given Sodium Chloride (0.9 % Sodium Chloride 10 Ml Syringe) 10 ml IV UD PRN PRN Reason: Maintain line patency Sodium Chloride (0.9 % Sodium Chloride 10 Ml Syringe) 10 ml IV UD PRN PRN Reason: FLUSH Sodium Chloride (0.9 % Sodium Chloride 10 Ml Syringe) 10 ml IV Q12 [facility] Last Admin: 06/19/22 20:57 Dose: Not Given A/P Assessment and plan (1) DM2 (diabetes mellitus, type 2): Status: Acute (2) SBO (small bowel obstruction): Status: Acute (3) GERD (gastroesophageal reflux disease): Status: Chronic (4) Acute renal failure with acute tubular necrosis superimposed on stage 3a chronic kidney disease: Status: Acute (5) Hypertension: Status: Chronic (6) Coronary atherosclerosis: Status: Chronic Qualifiers: Associated angina: with unstable angina Coronary Disease-Associated Artery/Lesion type: [place] artery [place] vs. transplanted heart: [place] heart Qualified Code(s): I25.110 - Atherosclerotic heart disease of [place] coronary artery with unstable angina pectoris (7) Sepsis: Status: Acute Narrative A/P Narrative: Assessment and Plans: 1. Sepsis: Currently not on any pressor Monitor culture results including blood culture, central line culture, tip of central line culture, urine culture Continue current course of broad-spectrum antibiotics and antifungal with Zosyn and caspofungin When patient is able to tolerate multiple regular diets, will consider discontinuing TPN to minimize risk of bloodstream infections Daily CBC with auto differential to trend WBC 2. small bowel obstructions with perforations: s/p Ex-lap w/Lysis of adhesions (06/08) & s/p Ex-lap w/SB-resection (06/11) Currently on regular diet. When patient is able to get most of his nutrition is from GI tract, will consider discontinuing TPN to minimize risk of bloodstream infections Protonix PO BID Rest of the surgical management as per surgical team 3. T2DM: HgA1c Hold any oral hypoglycemics Lantus 15 unit daily (d/c when d/c TPN) Lispro SSI q4 Accu Chek Hypoglycemia protocol Clear liquid diet +TPN 4. Essential HTN: Currently normotensive Metoprolol Succinate 25mg PO BID Amlodipine HCTZ Losartan 5. CAROLINE on CKD: Avoid nephrotoxic agents Kidney functions returned back to the baseline, resume hydrochlorothiazide with losartan Daily CMP to trend kidney functions 6. GERD: Protonix PO BID 7. h/o CAD: Resume statin Continue Metoprolol Succinate GI ppx: Protonix PO BID DVT ppx: SCDs Code status: Full Prognosis: guarded Disposition: inpatient ICU-->PCU; PT Critical Care Time: 45min Time Spent With Patient Time: Total time spent is greater than 50% in coordination of care (as documented) at patient's floor/unit and/or counseling patient: Total time spent with greater than 50% in coordination of care (as documented) at patient's floor/unit and/or counseling patient:: 35 - 50 minutes QUALITY VTE Deep Vein Thrombosis/Pulmonary Embolism Present on Admission: No
[2022-06-20] MEDS: INSULIN GLARGINE, HUMAN 1 UNIT/0.01 ML SQ SCH (08:53)
[2022-06-20] MEDS: GABAPENTIN 100 MG CAPSULE PO SCH ×4 (08:55→21:24)
[2022-06-20] MEDS: METOPROLOL SUCCINATE 25 MG TAB.XL.24H PO SCH ×2 (08:56→21:21)
[2022-06-20] MEDS: amLODIPine 5 MG TABLET PO SCH (08:56)
[2022-06-20] MEDS: HYDROCHLOROTHIAZIDE 12.5 MG CAPSULE PO SCH (08:56)
[2022-06-20] MEDS: 0.9 % SODIUM CHLORIDE 10 ML SYRINGE IV SCH ×3 (08:56→21:22)
[2022-06-20] MEDS: LOSARTAN 50 MG TABLET PO SCH (08:56)
[2022-06-20] MEDS: CASPOFUNGIN ACETATE 50 MG in 0.9 % SODIUM CHLORIDE 250 ML IV SCH (08:57)
--- NOTE | 2022-06-20 11:24 | General Surgery Progress Note ---
SUBJECTIVE Subjective Patient information: Note initiated : 06/20/22 at 11:21 am Service Date, if different from initiated Date: [] Patient: Neo Chamorro 71 y/o M admitted on 06/07/22 for Abdominal pain. Chief Complaint: [] Principal diagnosis: SBO Interval history: Patient continues to slowly improved. Patient is tolerating regular diet, having bowel movements. Fever curve and white count trending down. Constitutional Vitals: Vital Signs Temp Pulse Resp BP Pulse Ox O2 Del Method O2 Flow Rate 99.4 F H 95 H 16 133/68 98 0 06/20/22 08:01 06/20/22 10:07 06/20/22 07:01 06/20/22 10:07 06/20/22 10:07 06/20/22 06:01 06/20/22 03:01 Period Temp Pulse Resp BP Sys/Medellin Pulse Ox O2 Del Method O2 Flow Rate Last 24 Hr 99.2 F-100.7 F 83-98 16-20 110-145/46-68 91-98 Room Air-Room Air 0-0 Intake and Output 06/19/22 06/20/22 06/20/22 21:59 05:59 13:59 Intake Total 150 300 780 Output Total 1100 750 430 Balance -950 -450 350 Weight 249 lb 3.2 oz Intake & Output: Intake & Output 06/19/22 06/20/22 06/20/22 21:59 05:59 13:59 Intake Total 150 300 780 Output Total 1100 750 430 Balance -950 -450 350 Weight 249 lb 3.2 oz Intake: Nourishment/Supplement quantity 240 (ml) IV 50 50 300 Cancidas 50 mg In Sodium 250 Chloride 0.9% 250 ml @ 250 mls/ hr IV Q24H [facility] Rx#:[id number] Zosyn 2.25 gm In Dextrose 5% in 50 50 50 Water 50 ml @ 100 mls/hr IV Q6H [facility] Rx#:[id number] Oral 100 250 240 Output: Drainage 25 30 Abdomen [place] Drain 25 30 Drainage 75 Abdomen [place] Drain 75 Urine Catheter Amount 1022 225 400 Other: Meal Nourishment/Supplement Percent of Meal Consumed 25% Feeding Ability Independent Nourishment/Supplement name Glucerna Urine Appearance Sediment Sediment Clear Uretheral (Woods) Sediment Sediment Clear Urine Color Yellow Yellow Dark Yellow Uretheral (Woods) Yellow Yellow Bright Yellow Urine Odor Normal Stool Size Small Moderate Small Stool Color Brown Brown Stool Consistency Liquid Soft Liquid Loose # Bowel Movements 1 1 # of times incontinent of 1 1 Bowels General appearance: no acute distress GI/Abdominal GI/Abdominal exam: Present soft; Absent distended or tenderness Additional comments: Incisions are clean dry and intact, [place] drain removed. A/P Assessment and plan (1) SBO (small bowel obstruction): Plan: Patient is doing much better. Cleared for physical therapy from a surgical standpoint. Continue with diet, continue to wean off TPN. Status: Acute Time Spent With Patient Time: Total time spent is greater than 50% in coordination of care (as documented) at patient's floor/unit and/or counseling patient:
[2022-06-20] MEDS: ACETAMINOPHEN 1,000 MG/100 ML BAG IV PRN ×2 (13:11→22:34)
[2022-06-20] MEDS: [UNRECOGNIZED DRUG - REMARK] IV SCH (13:56)
[2022-06-20] MEDS ORDERED: DEXTROSE 50% 50 ML VIAL IV PRN (15:32)
[2022-06-20] MEDS ORDERED: DEXTROSE 31 GM ORAL.SUSP PO PRN (15:32)
[2022-06-20] MEDS: ATORVASTATIN 20 MG TABLET PO SCH (21:22)
[2022-06-20] MEDS: hydrALAZINE 20 MG/ML VIAL IV PRN (22:28)
[2022-06-20] MEDS: LORazepam 2 MG/ML VIAL IV PRN (22:49)
[2022-06-21] MEDS: PIPERACILLIN SODIUM/TAZOBACTAM 2.25 GM in DEXTROSE 5% IN WATER 50 ML IV SCH ×3 (05:37→17:12)
--- NOTE | 2022-06-21 07:31 | EKG ---
[facility] Test Date: 2022-06-17 Pat Name: Neo Chamorro Department: ICU Room: 120A Gender: Male Bracelet Former: : 1950 Requested By: Prashanth Chaves Order Number: [id number] Reading MD: Rosendo Blackburn M.D. Measurements Intervals [place] Rate: 95 P: 50 CA: 128 QRS: 28 QRSD: 87 T: 21 QT: 285 QTc: 358 Interpretive Statements SINUS RHYTHM Borderline T wave abnormalities Electronically Signed On 06-21-2022 7:31:23 PDT by Rosendo Blackburn M.D. /store/[email or web address]/[id number]
[2022-06-21] MEDS: INSULIN LISPRO 1 UNIT/0.01 ML UNIT SQ SCH ×4 (07:36→20:43)
[2022-06-21] MEDS: PANTOPRAZOLE 40 MG PACKET PO SCH (07:57)
[2022-06-21 08:42] LABS: Phosphorous 3.1 mg/dL (2.5-4.5)
[2022-06-21 08:45] LABS: ALT/SGPT 42 U/L (<40); AST/SGOT 35 U/L (<40); Albumin 1.8 gm/dL (3.2-5.2); Albumin/Globulin Ratio 0.5 (1.0-2.3); Alkaline Phosphatase 99 U/L (39-117); Bilirubin,Total 0.4 mg/dL (0.1-1.0); Blood Urea Nitrogen 32 mg/dL (8-23); Calcium 7.8 mg/dL (8.6-10.4); Carbon Dioxide 21 mmol/L (22-30); Chloride 108 mmol/L (96-108); Globulin 3.5 gm/dL (2.2-3.7); Glomerular Filtration Rate 49; Glucose 123 mg/dL (70-105)
[2022-06-21 08:53] LABS: Hematocrit 26.8 % (40.1-51.0); Hemoglobin 8.4 g/dL (13.7-17.5); Mean Corpuscular HGB Conc 31.3 g/dL (31.0-36.0); Mean Platelet Volume 10.8 fL (7.4-10.4); Platelet Count 318 K/mcL (140-440); RBC 2.82 M/mcL (4.63-6.08); Red Cell Distribution Width 13.9 % (11.5-14.5); WBC 13.1 K/mcL (4.5-11.0)
--- NOTE | 2022-06-21 09:04 | Internal Med Progress Note ---
SUBJECTIVE Subjective Patient information: Note initiated : 06/21/22 at 8:58 am Service Date, if different from initiated Date: [] Patient: Neo Chamorro 71 y/o M admitted on 06/07/22 for Abdominal pain. Chief Complaint: [] Principal diagnosis: SBO Interval history: Mr. Chamorro is a 71 year old M with a complex past medical history significant for multiple abdominal surgeries, diabetes mellitus type 2, CAD, hypertension, and CKD who presents to the hospital with 24-hour history of abdominal pain associate with nausea and vomiting. The patient's had prior episodes of bowel obstruction and states that this is very similar. As mentioned, he has had multiple abdominal surgeries including partial colectomy for diverticulitis, appendectomy, and cholecystectomy. The patient states that he was his usual self up until yesterday. He noticed that his abdomen was distended, and he was unable to have a bowel movement or pass gas. On presentation to the hospital, he was hemodynamically stable and afebrile. CT abdomen pelvis revealed mildly distended fluid-filled small bowel. Deep to the hernia patch and findings are consistent with partial mechanical small bowel obstruction. There was no closed-loop obstruction. He has a history of partial colectomy, partial cholecystectomy and appendectomy. There is previous anterior wall hernia repair. The hospitalist service was asked admit the patient in the setting of multiple medical comorbidities. General surgery were also consulted. 06/08: I evaluated the patient after he returned from the OR. The patient had laparoscopic lysis of adhesions. He has an NG tube in place. Advance diet as tolerated per general surgery. He is on narcotic analgesics. A clamp trial will be performed once he has active bowel function. From a medical standpoint, we will continue to hold most of his oral medications from home. Continue insulin sliding scale. 06/09: The patient is febrile with a temp of 100.6 and is tachycardic. Due to his recent intra-abdominal surgery, we will start Zosyn. Once the patient has passed gas or has had a bowel movement, he will have a clamp trial and subsequent NG tube removal and then advance diet as tolerated. 06/10: Postop day #2. Fever to 103 yesterday afternoon. Remains tachycardic. Home meds include metoprolol XL, which has been held. Still with abdominal pain, minimal nausea. Not much NG tube output this morning, is picked up this afternoon. KUB with normal bowel gas pattern this afternoon. 06/11: Postop day #3. Had recurrent fever yesterday, then yesterday evening blood pressure dropped to the 60s systolic. Responded to IV fluids. Overnight had blood pressures right at a map of 65. Urine output dropped off and CAROLINE on this morning's labs. Urine output has picked up after further fluid boluses. CTAP yesterday evening generally unrevealing. Initially when Dr. Nobles and I reviewed scan, concern for possible mediastinitis. Official read less concerning for that. For barium swallow to check for esophageal extravasation today. White count has normalized. 06/12 Patient feeling a little better today after exploratory laparotomy yesterday with several small micro perforations noted and subsequent bowel resection. Urine output borderline at 30 cc/h the last 1 was 15 cc. Patient just went into A. fib RVR, asymptomatic. Patient denies history of A. fib. Abdominal pain relatively controlled. He has some nausea but no vomiting. Patient denies flatus or bowel movements 06/13 Patient is not passing gas. Patient has abdominal pain. Feels about the same as yesterday. Urine output mediocre. Creatinine mild minimally worse today. We will get renal ultrasound and consult nephrology. Patient started on diltiazem drip last night for difficult to control A. fib flutter. Converted to normal sinus rhythm early this morning. Will need to start nutrition today, TPN given his n.p.o. status. Leukocytosis but bandemia improving. Lactic acidosis improved. 06/14 Patient did spike a fever of 101.8 last night. His white blood cell count still elevated at 20 today 17 yesterday although his bandemia prior to that was 30% and no more bandemia yesterday or today. We will repeat blood cultures check procalcitonin. Patient did have a large bowel movement overnight which was quite positive sign. Renal function remains the same. Did have good urine output over the past 24 hours with the high-dose IV Lasix per nephrology. Patient did have confusion last night for some agitation concern for safety of IV's lines and patient did get Haldol. Patient with heme positive stool and gastric contents. We will stop heparin DVT prophylaxis and keep SCDs. protonix drip placed. Gen Surg to evaluate. CT c/a/p no acute path. 06/15 Patient seems to be feeling a little better today. Have a T-max of 101 last night. Tachycardic in the low 100s. Good urine output and creatinine improving today to 2.4. Patient complains of some shortness of breath but no coughing chest pain, stomach pain seems to be a bit better. Leukocytosis that went from 17-20 yesterday is now back down to 17 and no more bandemia. Thrombocytopenia noted at 87, down from 111 yesterday. likely from consumtion d/t bleeding, but will send HIT-ab's. 06/16 Patient feeling better today. Bowel movement last night still dark but gastric contents are now clear. Leukocytosis slowly trending in the right direction. Hemoglobin 9.9. Fever curve continues to improve. Still generally tenuous state. Respiratory tenuous at times likely compounded by abdominal process. No function improving. Hypo-phosphatemia replete. Patient states abdominal pain improving. 06/17 Patient started having low-grade fevers again over night. States he feels about the same as yesterday. No bowel movement or passing gas. Little more ta chycardic for the past day or 2. Will obtain blood culture through the central line. Previous blood cultures from 126 unremarkable. Leukocytosis worsened again today. We will check manual differential. Obtain chest x-ray. Low Phos but better. Will start caspofungin given the continued low-grade fevers on broad-spectrum antibiotics already. And get fungal cultures as well as BC's. Given the mild tachycardia low-grade fevers. We will check a venous Doppler of the lower extremities. He has been on prophylactic anticoagulation entire stay with the exception of the last couple days when he was found to have a GI bleed but has been on SCDs during that time. However given his risk we will check ultrasound study. 06/18: Venous Doppler study negative for any DVT. Chest x-ray from yesterday also showing stable atelectasis and pleural effusion left lower thorax. All cultures no growth to date. Fever with T-max 38.1 this morning. WBC down trended from 19.1-16.6 this morning. Patient denies any abdominal pain. He is tolerating full liquid diet. He is complaining of subjective fever but denies any chills or diaphoresis. Denies any shortness of breath or chest pain or palpitations. Continue broad-spectrum antibiotics and antifungal with Zosyn and caspofungin while waiting for culture results. Resumed oral beta-neno for better heart rate control. Continue IV Protonix and TPN while advancing patient's diet. Overall patient is still very guarded. Continue physical therapy. 06/19: Fever with T-max 38.3 overnight. Patient is being switched from liquid diet to regular diet this morning, tolerate maybe half of the breakfast. WBC went up slightly from 16.6-17.1. Patient denies any abdominal pain. Denies any shortness of breath or chest pain or palpitations. Continue broad-spectrum antibiotics and antifungal with Zosyn and caspofungin while waiting for culture results. Protonix IV-->PO. d/c scheduled IV Lopressor. If the patient's can tolerate most of the regular diet provided for multiple meals, will consider stopping TPN. Overall patient is still very guarded. Continue physical therapy. 06/20: Low-grade fever with T-max 37.8 overnight. All cultures including blood culture, central line culture, type of central line culture no growth today. Central line was removed and PICC line inserted on 06/19. blood pressure stable. Patient tolerated somewhat regular diet yesterday, waiting to observe how he is doing for breakfast this morning. He is complain of mild abdominal pain. Denies fever or chills. Denies nausea or vomiting. Good appetite. Continue broad-spectrum antibiotics and antifungal with Zosyn and caspofungin while waiting for culture results. If the patient's can tolerate most of the regular diet provided for multiple meals, will consider stopping TPN. Overall patient is still very guarded. Continue physical therapy. Transfer from ICU to PCU. 06/21: Fever with Tmax 38.2 overnight. WBC 13.1, H/H 8.4/26.8. All cultures including blood culture, central line culture, type of central line culture no growth today. Patient is tolerating roughly 50% of the regular diet provided. TPN discontinued. Had bowel movement overnight. Denies abdominal pain. Denies fever or chills. Denies nausea or vomiting. Continue broad-spectrum antibiotics and antifungal with Zosyn and caspofungin while waiting for culture results. Overall patient is still very guarded. Continue physical therapy. Stays in PCU. Constitutional Vitals: Vital Signs Temp Pulse Resp BP Pulse Ox O2 Del Method O2 Flow Rate 37.6 C H 90 20 126/60 94 0 06/21/22 08:01 06/21/22 06:01 06/21/22 08:01 06/21/22 08:01 06/21/22 08:01 06/21/22 04:01 06/21/22 04:01 Period Temp Pulse Resp BP Sys/Medellin Pulse Ox O2 Del Method O2 Flow Rate Last 24 Hr 36.8 C-38.2 C 80-104 16-22 102-154/47-68 92-98 Room Air-Room Air 0-0 Intake and Output 06/20/22 06/21/22 06/21/22 21:59 05:59 13:59 Intake Total 170 150 50 Output Total 500 800 Balance -330 -650 50 Weight 113.081 kg Intake & Output: Intake & Output 06/20/22 06/21/22 06/21/22 21:59 05:59 13:59 Intake Total 170 150 50 Output Total 500 800 Balance -330 -650 50 Weight 113.081 kg Intake: IV 50 150 50 Zosyn 2.25 gm In Dextrose 5% in 50 50 50 Water 50 ml @ 100 mls/hr IV Q6H [facility] Rx#:[id number] Oral 120 Output: Urine Catheter Amount 500 800 Other: Meal Dinner Percent of Meal Consumed 50% Feeding Ability Assist with Tray Set Up Urine Appearance Clear Clear Uretheral (Woods) Clear Clear Clear Urine Color Dark Yellow Dark Yellow Uretheral (Woods) Dark Yellow Dark Yellow Dark Yellow Stool Size Moderate Moderate Stool Color Brown Brown Yellow Yellow Stool Consistency Loose Soft Loose # Bowel Movements 1 2 # of times incontinent of 1 Bowels Head Head exam: Present atraumatic and normal inspection Eye Eye exam: Present normal appearance ENT ENT exam: Present mucous membranes moist, normal exam and normal external ear exam Neck Neck exam: Present normal inspection Respiratory Respiratory exam: Present normal respiratory exam Cardiovascular Cardiovascular exam: Present normal rate and rhythm GI/Abdominal GI/Abdominal exam: Present normal bowel sounds Additional comments: Multiple abdominal surgical incisions with dressing Additional comments: Woods catheter in place Back Exam Back exam: Present normal inspection Neurological Exam Neurological exam: Present alert and oriented X3 Skin Skin exam: Present intact and warm OBJ DATA Labs CBC & Chem 7: 06/21/22 05:20 06/21/22 05:20 Labs: Abnormal Lab Results 06/21/22 06/21/22 06/20/22 05:20 05:20 05:12 WBC 13.1 H RBC 2.82 L Hgb 8.4 L Hct 26.8 L MPV 10.8 H Seg Neutrophils % Lymphocytes % Toxic Granulation RBC Morphology Hypochromasia Poikilocytosis Anisocytosis Carbon Dioxide 21 L Anion Gap 6.0 L BUN 32 H 35 H Creatinine 1.4 H 1.5 H Glucose 123 H 198 H Calcium 7.8 L 7.8 L ALT 42 H Total Protein 5.3 L 5.0 L Albumin 1.8 L 1.9 L Albumin/Globulin Ratio 0.5 L 0.6 L Prealbumin Urine Appearance Urine Protein Urine Glucose (UA) Urine Occult Blood Urine WBC Urine Mucus 06/20/22 06/19/22 06/19/22 05:12 05:08 05:08 WBC 14.3 H 17.1 H RBC 2.61 L 2.87 L Hgb 8.0 L 8.6 L Hct 25.1 L 27.4 L MPV 11.2 H 11.6 H Seg Neutrophils % 79 H 88 H Lymphocytes % 13 L 3 L Toxic Granulation 1+ A RBC Morphology Abnormal A Abnormal A Hypochromasia 1+ A 1+ A Poikilocytosis 1+ A Anisocytosis 1+ A Carbon Dioxide Anion Gap 6.0 L BUN 39 H Creatinine 1.5 H Glucose 196 H Calcium 7.6 L ALT Total Protein 5.2 L Albumin 2.0 L Albumin/Globulin Ratio 0.6 L Prealbumin Urine Appearance Urine Protein Urine Glucose (UA) Urine Occult Blood Urine WBC Urine Mucus 06/18/22 06/18/22 10:30 04:46 WBC RBC Hgb Hct MPV Seg Neutrophils % Lymphocytes % Toxic Granulation RBC Morphology Hypochromasia Poikilocytosis Anisocytosis Carbon Dioxide Anion Gap BUN Creatinine Glucose Calcium ALT Total Protein Albumin Albumin/Globulin Ratio Prealbumin 13.5 L Urine Appearance Slightly cloudy A Urine Protein 30 mg/dl A Urine Glucose (UA) 100 mg/dl A Urine Occult Blood Large A Urine WBC 8 H Urine Mucus Few A Meds: Medications Albuterol/Ipratropium (Ipratropium/Albuterol 3 Ml Ampul.Neb) 3 ml NEB Q4HP PRN PRN Reason: Shortness Of Breath Last Admin: 06/17/22 10:36 Dose: 3 ml Amlodipine Besylate (Amlodipine 5 Mg Tablet) 5 mg PO QDAY [facility] Last Admin: 06/20/22 08:56 Dose: 5 mg Atorvastatin Calcium (Atorvastatin 20 Mg Tablet) 20 mg PO HS [facility] Last Admin: 06/20/22 21:22 Dose: 20 mg Dextrose (Dextrose 50% 50 Ml Vial) 0 ml IV UD PRN PRN Reason: Per Sliding Scale Diagnostic Test (Pha) (Accu-Chek 1 Each Strip) 1 each FS ACHS [facility] Last Admin: 06/21/22 07:35 Dose: 1 each Gabapentin (Gabapentin 100 Mg Capsule) 100 mg PO QID [facility] Last Admin: 06/20/22 21:24 Dose: 100 mg Glucose (Dextrose 31 Gm Oral.Susp) 15 gm PO PRN PRN PRN Reason: Hypoglycemia Haloperidol Lactate (Haloperidol Lactate 5 Mg/Ml Vial) 2 - 5 mg IV Q6HP PRN PRN Reason: ANXIETY/SEDATION Last Admin: 06/14/22 16:38 Dose: 5 mg Heparin Sodium (Porcine) (Heparin Flush 10 Units/Ml 5 Ml Syringe) 2 ml IV Q12 [facility] Last Admin: 06/20/22 21:24 Dose: 2 ml Hydralazine HCl (Hydralazine 20 Mg/Ml Vial) 0 mg IV Q2HP PRN PRN Reason: Hypertension Last Admin: 06/20/22 22:28 Dose: 10 mg Hydrochlorothiazide (Hydrochlorothiazide 12.5 Mg Capsule) 12.5 mg PO DAILY [facility] Last Admin: 06/20/22 08:56 Dose: 12.5 mg Hydromorphone HCl (Hydromorphone 0.5 Mg/0.5 Ml Syringe) 0.5 mg IV Q1HP PRN; Protocol PRN Reason: Per Pain Protocol Last Admin: 06/14/22 17:35 Dose: 0.5 mg Acetaminophen (Ofirmev) 1,000 mg in 100 mls @ 200 mls/hr IV Q6HP PRN; Protocol PRN Reason: PAIN/FEVER > 101 Last Infusion: 06/20/22 23:05 Dose: Infused Piperacillin Sod/Tazobactam (Sod 2.25 gm/ Dextrose) 50 mls @ 100 mls/hr IV Q6H [facility] Last Infusion: 06/21/22 06:20 Dose: Infused Caspofungin 50 mg/ Sodium (Chloride) 250 mls @ 250 mls/hr IV Q24H [facility] Last Infusion: 06/20/22 10:00 Dose: Infused Insulin Human Lispro (Insulin Lispro 1 Unit/0.01 Ml Unit) 0 unit SQ ACHS [facility]; Protocol Last Admin: 06/21/22 07:36 Dose: Not Given Labetalol HCl (Labetalol 5 Mg/Ml Ml) 0 mg IV Q2HP PRN PRN Reason: Hypertension Last Admin: 06/15/22 11:42 Dose: 10 mg Lorazepam (Lorazepam 2 Mg/Ml Vial) 0.5 mg IV Q4HP PRN PRN Reason: ANXIETY/SEDATION Last Admin: 06/20/22 22:49 Dose: 0.5 mg Losartan Potassium (Losartan 50 Mg Tablet) 50 mg PO DAILY [facility] Last Admin: 06/20/22 08:56 Dose: 50 mg Metoprolol Succinate (Metoprolol Succinate 25 Mg Tab.Xl.24h) 25 mg PO BID [facility] Last Admin: 06/20/22 21:21 Dose: 25 mg Metoprolol Tartrate (Metoprolol Tartrate 5 Mg/5 Ml Vial) 5 mg IV Q2HP PRN PRN Reason: Tachyarrhythmias HR>110 Last Admin: 06/17/22 06:48 Dose: 5 mg Ondansetron HCl (Ondansetron 4 Mg/2 Ml Vial) 4 mg IV Q6HP PRN PRN Reason: Nausea And Vomiting Last Admin: 06/17/22 10:27 Dose: 4 mg Oxycodone HCl (Oxycodone Hcl 5 Mg Tablet) 5 mg PO Q4HP PRN; Protocol PRN Reason: Per Pain Protocol Last Admin: 06/16/22 16:48 Dose: 5 mg Pantoprazole Sodium (Pantoprazole 40 Mg Tablet) 40 mg PO BIDAC [facility] Sodium Chloride (0.9 % Sodium Chloride 10 Ml Syringe) 10 ml IV Q12 [facility] Last Admin: 06/20/22 21:22 Dose: 10 ml Sodium Chloride (0.9 % Sodium Chloride 10 Ml Syringe) 10 ml IV UD PRN PRN Reason: Maintain line patency A/P Assessment and plan (1) DM2 (diabetes mellitus, type 2): Status: Acute (2) SBO (small bowel obstruction): Status: Acute (3) GERD (gastroesophageal reflux disease): Status: Chronic (4) Acute renal failure with acute tubular necrosis superimposed on stage 3a chronic kidney disease: Status: Acute (5) Hypertension: Status: Chronic (6) Coronary atherosclerosis: Status: Chronic Qualifiers: Associated angina: with unstable angina Coronary Disease-Associated Artery/Lesion type: [place] artery [place] vs. transplanted heart: sh[place] heart Qualified Code(s): I25.110 - Atherosclerotic heart disease of [place] coronary artery with unstable angina pectoris (7) Sepsis: Status: Acute Narrative A/P Narrative: Assessment and Plans: 1. Sepsis: Monitor culture results including blood culture, central line culture, tip of central line culture, urine culture Continue current course of broad-spectrum antibiotics and antifungal with Zosyn and caspofungin Daily CBC with auto differential to trend WBC 2. small bowel obstructions with perforations: s/p Ex-lap w/Lysis of adhesions (06/08) & s/p Ex-lap w/SB-resection (06/11) Currently on regular diet. TPN discontinued. Protonix PO BID Rest of the surgical management as per surgical team 3. T2DM: HgA1c d/c Lantus Lispro SSI AC HS Accu Chek AC HS Hypoglycemia protocol Regular diet 4. Essential HTN: Currently normotensive Metoprolol Succinate 25mg PO BID Amlodipine HCTZ Losartan 5. CAROLINE on CKD: Avoid nephrotoxic agents Kidney functions returned back to the baseline, resume hydrochlorothiazide with losartan Daily CMP to trend kidney functions 6. GERD: Protonix PO BID 7. h/o CAD: Resume statin Continue Metoprolol Succinate GI ppx: Protonix PO BID DVT ppx: SCDs Code status: Full Prognosis: guarded Disposition: inpatient PCU; PT Time Spent With Patient Time: Total time spent is greater than 50% in coordination of care (as documented) at patient's floor/unit and/or counseling patient: Total time spent with greater than 50% in coordination of care (as documented) at patient's floor/unit and/or counseling patient:: 25 - 35 minutes QUALITY VTE Deep Vein Thrombosis/Pulmonary Embolism Present on Admission: No
[2022-06-21] MEDS: METOPROLOL SUCCINATE 25 MG TAB.XL.24H PO SCH ×2 (09:24→20:23)
[2022-06-21] MEDS: GABAPENTIN 100 MG CAPSULE PO SCH ×4 (09:24→20:23)
[2022-06-21] MEDS: HYDROCHLOROTHIAZIDE 12.5 MG CAPSULE PO SCH (09:25)
[2022-06-21] MEDS: CASPOFUNGIN ACETATE 50 MG in 0.9 % SODIUM CHLORIDE 250 ML IV SCH (09:25)
[2022-06-21] MEDS: 0.9 % SODIUM CHLORIDE 10 ML SYRINGE IV SCH ×2 (09:25→20:24)
[2022-06-21] MEDS: 0.9 % SODIUM CHLORIDE 10 ML SYRINGE IV PRN ×5 (09:26→17:36)
[2022-06-21] MEDS: amLODIPine 5 MG TABLET PO SCH ×2 (09:27→20:23)
[2022-06-21] MEDS: LOSARTAN 50 MG TABLET PO SCH ×2 (09:27→20:23)
[2022-06-21 09:54] LABS: Eosinophils % (Manual) 1 % (0-7); Hypochromasia 1+ (None Seen); Lymphocytes % 10 % (15-49); Monocytes % (Manual) 3 % (1-12); Myelocytes % 1 %; Platelet Estimate NORMAL (Normal); RBC Morphology ABNORMAL (Normal); Segmented Neutrophils % 85 % (38-78)
--- NOTE | 2022-06-21 12:05 | General Surgery Progress Note ---
SUBJECTIVE Subjective Patient information: Note initiated : 06/21/22 at 12:03 pm Service Date, if different from initiated Date: [] Patient: Neo Chamorro 71 y/o M admitted on 06/07/22 for Abdominal pain. Chief Complaint: [] Principal diagnosis: SBO Interval history: Doing well from a surgical standpoint. Continues to tolerate regular diet, continues to have bowel movements. Constitutional Vitals: Vital Signs Temp Pulse Resp BP Pulse Ox O2 Del Method O2 Flow Rate 99.4 F H 95 H 16 141/58 97 0 06/21/22 10:01 06/21/22 10:01 06/21/22 10:01 06/21/22 10:01 06/21/22 10:01 06/21/22 04:01 06/21/22 04:01 Period Temp Pulse Resp BP Sys/Medellin Pulse Ox O2 Del Method O2 Flow Rate Last 24 Hr 98.3 F-100.7 F 80-104 - 102-154/47-62 92-97 Room Air-Room Air 0-0 Intake and Output 06/20/22 06/21/22 06/21/22 21:59 05:59 13:59 Intake Total 170 150 420 Output Total 500 800 Balance -330 -650 420 Weight 249 lb 4.8 oz Intake & Output: Intake & Output 06/20/22 06/21/22 06/21/22 21:59 05:59 13:59 Intake Total 170 150 420 Output Total 500 800 Balance -330 -650 420 Weight 249 lb 4.8 oz Intake: IV 50 150 300 Cancidas 50 mg In Sodium 250 Chloride 0.9% 250 ml @ 250 mls/ hr IV Q24H [facility] Rx#:[id number] Zosyn 2.25 gm In Dextrose 5% in 50 50 50 Water 50 ml @ 100 mls/hr IV Q6H [facility] Rx#:[id number] Oral 120 120 Output: Urine Catheter Amount 500 800 Other: Meal Dinner Breakfast Percent of Meal Consumed 50% 75% Feeding Ability Assist with Tray Set Up Independent Urine Appearance Clear Clear Uretheral (Woods) Clear Clear Clear Urine Color Dark Yellow Dark Yellow Uretheral ([place]s) Dark Yellow Dark Yellow Dark Yellow Stool Size Moderate Moderate Stool Color Brown Brown Yellow Yellow Stool Consistency Loose Soft Loose # Bowel Movements 1 2 # of times incontinent of 1 Bowels General appearance: no acute distress GI/Abdominal GI/Abdominal exam: Present soft; Absent distended or tenderness Additional comments: Incisions are clean dry and intact A/P Assessment and plan (1) SBO (small bowel obstruction): Plan: Doing very well from a surgical standpoint. Cleared for PT. Remove sandoval today. Status: Acute Time Spent With Patient Time: Total time spent is greater than 50% in coordination of care (as documented) at patient's floor/unit and/or counseling patient:
[2022-06-21] MEDS: PANTOPRAZOLE 40 MG TABLET PO SCH (17:11)
[2022-06-21] MEDS: LORazepam 2 MG/ML VIAL IV PRN (17:36)
[2022-06-21] MEDS: ATORVASTATIN 20 MG TABLET PO SCH (20:22)
[2022-06-21] MEDS: ACETAMINOPHEN 1,000 MG/100 ML BAG IV PRN (20:44)
[2022-06-22] MEDS: PIPERACILLIN SODIUM/TAZOBACTAM 2.25 GM in DEXTROSE 5% IN WATER 50 ML IV SCH ×4 (00:10→17:40)
[2022-06-22] MEDS: ACETAMINOPHEN 1,000 MG/100 ML BAG IV PRN ×2 (03:47→18:25)
[2022-06-22] MEDS: LORazepam 2 MG/ML VIAL IV PRN (03:48)
[2022-06-22] MEDS: 0.9 % SODIUM CHLORIDE 10 ML SYRINGE IV PRN ×5 (06:20→12:35)
[2022-06-22 06:42] LABS: Hematocrit 25.3 % (40.1-51.0); Mean Cell Volume 94.8 fL (80.0-100.0); Mean Corpuscular HGB Conc 31.6 g/dL (31.0-36.0); Mean Platelet Volume 10.5 fL (7.4-10.4); Platelet Count 368 K/mcL (140-440); RBC 2.67 M/mcL (4.63-6.08); Red Cell Distribution Width 13.9 % (11.5-14.5); WBC 11.6 K/mcL (4.5-11.0)
[2022-06-22 07:03] LABS: ALT/SGPT 41 U/L (<40); AST/SGOT 31 U/L (<40); Albumin/Globulin Ratio 0.6 (1.0-2.3); Alkaline Phosphatase 83 U/L (39-117); Bilirubin,Total 0.5 mg/dL (0.1-1.0); Blood Urea Nitrogen 26 mg/dL (8-23); Calcium 7.5 mg/dL (8.6-10.4); Carbon Dioxide 22 mmol/L (22-30); Chloride 108 mmol/L (96-108); Globulin 3.3 gm/dL (2.2-3.7); Glomerular Filtration Rate 45; Glucose 129 mg/dL (70-105)
[2022-06-22] MEDS: PANTOPRAZOLE 40 MG TABLET PO SCH ×2 (07:30→16:44)
[2022-06-22] MEDS: INSULIN LISPRO 1 UNIT/0.01 ML UNIT SQ SCH ×4 (07:46→21:09)
--- NOTE | 2022-06-22 08:53 | Internal Med Progress Note ---
SUBJECTIVE Subjective Patient information: Note initiated : 06/22/22 at 8:50 am Service Date, if different from initiated Date: [] Patient: Neo Chamorro 71 y/o M admitted on 06/07/22 for Abdominal pain. Chief Complaint: [] Principal diagnosis: SBO Interval history: Mr. Chamorro is a 71 year old M with a complex past medical history significant for multiple abdominal surgeries, diabetes mellitus type 2, CAD, hypertension, and CKD who presents to the hospital with 24-hour history of abdominal pain associate with nausea and vomiting. The patient's had prior episodes of bowel obstruction and states that this is very similar. As mentioned, he has had multiple abdominal surgeries including partial colectomy for diverticulitis, appendectomy, and cholecystectomy. The patient states that he was his usual self up until yesterday. He noticed that his abdomen was distended, and he was unable to have a bowel movement or pass gas. On presentation to the hospital, he was hemodynamically stable and afebrile. CT abdomen pelvis revealed mildly distended fluid-filled small bowel. Deep to the hernia patch and findings are consistent with partial mechanical small bowel obstruction. There was no closed-loop obstruction. He has a history of partial colectomy, partial cholecystectomy and appendectomy. There is previous anterior wall hernia repair. The hospitalist service was asked admit the patient in the setting of multiple medical comorbidities. General surgery were also consulted. 06/08: I evaluated the patient after he returned from the OR. The patient had laparoscopic lysis of adhesions. He has an NG tube in place. Advance diet as tolerated per general surgery. He is on narcotic analgesics. A clamp trial will be performed once he has active bowel function. From a medical standpoint, we will continue to hold most of his oral medications from home. Continue insulin sliding scale. 06/09: The patient is febrile with a temp of 100.6 and is tachycardic. Due to his recent intra-abdominal surgery, we will start Zosyn. Once the patient has passed gas or has had a bowel movement, he will have a clamp trial and subsequent NG tube removal and then advance diet as tolerated. 06/10: Postop day #2. Fever to 103 yesterday afternoon. Remains tachycardic. Home meds include metoprolol XL, which has been held. Still with abdominal pain, minimal nausea. Not much NG tube output this morning, is picked up this afternoon. KUB with normal bowel gas pattern this afternoon. 06/11: Postop day #3. Had recurrent fever yesterday, then yesterday evening blood pressure dropped to the 60s systolic. Responded to IV fluids. Overnight had blood pressures right at a map of 65. Urine output dropped off and CAROLINE on this morning's labs. Urine output has picked up after further fluid boluses. CTAP yesterday evening generally unrevealing. Initially when Dr. Nobles and I reviewed scan, concern for possible mediastinitis. Official read less concerning for that. For barium swallow to check for esophageal extravasation today. White count has normalized. 06/12 Patient feeling a little better today after exploratory laparotomy yesterday with several small micro perforations noted and subsequent bowel resection. Urine output borderline at 30 cc/h the last 1 was 15 cc. Patient just went into A. fib RVR, asymptomatic. Patient denies history of A. fib. Abdominal pain relatively controlled. He has some nausea but no vomiting. Patient denies flatus or bowel movements 06/13 Patient is not passing gas. Patient has abdominal pain. Feels about the same as yesterday. Urine output mediocre. Creatinine mild minimally worse today. We will get renal ultrasound and consult nephrology. Patient started on diltiazem drip last night for difficult to control A. fib flutter. Converted to normal sinus rhythm early this morning. Will need to start nutrition today, TPN given his n.p.o. status. Leukocytosis but bandemia improving. Lactic acidosis improved. 06/14 Patient did spike a fever of 101.8 last night. His white blood cell count still elevated at 20 today 17 yesterday although his bandemia prior to that was 30% and no more bandemia yesterday or today. We will repeat blood cultures check procalcitonin. Patient did have a large bowel movement overnight which was quite positive sign. Renal function remains the same. Did have good urine output over the past 24 hours with the high-dose IV Lasix per nephrology. Patient did have confusion last night for some agitation concern for safety of IV's lines and patient did get Haldol. Patient with heme positive stool and gastric contents. We will stop heparin DVT prophylaxis and keep SCDs. protonix drip placed. Gen Surg to evaluate. CT c/a/p no acute path. 06/15 Patient seems to be feeling a little better today. Have a T-max of 101 last night. Tachycardic in the low 100s. Good urine output and creatinine improving today to 2.4. Patient complains of some shortness of breath but no coughing chest pain, stomach pain seems to be a bit better. Leukocytosis that went from 17-20 yesterday is now back down to 17 and no more bandemia. Thrombocytopenia noted at 87, down from 111 yesterday. likely from consumtion d/t bleeding, but will send HIT-ab's. 06/16 Patient feeling better today. Bowel movement last night still dark but gastric contents are now clear. Leukocytosis slowly trending in the right direction. Hemoglobin 9.9. Fever curve continues to improve. Still generally tenuous state. Respiratory tenuous at times likely compounded by abdominal process. No function improving. Hypo-phosphatemia replete. Patient states abdominal pain improving. 06/17 Patient started having low-grade fevers again over night. States he feels about the same as yesterday. No bowel movement or passing gas. Little more ta chycardic for the past day or 2. Will obtain blood culture through the central line. Previous blood cultures from 126 unremarkable. Leukocytosis worsened again today. We will check manual differential. Obtain chest x-ray. Low Phos but better. Will start caspofungin given the continued low-grade fevers on broad-spectrum antibiotics already. And get fungal cultures as well as BC's. Given the mild tachycardia low-grade fevers. We will check a venous Doppler of the lower extremities. He has been on prophylactic anticoagulation entire stay with the exception of the last couple days when he was found to have a GI bleed but has been on SCDs during that time. However given his risk we will check ultrasound study. 06/18: Venous Doppler study negative for any DVT. Chest x-ray from yesterday also showing stable atelectasis and pleural effusion left lower thorax. All cultures no growth to date. Fever with T-max 38.1 this morning. WBC down trended from 19.1-16.6 this morning. Patient denies any abdominal pain. He is tolerating full liquid diet. He is complaining of subjective fever but denies any chills or diaphoresis. Denies any shortness of breath or chest pain or palpitations. Continue broad-spectrum antibiotics and antifungal with Zosyn and caspofungin while waiting for culture results. Resumed oral beta-neno for better heart rate control. Continue IV Protonix and TPN while advancing patient's diet. Overall patient is still very guarded. Continue physical therapy. 06/19: Fever with T-max 38.3 overnight. Patient is being switched from liquid diet to regular diet this morning, tolerate maybe half of the breakfast. WBC went up slightly from 16.6-17.1. Patient denies any abdominal pain. Denies any shortness of breath or chest pain or palpitations. Continue broad-spectrum antibiotics and antifungal with Zosyn and caspofungin while waiting for culture results. Protonix IV-->PO. d/c scheduled IV Lopressor. If the patient's can tolerate most of the regular diet provided for multiple meals, will consider stopping TPN. Overall patient is still very guarded. Continue physical therapy. 06/20: Low-grade fever with T-max 37.8 overnight. All cultures including blood culture, central line culture, type of central line culture no growth today. Central line was removed and PICC line inserted on 06/19. blood pressure stable. Patient tolerated somewhat regular diet yesterday, waiting to observe how he is doing for breakfast this morning. He is complain of mild abdominal pain. Denies fever or chills. Denies nausea or vomiting. Good appetite. Continue broad-spectrum antibiotics and antifungal with Zosyn and caspofungin while waiting for culture results. If the patient's can tolerate most of the regular diet provided for multiple meals, will consider stopping TPN. Overall patient is still very guarded. Continue physical therapy. Transfer from ICU to PCU. 06/21: Fever with Tmax 38.2 overnight. WBC 13.1, H/H 8.4/26.8. All cultures including blood culture, central line culture, type of central line culture no growth today. Patient is tolerating roughly 50% of the regular diet provided. TPN discontinued. Had bowel movement overnight. Denies abdominal pain. Denies fever or chills. Denies nausea or vomiting. Continue broad-spectrum antibiotics and antifungal with Zosyn and caspofungin while waiting for culture results. Overall patient is still very guarded. Continue physical therapy. Stays in PCU. 06/22: Low grade fever Tmax 37.9 overnight. WBC 11.6, H/H 8.0/25.3. All cultures including blood culture, central line culture, type of central line culture no growth to date. Patient is tolerating roughly 75% of the regular diet provided. Denies abdominal pain. Denies chills. Denies nausea or vomiting. Discontinue Woods catheter. Continue broad-spectrum antibiotics and antifungal with Zosyn and caspofungin while waiting for culture results. Overall patient is still very guarded. Continue physical therapy. Stays in PCU. Constitutional Vitals: Vital Signs Temp Pulse Resp BP Pulse Ox O2 Del Method O2 Flow Rate 36.1 C 91 H 22 119/61 95 0 06/22/22 08:01 06/22/22 08:01 06/22/22 08:01 06/22/22 08:01 06/22/22 08:01 06/22/22 06:01 06/22/22 06:01 Period Temp Pulse Resp BP Sys/Medellin Pulse Ox O2 Del Method O2 Flow Rate Last 24 Hr 36.1 C-38.7 C 81-118 16-22 106-162/53-68 93-98 Room Air-Room Air 0-0 Intake and Output 06/21/22 06/22/22 06/22/22 21:59 05:59 13:59 Intake Total 390 350 50 Output Total 545 850 Balance -155 -500 50 Weight 111.402 kg Intake & Output: Intake & Output 06/21/22 06/22/22 06/22/22 21:59 05:59 13:59 Intake Total 390 350 50 Output Total 545 850 Balance -155 -500 50 Weight 111.402 kg Intake: Nourishment/Supplement quantity 240 (ml) IV 150 150 50 Zosyn 2.25 gm In Dextrose 5% in 50 50 50 Water 50 ml @ 100 mls/hr IV Q6H [facility] Rx#:[id number] Oral 200 Output: Urine Catheter Amount 545 850 Other: Meal Nourishment/Supplement Percent of Meal Consumed 100% Feeding Ability Independent Nourishment/Supplement name glucerna Urine Appearance Clear Clear Sediment Uretheral (Woods) Clear Clear Clear Sediment Urine Color Bright Yellow Dark Yellow Uretheral (Woods) Bright Yellow Dark Yellow Bright Yellow Urine Odor Normal Stool Size Copious Stool Color Brown Yellow Stool Consistency Soft Loose # Voids 1 # Bowel Movements 3 # of times incontinent of 2 Bowels Head Head exam: Present atraumatic and normal inspection Eye Eye exam: Present normal appearance ENT ENT exam: Present mucous membranes moist, normal exam and normal external ear exam Neck Neck exam: Present normal inspection Respiratory Respiratory exam: Present normal respiratory exam Cardiovascular Cardiovascular exam: Present normal rate and rhythm GI/Abdominal GI/Abdominal exam: Present normal bowel sounds Additional comments: Multiple abdominal surgical incisions with dressing Additional comments: Woods catheter in place Extremities Exam Extremities exam: Present pedal edema Back Exam Back exam: Present normal inspection Neurological Exam Neurological exam: Present alert and oriented X3 Skin Skin exam: Present intact and warm OBJ DATA Labs CBC & Chem 7: 06/22/22 05:25 06/22/22 05:25 Labs: Abnormal Lab Results 06/22/22 06/22/22 06/21/22 05:25 05:25 05:20 WBC 11.6 H RBC 2.67 L Hgb 8.0 L Hct 25.3 L MPV 10.5 H Seg Neutrophils % Lymphocytes % RBC Morphology Hypochromasia Carbon Dioxide 21 L Anion Gap 6.0 L BUN 26 H 32 H Creatinine 1.5 H 1.4 H Glucose 129 H 123 H Calcium 7.5 L 7.8 L ALT 41 H 42 H Total Protein 5.3 L 5.3 L Albumin 2.0 L 1.8 L Albumin/Globulin Ratio 0.6 L 0.5 L 06/21/22 06/20/22 06/20/22 05:20 05:12 05:12 WBC 13.1 H 14.3 H RBC 2.82 L 2.61 L Hgb 8.4 L 8.0 L Hct 26.8 L 25.1 L MPV 10.8 H 11.2 H Seg Neutrophils % 85 H 79 H Lymphocytes % 10 L 13 L RBC Morphology Abnormal A Abnormal A Hypochromasia 1+ A 1+ A Carbon Dioxide Anion Gap 6.0 L BUN 35 H Creatinine 1.5 H Glucose 198 H Calcium 7.8 L ALT Total Protein 5.0 L Albumin 1.9 L Albumin/Globulin Ratio 0.6 L Meds: Medications Albuterol/Ipratropium (Ipratropium/Albuterol 3 Ml Ampul.Neb) 3 ml NEB Q4HP PRN PRN Reason: Shortness Of Breath Last Admin: 06/17/22 10:36 Dose: 3 ml Amlodipine Besylate (Amlodipine 5 Mg Tablet) 5 mg PO HS [facility] Last Admin: 06/21/22 20:23 Dose: 5 mg Atorvastatin Calcium (Atorvastatin 20 Mg Tablet) 20 mg PO HS [facility] Last Admin: 06/21/22 20:22 Dose: 20 mg Dextrose (Dextrose 50% 50 Ml Vial) 0 ml IV UD PRN PRN Reason: Per Sliding Scale Diagnostic Test (Pha) (Accu-Chek 1 Each Strip) 1 each FS ACHS [facility] Last Admin: 06/22/22 07:45 Dose: 1 each Gabapentin (Gabapentin 100 Mg Capsule) 100 mg PO QID [facility] Last Admin: 06/21/22 20:23 Dose: 100 mg Glucose (Dextrose 31 Gm Oral.Susp) 15 gm PO PRN PRN PRN Reason: Hypoglycemia Haloperidol Lactate (Haloperidol Lactate 5 Mg/Ml Vial) 2 - 5 mg IV Q6HP PRN PRN Reason: ANXIETY/SEDATION Last Admin: 06/14/22 16:38 Dose: 5 mg Heparin Sodium (Porcine) (Heparin Flush 10 Units/Ml 5 Ml Syringe) 2 ml IV Q12 [facility] Last Admin: 06/21/22 20:25 Dose: 2 ml Hydralazine HCl (Hydralazine 20 Mg/Ml Vial) 0 mg IV Q2HP PRN PRN Reason: Hypertension Last Admin: 06/20/22 22:28 Dose: 10 mg Hydrochlorothiazide (Hydrochlorothiazide 12.5 Mg Capsule) 12.5 mg PO DAILY [facility] Last Admin: 06/21/22 09:25 Dose: 12.5 mg Hydromorphone HCl (Hydromorphone 0.5 Mg/0.5 Ml Syringe) 0.5 mg IV Q1HP PRN; Protocol PRN Reason: Per Pain Protocol Last Admin: 06/14/22 17:35 Dose: 0.5 mg Acetaminophen (Ofirmev) 1,000 mg in 100 mls @ 200 mls/hr IV Q6HP PRN; Protocol PRN Reason: PAIN/FEVER > 101 Last Infusion: 06/22/22 04:20 Dose: Infused Piperacillin Sod/Tazobactam (Sod 2.25 gm/ Dextrose) 50 mls @ 100 mls/hr IV Q6H [facility] Last Infusion: 06/22/22 06:05 Dose: Infused Caspofungin 50 mg/ Sodium (Chloride) 250 mls @ 250 mls/hr IV Q24H [facility] Last Infusion: 06/21/22 10:25 Dose: Infused Insulin Human Lispro (Insulin Lispro 1 Unit/0.01 Ml Unit) 0 unit SQ ACHS [facility]; Protocol Last Admin: 06/22/22 07:46 Dose: Not Given Labetalol HCl (Labetalol 5 Mg/Ml Ml) 0 mg IV Q2HP PRN PRN Reason: Hypertension Last Admin: 06/15/22 11:42 Dose: 10 mg Lorazepam (Lorazepam 2 Mg/Ml Vial) 0.5 mg IV Q4HP PRN PRN Reason: ANXIETY/SEDATION Last Admin: 06/22/22 03:48 Dose: 0.5 mg Losartan Potassium (Losartan 50 Mg Tablet) 50 mg PO HS [facility] Last Admin: 06/21/22 20:23 Dose: 50 mg Metoprolol Succinate (Metoprolol Succinate 25 Mg Tab.Xl.24h) 25 mg PO BID [facility] Last Admin: 06/21/22 20:23 Dose: 25 mg Metoprolol Tartrate (Metoprolol Tartrate 5 Mg/5 Ml Vial) 5 mg IV Q2HP PRN PRN Reason: Tachyarrhythmias HR>110 Last Admin: 06/17/22 06:48 Dose: 5 mg Ondansetron HCl (Ondansetron 4 Mg/2 Ml Vial) 4 mg IV Q6HP PRN PRN Reason: Nausea And Vomiting Last Admin: 06/17/22 10:27 Dose: 4 mg Oxycodone HCl (Oxycodone Hcl 5 Mg Tablet) 5 mg PO Q4HP PRN; Protocol PRN Reason: Per Pain Protocol Last Admin: 06/16/22 16:48 Dose: 5 mg Pantoprazole Sodium (Pantoprazole 40 Mg Tablet) 40 mg PO BIDAC [facility] Last Admin: 06/22/22 07:30 Dose: 40 mg Sodium Chloride (0.9 % Sodium Chloride 10 Ml Syringe) 10 ml IV Q12 [facility] Last Admin: 06/21/22 20:24 Dose: 10 ml Sodium Chloride (0.9 % Sodium Chloride 10 Ml Syringe) 10 ml IV UD PRN PRN Reason: Maintain line patency Last Admin: 06/22/22 06:20 Dose: 10 ml A/P Assessment and plan (1) DM2 (diabetes mellitus, type 2): Status: Acute (2) SBO (small bowel obstruction): Status: Acute (3) GERD (gastroesophageal reflux disease): Status: Chronic (4) Acute renal failure with acute tubular necrosis superimposed on stage 3a chronic kidney disease: Status: Acute (5) Hypertension: Status: Chronic (6) Coronary atherosclerosis: Status: Chronic Qualifiers: Associated angina: with unstable angina Coronary Disease-Associated Ar dimple/Lesion type: unga artery [place] vs. transplanted heart: unga heart Qualified Code(s): I25.110 - Atherosclerotic heart disease of unga coronary artery with unstable angina pectoris (7) Sepsis: Status: Acute Narrative A/P Narrative: Assessment and Plans: 1. Sepsis: Monitor culture results including blood culture, central line culture, tip of central line culture, urine culture Continue current course of broad-spectrum antibiotics and antifungal with Zosyn and caspofungin Daily CBC with auto differential to trend WBC Remove Woods catheter 2. small bowel obstructions with perforations: s/p Ex-lap w/Lysis of adhesions (06/08) & s/p Ex-lap w/SB-resection (06/11) Currently on regular diet. TPN discontinued. Protonix PO BID Rest of the surgical management as per surgical team 3. T2DM: HgA1c d/c Lantus Lispro SSI AC HS Accu Chek AC HS Hypoglycemia protocol Regular diet 4. Essential HTN: Currently normotensive Metoprolol Succinate 25mg PO BID Amlodipine HCTZ Losartan 5. CAROLINE on CKD: Avoid nephrotoxic agents Kidney functions returned back to the baseline, resume hydrochlorothiazide with losartan Daily CMP to trend kidney functions 6. GERD: Protonix PO BID 7. h/o CAD: Resume statin Continue Metoprolol Succinate GI ppx: Protonix PO BID DVT ppx: SCDs Code status: Full Prognosis: guarded Disposition: inpatient PCU; PT Time Spent With Patient Time: Total time spent is greater than 50% in coordination of care (as documented) at patient's floor/unit and/or counseling patient: Total time spent with greater than 50% in coordination of care (as documented) at patient's floor/unit and/or counseling patient:: 35 - 50 minutes QUALITY VTE Deep Vein Thrombosis/Pulmonary Embolism Present on Admission: No
[2022-06-22] MEDS: METOPROLOL SUCCINATE 25 MG TAB.XL.24H PO SCH ×2 (08:59→21:09)
[2022-06-22] MEDS: GABAPENTIN 100 MG CAPSULE PO SCH ×4 (08:59→21:09)
[2022-06-22] MEDS: HYDROCHLOROTHIAZIDE 12.5 MG CAPSULE PO SCH (08:59)
[2022-06-22] MEDS: 0.9 % SODIUM CHLORIDE 10 ML SYRINGE IV SCH ×2 (09:00→21:10)
[2022-06-22] MEDS: CASPOFUNGIN ACETATE 50 MG in 0.9 % SODIUM CHLORIDE 250 ML IV SCH (09:05)
--- NOTE | 2022-06-22 09:38 | General Surgery Progress Note ---
SUBJECTIVE Subjective Patient information: Note initiated : 06/22/22 at 9:36 am Service Date, if different from initiated Date: [] Patient: Neo Chamorro 71 y/o M admitted on 06/07/22 for Abdominal pain. Chief Complaint: [] Principal diagnosis: SBO Interval history: Postop exploratory laparotomy, small bowel resection. Patient is doing well, he reports that he feels good today, he has been ambulatory, he is up in a chair at this time. He is tolerating regular diet and has full return of bowel function. Constitutional Vitals: Vital Signs Temp Pulse Resp BP Pulse Ox O2 Del Method O2 Flow Rate 97 F 91 H 22 119/61 95 0 06/22/22 08:01 06/22/22 08:01 06/22/22 08:01 06/22/22 08:01 06/22/22 08:01 06/22/22 06:01 06/22/22 06:01 Period Temp Pulse Resp BP Sys/Medellin Pulse Ox O2 Del Method O2 Flow Rate Last 24 Hr 97 F-101.7 F 81-118 16-22 106-162/53-68 93-98 Room Air-Room Air 0-0 Intake and Output 06/21/22 06/22/22 06/22/22 21:59 05:59 13:59 Intake Total 390 350 50 Output Total 545 850 800 Balance -155 -500 -750 Weight 245 lb 9.6 oz Intake & Output: Intake & Output 06/21/22 06/22/22 06/22/22 21:59 05:59 13:59 Intake Total 390 350 50 Output Total 545 850 800 Balance -155 -500 -750 Weight 245 lb 9.6 oz Intake: Nourishment/Supplement quantity 240 (ml) IV 150 150 50 Zosyn 2.25 gm In Dextrose 5% in 50 50 50 Water 50 ml @ 100 mls/hr IV Q6H [facility] Rx#:[id number] Oral 200 Output: Urine Catheter Amount 545 850 800 Other: Meal Nourishment/Supplement Percent of Meal Consumed 100% Feeding Ability Independent Nourishment/Supplement name glucerna Urine Appearance Clear Clear Sediment Sediment Uretheral (Woods) Clear Clear Clear Sediment Urine Color Bright Yellow Dark Yellow Dark Yellow Uretheral (Woods) Bright Yellow Dark Yellow Bright Yellow Urine Odor Normal Stool Size Copious Stool Color Brown Yellow Stool Consistency Soft Loose # Voids 1 # Bowel Movements 3 # of times incontinent of 2 Bowels General appearance: cooperative and no acute distress GI/Abdominal GI/Abdominal exam: Present soft; Absent distended or tenderness Additional comments: Incision is clean dry and intact A/P Assessment and plan (1) SBO (small bowel obstruction): Plan: Doing well from a surgical standpoint. Continue ambulation, cleared to resume all outpatient medications. Status: Acute Time Spent With Patient Time: Total time spent is greater than 50% in coordination of care (as documented) at patient's floor/unit and/or counseling patient:
[2022-06-22 12:36] LABS: Appearance,Urine Clear (Clear); Bilirubin,Urine Negative (Negative); Color,Urine Yellow; Culture Indicated,Urine No; Ketones,Urine Negative (Negative); Leukocyte Esterase,Urine Trace /uL (Negative); Mucus,Urine FEW /hpf; Nitrate,Urine Negative (Negative); PH,Urine 5.5 (5.0-9.0); Protein,Urine Negative (Negative); Specific Gravity,Urine 1.015 (1.000-1.035); Urine Blood Small ery/mcL (Negative); Urine RBC 5 /hpf (0-3); Urine Squamous Epithelial Cell 1 /hpf (0-4); Urine WBC 4 /hpf (0-4); Urobilinogen,Urine Normal
[2022-06-22 13:03] LABS: Lymphocytes % 11 % (15-49); Monocytes % (Manual) 6 % (1-12); Platelet Estimate NORMAL (Normal); RBC Morphology NORMAL (Normal); Segmented Neutrophils % 83 % (38-78)
--- NOTE | 2022-06-22 13:05 | Internal Med Progress Note ---
SUBJECTIVE Subjective Patient information: Note initiated : 06/22/22 at 1:04 pm Service Date, if different from initiated Date: [] Patient: Neo Chamorro 71 y/o M admitted on 06/07/22 for Abdominal pain. Chief Complaint: [] Principal diagnosis: SBO Interval history: Mr. Chamorro is a 71 year old M with a complex past medical history significant for multiple abdominal surgeries, diabetes mellitus type 2, CAD, hypertension, and CKD who presents to the hospital with 24-hour history of abdominal pain associate with nausea and vomiting. The patient's had prior episodes of bowel obstruction and states that this is very similar. As mentioned, he has had multiple abdominal surgeries including partial colectomy for diverticulitis, appendectomy, and cholecystectomy. The patient states that he was his usual self up until yesterday. He noticed that his abdomen was distended, and he was unable to have a bowel movement or pass gas. On presentation to the hospital, he was hemodynamically stable and afebrile. CT abdomen pelvis revealed mildly distended fluid-filled small bowel. Deep to the hernia patch and findings are consistent with partial mechanical small bowel obstruction. There was no closed-loop obstruction. He has a history of partial colectomy, partial cholecystectomy and appendectomy. There is previous anterior wall hernia repair. The hospitalist service was asked admit the patient in the setting of multiple medical comorbidities. General surgery were also consulted. 06/08: I evaluated the patient after he returned from the OR. The patient had laparoscopic lysis of adhesions. He has an NG tube in place. Advance diet as tolerated per general surgery. He is on narcotic analgesics. A clamp trial will be performed once he has active bowel function. From a medical standpoint, we will continue to hold most of his oral medications from home. Continue insulin sliding scale. 06/09: The patient is febrile with a temp of 100.6 and is tachycardic. Due to his recent intra-abdominal surgery, we will start Zosyn. Once the patient has passed gas or has had a bowel movement, he will have a clamp trial and subsequent NG tube removal and then advance diet as tolerated. 06/10: Postop day #2. Fever to 103 yesterday afternoon. Remains tachycardic. Home meds include metoprolol XL, which has been held. Still with abdominal pain, minimal nausea. Not much NG tube output this morning, is picked up this afternoon. KUB with normal bowel gas pattern this afternoon. 06/11: Postop day #3. Had recurrent fever yesterday, then yesterday evening blood pressure dropped to the 60s systolic. Responded to IV fluids. Overnight had blood pressures right at a map of 65. Urine output dropped off and CAROLINE on this morning's labs. Urine output has picked up after further fluid boluses. CTAP yesterday evening generally unrevealing. Initially when Dr. Nobles and I reviewed scan, concern for possible mediastinitis. Official read less concerning for that. For barium swallow to check for esophageal extravasation today. White count has normalized. 06/12 Patient feeling a little better today after exploratory laparotomy yesterday with several small micro perforations noted and subsequent bowel resection. Urine output borderline at 30 cc/h the last 1 was 15 cc. Patient just went into A. fib RVR, asymptomatic. Patient denies history of A. fib. Abdominal pain relatively controlled. He has some nausea but no vomiting. Patient denies flatus or bowel movements 06/13 Patient is not passing gas. Patient has abdominal pain. Feels about the same as yesterday. Urine output mediocre. Creatinine mild minimally worse today. We will get renal ultrasound and consult nephrology. Patient started on diltiazem drip last night for difficult to control A. fib flutter. Converted to normal sinus rhythm early this morning. Will need to start nutrition today, TPN given his n.p.o. status. Leukocytosis but bandemia improving. Lactic acidosis improved. 06/14 Patient did spike a fever of 101.8 last night. His white blood cell count still elevated at 20 today 17 yesterday although his bandemia prior to that was 30% and no more bandemia yesterday or today. We will repeat blood cultures check procalcitonin. Patient did have a large bowel movement overnight which was quite positive sign. Renal function remains the same. Did have good urine output over the past 24 hours with the high-dose IV Lasix per nephrology. Patient did have confusion last night for some agitation concern for safety of IV's lines and patient did get Haldol. Patient with heme positive stool and gastric contents. We will stop heparin DVT prophylaxis and keep SCDs. protonix drip placed. Gen Surg to evaluate. CT c/a/p no acute path. 06/15 Patient seems to be feeling a little better today. Have a T-max of 101 last night. Tachycardic in the low 100s. Good urine output and creatinine improving today to 2.4. Patient complains of some shortness of breath but no coughing chest pain, stomach pain seems to be a bit better. Leukocytosis that went from 17-20 yesterday is now back down to 17 and no more bandemia. Thrombocytopenia noted at 87, down from 111 yesterday. likely from consumtion d/t bleeding, but will send HIT-ab's. 06/16 Patient feeling better today. Bowel movement last night still dark but gastric contents are now clear. Leukocytosis slowly trending in the right direction. Hemoglobin 9.9. Fever curve continues to improve. Still generally tenuous state. Respiratory tenuous at times likely compounded by abdominal process. No function improving. Hypo-phosphatemia replete. Patient states abdominal pain improving. 06/17 Patient started having low-grade fevers again over night. States he feels about the same as yesterday. No bowel movement or passing gas. Little more ta chycardic for the past day or 2. Will obtain blood culture through the central line. Previous blood cultures from 126 unremarkable. Leukocytosis worsened again today. We will check manual differential. Obtain chest x-ray. Low Phos but better. Will start caspofungin given the continued low-grade fevers on broad-spectrum antibiotics already. And get fungal cultures as well as BC's. Given the mild tachycardia low-grade fevers. We will check a venous Doppler of the lower extremities. He has been on prophylactic anticoagulation entire stay with the exception of the last couple days when he was found to have a GI bleed but has been on SCDs during that time. However given his risk we will check ultrasound study. 06/18: Venous Doppler study negative for any DVT. Chest x-ray from yesterday also showing stable atelectasis and pleural effusion left lower thorax. All cultures no growth to date. Fever with T-max 38.1 this morning. WBC down trended from 19.1-16.6 this morning. Patient denies any abdominal pain. He is tolerating full liquid diet. He is complaining of subjective fever but denies any chills or diaphoresis. Denies any shortness of breath or chest pain or palpitations. Continue broad-spectrum antibiotics and antifungal with Zosyn and caspofungin while waiting for culture results. Resumed oral beta-neno for better heart rate control. Continue IV Protonix and TPN while advancing patient's diet. Overall patient is still very guarded. Continue physical therapy. 06/19: Fever with T-max 38.3 overnight. Patient is being switched from liquid diet to regular diet this morning, tolerate maybe half of the breakfast. WBC went up slightly from 16.6-17.1. Patient denies any abdominal pain. Denies any shortness of breath or chest pain or palpitations. Continue broad-spectrum antibiotics and antifungal with Zosyn and caspofungin while waiting for culture results. Protonix IV-->PO. d/c scheduled IV Lopressor. If the patient's can tolerate most of the regular diet provided for multiple meals, will consider stopping TPN. Overall patient is still very guard ed. Continue physical therapy. 06/20: Low-grade fever with T-max 37.8 overnight. All cultures including blood culture, central line culture, type of central line culture no growth today. Central line was removed and PICC line inserted on 06/19. blood pressure stable. Patient tolerated somewhat regular diet yesterday, waiting to observe how he is doing for breakfast this morning. He is complain of mild abdominal pain. Denies fever or chills. Denies nausea or vomiting. Good appetite. Continue broad-spectrum antibiotics and antifungal with Zosyn and caspofungin while waiting for culture results. If the patient's can tolerate most of the regular diet provided for multiple meals, will consider stopping TPN. Overall patient is still very guarded. Continue physical therapy. Transfer from ICU to PCU. 06/21: Fever with Tmax 38.2 overnight. WBC 13.1, H/H 8.4/26.8. All cultures including blood culture, central line culture, type of central line culture no growth today. Patient is tolerating roughly 50% of the regular diet provided. TPN discontinued. Had bowel movement overnight. Denies abdominal pain. Denies fever or chills. Denies nausea or vomiting. Continue broad-spectrum antibiotics and antifungal with Zosyn and caspofungin while waiting for culture results. Overall patient is still very guarded. Continue physical therapy. Stays in PCU. 06/22: Low grade fever Tmax 37.9 overnight. WBC 11.6, H/H 8.0/25.3. All cultures including blood culture, central line culture, type of central line culture no growth to date. Patient is tolerating roughly 75% of the regular diet provided. Denies abdominal pain. Denies chills. Denies nausea or vomiting. Discontinue Woods catheter. Continue broad-spectrum antibiotics and antifungal with Zosyn and caspofungin while waiting for culture results. Overall patient is still very guarded. Continue physical therapy. Stays in PCU. 06/23:High-grade temperature this morning, had a fever last night. Leukocytosis stable. Blood cultures showing no growth. Hemoglobin stable. Patient has abdominal cellulitis and drainage from the lower portion of the laparotomy incision. Deescalated antimicrobials to ceftriaxone and doxycycline. Wound swa b for culture. Resumed heparin subcutaneous for pharmacologic DVT prophylaxis. Head: Atraumatic, normal inspection. Eyes: normal appearance, no scleral icterus. Neck: full ROM Respiratory: no respiratory distress. Cardiovascular: normal rate and rhythm, S1, S2. GI/Abdominal: Distended, laparotomy incision with wound drainage from lower incision, mildly tender, no guarding. Extremities: full range of motion, nontender. Neurological: CN II-XII intact, intact motor, intact sensation. Psychiatric: normal mood. Skin: Abdominal cellulitis and wound drainage from lower portion of laparotomy incision. Constitutional Vitals: Vital Signs Temp Pulse Resp BP Pulse Ox O2 Del Method O2 Flow Rate 99.9 F H 89 22 143/60 94 0 06/22/22 12:01 06/22/22 10:03 06/22/22 08:01 06/22/22 12:01 06/22/22 12:01 06/22/22 06:01 06/22/22 06:01 Period Temp Pulse Resp BP Sys/Medellin Pulse Ox O2 Del Method O2 Flow Rate Last 24 Hr 97 F-101.7 F 81-118 20-22 106-162/53-68 93-97 Room Air-Room Air 0-0 Intake and Output 06/21/22 06/22/22 06/22/22 21:59 05:59 13:59 Intake Total 040 851 9622 Output Total 112 818 0943 Balance -155 -500 189 Weight 111.402 kg Intake & Output: Intake & Output 06/21/22 06/22/22 06/22/22 21:59 05:59 13:59 Intake Total 244 694 8895 Output Total 646 522 8751 Balance -155 -500 189 Weight 111.402 kg Intake: Nourishment/Supplement quantity 240 240 (ml) IV 150 150 350 Cancidas 50 mg In Sodium 250 Chloride 0.9% 250 ml @ 250 mls/ hr IV Q24H [facility] Rx#:[id number] Zosyn 2.25 gm In Dextrose 5% in 50 50 100 Water 50 ml @ 100 mls/hr IV Q6H [facility] Rx#:[id number] Oral 200 600 Output: Urine Catheter Amount 545 850 800 Void Amount 200 # of times incontinent of urine 1 Other: Meal Nourishment/Supplement Lunch Percent of Meal Consumed 100% 100% Feeding Ability Independent Assist with Tray Set Up Nourishment/Supplement name glucerna Glucerna Urine Appearance Clear Clear Clear Sediment Uretheral (Woods) Clear Clear Clear Sediment Urine Color Bright Yellow Dark Yellow Yellow Uretheral (Woods) Bright Yellow Dark Yellow Bright Yellow Urine Odor Normal Normal Stool Size Moderate Stool Color Brown Yellow Stool Consistency Liquid Loose # Voids 1 # Bowel Movements 3 # of times incontinent of 1 Bowels OBJ DATA Labs CBC & Chem 7: 06/23/22 05:35 06/23/22 05:35 Labs: Abnormal Lab Results 06/22/22 06/22/22 06/22/22 11:07 05:25 05:25 WBC 11.6 H RBC 2.67 L Hgb 8.0 L Hct 25.3 L MPV 10.5 H Seg Neutrophils % 83 H Lymphocytes % 11 L RBC Morphology Hypochromasia Carbon Dioxide Anion Gap 6.0 L BUN 26 H Creatinine 1.5 H Glucose 129 H Calcium 7.5 L ALT 41 H Total Protein 5.3 L Albumin 2.0 L Albumin/Globulin Ratio 0.6 L Urine Glucose (UA) 100 mg/dl A Urine Occult Blood Small A Ur Leukocyte Esterase Trace A Urine RBC 5 H Urine Mucus Few A 06/21/22 06/21/22 06/20/22 05:20 05:20 05:12 WBC 13.1 H RBC 2.82 L Hgb 8.4 L Hct 26.8 L MPV 10.8 H Seg Neutrophils % 85 H Lymphocytes % 10 L RBC Morphology Abnormal A Hypochromasia 1+ A Carbon Dioxide 21 L Anion Gap 6.0 L BUN 32 H 35 H Creatinine 1.4 H 1.5 H Glucose 123 H 198 H Calcium 7.8 L 7.8 L ALT 42 H Total Protein 5.3 L 5.0 L Albumin 1.8 L 1.9 L Albumin/Globulin Ratio 0.5 L 0.6 L Urine Glucose (UA) Urine Occult Blood Ur Leukocyte Esterase Urine RBC Urine Mucus 06/20/22 05:12 WBC 14.3 H RBC 2.61 L Hgb 8.0 L Hct 25.1 L MPV 11.2 H Seg Neutrophils % 79 H Lymphocytes % 13 L RBC Morphology Abnormal A Hypochromasia 1+ A Carbon Dioxide Anion Gap BUN Creatinine Glucose Calcium ALT Total Protein Albumin Albumin/Globulin Ratio Urine Glucose (UA) Urine Occult Blood Ur Leukocyte Esterase Urine RBC Urine Mucus Meds: Medications Albuterol/Ipratropium (Ipratropium/Albuterol 3 Ml Ampul.Neb) 3 ml NEB Q4HP PRN PRN Reason: Shortness Of Breath Last Admin: 06/17/22 10:36 Dose: 3 ml Amlodipine Besylate (Amlodipine 5 Mg Tablet) 5 mg PO HS [facility] Last Admin: 06/21/22 20:23 Dose: 5 mg Atorvastatin Calcium (Atorvastatin 20 Mg Tablet) 20 mg PO HS [facility] Last Admin: 06/21/22 20:22 Dose: 20 mg Dextrose (Dextrose 50% 50 Ml Vial) 0 ml IV UD PRN PRN Reason: Per Sliding Scale Diagnostic Test (Pha) (Accu-Chek 1 Each Strip) 1 each FS ACHS [facility] Last Admin: 06/22/22 11:53 Dose: 1 each Gabapentin (Gabapentin 100 Mg Capsule) 100 mg PO QID [facility] Last Admin: 06/22/22 11:57 Dose: 100 mg Glucose (Dextrose 31 Gm Oral.Susp) 15 gm PO PRN PRN PRN Reason: Hypoglycemia Haloperidol Lactate (Haloperidol Lactate 5 Mg/Ml Vial) 2 - 5 mg IV Q6HP PRN PRN Reason: ANXIETY/SEDATION Last Admin: 06/14/22 16:38 Dose: 5 mg Heparin Sodium (Porcine) (Heparin Flush 10 Units/Ml 5 Ml Syringe) 2 ml IV Q12 [facility] Last Admin: 06/22/22 10:16 Dose: 2 ml Hydralazine HCl (Hydralazine 20 Mg/Ml Vial) 0 mg IV Q2HP PRN PRN Reason: Hypertension Last Admin: 06/20/22 22:28 Dose: 10 mg Hydrochlorothiazide (Hydrochlorothiazide 12.5 Mg Capsule) 12.5 mg PO DAILY [facility] Last Admin: 06/22/22 08:59 Dose: 12.5 mg Hydromorphone HCl (Hydromorphone 0.5 Mg/0.5 Ml Syringe) 0.5 mg IV Q1HP PRN; Protocol PRN Reason: Per Pain Protocol Last Admin: 06/14/22 17:35 Dose: 0.5 mg Acetaminophen (Ofirmev) 1,000 mg in 100 mls @ 200 mls/hr IV Q6HP PRN; Protocol PRN Reason: PAIN/FEVER > 101 Last Infusion: 06/22/22 04:20 Dose: Infused Piperacillin Sod/Tazobactam (Sod 2.25 gm/ Dextrose) 50 mls @ 100 mls/hr IV Q6H [facility] Last Infusion: 06/22/22 12:35 Dose: Infused Caspofungin 50 mg/ Sodium (Chloride) 250 mls @ 250 mls/hr IV Q24H [facility] Last Infusion: 06/22/22 10:15 Dose: Infused Insulin Human Lispro (Insulin Lispro 1 Unit/0.01 Ml Unit) 0 unit SQ ACHS [facility]; Protocol Last Admin: 06/22/22 11:55 Dose: 1 unit Labetalol HCl (Labetalol 5 Mg/Ml Ml) 0 mg IV Q2HP PRN PRN Reason: Hypertension Last Admin: 06/15/22 11:42 Dose: 10 mg Lorazepam (Lorazepam 2 Mg/Ml Vial) 0.5 mg IV Q4HP PRN PRN Reason: ANXIETY/SEDATION Last Admin: 06/22/22 03:48 Dose: 0.5 mg Losartan Potassium (Losartan 50 Mg Tablet) 50 mg PO HS [facility] Last Admin: 06/21/22 20:23 Dose: 50 mg Metoprolol Succinate (Metoprolol Succinate 25 Mg Tab.Xl.24h) 25 mg PO BID [facility] Last Admin: 06/22/22 08:59 Dose: 25 mg Metoprolol Tartrate (Metoprolol Tartrate 5 Mg/5 Ml Vial) 5 mg IV Q2HP PRN PRN Reason: Tachyarrhythmias HR>110 Last Admin: 06/17/22 06:48 Dose: 5 mg Ondansetron HCl (Ondansetron 4 Mg/2 Ml Vial) 4 mg IV Q6HP PRN PRN Reason: Nausea And Vomiting Last Admin: 06/17/22 10:27 Dose: 4 mg Oxycodone HCl (Oxycodone Hcl 5 Mg Tablet) 5 mg PO Q4HP PRN; Protocol PRN Reason: Per Pain Protocol Last Admin: 06/16/22 16:48 Dose: 5 mg Pantoprazole Sodium (Pantoprazole 40 Mg Tablet) 40 mg PO BIDAC [facility] Last Admin: 06/22/22 07:30 Dose: 40 mg Sodium Chloride (0.9 % Sodium Chloride 10 Ml Syringe) 10 ml IV Q12 [facility] Last Admin: 06/22/22 09:00 Dose: 10 ml Sodium Chloride (0.9 % Sodium Chloride 10 Ml Syringe) 10 ml IV UD PRN PRN Reason: Maintain line patency Last Admin: 06/22/22 12:35 Dose: 10 ml A/P Narrative A/P Narrative: 71-year-old male with a history of multiple abdominal surgeries, type 2 diabetes mellitus, hypertension, coronary artery disease, chronic kidney disease who was admitted on 06/07/2022 for a small bowel obstruction complicated by microperforation. The patient has had a long and complicated hospitalization, he underwent exploratory laparotomy, extensive lysis of adhesions and removal of intra-abdominal mesh on 06/08/2022. On 06/11/2022 the patient underwent a postoperative exploratory laparotomy with extensive lysis of adhesions, at that time the patient was found to have several small bowel perforations and required a small bowel resection. The patient was started on TPN for a while, later transition to a regular diet. He had unexplained fevers, infectious work-up included blood cultures which did not grow any organisms. Urinalysis was not suggestive of UTI. CT chest abdomen pelvis revealed a left pleural effusion and left lower lobe atelectasis. The central line was removed and replaced with a PICC. Patient was treated empirically with broad-spectrum antimicrobials including Zosyn and caspofungin. Bilateral lower extreme venous Doppler was negative for DVT. The frequency of fevers and high-grade temperatures gradually decreased. #Small bowel obstruction with microperforation status post laparotomy x2 with lysis of adhesion on 06/08/2022 and 06/11/2022 and small bowel resection on 06/11/2022 #Abdominal cellulitis and drainage from laparotomy incision #Fevers and leukocytosis #Left pleural effusion #Anemia #Type 2 diabetes mellitus #Essential hypertension #Chronic kidney disease, stable #Coronary artery disease, stable #GERD Plan -General surgery following for surgical cares. -De-escalate antimicrobials to ceftriaxone and doxycycline, discontinue Zosyn and caspofungin. -Demarcate abdominal cellulitis and follow-up. -Wound swab culture. -Monitor WBC and fever trend. -Monitor hemoglobin, resuming pharmacologic DVT prophylaxis. -Follow all cultures. -Correction Humalog SSIlow. -Continue Toprol, amlodipine, losartan, hydrochlorothiazide, atorvastatin, gabapentin, Protonix. -Regular diet. -PT consult. -DVT prophylaxis: Heparin SQ and SCD. -CODE STATUS: Full -Disposition: SNF for rehab when stable. Time Spent With Patient Time: Total time spent is greater than 50% in coordination of care (as documented) at patient's floor/unit and/or counseling patient: QUALITY VTE Deep Vein Thrombosis/Pulmonary Embolism Present on Admission: No
[2022-06-22] MEDS: IPRATROPIUM/ALBUTEROL 3 ML AMPUL.NEB NEB PRN (18:58)
[2022-06-22] MEDS: LOSARTAN 50 MG TABLET PO SCH (21:09)
[2022-06-22] MEDS: ATORVASTATIN 20 MG TABLET PO SCH (21:09)
[2022-06-22] MEDS: amLODIPine 5 MG TABLET PO SCH (21:09)
[2022-06-23] MEDS: PIPERACILLIN SODIUM/TAZOBACTAM 2.25 GM in DEXTROSE 5% IN WATER 50 ML IV SCH ×2 (00:42→05:30)
[2022-06-23] MEDS: LORazepam 2 MG/ML VIAL IV PRN ×2 (00:42→21:07)
[2022-06-23] MEDS: 0.9 % SODIUM CHLORIDE 10 ML SYRINGE IV PRN ×6 (06:00→13:20)
[2022-06-23 06:26] LABS: Basophils # (Auto) 0.04 K/mcL (0.00-0.30); Basophils % (Auto) 0.3 % (0.0-2.0); Eosinophils # (Auto) 0.05 K/mcL (0.00-0.70); Eosinophils % (Auto) 0.4 % (0.0-7.0); Hematocrit 26.5 % (40.1-51.0); Hemoglobin 8.5 g/dL (13.7-17.5); Lymphocytes # (Auto) 1.32 K/mcL (1.50-4.80); Lymphocytes % (Auto) 11.4 % (15.5-49.0); Mean Cell Volume 95.3 fL (80.0-100.0); Mean Corpuscular HGB Conc 32.1 g/dL (31.0-36.0); Mean Platelet Volume 10.1 fL (7.4-10.4); Monocytes # (Auto) 0.92 K/mcL (0.10-0.90); Platelet Count 403 K/mcL (140-440); RBC 2.78 M/mcL (4.63-6.08); Red Cell Distribution Width 13.6 % (11.5-14.5); WBC 11.6 K/mcL (4.5-11.0)
[2022-06-23 06:48] LABS: Blood Urea Nitrogen 24 mg/dL (8-23); Calcium 7.5 mg/dL (8.6-10.4); Carbon Dioxide 22 mmol/L (22-30); Chloride 104 mmol/L (96-108); Glomerular Filtration Rate 49; Glucose 145 mg/dL (70-105)
[2022-06-23] MEDS: INSULIN LISPRO 1 UNIT/0.01 ML UNIT SQ SCH ×4 (07:19→21:52)
[2022-06-23] MEDS: PANTOPRAZOLE 40 MG TABLET PO SCH ×2 (07:19→16:34)
--- NOTE | 2022-06-23 09:10 | General Surgery Progress Note ---
SUBJECTIVE Subjective Patient information: Note initiated : 06/23/22 at 9:07 am Service Date, if different from initiated Date: [] Patient: Neo Chamorro 71 y/o M admitted on 06/07/22 for Abdominal pain. Chief Complaint: [] Principal diagnosis: SBO Interval history: Status post exploratory laparotomy with small bowel resection following a lysis of adhesions. The patient is tolerating regular diet, continues to have normal bowel movements. Fever curve is returning to normal. Constitutional Vitals: Vital Signs Temp Pulse Resp BP Pulse Ox O2 Del Method O2 Flow Rate 99.3 F H 82 16 142/60 94 0 06/23/22 08:01 06/23/22 08:01 06/23/22 08:01 06/23/22 08:01 06/23/22 08:01 06/23/22 06:01 06/23/22 06:01 Period Temp Pulse Resp BP Sys/Medellin Pulse Ox O2 Del Method O2 Flow Rate Last 24 Hr 98.0 F-100.9 F 81-103 -22 85-149/49-66 91-97 Room Air-Room Air 0-0 Intake and Output 06/22/22 06/23/22 06/23/22 21:59 05:59 13:59 Intake Total 150 50 170 Output Total 640 681 575 Balance -490 -631 -405 Weight 243 lb 6.4 oz Intake & Output: Intake & Output 06/22/22 06/23/22 06/23/22 21:59 05:59 13:59 Intake Total 150 50 170 Output Total 640 681 575 Balance -490 -631 -405 Weight 243 lb 6.4 oz Intake: IV 150 50 50 Zosyn 2.25 gm In Dextrose 5% in 50 50 50 Water 50 ml @ 100 mls/hr IV Q6H [facility] Rx#:[id number] Oral 120 Output: Void Amount 640 430 275 # of times incontinent of urine 1 Urine/Stool Mix 250 300 Other: Meal Breakfast Percent of Meal Consumed 100% Feeding Ability Independent Urine Appearance Clear Clear Clear Sediment Urine Color Pale Yellow Yellow Urine Odor Normal Normal Stool Size Large Stool Color Brown Yellow General appearance: no acute distress GI/Abdominal GI/Abdominal exam: Present normal bowel sounds and soft; Absent distended or tenderness Additional comments: Incision is clean dry intact, small amount of discharge from the inferior portion of the incision as expected. A/P Assessment and plan (1) SBO (small bowel obstruction): Plan: Slowly improving from a surgical standpoint. Cleared for regular diet, cleared for p.o. medication. Anticipate rehab soon. Status: Acute Time Spent With Patient Time: Total time spent is greater than 50% in coordination of care (as documented) at patient's floor/unit and/or counseling patient:
[2022-06-23] MEDS: METOPROLOL SUCCINATE 25 MG TAB.XL.24H PO SCH ×2 (09:29→20:26)
[2022-06-23] MEDS: 0.9 % SODIUM CHLORIDE 10 ML SYRINGE IV SCH ×2 (09:29→20:27)
[2022-06-23] MEDS: HYDROCHLOROTHIAZIDE 12.5 MG CAPSULE PO SCH (09:29)
[2022-06-23] MEDS: GABAPENTIN 100 MG CAPSULE PO SCH ×4 (09:29→20:26)
[2022-06-23] MEDS: CASPOFUNGIN ACETATE 50 MG in 0.9 % SODIUM CHLORIDE 250 ML IV SCH (09:30)
[2022-06-23] MEDS: cefTRIAXone 1 GM VIAL IV SCH (11:49)
[2022-06-23] MEDS: DOXYCYCLINE 100 MG in DEXTROSE 5% IN WATER 100 ML IV SCH ×2 (12:19→20:26)
[2022-06-23] MEDS: ATORVASTATIN 20 MG TABLET PO SCH (20:26)
[2022-06-23] MEDS: LOSARTAN 50 MG TABLET PO SCH (20:26)
[2022-06-23] MEDS: amLODIPine 5 MG TABLET PO SCH (20:26)
[2022-06-23] MEDS: HEPARIN 5,000 UNIT/ML VIAL SQ SCH (20:27)
[2022-06-23] MEDS: ACETAMINOPHEN 1,000 MG/100 ML BAG IV PRN (21:00)
[2022-06-24 06:01] LABS: Basophils # (Auto) 0.04 K/mcL (0.00-0.30); Basophils % (Auto) 0.4 % (0.0-2.0); Eosinophils # (Auto) 0.03 K/mcL (0.00-0.70); Eosinophils % (Auto) 0.3 % (0.0-7.0); Hematocrit 25.6 % (40.1-51.0); Hemoglobin 8.1 g/dL (13.7-17.5); Lymphocytes # (Auto) 1.19 K/mcL (1.50-4.80); Lymphocytes % (Auto) 11.8 % (15.5-49.0); Mean Cell Volume 95.5 fL (80.0-100.0); Mean Corpuscular HGB Conc 31.6 g/dL (31.0-36.0); Monocytes # (Auto) 0.74 K/mcL (0.10-0.90); Monocytes % (Auto) 7.3 % (1.0-12.0); Neutrophils % (Auto) 79.4 % (38.0-78.0); Platelet Count 409 K/mcL (140-440); RBC 2.68 M/mcL (4.63-6.08); Red Cell Distribution Width 13.3 % (11.5-14.5); WBC 10.1 K/mcL (4.5-11.0)
[2022-06-24 06:26] LABS: ALT/SGPT 31 U/L (<40); AST/SGOT 21 U/L (<40); Albumin 2.1 gm/dL (3.2-5.2); Albumin/Globulin Ratio 0.6 (1.0-2.3); Alkaline Phosphatase 87 U/L (39-117); Bilirubin,Direct < 0.2 mg/dL (0-0.3); Bilirubin,Total 0.4 mg/dL (0.1-1.0); Blood Urea Nitrogen 17 mg/dL (8-23); Calcium 7.6 mg/dL (8.6-10.4); Carbon Dioxide 23 mmol/L (22-30); Chloride 106 mmol/L (96-108); Globulin 3.4 gm/dL (2.2-3.7); Glomerular Filtration Rate 49; Glucose 131 mg/dL (70-105); Lactate Dehydrogenase 188 U/L (135-225); Phosphorous 2.5 mg/dL (2.5-4.5); Triglycerides 117 mg/dL (<150); Uric Acid 4.3 mg/dL (2.5-8.0)
[2022-06-24] MEDS: PANTOPRAZOLE 40 MG TABLET PO SCH ×2 (07:43→17:02)
[2022-06-24] MEDS: cefTRIAXone 1 GM VIAL IV SCH (08:26)
[2022-06-24] MEDS: METOPROLOL SUCCINATE 25 MG TAB.XL.24H PO SCH ×2 (08:26→21:10)
[2022-06-24] MEDS: GABAPENTIN 100 MG CAPSULE PO SCH ×4 (08:26→21:10)
[2022-06-24] MEDS: HEPARIN 5,000 UNIT/ML VIAL SQ SCH ×2 (08:26→21:09)
[2022-06-24] MEDS: INSULIN LISPRO 1 UNIT/0.01 ML UNIT SQ SCH ×4 (08:26→21:24)
[2022-06-24] MEDS: DOXYCYCLINE 100 MG in DEXTROSE 5% IN WATER 100 ML IV SCH ×2 (08:27→21:08)
[2022-06-24] MEDS: 0.9 % SODIUM CHLORIDE 10 ML SYRINGE IV SCH ×2 (08:27→21:11)
[2022-06-24] MEDS: HYDROCHLOROTHIAZIDE 12.5 MG CAPSULE PO SCH (08:27)
[2022-06-24] MEDS ORDERED: FUROSEMIDE 40 MG/4 ML VIAL IV ONE (09:00)
--- NOTE | 2022-06-24 10:01 | General Surgery Progress Note ---
SUBJECTIVE Subjective Patient information: Note initiated : 06/24/22 at 10:00 am Service Date, if different from initiated Date: [] Patient: Neo Chamorro 71 y/o M admitted on 06/07/22 for Abdominal pain. Chief Complaint: [] Principal diagnosis: SBO Interval history: Postop exploratory laparotomy small bowel resection. Patient has had full return of bowel function, is tolerating regular diet, off TPN. Feels much better. Constitutional Vitals: Vital Signs Temp Pulse Resp BP Pulse Ox O2 Del Method O2 Flow Rate 98.2 F 90 16 157/89 94 0 06/24/22 08:12 06/24/22 06:01 06/24/22 08:12 06/24/22 08:12 06/24/22 08:12 06/24/22 04:01 06/24/22 04:01 Period Temp Pulse Resp BP Sys/Medellin Pulse Ox O2 Del Method O2 Flow Rate Last 24 Hr 98.1 F-100.5 F 84-108 16-20 124-171/57-92 93-100 Room Air-Room Air 0-0 Intake and Output 06/23/22 06/24/22 06/24/22 21:59 05:59 13:59 Intake Total 680 150 100 Output Total 675 1100 275 Balance 5 -950 -175 Weight 245 lb 1.6 oz Intake & Output: Intake & Output 06/23/22 06/24/22 06/24/22 21:59 05:59 13:59 Intake Total 680 150 100 Output Total 675 1100 275 Balance 5 -950 -175 Weight 245 lb 1.6 oz Intake: Nourishment/Supplement quantity 240 (ml) IV 200 100 Vibramycin 100 mg In Dextrose 5 100 100 % in Water 100 ml @ 100 mls/hr IV Q12H [facility] Rx#:[id number] Oral 240 150 Output: Void Amount 675 700 275 Urine/Stool Mix 400 Other: Meal Nourishment/Supplement Breakfast Percent of Meal Consumed 100% 75% Feeding Ability Independent Nourishment/Supplement name Glucerna Urine Appearance Clear Clear Clear Urine Color Yellow Pale Bright Yellow Urine Odor Normal Stool Size Moderate Stool Color Brown Stool Consistency Soft Loose General appearance: no acute distress GI/Abdominal GI/Abdominal exam: Present normal bowel sounds and soft; Absent distended or tenderness Additional comments: Incision is clean dry intact, small amount of discharge from the inferior portion of the incision as expected. A/P Assessment and plan (1) SBO (small bowel obstruction): Plan: Continues to tolerate regular diet. Clear for discharge to rehab from a surgical standpoint. Status: Acute Time Spent With Patient Time: Total time spent is greater than 50% in coordination of care (as documented) at patient's floor/unit and/or counseling patient:
--- NOTE | 2022-06-24 11:47 | Internal Med Progress Note ---
SUBJECTIVE Subjective Patient information: Note initiated : 06/24/22 at 11:44 am Service Date, if different from initiated Date: [] Patient: Neo Chamorro 71 y/o M admitted on 06/07/22 for Abdominal pain. Chief Complaint: [] Principal diagnosis: SBO Interval history: Mr. Chamorro is a 71 year old M with a complex past medical history significant for multiple abdominal surgeries, diabetes mellitus type 2, CAD, hypertension, and CKD who presents to the hospital with 24-hour history of abdominal pain associate with nausea and vomiting. The patient's had prior episodes of bowel obstruction and states that this is very similar. As mentioned, he has had multiple abdominal surgeries including partial colectomy for diverticulitis, appendectomy, and cholecystectomy. The patient states that he was his usual self up until yesterday. He noticed that his abdomen was distended, and he was unable to have a bowel movement or pass gas. On presentation to the hospital, he was hemodynamically stable and afebrile. CT abdomen pelvis revealed mildly distended fluid-filled small bowel. Deep to the hernia patch and findings are consistent with partial mechanical small bowel obstruction. There was no closed-loop obstruction. He has a history of partial colectomy, partial cholecystectomy and appendectomy. There is previous anterior wall hernia repair. The hospitalist service was asked admit the patient in the setting of multiple medical comorbidities. General surgery were also consulted. 06/08: I evaluated the patient after he returned from the OR. The patient had laparoscopic lysis of adhesions. He has an NG tube in place. Advance diet as tolerated per general surgery. He is on narcotic analgesics. A clamp trial will be performed once he has active bowel function. From a medical standpoint, we will continue to hold most of his oral medications from home. Continue insulin sliding scale. 06/09: The patient is febrile with a temp of 100.6 and is tachycardic. Due to his recent intra-abdominal surgery, we will start Zosyn. Once the patient has passed gas or has had a bowel movement, he will have a clamp trial and subsequent NG tube removal and then advance diet as tolerated. 06/10: Postop day #2. Fever to 103 yesterday afternoon. Remains tachycardic. Home meds include metoprolol XL, which has been held. Still with abdominal pain, minimal nausea. Not much NG tube output this morning, is picked up this afternoon. KUB with normal bowel gas pattern this afternoon. 06/11: Postop day #3. Had recurrent fever yesterday, then yesterday evening blood pressure dropped to the 60s systolic. Responded to IV fluids. Overnight had blood pressures right at a map of 65. Urine output dropped off and CAROLINE on this morning's labs. Urine output has picked up after further fluid boluses. CTAP yesterday evening generally unrevealing. Initially when Dr. Nobles and I reviewed scan, concern for possible mediastinitis. Official read less concerning for that. For barium swallow to check for esophageal extravasation today. White count has normalized. 06/12 Patient feeling a little better today after exploratory laparotomy yesterday with several small micro perforations noted and subsequent bowel resection. Urine output borderline at 30 cc/h the last 1 was 15 cc. Patient just went into A. fib RVR, asymptomatic. Patient denies history of A. fib. Abdominal pain relatively controlled. He has some nausea but no vomiting. Patient denies flatus or bowel movements 06/13 Patient is not passing gas. Patient has abdominal pain. Feels about the same as yesterday. Urine output mediocre. Creatinine mild minimally worse today. We will get renal ultrasound and consult nephrology. Patient started on diltiazem drip last night for difficult to control A. fib flutter. Converted to normal sinus rhythm early this morning. Will need to start nutrition today, TPN given his n.p.o. status. Leukocytosis but bandemia improving. Lactic acidosis improved. 06/14 Patient did spike a fever of 101.8 last night. His white blood cell count still elevated at 20 today 17 yesterday although his bandemia prior to that was 30% and no more bandemia yesterday or today. We will repeat blood cultures check procalcitonin. Patient did have a large bowel movement overnight which was quite positive sign. Renal function remains the same. Did have good urine output over the past 24 hours with the high-dose IV Lasix per nephrology. Patient did have confusion last night for some agitation concern for safety of IV's lines and patient did get Haldol. Patient with heme positive stool and gastric contents. We will stop heparin DVT prophylaxis and keep SCDs. protonix drip placed. Gen Surg to evaluate. CT c/a/p no acute path. 06/15 Patient seems to be feeling a little better today. Have a T-max of 101 last night. Tachycardic in the low 100s. Good urine output and creatinine improving today to 2.4. Patient complains of some shortness of breath but no coughing chest pain, stomach pain seems to be a bit better. Leukocytosis that went from 17-20 yesterday is now back down to 17 and no more bandemia. Thrombocytopenia noted at 87, down from 111 yesterday. likely from consumtion d/t bleeding, but will send HIT-ab's. 06/16 Patient feeling better today. Bowel movement last night still dark but gastric contents are now clear. Leukocytosis slowly trending in the right direction. Hemoglobin 9.9. Fever curve continues to improve. Still generally tenuous state. Respiratory tenuous at times likely compounded by abdominal process. No function improving. Hypo-phosphatemia replete. Patient states abdominal pain improving. 06/17 Patient started having low-grade fevers again over night. States he feels about the same as yesterday. No bowel movement or passing gas. Little more t achycardic for the past day or 2. Will obtain blood culture through the central line. Previous blood cultures from 126 unremarkable. Leukocytosis worsened again today. We will check manual differential. Obtain chest x-ray. Low Phos but better. Will start caspofungin given the continued low-grade fevers on broad-spectrum antibiotics already. And get fungal cultures as well as BC's. Given the mild tachycardia low-grade fevers. We will check a venous Doppler of the lower extremities. He has been on prophylactic anticoagulation entire stay with the exception of the last couple days when he was found to have a GI bleed but has been on SCDs during that time. However given his risk we will check ultrasound study. 06/18: Venous Doppler study negative for any DVT. Chest x-ray from yesterday also showing stable atelectasis and pleural effusion left lower thorax. All cultures no growth to date. Fever with T-max 38.1 this morning. WBC down trended from 19.1-16.6 this morning. Patient denies any abdominal pain. He is tolerating full liquid diet. He is complaining of subjective fever but denies any chills or diaphoresis. Denies any shortness of breath or chest pain or palpitations. Continue broad-spectrum antibiotics and antifungal with Zosyn and caspofungin while waiting for culture results. Resumed oral beta-neno for better heart rate control. Continue IV Protonix and TPN while advancing patient's diet. Overall patient is still very guarded. Continue physical therapy. 06/19: Fever with T-max 38.3 overnight. Patient is being switched from liquid diet to regular diet this morning, tolerate maybe half of the breakfast. WBC went up slightly from 16.6-17.1. Patient denies any abdominal pain. Denies any shortness of breath or chest pain or palpitations. Continue broad-spectrum antibiotics and antifungal with Zosyn and caspofungin while waiting for culture results. Protonix IV-->PO. d/c scheduled IV Lopressor. If the patient's can tolerate most of the regular diet provided for multiple meals, will consider stopping TPN. Overall patient is still very guar ded. Continue physical therapy. 06/20: Low-grade fever with T-max 37.8 overnight. All cultures including blood culture, central line culture, type of central line culture no growth today. Central line was removed and PICC line inserted on 06/19. blood pressure stable. Patient tolerated somewhat regular diet yesterday, waiting to observe how he is doing for breakfast this morning. He is complain of mild abdominal pain. Denies fever or chills. Denies nausea or vomiting. Good appetite. Continue broad-spectrum antibiotics and antifungal with Zosyn and caspofungin while waiting for culture results. If the patient's can tolerate most of the regular diet provided for multiple meals, will consider stopping TPN. Overall patient is still very guarded. Continue physical therapy. Transfer from ICU to PCU. 06/21: Fever with Tmax 38.2 overnight. WBC 13.1, H/H 8.4/26.8. All cultures including blood culture, central line culture, type of central line culture no growth today. Patient is tolerating roughly 50% of the regular diet provided. TPN discontinued. Had bowel movement overnight. Denies abdominal pain. Denies fever or chills. Denies nausea or vomiting. Continue broad-spectrum antibiotics and antifungal with Zosyn and caspofungin while waiting for culture results. Overall patient is still very guarded. Continue physical therapy. Stays in PCU. 06/22: Low grade fever Tmax 37.9 overnight. WBC 11.6, H/H 8.0/25.3. All cultures including blood culture, central line culture, type of central line culture no growth to date. Patient is tolerating roughly 75% of the regular diet provided. Denies abdominal pain. Denies chills. Denies nausea or vomiting. Discontinue Woods catheter. Continue broad-spectrum antibiotics and antifungal with Zosyn and caspofungin while waiting for culture results. Overall patient is still very guarded. Continue physical therapy. Stays in PCU. 06/23:High-grade temperature this morning, had a fever last night. Leukocytosis stable. Blood cultures showing no growth. Hemoglobin stable. Patient has abdominal cellulitis and drainage from the lower portion of the laparotomy incision. Deescalated antimicrobials to ceftriaxone and doxycycline. Wound sw ab for culture. Resumed heparin subcutaneous for pharmacologic DVT prophylaxis. 06/24: The patient had a couple documented fevers of 100.5 yesterday evening but none today so far. Leukocytosis has resolved. Abdominal cellulitis improved today, laparotomy wound still draining. General surgery ok with discharge to SNF. Gave lasix 40 mg IV once, follow labs tomorrow. Head: Atraumatic, normal inspection. Eyes: normal appearance, no scleral icterus. Neck: full ROM Respiratory: no respiratory distress. Cardiovascular: normal rate and rhythm, S1, S2. GI/Abdominal: Distended, laparotomy incision with wound drainage from lower incision, mildly tender, no guarding. Extremities: full range of motion, nontender. Neurological: CN II-XII intact, intact motor, intact sensation. Psychiatric: normal mood. Skin: Abdominal cellulitis and wound drainage from lower portion of laparotomy incision. Constitutional Vitals: Vital Signs Temp Pulse Resp BP Pulse Ox O2 Del Method O2 Flow Rate 98.2 F 98 H 16 178/87 95 0 06/24/22 08:12 06/24/22 10:07 06/24/22 08:12 06/24/22 10:07 06/24/22 10:07 06/24/22 04:01 06/24/22 04:01 Period Temp Pulse Resp BP Sys/Medellin Pulse Ox O2 Del Method O2 Flow Rate Last 24 Hr 98.1 F-100.5 F 84-108 16-20 124-178/57-92 93-100 Room Air-Room Air 0-0 Intake and Output 06/23/22 06/24/22 06/24/22 21:59 05:59 13:59 Intake Total 680 150 100 Output Total 675 1100 770 Balance 5 950 -670 Weight 111.175 kg Intake & Output: Intake & Output 06/23/22 06/24/22 06/24/22 21:59 05:59 13:59 Intake Total 680 150 100 Output Total 675 1100 770 Balance 5 950 -670 Weight 111.175 kg Intake: Nourishment/Supplement quantity 240 (ml) IV 200 100 Vibramycin 100 mg In Dextrose 5 100 100 % in Water 100 ml @ 100 mls/hr IV Q12H [facility] Rx#:[id number] Oral 240 150 Output: Void Amount 675 700 770 Urine/Stool Mix 400 Other: Meal Nourishment/Supplement Breakfast Percent of Meal Consumed 100% 75% Feeding Ability Independent Nourishment/Supplement name Glucerna Urine Appearance Clear Clear Clear Urine Color Yellow Pale Bright Yellow Urine Odor Normal Stool Size Moderate Moderate Stool Color Brown Brown Stool Consistency Soft Soft Loose Liquid # Voids 1 # Bowel Movements 1 OBJ DATA Labs CBC & Chem 7: 06/24/22 04:35 06/24/22 04:35 Labs: Abnormal Lab Results 06/24/22 06/24/22 06/23/22 04:35 04:35 05:35 WBC 11.6 H RBC 2.68 L 2.78 L Hgb 8.1 L 8.5 L Hct 25.6 L 26.5 L MPV Immature Gran % (Auto) 0.8 H 0.9 H Neut % (Auto) 79.4 H 79.0 H Lymph % (Auto) 11.8 L 11.4 L Lymph # (Auto) 1.19 L 1.32 L Rogers # (Auto) 0.92 H Seg Neutrophils % Lymphocytes % Immature Gran # 0.08 H 0.10 H Absolute Neutrophils 8.03 H 9.13 H Anion Gap BUN Creatinine 1.4 H Glucose 131 H Calcium 7.6 L ALT Total Protein 5.5 L Albumin 2.1 L Albumin/Globulin Ratio 0.6 L Urine Glucose (UA) Urine Occult Blood Ur Leukocyte Esterase Urine RBC Urine Mucus 06/23/22 06/22/22 06/22/22 05:35 11:07 05:25 WBC RBC Hgb Hct MPV Immature Gran % (Auto) Neut % (Auto) Lymph % (Auto) Lymph # (Auto) Rogers # (Auto) Seg Neutrophils % Lymphocytes % Immature Gran # Absolute Neutrophils Anion Gap 6.0 L BUN 24 H 26 H Creatinine 1.4 H 1.5 H Glucose 145 H 129 H Calcium 7.5 L 7.5 L ALT 41 H Total Protein 5.3 L Albumin 2.0 L Albumin/Globulin Ratio 0.6 L Urine Glucose (UA) 100 mg/dl A Urine Occult Blood Small A Ur Leukocyte Esterase Trace A Urine RBC 5 H Urine Mucus Few A 06/22/22 05:25 WBC 11.6 H RBC 2.67 L Hgb 8.0 L Hct 25.3 L MPV 10.5 H Immature Gran % (Auto) Neut % (Auto) Lymph % (Auto) Lymph # (Auto) Rogers # (Auto) Seg Neutrophils % 83 H Lymphocytes % 11 L Immature Gran # Absolute Neutrophils Anion Gap BUN Creatinine Glucose Calcium ALT Total Protein Albumin Albumin/Globulin Ratio Urine Glucose (UA) Urine Occult Blood Ur Leukocyte Esterase Urine RBC Urine Mucus Meds: Medications Albuterol/Ipratropium (Ipratropium/Albuterol 3 Ml Ampul.Neb) 3 ml NEB Q4HP PRN PRN Reason: Shortness Of Breath Last Admin: 06/22/22 18:58 Dose: 3 ml Amlodipine Besylate (Amlodipine 5 Mg Tablet) 5 mg PO HS [facility] Last Admin: 06/23/22 20:26 Dose: 5 mg Atorvastatin Calcium (Atorvastatin 20 Mg Tablet) 20 mg PO HS [facility] Last Admin: 06/23/22 20:26 Dose: 20 mg Ceftriaxone Sodium (Ceftriaxone 1 Gm Vial) 1 gm IV Q24H [facility]; Protocol Last Admin: 06/24/22 08:26 Dose: 1 gm Dextrose (Dextrose 50% 50 Ml Vial) 0 ml IV UD PRN PRN Reason: Per Sliding Scale Diagnostic Test (Pha) (Accu-Chek 1 Each Strip) 1 each FS ACHS [facility] Last Admin: 06/24/22 08:26 Dose: 1 each Gabapentin (Gabapentin 100 Mg Capsule) 100 mg PO QID [facility] Last Admin: 06/24/22 08:26 Dose: 100 mg Glucose (Dextrose 31 Gm Oral.Susp) 15 gm PO PRN PRN PRN Reason: Hypoglycemia Haloperidol Lactate (Haloperidol Lactate 5 Mg/Ml Vial) 2 - 5 mg IV Q6HP PRN PRN Reason: ANXIETY/SEDATION Last Admin: 06/14/22 16:38 Dose: 5 mg Heparin Sodium (Porcine) (Heparin Flush 10 Units/Ml 5 Ml Syringe) 2 ml IV Q12 [facility] Last Admin: 06/24/22 08:27 Dose: 2 ml Heparin Sodium (Porcine) (Heparin 5,000 Unit/Ml Vial) 5,000 unit SQ Q12 MEÑO Last Admin: 06/24/22 08:26 Dose: 5,000 unit Hydralazine HCl (Hydralazine 20 Mg/Ml Vial) 0 mg IV Q2HP PRN PRN Reason: Hypertension Last Admin: 06/20/22 22:28 Dose: 10 mg Hydrochlorothiazide (Hydrochlorothiazide 12.5 Mg Capsule) 12.5 mg PO DAILY [facility] Last Admin: 06/24/22 08:27 Dose: 12.5 mg Hydromorphone HCl (Hydromorphone 0.5 Mg/0.5 Ml Syringe) 0.5 mg IV Q1HP PRN; Protocol PRN Reason: Per Pain Protocol Last Admin: 06/14/22 17:35 Dose: 0.5 mg Acetaminophen (Ofirmev) 1,000 mg in 100 mls @ 200 mls/hr IV Q6HP PRN; Protocol PRN Reason: PAIN/FEVER > 101 Last Infusion: 06/23/22 21:30 Dose: Infused Doxycycline Hyclate 100 mg/ (Dextrose) 100 mls @ 100 mls/hr IV Q12H [facility]; Protocol Last Infusion: 06/24/22 09:53 Dose: Infused Insulin Human Lispro (Insulin Lispro 1 Unit/0.01 Ml Unit) 0 unit SQ ACHS [facility]; Protocol Last Admin: 06/24/22 08:26 Dose: Not Given Labetalol HCl (Labetalol 5 Mg/Ml Ml) 0 mg IV Q2HP PRN PRN Reason: Hypertension Last Admin: 06/15/22 11:42 Dose: 10 mg Lorazepam (Lorazepam 2 Mg/Ml Vial) 0.5 mg IV Q4HP PRN PRN Reason: ANXIETY/SEDATION Last Admin: 06/23/22 21:07 Dose: 0.5 mg Losartan Potassium (Losartan 50 Mg Tablet) 50 mg PO HS [facility] Last Admin: 06/23/22 20:26 Dose: 50 mg Metoprolol Succinate (Metoprolol Succinate 25 Mg Tab.Xl.24h) 25 mg PO BID [facility] Last Admin: 06/24/22 08:26 Dose: 25 mg Metoprolol Tartrate (Metoprolol Tartrate 5 Mg/5 Ml Vial) 5 mg IV Q2HP PRN PRN Reason: Tachyarrhythmias HR>110 Last Admin: 06/17/22 06:48 Dose: 5 mg Ondansetron HCl (Ondansetron 4 Mg/2 Ml Vial) 4 mg IV Q6HP PRN PRN Reason: Nausea And Vomiting Last Admin: 06/17/22 10:27 Dose: 4 mg Oxycodone HCl (Oxycodone Hcl 5 Mg Tablet) 5 mg PO Q4HP PRN; Protocol PRN Reason: Per Pain Protocol Last Admin: 06/16/22 16:48 Dose: 5 mg Pantoprazole Sodium (Pantoprazole 40 Mg Tablet) 40 mg PO BIDAC [facility] Last Admin: 06/24/22 07:43 Dose: 40 mg Sodium Chloride (0.9 % Sodium Chloride 10 Ml Syringe) 10 ml IV Q12 [facility] Last Admin: 06/24/22 08:27 Dose: 10 ml Sodium Chloride (0.9 % Sodium Chloride 10 Ml Syringe) 10 ml IV UD PRN PRN Reason: Maintain line patency Last Admin: 06/23/22 13:20 Dose: 10 ml A/P Narrative A/P Narrative: 71-year-old male with a history of multiple abdominal surgeries, type 2 diabetes mellitus, hypertension, coronary artery disease, chronic kidney disease who was admitted on 06/07/2022 for a small bowel obstruction complicated by microperforation. The patient has had a long and complicated hospitalization, he underwent exploratory laparotomy, extensive lysis of adhesions and removal of intra-abdominal mesh on 06/08/2022. On 06/11/2022 the patient underwent a postoperative exploratory laparotomy with extensive lysis of adhesions, at that time the patient was found to have several small bowel perforations and required a small bowel resection. The patient was started on TPN for a while, later transition to a regular diet. He had unexplained fevers, infectious work-up included blood cultures which did not grow any organisms. Urinalysis was not santana ggestive of UTI. CT chest abdomen pelvis revealed a left pleural effusion and left lower lobe atelectasis. The central line was removed and replaced with a PICC. Patient was treated empirically with broad-spectrum antimicrobials including Zosyn and caspofungin. Bilateral lower extreme venous Doppler was negative for DVT. The frequency of fevers and high-grade temperatures gradually decreased. #Small bowel obstruction with microperforation status post laparotomy x2 with lysis of adhesion on 06/08/2022 and 06/11/2022 and small bowel resection on 06/11/2022 #Abdominal cellulitis and drainage from laparotomy incision #Fevers and leukocytosis #Volume overload #Left pleural effusion likely due to volume overload #Anemia #Type 2 diabetes mellitus #Essential hypertension #Chronic kidney disease, stable #Coronary artery disease, stable #GERD Plan -General surgery following for surgical cares. -Continue ceftriaxone and doxycycline for now, likely deescalate further tomorrow. -Demarcate abdominal cellulitis and follow-up. -Follow wound swab culture for MRSA. -Monitor WBC and fever trend. -Monitor hemoglobin. -Follow all cultures. -Correction Humalog SSIlow. -Continue Toprol, amlodipine, losartan, hydrochlorothiazide, atorvastatin, gabapentin, Protonix. -Regular diet. -PT consult. -DVT prophylaxis: Heparin SQ and SCD. -CODE STATUS: Full -Disposition: SNF for rehab, likely in 1-2 days. Time Spent With Patient Time: Total time spent is greater than 50% in coordination of care (as documented) at patient's floor/unit and/or counseling patient: QUALITY VTE Deep Vein Thrombosis/Pulmonary Embolism Present on Admission: No
[2022-06-24] MEDS: ACETAMINOPHEN 1,000 MG/100 ML BAG IV PRN (17:11)
[2022-06-24] MEDS: LOSARTAN 50 MG TABLET PO SCH (21:09)
[2022-06-24] MEDS: amLODIPine 5 MG TABLET PO SCH (21:10)
[2022-06-24] MEDS: ATORVASTATIN 20 MG TABLET PO SCH (21:10)
[2022-06-25] MEDS: LORazepam 2 MG/ML VIAL IV PRN (02:42)
[2022-06-25 06:46] LABS: Basophils # (Auto) 0.04 K/mcL (0.00-0.30); Basophils % (Auto) 0.4 % (0.0-2.0); Eosinophils # (Auto) 0.03 K/mcL (0.00-0.70); Eosinophils % (Auto) 0.3 % (0.0-7.0); Hematocrit 26.3 % (40.1-51.0); Hemoglobin 8.3 g/dL (13.7-17.5); Lymphocytes # (Auto) 1.34 K/mcL (1.50-4.80); Lymphocytes % (Auto) 12.3 % (15.5-49.0); Mean Cell Volume 94.3 fL (80.0-100.0); Mean Corpuscular HGB Conc 31.6 g/dL (31.0-36.0); Mean Platelet Volume 9.9 fL (7.4-10.4); Monocytes # (Auto) 0.79 K/mcL (0.10-0.90); Monocytes % (Auto) 7.2 % (1.0-12.0); Neutrophils % (Auto) 79.1 % (38.0-78.0); Platelet Count 444 K/mcL (140-440); RBC 2.79 M/mcL (4.63-6.08); Red Cell Distribution Width 13.2 % (11.5-14.5); WBC 10.9 K/mcL (4.5-11.0)
[2022-06-25] MEDS: HEPARIN 5,000 UNIT/ML VIAL SQ SCH ×2 (08:04→21:25)
[2022-06-25] MEDS: INSULIN LISPRO 1 UNIT/0.01 ML UNIT SQ SCH ×4 (08:04→21:16)
[2022-06-25] MEDS: cefTRIAXone 1 GM VIAL IV SCH (08:04)
[2022-06-25] MEDS: HYDROCHLOROTHIAZIDE 12.5 MG CAPSULE PO SCH (08:05)
[2022-06-25] MEDS: METOPROLOL SUCCINATE 25 MG TAB.XL.24H PO SCH ×2 (08:05→21:25)
[2022-06-25] MEDS: DOXYCYCLINE 100 MG in DEXTROSE 5% IN WATER 100 ML IV SCH (08:05)
[2022-06-25] MEDS: 0.9 % SODIUM CHLORIDE 10 ML SYRINGE IV SCH ×2 (08:05→21:29)
[2022-06-25] MEDS: GABAPENTIN 100 MG CAPSULE PO SCH ×4 (08:05→21:24)
[2022-06-25] MEDS: PANTOPRAZOLE 40 MG TABLET PO SCH ×2 (08:05→17:20)
[2022-06-25 08:52] LABS: Blood Urea Nitrogen 22 mg/dL (8-23); Calcium 7.7 mg/dL (8.6-10.4); Carbon Dioxide 24 mmol/L (22-30); Chloride 104 mmol/L (96-108); Glomerular Filtration Rate 49; Glucose 135 mg/dL (70-105)
[2022-06-25] MEDS: ACETAMINOPHEN 1,000 MG/100 ML BAG IV PRN (11:43)
--- NOTE | 2022-06-25 13:16 | Internal Med Progress Note ---
SUBJECTIVE Subjective Patient information: Note initiated : 06/25/22 at 1:13 pm Service Date, if different from initiated Date: [] Patient: Neo Chamorro 71 y/o M admitted on 06/07/22 for Abdominal pain. Chief Complaint: [] Principal diagnosis: SBO Interval history: Mr. Chamorro is a 71 year old M with a complex past medical history significant for multiple abdominal surgeries, diabetes mellitus type 2, CAD, hypertension, and CKD who presents to the hospital with 24-hour history of abdominal pain associate with nausea and vomiting. The patient's had prior episodes of bowel obstruction and states that this is very similar. As mentioned, he has had multiple abdominal surgeries including partial colectomy for diverticulitis, appendectomy, and cholecystectomy. The patient states that he was his usual self up until yesterday. He noticed that his abdomen was distended, and he was unable to have a bowel movement or pass gas. On presentation to the hospital, he was hemodynamically stable and afebrile. CT abdomen pelvis revealed mildly distended fluid-filled small bowel. Deep to the hernia patch and findings are consistent with partial mechanical small bowel obstruction. There was no closed-loop obstruction. He has a history of partial colectomy, partial cholecystectomy and appendectomy. There is previous anterior wall hernia repair. The hospitalist service was asked admit the patient in the setting of multiple medical comorbidities. General surgery were also consulted. 06/08: I evaluated the patient after he returned from the OR. The patient had laparoscopic lysis of adhesions. He has an NG tube in place. Advance diet as tolerated per general surgery. He is on narcotic analgesics. A clamp trial will be performed once he has active bowel function. From a medical standpoint, we will continue to hold most of his oral medications from home. Continue insulin sliding scale. 06/09: The patient is febrile with a temp of 100.6 and is tachycardic. Due to his recent intra-abdominal surgery, we will start Zosyn. Once the patient has passed gas or has had a bowel movement, he will have a clamp trial and subsequent NG tube removal and then advance diet as tolerated. 06/10: Postop day #2. Fever to 103 yesterday afternoon. Remains tachycardic. Home meds include metoprolol XL, which has been held. Still with abdominal pain, minimal nausea. Not much NG tube output this morning, is picked up this afternoon. KUB with normal bowel gas pattern this afternoon. 06/11: Postop day #3. Had recurrent fever yesterday, then yesterday evening blood pressure dropped to the 60s systolic. Responded to IV fluids. Overnight had blood pressures right at a map of 65. Urine output dropped off and CAROLINE on this morning's labs. Urine output has picked up after further fluid boluses. CTAP yesterday evening generally unrevealing. Initially when Dr. Nobles and I reviewed scan, concern for possible mediastinitis. Official read less concerning for that. For barium swallow to check for esophageal extravasation today. White count has normalized. 06/12 Patient feeling a little better today after exploratory laparotomy yesterday with several small micro perforations noted and subsequent bowel resection. Urine output borderline at 30 cc/h the last 1 was 15 cc. Patient just went into A. fib RVR, asymptomatic. Patient denies history of A. fib. Abdominal pain relatively controlled. He has some nausea but no vomiting. Patient denies flatus or bowel movements 06/13 Patient is not passing gas. Patient has abdominal pain. Feels about the same as yesterday. Urine output mediocre. Creatinine mild minimally worse today. We will get renal ultrasound and consult nephrology. Patient started on diltiazem drip last night for difficult to control A. fib flutter. Converted to normal sinus rhythm early this morning. Will need to start nutrition today, TPN given his n.p.o. status. Leukocytosis but bandemia improving. Lactic acidosis improved. 06/14 Patient did spike a fever of 101.8 last night. His white blood cell count still elevated at 20 today 17 yesterday although his bandemia prior to that was 30% and no more bandemia yesterday or today. We will repeat blood cultures check procalcitonin. Patient did have a large bowel movement overnight which was quite positive sign. Renal function remains the same. Did have good urine output over the past 24 hours with the high-dose IV Lasix per nephrology. Patient did have confusion last night for some agitation concern for safety of IV's lines and patient did get Haldol. Patient with heme positive stool and gastric contents. We will stop heparin DVT prophylaxis and keep SCDs. protonix drip placed. Gen Surg to evaluate. CT c/a/p no acute path. 06/15 Patient seems to be feeling a little better today. Have a T-max of 101 last night. Tachycardic in the low 100s. Good urine output and creatinine improving today to 2.4. Patient complains of some shortness of breath but no coughing chest pain, stomach pain seems to be a bit better. Leukocytosis that went from 17-20 yesterday is now back down to 17 and no more bandemia. Thrombocytopenia noted at 87, down from 111 yesterday. likely from consumtion d/t bleeding, but will send HIT-ab's. 06/16 Patient feeling better today. Bowel movement last night still dark but gastric contents are now clear. Leukocytosis slowly trending in the right direction. Hemoglobin 9.9. Fever curve continues to improve. Still generally tenuous state. Respiratory tenuous at times likely compounded by abdominal process. No function improving. Hypo-phosphatemia replete. Patient states abdominal pain improving. 06/17 Patient started having low-grade fevers again over night. States he feels about the same as yesterday. No bowel movement or passing gas. Little more ta chycardic for the past day or 2. Will obtain blood culture through the central line. Previous blood cultures from 126 unremarkable. Leukocytosis worsened again today. We will check manual differential. Obtain chest x-ray. Low Phos but better. Will start caspofungin given the continued low-grade fevers on broad-spectrum antibiotics already. And get fungal cultures as well as BC's. Given the mild tachycardia low-grade fevers. We will check a venous Doppler of the lower extremities. He has been on prophylactic anticoagulation entire stay with the exception of the last couple days when he was found to have a GI bleed but has been on SCDs during that time. However given his risk we will check ultrasound study. 06/18: Venous Doppler study negative for any DVT. Chest x-ray from yesterday also showing stable atelectasis and pleural effusion left lower thorax. All cultures no growth to date. Fever with T-max 38.1 this morning. WBC down trended from 19.1-16.6 this morning. Patient denies any abdominal pain. He is tolerating full liquid diet. He is complaining of subjective fever but denies any chills or diaphoresis. Denies any shortness of breath or chest pain or palpitations. Continue broad-spectrum antibiotics and antifungal with Zosyn and caspofungin while waiting for culture results. Resumed oral beta-neno for better heart rate control. Continue IV Protonix and TPN while advancing patient's diet. Overall patient is still very guarded. Continue physical therapy. 06/19: Fever with T-max 38.3 overnight. Patient is being switched from liquid diet to regular diet this morning, tolerate maybe half of the breakfast. WBC went up slightly from 16.6-17.1. Patient denies any abdominal pain. Denies any shortness of breath or chest pain or palpitations. Continue broad-spectrum antibiotics and antifungal with Zosyn and caspofungin while waiting for culture results. Protonix IV-->PO. d/c scheduled IV Lopressor. If the patient's can tolerate most of the regular diet provided for multiple meals, will consider stopping TPN. Overall patient is still very guard ed. Continue physical therapy. 06/20: Low-grade fever with T-max 37.8 overnight. All cultures including blood culture, central line culture, type of central line culture no growth today. Central line was removed and PICC line inserted on 06/19. blood pressure stable. Patient tolerated somewhat regular diet yesterday, waiting to observe how he is doing for breakfast this morning. He is complain of mild abdominal pain. Denies fever or chills. Denies nausea or vomiting. Good appetite. Continue broad-spectrum antibiotics and antifungal with Zosyn and caspofungin while waiting for culture results. If the patient's can tolerate most of the regular diet provided for multiple meals, will consider stopping TPN. Overall patient is still very guarded. Continue physical therapy. Transfer from ICU to PCU. 06/21: Fever with Tmax 38.2 overnight. WBC 13.1, H/H 8.4/26.8. All cultures including blood culture, central line culture, type of central line culture no growth today. Patient is tolerating roughly 50% of the regular diet provided. TPN discontinued. Had bowel movement overnight. Denies abdominal pain. Denies fever or chills. Denies nausea or vomiting. Continue broad-spectrum antibiotics and antifungal with Zosyn and caspofungin while waiting for culture results. Overall patient is still very guarded. Continue physical therapy. Stays in PCU. 06/22: Low grade fever Tmax 37.9 overnight. WBC 11.6, H/H 8.0/25.3. All cultures including blood culture, central line culture, type of central line culture no growth to date. Patient is tolerating roughly 75% of the regular diet provided. Denies abdominal pain. Denies chills. Denies nausea or vomiting. Discontinue Woods catheter. Continue broad-spectrum antibiotics and antifungal with Zosyn and caspofungin while waiting for culture results. Overall patient is still very guarded. Continue physical therapy. Stays in PCU. 06/23:High-grade temperature this morning, had a fever last night. Leukocytosis stable. Blood cultures showing no growth. Hemoglobin stable. Patient has abdominal cellulitis and drainage from the lower portion of the laparotomy incision. Deescalated antimicrobials to ceftriaxone and doxycycline. Wound swa b for culture. Resumed heparin subcutaneous for pharmacologic DVT prophylaxis. 06/24: The patient had a couple documented fevers of 100.5 yesterday evening but none today so far. Leukocytosis has resolved. Abdominal cellulitis improved today, laparotomy wound still draining. General surgery ok with discharge to SNF. Gave lasix 40 mg IV once, follow labs tomorrow. 06/25: No fevers overnight, abdominal cellulitis improving. Abdominal drainage swab did not grow any MRSA, positive for Klebsiella oxytoca sensitive to tetracycline and Aura. Klebsiella was resistant to ceftriaxone. Will discontinue ceftriaxone and continue doxycycline to complete 5 to 7 days for abdominal cellulitis. Slowly progressing towards discharge to shelter facility for rehab. Head: Atraumatic, normal inspection. Eyes: normal appearance, no scleral icterus. Neck: full ROM Respiratory: no respiratory distress. Cardiovascular: normal rate and rhythm, S1, S2. GI/Abdominal: Distended, laparotomy incision covered by clean bandage, mildly tender, no guarding. Extremities: full range of motion, nontender. Neurological: CN II-XII intact, intact motor, intact sensation. Psychiatric: normal mood. Skin: Improving abdominal cellulitis. Constitutional Vitals: Vital Signs Temp Pulse Resp BP Pulse Ox O2 Del Method O2 Flow Rate 99 F 94 H 16 161/71 96 0 06/25/22 11:43 06/25/22 11:43 06/25/22 11:43 06/25/22 11:43 06/25/22 11:43 06/25/22 08:00 06/25/22 04:01 Period Temp Pulse Resp BP Sys/Medellin Pulse Ox O2 Del Method O2 Flow Rate Last 24 Hr 97.2 F-99 F 84-106 16-24 121-161/51-103 94-100 Room Air-Room Air 0-0 Intake and Output 06/24/22 06/25/22 06/25/22 21:59 05:59 13:59 Intake Total 590 100 100 Output Total 475 550 250 Balance 115 -450 -150 Weight 108.908 kg Intake & Output: Intake & Output 06/24/22 06/25/22 06/25/22 21:59 05:59 13:59 Intake Total 590 100 100 Output Total 475 550 250 Balance 115 -450 -150 Weight 108.908 kg Intake: Nourishment/Supplement quantity 240 (ml) IV 100 100 100 Vibramycin 100 mg In Dextrose 5 100 100 % in Water 100 ml @ 100 mls/hr IV Q12H [facility] Rx#:[id number] Oral 250 Output: Void Amount 125 550 250 Urine/Stool Mix 350 Other: Meal Dinner Percent of Meal Consumed 50% Nourishment/Supplement name Glucerna Urine Appearance Clear Clear Urine Color Bright Yellow Yellow Urine Odor Normal Stool Size Moderate Stool Color Brown Stool Consistency Loose # Voids 1 # Bowel Movements 1 # of times incontinent of 1 Bowels OBJ DATA Labs CBC & Chem 7: 06/25/22 05:36 06/25/22 05:36 Labs: Abnormal Lab Results 06/25/22 06/25/22 06/24/22 05:36 05:36 04:35 WBC RBC 2.79 L Hgb 8.3 L Hct 26.3 L Plt Count 444 H Immature Gran % (Auto) 0.7 H Neut % (Auto) 79.1 H Lymph % (Auto) 12.3 L Lymph # (Auto) 1.34 L [place] # (Auto) Immature Gran # 0.08 H Absolute Neutrophils 8.65 H BUN Creatinine 1.4 H 1.4 H Glucose 135 H 131 H Calcium 7.7 L 7.6 L Total Protein 5.5 L Albumin 2.1 L Albumin/Globulin Ratio 0.6 L 06/24/22 06/23/22 06/23/22 04:35 05:35 05:35 WBC 11.6 H RBC 2.68 L 2.78 L Hgb 8.1 L 8.5 L Hct 25.6 L 26.5 L Plt Count Immature Gran % (Auto) 0.8 H 0.9 H Neut % (Auto) 79.4 H 79.0 H Lymph % (Auto) 11.8 L 11.4 L Lymph # (Auto) 1.19 L 1.32 L [place] # (Auto) 0.92 H Immature Gran # 0.08 H 0.10 H Absolute Neutrophils 8.03 H 9.13 H BUN 24 H Creatinine 1.4 H Glucose 145 H Calcium 7.5 L Total Protein Albumin Albumin/Globulin Ratio Meds: Medications Albuterol/Ipratropium (Ipratropium/Albuterol 3 Ml Ampul.Neb) 3 ml NEB Q4HP PRN PRN Reason: Shortness Of Breath Last Admin: 06/22/22 18:58 Dose: 3 ml Amlodipine Besylate (Amlodipine 5 Mg Tablet) 5 mg PO HS [facility] Last Admin: 06/24/22 21:10 Dose: 5 mg Atorvastatin Calcium (Atorvastatin 20 Mg Tablet) 20 mg PO HS [facility] Last Admin: 06/24/22 21:10 Dose: 20 mg Ceftriaxone Sodium (Ceftriaxone 1 Gm Vial) 1 gm IV Q24H [facility]; Protocol Last Admin: 06/25/22 08:04 Dose: 1 gm Dextrose (Dextrose 50% 50 Ml Vial) 0 ml IV UD PRN PRN Reason: Per Sliding Scale Diagnostic Test (Pha) (Accu-Chek 1 Each Strip) 1 each FS ACHS [facility] Last Admin: 06/25/22 11:37 Dose: 1 each Gabapentin (Gabapentin 100 Mg Capsule) 100 mg PO QID [facility] Last Admin: 06/25/22 08:05 Dose: 100 mg Glucose (Dextrose 31 Gm Oral.Susp) 15 gm PO PRN PRN PRN Reason: Hypoglycemia Haloperidol Lactate (Haloperidol Lactate 5 Mg/Ml Vial) 2 - 5 mg IV Q6HP PRN PRN Reason: ANXIETY/SEDATION Last Admin: 06/14/22 16:38 Dose: 5 mg Heparin Sodium (Porcine) (Heparin Flush 10 Units/Ml 5 Ml Syringe) 2 ml IV Q12 [facility] Last Admin: 06/25/22 08:05 Dose: 2 ml Heparin Sodium (Porcine) (Heparin 5,000 Unit/Ml Vial) 5,000 unit SQ Q12 [facility] Last Admin: 06/25/22 08:04 Dose: 5,000 unit Hydralazine HCl (Hydralazine 20 Mg/Ml Vial) 0 mg IV Q2HP PRN PRN Reason: Hypertension Last Admin: 06/20/22 22:28 Dose: 10 mg Hydrochlorothiazide (Hydrochlorothiazide 12.5 Mg Capsule) 12.5 mg PO DAILY [facility] Last Admin: 06/25/22 08:05 Dose: 12.5 mg Hydromorphone HCl (Hydromorphone 0.5 Mg/0.5 Ml Syringe) 0.5 mg IV Q1HP PRN; Protocol PRN Reason: Per Pain Protocol Last Admin: 06/14/22 17:35 Dose: 0.5 mg Acetaminophen (Ofirmev) 1,000 mg in 100 mls @ 200 mls/hr IV Q6HP PRN; Protocol PRN Reason: PAIN/FEVER > 101 Last Admin: 06/25/22 11:43 Dose: 200 mls/hr Doxycycline Hyclate 100 mg/ (Dextrose) 100 mls @ 100 mls/hr IV Q12H [facility]; Protocol Last Infusion: 06/25/22 09:11 Dose: Infused Insulin Human Lispro (Insulin Lispro 1 Unit/0.01 Ml Unit) 0 unit SQ ACHS [facility]; Protocol Last Admin: 06/25/22 11:38 Dose: 1 unit Labetalol HCl (Labetalol 5 Mg/Ml Ml) 0 mg IV Q2HP PRN PRN Reason: Hypertension Last Admin: 06/15/22 11:42 Dose: 10 mg Lorazepam (Lorazepam 2 Mg/Ml Vial) 0.5 mg IV Q4HP PRN PRN Reason: ANXIETY/SEDATION Last Admin: 06/25/22 02:42 Dose: 0.5 mg Losartan Potassium (Losartan 50 Mg Tablet) 50 mg PO HS [facility] Last Admin: 06/24/22 21:09 Dose: 50 mg Metoprolol Succinate (Metoprolol Succinate 25 Mg Tab.Xl.24h) 25 mg PO BID [facility] Last Admin: 06/25/22 08:05 Dose: 25 mg Metoprolol Tartrate (Metoprolol Tartrate 5 Mg/5 Ml Vial) 5 mg IV Q2HP PRN PRN Reason: Tachyarrhythmias HR>110 Last Admin: 06/17/22 06:48 Dose: 5 mg Ondansetron HCl (Ondansetron 4 Mg/2 Ml Vial) 4 mg IV Q6HP PRN PRN Reason: Nausea And Vomiting Last Admin: 06/17/22 10:27 Dose: 4 mg Oxycodone HCl (Oxycodone Hcl 5 Mg Tablet) 5 mg PO Q4HP PRN; Protocol PRN Reason: Per Pain Protocol Last Admin: 06/16/22 16:48 Dose: 5 mg Pantoprazole Sodium (Pantoprazole 40 Mg Tablet) 40 mg PO BIDAC MEÑO Last Admin: 06/25/22 08:05 Dose: 40 mg Sodium Chloride (0.9 % Sodium Chloride 10 Ml Syringe) 10 ml IV Q12 MEÑO Last Admin: 06/25/22 08:05 Dose: 10 ml Sodium Chloride (0.9 % Sodium Chloride 10 Ml Syringe) 10 ml IV UD PRN PRN Reason: Maintain line patency Last Admin: 06/23/22 13:20 Dose: 10 ml A/P Narrative A/P Narrative: Assessment: 71-year-old male with a history of multiple abdominal surgeries, type 2 diabetes mellitus, hypertension, coronary artery disease, chronic kidney disease who was admitted on 06/07/2022 for a small bowel obstruction complicated by microperforation. The patient has had a long and complicated hospitalization, he underwent exploratory laparotomy, extensive lysis of adhesions and removal of intra-abdominal mesh on 06/08/2022. On 06/11/2022 the patient underwent a postoperative exploratory laparotomy with extensive lysis of adhesions, at that time the patient was found to have several small bowel perforations and required a small bowel resection. The patient was started on TPN for a while, later transition to a regular diet. He had unexplained fevers, infectious work-up included blood cultures which did not grow any organisms. Urinalysis was not suggestive of UTI. CT chest abdomen pelvis revealed a left pleural effusion and left lower lobe atelectasis. The central line was removed and replaced with a PICC. Patient was treated empirically with broad-spectrum antimicrobials including Zosyn and caspofungin. Bilateral lower extreme venous Doppler was negative for DVT. The patient did have drainage from a lower portion of the laparotomy incision as well as cellulitis around that incision. The patient was started on doxycycline, the frequency of fevers and high-grade temperatures gradually decreased then resolved. Wound drainage culture grew Klebsiella oxytoca sensitive to tetracycline, resistant to Zosyn and ceftriaxone as well as Aura. #Small bowel obstruction with microperforation status post laparotomy x2 with lysis of adhesion on 06/08/2022 and 06/11/2022 and small bowel resection on 06/11/2022 #Abdominal cellulitis and drainage from laparotomy incision, now improving #Resolved fevers and leukocytosis likely secondary to cellulitis #Left pleural effusion likely due to volume overload #Anemia, stable #Type 2 diabetes mellitus #Essential hypertension #Chronic kidney disease, stable #Coronary artery disease, stable #GERD Plan -Transition to MedSurg status. -Transition to oral doxycycline 100 mg twice daily, complete 7 days of treatment for abdominal cellulitis. -Discontinue ceftriaxone. -Correction Humalog SSIlow. -Continue Toprol, amlodipine, losartan, hydrochlorothiazide, atorvastatin, gabapentin, Protonix. -Regular diet. -PT consult. -General surgery following for surgical cares, okay with discharge to SNF. -DVT prophylaxis: Heparin SQ. -CODE STATUS: Full -Disposition: SNF for rehab, likely in 1-2 days. Time Spent With Patient Time: Total time spent is greater than 50% in coordination of care (as documented) at patient's floor/unit and/or counseling patient: QUALITY VTE Deep Vein Thrombosis/Pulmonary Embolism Present on Admission: No
[2022-06-25] MEDS ORDERED: DOXYCYCLINE HYCLATE 100 MG TABLET.ORL PO SCH (21:00)
[2022-06-25] MEDS: LOSARTAN 50 MG TABLET PO SCH (21:24)
[2022-06-25] MEDS: amLODIPine 5 MG TABLET PO SCH (21:25)
[2022-06-25] MEDS: ATORVASTATIN 20 MG TABLET PO SCH (21:33)
[2022-06-25] MEDS: oxyCODONE HCL 5 MG TABLET PO PRN (21:35)
[2022-06-26] MEDS: INSULIN LISPRO 1 UNIT/0.01 ML UNIT SQ SCH ×4 (07:47→20:29)
[2022-06-26] MEDS: HYDROCHLOROTHIAZIDE 12.5 MG CAPSULE PO SCH (08:39)
[2022-06-26] MEDS: METOPROLOL SUCCINATE 25 MG TAB.XL.24H PO SCH ×2 (08:39→20:29)
[2022-06-26] MEDS: GABAPENTIN 100 MG CAPSULE PO SCH ×4 (08:39→20:29)
[2022-06-26] MEDS: LEVOFLOXACIN 750 MG TABLET PO SCH (08:39)
[2022-06-26] MEDS: PANTOPRAZOLE 40 MG TABLET PO SCH ×2 (08:39→17:34)
[2022-06-26] MEDS: HEPARIN 5,000 UNIT/ML VIAL SQ SCH ×2 (08:39→20:28)
[2022-06-26] MEDS: 0.9 % SODIUM CHLORIDE 10 ML SYRINGE IV SCH ×2 (08:39→20:30)
[2022-06-26] MEDS: ACETAMINOPHEN 1,000 MG/100 ML BAG IV PRN (09:05)
--- NOTE | 2022-06-26 12:09 | Internal Med Progress Note ---
SUBJECTIVE Subjective Patient information: Note initiated : 06/26/22 at 12:06 pm Service Date, if different from initiated Date: [] Patient: Neo Chamorro 71 y/o M admitted on 06/07/22 for Abdominal pain. Chief Complaint: [] Principal diagnosis: SBO Interval history: Mr. Chamorro is a 71 year old M with a complex past medical history significant for multiple abdominal surgeries, diabetes mellitus type 2, CAD, hypertension, and CKD who presents to the hospital with 24-hour history of abdominal pain associate with nausea and vomiting. The patient's had prior episodes of bowel obstruction and states that this is very similar. As mentioned, he has had multiple abdominal surgeries including partial colectomy for diverticulitis, appendectomy, and cholecystectomy. The patient states that he was his usual self up until yesterday. He noticed that his abdomen was distended, and he was unable to have a bowel movement or pass gas. On presentation to the hospital, he was hemodynamically stable and afebrile. CT abdomen pelvis revealed mildly distended fluid-filled small bowel. Deep to the hernia patch and findings are consistent with partial mechanical small bowel obstruction. There was no closed-loop obstruction. He has a history of partial colectomy, partial cholecystectomy and appendectomy. There is previous anterior wall hernia repair. The hospitalist service was asked admit the patient in the setting of multiple medical comorbidities. General surgery were also consulted. 06/08: I evaluated the patient after he returned from the OR. The patient had laparoscopic lysis of adhesions. He has an NG tube in place. Advance diet as tolerated per general surgery. He is on narcotic analgesics. A clamp trial will be performed once he has active bowel function. From a medical standpoint, we will continue to hold most of his oral medications from home. Continue insulin sliding scale. 06/09: The patient is febrile with a temp of 100.6 and is tachycardic. Due to his recent intra-abdominal surgery, we will start Zosyn. Once the patient has passed gas or has had a bowel movement, he will have a clamp trial and subsequent NG tube removal and then advance diet as tolerated. 06/10: Postop day #2. Fever to 103 yesterday afternoon. Remains tachycardic. Home meds include metoprolol XL, which has been held. Still with abdominal pain, minimal nausea. Not much NG tube output this morning, is picked up this afternoon. KUB with normal bowel gas pattern this afternoon. 06/11: Postop day #3. Had recurrent fever yesterday, then yesterday evening blood pressure dropped to the 60s systolic. Responded to IV fluids. Overnight had blood pressures right at a map of 65. Urine output dropped off and CAROLINE on this morning's labs. Urine output has picked up after further fluid boluses. CTAP yesterday evening generally unrevealing. Initially when Dr. Nobles and I reviewed scan, concern for possible mediastinitis. Official read less concerning for that. For barium swallow to check for esophageal extravasation today. White count has normalized. 06/12 Patient feeling a little better today after exploratory laparotomy yesterday with several small micro perforations noted and subsequent bowel resection. Urine output borderline at 30 cc/h the last 1 was 15 cc. Patient just went into A. fib RVR, asymptomatic. Patient denies history of A. fib. Abdominal pain relatively controlled. He has some nausea but no vomiting. Patient denies flatus or bowel movements 06/13 Patient is not passing gas. Patient has abdominal pain. Feels about the same as yesterday. Urine output mediocre. Creatinine mild minimally worse today. We will get renal ultrasound and consult nephrology. Patient started on diltiazem drip last night for difficult to control A. fib flutter. Converted to normal sinus rhythm early this morning. Will need to start nutrition today, TPN given his n.p.o. status. Leukocytosis but bandemia improving. Lactic acidosis improved. 06/14 Patient did spike a fever of 101.8 last night. His white blood cell count still elevated at 20 today 17 yesterday although his bandemia prior to that was 30% and no more bandemia yesterday or today. We will repeat blood cultures check procalcitonin. Patient did have a large bowel movement overnight which was quite positive sign. Renal function remains the same. Did have good urine output over the past 24 hours with the high-dose IV Lasix per nephrology. Patient did have confusion last night for some agitation concern for safety of IV's lines and patient did get Haldol. Patient with heme positive stool and gastric contents. We will stop heparin DVT prophylaxis and keep SCDs. protonix drip placed. Gen Surg to evaluate. CT c/a/p no acute path. 06/15 Patient seems to be feeling a little better today. Have a T-max of 101 last night. Tachycardic in the low 100s. Good urine output and creatinine improving today to 2.4. Patient complains of some shortness of breath but no coughing chest pain, stomach pain seems to be a bit better. Leukocytosis that went from 17-20 yesterday is now back down to 17 and no more bandemia. Thrombocytopenia noted at 87, down from 111 yesterday. likely from consumtion d/t bleeding, but will send HIT-ab's. 06/16 Patient feeling better today. Bowel movement last night still dark but gastric contents are now clear. Leukocytosis slowly trending in the right direction. Hemoglobin 9.9. Fever curve continues to improve. Still generally tenuous state. Respiratory tenuous at times likely compounded by abdominal process. No function improving. Hypo-phosphatemia replete. Patient states abdominal pain improving. 06/17 Patient started having low-grade fevers again over night. States he feels about the same as yesterday. No bowel movement or passing gas. Little more t achycardic for the past day or 2. Will obtain blood culture through the central line. Previous blood cultures from 126 unremarkable. Leukocytosis worsened again today. We will check manual differential. Obtain chest x-ray. Low Phos but better. Will start caspofungin given the continued low-grade fevers on broad-spectrum antibiotics already. And get fungal cultures as well as BC's. Given the mild tachycardia low-grade fevers. We will check a venous Doppler of the lower extremities. He has been on prophylactic anticoagulation entire stay with the exception of the last couple days when he was found to have a GI bleed but has been on SCDs during that time. However given his risk we will check ultrasound study. 06/18: Venous Doppler study negative for any DVT. Chest x-ray from yesterday also showing stable atelectasis and pleural effusion left lower thorax. All cultures no growth to date. Fever with T-max 38.1 this morning. WBC down trended from 19.1-16.6 this morning. Patient denies any abdominal pain. He is tolerating full liquid diet. He is complaining of subjective fever but denies any chills or diaphoresis. Denies any shortness of breath or chest pain or palpitations. Continue broad-spectrum antibiotics and antifungal with Zosyn and caspofungin while waiting for culture results. Resumed oral beta-neno for better heart rate control. Continue IV Protonix and TPN while advancing patient's diet. Overall patient is still very guarded. Continue physical therapy. 06/19: Fever with T-max 38.3 overnight. Patient is being switched from liquid diet to regular diet this morning, tolerate maybe half of the breakfast. WBC went up slightly from 16.6-17.1. Patient denies any abdominal pain. Denies any shortness of breath or chest pain or palpitations. Continue broad-spectrum antibiotics and antifungal with Zosyn and caspofungin while waiting for culture results. Protonix IV-->PO. d/c scheduled IV Lopressor. If the patient's can tolerate most of the regular diet provided for multiple meals, will consider stopping TPN. Overall patient is still very guar ded. Continue physical therapy. 06/20: Low-grade fever with T-max 37.8 overnight. All cultures including blood culture, central line culture, type of central line culture no growth today. Central line was removed and PICC line inserted on 06/19. blood pressure stable. Patient tolerated somewhat regular diet yesterday, waiting to observe how he is doing for breakfast this morning. He is complain of mild abdominal pain. Denies fever or chills. Denies nausea or vomiting. Good appetite. Continue broad-spectrum antibiotics and antifungal with Zosyn and caspofungin while waiting for culture results. If the patient's can tolerate most of the regular diet provided for multiple meals, will consider stopping TPN. Overall patient is still very guarded. Continue physical therapy. Transfer from ICU to PCU. 06/21: Fever with Tmax 38.2 overnight. WBC 13.1, H/H 8.4/26.8. All cultures including blood culture, central line culture, type of central line culture no growth today. Patient is tolerating roughly 50% of the regular diet provided. TPN discontinued. Had bowel movement overnight. Denies abdominal pain. Denies fever or chills. Denies nausea or vomiting. Continue broad-spectrum antibiotics and antifungal with Zosyn and caspofungin while waiting for culture results. Overall patient is still very guarded. Continue physical therapy. Stays in PCU. 06/22: Low grade fever Tmax 37.9 overnight. WBC 11.6, H/H 8.0/25.3. All cultures including blood culture, central line culture, type of central line culture no growth to date. Patient is tolerating roughly 75% of the regular diet provided. Denies abdominal pain. Denies chills. Denies nausea or vomiting. Discontinue Woods catheter. Continue broad-spectrum antibiotics and antifungal with Zosyn and caspofungin while waiting for culture results. Overall patient is still very guarded. Continue physical therapy. Stays in PCU. 06/23:High-grade temperature this morning, had a fever last night. Leukocytosis stable. Blood cultures showing no growth. Hemoglobin stable. Patient has abdominal cellulitis and drainage from the lower portion of the laparotomy incision. Deescalated antimicrobials to ceftriaxone and doxycycline. Wound sw ab for culture. Resumed heparin subcutaneous for pharmacologic DVT prophylaxis. 06/24: The patient had a couple documented fevers of 100.5 yesterday evening but none today so far. Leukocytosis has resolved. Abdominal cellulitis improved today, laparotomy wound still draining. General surgery ok with discharge to SNF. Gave lasix 40 mg IV once, follow labs tomorrow. 06/25: No fevers overnight, abdominal cellulitis improving. Abdominal drainage swab did not grow any MRSA, positive for Klebsiella oxytoca sensitive to tetracycline and Aura and fluoroquinolones, resistant to ceftriaxone. Will discontinue ceftriaxone and continue doxycycline to complete 5 to 7 days for abdominal cellulitis. Slowly progressing towards [facility] to [facility]. 06/26: Developed a fever of 100.4 once again overnight, started levofloxacin and discontinued doxycycline. Overall, drainage from abdominal surgical incision dehiscence has improved. Will monitor fever trend on levofloxacin. General surgery feels the patient could discharge from a surgical perspective. Head: Atraumatic, normal inspection. Eyes: normal appearance, no scleral icterus. Neck: full ROM Respiratory: no respiratory distress. Cardiovascular: normal rate and rhythm, S1, S2. GI/Abdominal: Distended, laparotomy incision covered by clean bandage, mildly tender, no guarding. Extremities: full range of motion, nontender. Neurological: CN II-XII intact, intact motor, intact sensation. Psychiatric: normal mood. Skin: Improving abdominal cellulitis. Constitutional Vitals: Vital Signs Temp Pulse Resp BP Pulse Ox O2 Del Method O2 Flow Rate 97.6 F 87 19 130/57 96 0 06/26/22 12:00 06/26/22 12:00 06/26/22 12:00 06/26/22 12:00 06/26/22 12:00 06/26/22 04:17 06/26/22 00:20 Period Temp Pulse Resp BP Sys/Medellin Pulse Ox O2 Del Method O2 Flow Rate Last 24 Hr 97.1 F-100.4 F 87-112 18-20 119-169/56-87 94-98 Room Air-Room Air 0-0 Intake and Output 06/25/22 06/26/22 06/26/22 21:59 05:59 13:59 Intake Total 440 120 100 Output Total 425 500 250 Balance 15 -380 -150 Weight 104.099 kg Intake & Output: Intake & Output 06/25/22 06/26/22 06/26/22 21:59 05:59 13:59 Intake Total 440 120 100 Output Total 425 500 250 Balance 15 -380 -150 Weight 104.099 kg Intake: Nourishment/Supplement quantity 240 (ml) IV 100 Oral 200 120 Output: Void Amount 425 500 250 Other: Meal Nourishment/Supplement Percent of Meal Consumed 50% Nourishment/Supplement name Glucerna Urine Appearance Clear Clear Clear Urine Color Bright Yellow Bright Yellow Bright Yellow Urine Odor Normal Normal OBJ DATA Labs CBC & Chem 7: 06/25/22 05:36 06/25/22 05:36 Labs: Abnormal Lab Results 06/25/22 06/25/22 06/24/22 05:36 05:36 04:35 RBC 2.79 L Hgb 8.3 L Hct 26.3 L Plt Count 444 H Immature Gran % (Auto) 0.7 H Neut % (Auto) 79.1 H Lymph % (Auto) 12.3 L Lymph # (Auto) 1.34 L Immature Gran # 0.08 H Absolute Neutrophils 8.65 H Creatinine 1.4 H 1.4 H Glucose 135 H 131 H Calcium 7.7 L 7.6 L Total Protein 5.5 L Albumin 2.1 L Albumin/Globulin Ratio 0.6 L 06/24/22 04:35 RBC 2.68 L Hgb 8.1 L Hct 25.6 L Plt Count Immature Gran % (Auto) 0.8 H Neut % (Auto) 79.4 H Lymph % (Auto) 11.8 L Lymph # (Auto) 1.19 L Immature Gran # 0.08 H Absolute Neutrophils 8.03 H Creatinine Glucose Calcium Total Protein Albumin Albumin/Globulin Ratio Meds: Medications Albuterol/Ipratropium (Ipratropium/Albuterol 3 Ml Ampul.Neb) 3 ml NEB Q4HP PRN PRN Reason: Shortness Of Breath Last Admin: 06/22/22 18:58 Dose: 3 ml Amlodipine Besylate (Amlodipine 5 Mg Tablet) 5 mg PO HS [facility] Last Admin: 06/25/22 21:25 Dose: 5 mg Atorvastatin Calcium (Atorvastatin 20 Mg Tablet) 20 mg PO HS [facility] Last Admin: 06/25/22 21:33 Dose: 20 mg Dextrose (Dextrose 50% 50 Ml Vial) 0 ml IV UD PRN PRN Reason: Per Sliding Scale Diagnostic Test (Pha) (Accu-Chek 1 Each Strip) 1 each FS ACHS [facility] Last Admin: 06/26/22 07:47 Dose: 1 each Gabapentin (Gabapentin 100 Mg Capsule) 100 mg PO QID [facility] Last Admin: 06/26/22 08:39 Dose: 100 mg Glucose (Dextrose 31 Gm Oral.Susp) 15 gm PO PRN PRN PRN Reason: Hypoglycemia Haloperidol Lactate (Haloperidol Lactate 5 Mg/Ml Vial) 2 - 5 mg IV Q6HP PRN PRN Reason: ANXIETY/SEDATION Last Admin: 06/14/22 16:38 Dose: 5 mg Heparin Sodium (Porcine) (Heparin Flush 10 Units/Ml 5 Ml Syringe) 2 ml IV Q12 [facility] Last Admin: 06/26/22 08:39 Dose: 2 ml Heparin Sodium (Porcine) (Heparin 5,000 Unit/Ml Vial) 5,000 unit SQ Q12 [facility] Last Admin: 06/26/22 08:39 Dose: 5,000 unit Hydralazine HCl (Hydralazine 20 Mg/Ml Vial) 0 mg IV Q2HP PRN PRN Reason: Hypertension Last Admin: 06/20/22 22:28 Dose: 10 mg Hydrochlorothiazide (Hydrochlorothiazide 12.5 Mg Capsule) 12.5 mg PO DAILY [facility] Last Admin: 06/26/22 08:39 Dose: 12.5 mg Hydromorphone HCl (Hydromorphone 0.5 Mg/0.5 Ml Syringe) 0.5 mg IV Q1HP PRN; Protocol PRN Reason: Per Pain Protocol Last Admin: 06/14/22 17:35 Dose: 0.5 mg Acetaminophen (Ofirmev) 1,000 mg in 100 mls @ 200 mls/hr IV Q6HP PRN; Protocol PRN Reason: PAIN/FEVER > 101 Last Infusion: 06/26/22 09:40 Dose: Infused Insulin Human Lispro (Insulin Lispro 1 Unit/0.01 Ml Unit) 0 unit SQ ACHS [facility]; Protocol Last Admin: 06/26/22 07:47 Dose: Not Given Labetalol HCl (Labetalol 5 Mg/Ml Ml) 0 mg IV Q2HP PRN PRN Reason: Hypertension Last Admin: 06/15/22 11:42 Dose: 10 mg Levofloxacin (Levofloxacin 750 Mg Tablet) 750 mg PO DAILY [facility]; Protocol Stop: 07/01/22 08:59 Last Admin: 06/26/22 08:39 Dose: 750 mg Lorazepam (Lorazepam 2 Mg/Ml Vial) 0.5 mg IV Q4HP PRN PRN Reason: ANXIETY/SEDATION Last Admin: 06/25/22 02:42 Dose: 0.5 mg Losartan Potassium (Losartan 50 Mg Tablet) 50 mg PO HS [facility] Last Admin: 06/25/22 21:24 Dose: 50 mg Metoprolol Succinate (Metoprolol Succinate 25 Mg Tab.Xl.24h) 25 mg PO BID [facility] Last Admin: 06/26/22 08:39 Dose: 25 mg Metoprolol Tartrate (Metoprolol Tartrate 5 Mg/5 Ml Vial) 5 mg IV Q2HP PRN PRN Reason: Tachyarrhythmias HR>110 Last Admin: 06/17/22 06:48 Dose: 5 mg Ondansetron HCl (Ondansetron 4 Mg/2 Ml Vial) 4 mg IV Q6HP PRN PRN Reason: Nausea And Vomiting Last Admin: 06/17/22 10:27 Dose: 4 mg Oxycodone HCl (Oxycodone Hcl 5 Mg Tablet) 5 mg PO Q4HP PRN; Protocol PRN Reason: Per Pain Protocol Last Admin: 06/25/22 21:35 Dose: 5 mg Pantoprazole Sodium (Pantoprazole 40 Mg Tablet) 40 mg PO BIDAC [facility] Last Admin: 06/26/22 08:39 Dose: 40 mg Sodium Chloride (0.9 % Sodium Chloride 10 Ml Syringe) 10 ml IV Q12 [facility] Last Admin: 06/26/22 08:39 Dose: 10 ml Sodium Chloride (0.9 % Sodium Chloride 10 Ml Syringe) 10 ml IV UD PRN PRN Reason: Maintain line patency Last Admin: 06/23/22 13:20 Dose: 10 ml A/P Narrative A/P Narrative: Assessment: 71-year-old male with a history of multiple abdominal surgeries, type 2 diabetes mellitus, hypertension, coronary artery disease, chronic kidney disease who was admitted on 06/07/2022 for a small bowel obstruction complicated by microperforation. The patient has had a long and complicated hospitalization, he underwent exploratory laparotomy, extensive lysis of adhesions and removal of intra-abdominal mesh on 06/08/2022. On 06/11/2022 the patient underwent a postoperative exploratory laparotomy with extensive lysis of adhesions, at that time the patient was found to have several small bowel perforations and required a small bowel resection. The patient was started on TPN for a while, later transition to a regular diet. He had unexplained fevers, infectious work-up included blood cultures which did not grow any organisms. Urinalysis was not suggestive of UTI. CT chest abdomen pelvis revealed a left pleural effusion and left lower lobe atelectasis. The central line was removed and replaced with a PICC. Patient was treated empirically with broad-spectrum antimicrobials including Zosyn and caspofungin. Bilateral lower extreme venous Doppler was negative for DVT. The patient did have drainage from a lower portion of the laparotomy incision as well as cellulitis around that incision. The patient was started on doxycycline, the frequency of fevers and high-grade temperatures gradually decreased then resolved. Wound drainage culture grew Klebsiella oxytoca sensitive to tetracycline, resistant to Zosyn and ceftriaxone as well as Aura. #Small bowel obstruction with microperforation status post laparotomy x2 with lysis of adhesion on 06/08/2022 and 06/11/2022 and small bowel resection on 022 #Abdominal cellulitis and drainage from laparotomy incision, now improving #Recurring fevers #Left pleural effusion likely due to volume overload #Anemia, stable #Type 2 diabetes mellitus #Essential hypertension #Chronic kidney disease, stable #Coronary artery disease, stable #GERD Plan -Start levofloxacin 7050 mg p.o. daily, discontinue doxycycline and monitor fever trend. -Correction Humalog SSIlow. -Continue Toprol, amlodipine, losartan, hydrochlorothiazide, atorvastatin, gabapentin, Protonix. -Regular diet. -PT consult. -General surgery following for surgical cares, okay with discharge to SNF. -DVT prophylaxis: Heparin SQ. -CODE STATUS: Full -Disposition: When fevers have resolved the plan is to discharge to SNF for rehab. Time Spent With Patient Time: Total time spent is greater than 50% in coordination of care (as documented) at patient's floor/unit and/or counseling patient: QUALITY VTE Deep Vein Thrombosis/Pulmonary Embolism Present on Admission: No
--- NOTE | 2022-06-26 15:25 | General Surgery Progress Note ---
SUBJECTIVE Subjective Patient information: Note initiated : 06/26/22 at 3:24 pm Service Date, if different from initiated Date: [] Patient: Neo Chamorro 71 y/o M admitted on 06/07/22 for Abdominal pain. Chief Complaint: [] Principal diagnosis: SBO Interval history: Low-grade fever overnight, otherwise no complaints, continues to tolerate p.o. continues to have bowel movements. Constitutional Vitals: Vital Signs Temp Pulse Resp BP Pulse Ox O2 Del Method O2 Flow Rate 97.6 F 88 19 130/56 96 0 06/26/22 12:00 06/26/22 12:27 06/26/22 12:00 06/26/22 12:27 06/26/22 12:00 06/26/22 04:17 06/26/22 00:20 Period Temp Pulse Resp BP Sys/Medellin Pulse Ox O2 Del Method O2 Flow Rate Last 24 Hr 97.1 F-100.4 F 87-112 18-20 119-169/56-87 94-98 Room Air-Room Air 0-0 Intake and Output 06/26/22 06/26/22 06/26/22 05:59 13:59 21:59 Intake Total 120 340 Output Total 500 450 Balance -380 -110 Intake & Output: Intake & Output 06/26/22 06/26/22 06/26/22 05:59 13:59 21:59 Intake Total 120 340 Output Total 500 450 Balance -380 -110 Intake: Nourishment/Supplement quantity 240 (ml) IV 100 Oral 120 Output: Void Amount 500 450 Other: Meal Nourishment/Supplement Percent of Meal Consumed 100% Urine Appearance Clear Clear Urine Color Bright Yellow Yellow Urine Odor Normal General appearance: cooperative and no acute distress GI/Abdominal GI/Abdominal exam: Present soft; Absent distended or tenderness Additional comments: Incisions clean dry intact, no evidence for dehiscence, no cellulitis. Expected serous drainage A/P Assessment and plan (1) SBO (small bowel obstruction): Plan: Continues to do well from a surgical standpoint. No evidence of abdominal wall, abscess. Expected serous drainage from incision. Status: Acute Time Spent With Patient Time: Total time spent is greater than 50% in coordination of care (as documented) at patient's floor/unit and/or counseling patient:
[2022-06-26] MEDS: ATORVASTATIN 20 MG TABLET PO SCH (20:28)
[2022-06-26] MEDS: LOSARTAN 50 MG TABLET PO SCH (20:29)
[2022-06-26] MEDS: amLODIPine 5 MG TABLET PO SCH (20:29)
[2022-06-27] MEDS: LORazepam 2 MG/ML VIAL IV PRN (02:44)
[2022-06-27 07:11] LABS: Basophils # (Auto) 0.05 K/mcL (0.00-0.30); Basophils % (Auto) 0.6 % (0.0-2.0); Eosinophils # (Auto) 0.04 K/mcL (0.00-0.70); Eosinophils % (Auto) 0.5 % (0.0-7.0); Hematocrit 25.4 % (40.1-51.0); Hemoglobin 8.1 g/dL (13.7-17.5); Lymphocytes # (Auto) 1.33 K/mcL (1.50-4.80); Lymphocytes % (Auto) 15.2 % (15.5-49.0); Mean Cell Volume 93.4 fL (80.0-100.0); Mean Corpuscular HGB Conc 31.9 g/dL (31.0-36.0); Mean Platelet Volume 9.7 fL (7.4-10.4); Monocytes # (Auto) 0.68 K/mcL (0.10-0.90); Monocytes % (Auto) 7.8 % (1.0-12.0); Neutrophils % (Auto) 74.6 % (38.0-78.0); Platelet Count 373 K/mcL (140-440); RBC 2.72 M/mcL (4.63-6.08); Red Cell Distribution Width 13.2 % (11.5-14.5); WBC 8.7 K/mcL (4.5-11.0)
[2022-06-27 07:37] LABS: ALT/SGPT 21 U/L (<40); AST/SGOT 16 U/L (<40); Albumin 2.2 gm/dL (3.2-5.2); Albumin/Globulin Ratio 0.6 (1.0-2.3); Alkaline Phosphatase 74 U/L (39-117); Bilirubin,Direct < 0.2 mg/dL (0-0.3); Bilirubin,Total 0.4 mg/dL (0.1-1.0); Blood Urea Nitrogen 22 mg/dL (8-23); Carbon Dioxide 24 mmol/L (22-30); Chloride 105 mmol/L (96-108); Globulin 3.7 gm/dL (2.2-3.7); Glomerular Filtration Rate 54; Glucose 122 mg/dL (70-105); Lactate Dehydrogenase 176 U/L (135-225); Phosphorous 2.7 mg/dL (2.5-4.5); Triglycerides 103 mg/dL (<150); Uric Acid 4.8 mg/dL (2.5-8.0)
[2022-06-27] MEDS: INSULIN LISPRO 1 UNIT/0.01 ML UNIT SQ SCH ×2 (08:14→12:38)
[2022-06-27] MEDS: HEPARIN 5,000 UNIT/ML VIAL SQ SCH (08:44)
[2022-06-27] MEDS: 0.9 % SODIUM CHLORIDE 10 ML SYRINGE IV SCH (08:45)
[2022-06-27] MEDS: HYDROCHLOROTHIAZIDE 12.5 MG CAPSULE PO SCH (08:45)
[2022-06-27] MEDS: LEVOFLOXACIN 750 MG TABLET PO SCH (08:45)
[2022-06-27] MEDS: METOPROLOL SUCCINATE 25 MG TAB.XL.24H PO SCH (08:45)
[2022-06-27] MEDS: GABAPENTIN 100 MG CAPSULE PO SCH ×2 (08:45→12:38)
[2022-06-27] MEDS: PANTOPRAZOLE 40 MG TABLET PO SCH (08:45)
--- NOTE | 2022-06-27 10:54 | Internal Med Progress Note ---
SUBJECTIVE Subjective Patient information: Note initiated : 06/27/22 at 10:52 am Service Date, if different from initiated Date: [] Patient: Neo Chamorro 71 y/o M admitted on 06/07/22 for Abdominal pain. Chief Complaint: [] Principal diagnosis: SBO Interval history: Mr. Chamorro is a 71 year old M with a complex past medical history significant for multiple abdominal surgeries, diabetes mellitus type 2, CAD, hypertension, and CKD who presents to the hospital with 24-hour history of abdominal pain associate with nausea and vomiting. The patient's had prior episodes of bowel obstruction and states that this is very similar. As mentioned, he has had multiple abdominal surgeries including partial colectomy for diverticulitis, appendectomy, and cholecystectomy. The patient states that he was his usual self up until yesterday. He noticed that his abdomen was distended, and he was unable to have a bowel movement or pass gas. On presentation to the hospital, he was hemodynamically stable and afebrile. CT abdomen pelvis revealed mildly distended fluid-filled small bowel. Deep to the hernia patch and findings are consistent with partial mechanical small bowel obstruction. There was no closed-loop obstruction. He has a history of partial colectomy, partial cholecystectomy and appendectomy. There is previous anterior wall hernia repair. The hospitalist service was asked admit the patient in the setting of multiple medical comorbidities. General surgery were also consulted. 06/08: I evaluated the patient after he returned from the OR. The patient had laparoscopic lysis of adhesions. He has an NG tube in place. Advance diet as tolerated per general surgery. He is on narcotic analgesics. A clamp trial will be performed once he has active bowel function. From a medical standpoint, we will continue to hold most of his oral medications from home. Continue insulin sliding scale. 06/09: The patient is febrile with a temp of 100.6 and is tachycardic. Due to his recent intra-abdominal surgery, we will start Zosyn. Once the patient has passed gas or has had a bowel movement, he will have a clamp trial and subsequent NG tube removal and then advance diet as tolerated. 06/10: Postop day #2. Fever to 103 yesterday afternoon. Remains tachycardic. Home meds include metoprolol XL, which has been held. Still with abdominal pain, minimal nausea. Not much NG tube output this morning, is picked up this afternoon. KUB with normal bowel gas pattern this afternoon. 06/11: Postop day #3. Had recurrent fever yesterday, then yesterday evening blood pressure dropped to the 60s systolic. Responded to IV fluids. Overnight had blood pressures right at a map of 65. Urine output dropped off and CAROLINE on this morning's labs. Urine output has picked up after further fluid boluses. CTAP yesterday evening generally unrevealing. Initially when Dr. Nobles and I reviewed scan, concern for possible mediastinitis. Official read less concerning for that. For barium swallow to check for esophageal extravasation today. White count has normalized. 06/12 Patient feeling a little better today after exploratory laparotomy yesterday with several small micro perforations noted and subsequent bowel resection. Urine output borderline at 30 cc/h the last 1 was 15 cc. Patient just went into A. fib RVR, asymptomatic. Patient denies history of A. fib. Abdominal pain relatively controlled. He has some nausea but no vomiting. Patient denies flatus or bowel movements 06/13 Patient is not passing gas. Patient has abdominal pain. Feels about the same as yesterday. Urine output mediocre. Creatinine mild minimally worse today. We will get renal ultrasound and consult nephrology. Patient started on diltiazem drip last night for difficult to control A. fib flutter. Converted to normal sinus rhythm early this morning. Will need to start nutrition today, TPN given his n.p.o. status. Leukocytosis but bandemia improving. Lactic acidosis improved. 06/14 Patient did spike a fever of 101.8 last night. His white blood cell count still elevated at 20 today 17 yesterday although his bandemia prior to that was 30% and no more bandemia yesterday or today. We will repeat blood cultures check procalcitonin. Patient did have a large bowel movement overnight which was quite positive sign. Renal function remains the same. Did have good urine output over the past 24 hours with the high-dose IV Lasix per nephrology. Patient did have confusion last night for some agitation concern for safety of IV's lines and patient did get Haldol. Patient with heme positive stool and gastric contents. We will stop heparin DVT prophylaxis and keep SCDs. protonix drip placed. Gen Surg to evaluate. CT c/a/p no acute path. 06/15 Patient seems to be feeling a little better today. Have a T-max of 101 last night. Tachycardic in the low 100s. Good urine output and creatinine improving today to 2.4. Patient complains of some shortness of breath but no coughing chest pain, stomach pain seems to be a bit better. Leukocytosis that went from 17-20 yesterday is now back down to 17 and no more bandemia. Thrombocytopenia noted at 87, down from 111 yesterday. likely from consumtion d/t bleeding, but will send HIT-ab's. 06/16 Patient feeling better today. Bowel movement last night still dark but gastric contents are now clear. Leukocytosis slowly trending in the right direction. Hemoglobin 9.9. Fever curve continues to improve. Still generally tenuous state. Respiratory tenuous at times likely compounded by abdominal process. No function improving. Hypo-phosphatemia replete. Patient states abdominal pain improving. 06/17 Patient started having low-grade fevers again over night. States he feels about the same as yesterday. No bowel movement or passing gas. Little more t achycardic for the past day or 2. Will obtain blood culture through the central line. Previous blood cultures from 126 unremarkable. Leukocytosis worsened again today. We will check manual differential. Obtain chest x-ray. Low Phos but better. Will start caspofungin given the continued low-grade fevers on broad-spectrum antibiotics already. And get fungal cultures as well as BC's. Given the mild tachycardia low-grade fevers. We will check a venous Doppler of the lower extremities. He has been on prophylactic anticoagulation entire stay with the exception of the last couple days when he was found to have a GI bleed but has been on SCDs during that time. However given his risk we will check ultrasound study. 06/18: Venous Doppler study negative for any DVT. Chest x-ray from yesterday also showing stable atelectasis and pleural effusion left lower thorax. All cultures no growth to date. Fever with T-max 38.1 this morning. WBC down trended from 19.1-16.6 this morning. Patient denies any abdominal pain. He is tolerating full liquid diet. He is complaining of subjective fever but denies any chills or diaphoresis. Denies any shortness of breath or chest pain or palpitations. Continue broad-spectrum antibiotics and antifungal with Zosyn and caspofungin while waiting for culture results. Resumed oral beta-neno for better heart rate control. Continue IV Protonix and TPN while advancing patient's diet. Overall patient is still very guarded. Continue physical therapy. 06/19: Fever with T-max 38.3 overnight. Patient is being switched from liquid diet to regular diet this morning, tolerate maybe half of the breakfast. WBC went up slightly from 16.6-17.1. Patient denies any abdominal pain. Denies any shortness of breath or chest pain or palpitations. Continue broad-spectrum antibiotics and antifungal with Zosyn and caspofungin while waiting for culture results. Protonix IV-->PO. d/c scheduled IV Lopressor. If the patient's can tolerate most of the regular diet provided for multiple meals, will consider stopping TPN. Overall patient is still very guar ded. Continue physical therapy. 06/20: Low-grade fever with T-max 37.8 overnight. All cultures including blood culture, central line culture, type of central line culture no growth today. Central line was removed and PICC line inserted on 06/19. blood pressure stable. Patient tolerated somewhat regular diet yesterday, waiting to observe how he is doing for breakfast this morning. He is complain of mild abdominal pain. Denies fever or chills. Denies nausea or vomiting. Good appetite. Continue broad-spectrum antibiotics and antifungal with Zosyn and caspofungin while waiting for culture results. If the patient's can tolerate most of the regular diet provided for multiple meals, will consider stopping TPN. Overall patient is still very guarded. Continue physical therapy. Transfer from ICU to PCU. 06/21: Fever with Tmax 38.2 overnight. WBC 13.1, H/H 8.4/26.8. All cultures including blood culture, central line culture, type of central line culture no growth today. Patient is tolerating roughly 50% of the regular diet provided. TPN discontinued. Had bowel movement overnight. Denies abdominal pain. Denies fever or chills. Denies nausea or vomiting. Continue broad-spectrum antibiotics and antifungal with Zosyn and caspofungin while waiting for culture results. Overall patient is still very guarded. Continue physical therapy. Stays in PCU. 06/22: Low grade fever Tmax 37.9 overnight. WBC 11.6, H/H 8.0/25.3. All cultures including blood culture, central line culture, type of central line culture no growth to date. Patient is tolerating roughly 75% of the regular diet provided. Denies abdominal pain. Denies chills. Denies nausea or vomiting. Discontinue Woods catheter. Continue broad-spectrum antibiotics and antifungal with Zosyn and caspofungin while waiting for culture results. Overall patient is still very guarded. Continue physical therapy. Stays in PCU. 06/23:High-grade temperature this morning, had a fever last night. Leukocytosis stable. Blood cultures showing no growth. Hemoglobin stable. Patient has abdominal cellulitis and drainage from the lower portion of the laparotomy incision. Deescalated antimicrobials to ceftriaxone and doxycycline. Wound sw ab for culture. Resumed heparin subcutaneous for pharmacologic DVT prophylaxis. 06/24: The patient had a couple documented fevers of 100.5 yesterday evening but none today so far. Leukocytosis has resolved. Abdominal cellulitis improved today, laparotomy wound still draining. General surgery ok with discharge to SNF. Gave lasix 40 mg IV once, follow labs tomorrow. 06/25: No fevers overnight, abdominal cellulitis improving. Abdominal drainage swab did not grow any MRSA, positive for Klebsiella oxytoca sensitive to tetracycline and Aura and fluoroquinolones, resistant to ceftriaxone. Will discontinue ceftriaxone and continue doxycycline to complete 5 to 7 days for abdominal cellulitis. Slowly progressing towards discharge to [facility] facility for rehab. 06/26: Developed a fever of 100.4 once again overnight, started levofloxacin and discontinued doxycycline. Overall, drainage from abdominal surgical incision dehiscence has improved. Will monitor fever trend on levofloxacin. General surgery feels the patient could discharge from a surgical perspective. 06/27: No fevers since oral levofloxacin was started yesterday. The patient says he feels much better today overall. Will monitor for recurrent fevers, otherwise treat with oral levofloxacin for about 5 days. Case management working on placement. Head: Atraumatic, normal inspection. Eyes: normal appearance, no scleral icterus. Neck: full ROM Respiratory: no respiratory distress. Cardiovascular: normal rate and rhythm, S1, S2. GI/Abdominal: Distended, laparotomy incision covered by clean bandage, mildly tender, no guarding. Extremities: full range of motion, nontender. Neurological: CN II-XII intact, intact motor, intact sensation. Psychiatric: normal mood. Skin: Resolved abdominal cellulitis. Constitutional Vitals: Vital Signs Temp Pulse Resp BP Pulse Ox O2 Del Method O2 Flow Rate 97.7 F 91 H 18 121/64 96 0 06/27/22 08:44 06/27/22 08:44 06/27/22 04:25 06/27/22 08:44 06/27/22 08:44 06/27/22 08:44 06/27/22 08:44 Period Temp Pulse Resp BP Sys/Med[place] Pulse Ox O2 Del Method O2 Flow Rate Last 24 Hr 97.2 F-98.6 F 87-98 18-19 121-139/54-66 95-99 Room Air-Room Air 0 Intake and Output 06/26/22 06/27/22 06/27/22 21:59 05:59 13:59 Intake Total 600 120 Output Total 1100 626 400 Balance -500 -626 -280 Weight 104.014 kg Intake & Output: Intake & Output 06/26/22 06/27/22 06/27/22 21:59 05:59 13:59 Intake Total 600 120 Output Total 1100 626 400 Balance -500 -626 -280 Weight 104.014 kg Intake: Oral 600 120 Output: Void Amount 1100 625 400 # of times incontinent of urine 1 Other: Meal Dinner Breakfast Percent of Meal Consumed 100% 100% Feeding Ability Independent Urine Appearance Clear Cloudy Clear Urine Color Bright Yellow Yellow Yellow Urine Odor Normal Stool Size Moderate Smear Stool Color Brown Brown Stool Consistency Soft Soft # Voids 1 # Bowel Movements 1 1 # of times incontinent of 1 Bowels OBJ DATA Labs CBC & Chem 7: 06/27/22 05:55 06/27/22 05:56 Labs: Abnormal Lab Results 06/27/22 06/27/22 06/25/22 05:56 05:55 05:36 RBC 2.72 L Hgb 8.1 L Hct 25.4 L Plt Count Immature Gran % (Auto) 1.3 H Neut % (Auto) Lymph % (Auto) 15.2 L Lymph # (Auto) 1.33 L Immature Gran # 0.11 H Absolute Neutrophils Creatinine 1.3 H 1.4 H Glucose 122 H 135 H Calcium 8.0 L 7.7 L Albumin 2.2 L Albumin/Globulin Ratio 0.6 L 06/25/22 05:36 RBC 2.79 L Hgb 8.3 L Hct 26.3 L Plt Count 444 H Immature Gran % (Auto) 0.7 H Neut % (Auto) 79.1 H Lymph % (Auto) 12.3 L Lymph # (Auto) 1.34 L Immature Gran # 0.08 H Absolute Neutrophils 8.65 H Creatinine Glucose Calcium Albumin Albumin/Globulin Ratio Meds: Medications Albuterol/Ipratropium (Ipratropium/Albuterol 3 Ml Ampul.Neb) 3 ml NEB Q4HP PRN PRN Reason: Shortness Of Breath Last Admin: 06/22/22 18:58 Dose: 3 ml Amlodipine Besylate (Amlodipine 5 Mg Tablet) 5 mg PO HS [facility] Last Admin: 06/26/22 20:29 Dose: 5 mg Atorvastatin Calcium (Atorvastatin 20 Mg Tablet) 20 mg PO HS [facility] Last Admin: 06/26/22 20:28 Dose: 20 mg Dextrose (Dextrose 50% 50 Ml Vial) 0 ml IV UD PRN PRN Reason: Per Sliding Scale Diagnostic Test (Pha) (Accu-Chek 1 Each Strip) 1 each FS ACHS [facility] Last Admin: 06/27/22 08:14 Dose: 1 each Gabapentin (Gabapentin 100 Mg Capsule) 100 mg PO QID [facility] Last Admin: 06/27/22 08:45 Dose: 100 mg Glucose (Dextrose 31 Gm Oral.Susp) 15 gm PO PRN PRN PRN Reason: Hypoglycemia Haloperidol Lactate (Haloperidol Lactate 5 Mg/Ml Vial) 2 - 5 mg IV Q6HP PRN PRN Reason: ANXIETY/SEDATION Last Admin: 06/14/22 16:38 Dose: 5 mg Heparin Sodium (Porcine) (Heparin Flush 10 Units/Ml 5 Ml Syringe) 2 ml IV Q12 [facility] Last Admin: 06/27/22 08:45 Dose: 2 ml Heparin Sodium (Porcine) (Heparin 5,000 Unit/Ml Vial) 5,000 unit SQ Q12 [facility] Last Admin: 06/27/22 08:44 Dose: 5,000 unit Hydralazine HCl (Hydralazine 20 Mg/Ml Vial) 0 mg IV Q2HP PRN PRN Reason: Hypertension Last Admin: 06/20/22 22:28 Dose: 10 mg Hydrochlorothiazide (Hydrochlorothiazide 12.5 Mg Capsule) 12.5 mg PO DAILY [facility] Last Admin: 06/27/22 08:45 Dose: 12.5 mg Hydromorphone HCl (Hydromorphone 0.5 Mg/0.5 Ml Syringe) 0.5 mg IV Q1HP PRN; Protocol PRN Reason: Per Pain Protocol Last Admin: 06/14/22 17:35 Dose: 0.5 mg Acetaminophen (Ofirmev) 1,000 mg in 100 mls @ 200 mls/hr IV Q6HP PRN; Protocol PRN Reason: PAIN/FEVER > 101 Last Infusion: 06/26/22 09:40 Dose: Infused Insulin Human Lispro (Insulin Lispro 1 Unit/0.01 Ml Unit) 0 unit SQ ACHS [facility]; Protocol Last Admin: 06/27/22 08:14 Dose: Not Given Labetalol HCl (Labetalol 5 Mg/Ml Ml) 0 mg IV Q2HP PRN PRN Reason: Hypertension Last Admin: 06/15/22 11:42 Dose: 10 mg Levofloxacin (Levofloxacin 750 Mg Tablet) 750 mg PO DAILY [facility]; Protocol Stop: 07/01/22 08:59 Last Admin: 06/27/22 08:45 Dose: 750 mg Lorazepam (Lorazepam 2 Mg/Ml Vial) 0.5 mg IV Q4HP PRN PRN Reason: ANXIETY/SEDATION Last Admin: 06/27/22 02:44 Dose: 0.5 mg Losartan Potassium (Losartan 50 Mg Tablet) 50 mg PO HS [facility] Last Admin: 06/26/22 20:29 Dose: 50 mg Metoprolol Succinate (Metoprolol Succinate 25 Mg Tab.Xl.24h) 25 mg PO BID [facility] Last Admin: 06/27/22 08:45 Dose: 25 mg Metoprolol Tartrate (Metoprolol Tartrate 5 Mg/5 Ml Vial) 5 mg IV Q2HP PRN PRN Reason: Tachyarrhythmias HR>110 Last Admin: 06/17/22 06:48 Dose: 5 mg Ondansetron HCl (Ondansetron 4 Mg/2 Ml Vial) 4 mg IV Q6HP PRN PRN Reason: Nausea And Vomiting Last Admin: 06/17/22 10:27 Dose: 4 mg Oxycodone HCl (Oxycodone Hcl 5 Mg Tablet) 5 mg PO Q4HP PRN; Protocol PRN Reason: Per Pain Protocol Last Admin: 06/25/22 21:35 Dose: 5 mg Pantoprazole Sodium (Pantoprazole 40 Mg Tablet) 40 mg PO BIDAC [facility] Last Admin: 06/27/22 08:45 Dose: 40 mg Sodium Chloride (0.9 % Sodium Chloride 10 Ml Syringe) 10 ml IV Q12 [facility] Last Admin: 06/27/22 08:45 Dose: 10 ml Sodium Chloride (0.9 % Sodium Chloride 10 Ml Syringe) 10 ml IV UD PRN PRN Reason: Maintain line patency Last Admin: 06/23/22 13:20 Dose: 10 ml A/P Narrative A/P Narrative: Assessment: 71-year-old male with a history of multiple abdominal surgeries, type 2 diabetes mellitus, hypertension, coronary artery disease, chronic kidney disease who was admitted on 06/07/2022 for a small bowel obstruction complicated by microperforation. The patient has had a long and complicated hospitalization , he underwent exploratory laparotomy, extensive lysis of adhesions and removal of intra-abdominal mesh on 06/08/2022. On 06/11/2022 the patient underwent a postoperative exploratory laparotomy with extensive lysis of adhesions, at that time the patient was found to have several small bowel perforations and required a small bowel resection. The patient was started on TPN for a while, later transition to a regular diet. He had unexplained fevers, infectious work-up included blood cultures which did not grow any organisms. Urinalysis was not suggestive of UTI. CT chest abdomen pelvis revealed a left pleural effusion and left lower lobe atelectasis. The central line was removed and replaced with a PICC. Patient was treated empirically with broad-spectrum antimicrobials including Zosyn and caspofungin. Bilateral lower extreme venous Doppler was negative for DVT. The patient did have drainage from a lower portion of the laparotomy incision as well as cellulitis around that incision. The patient was started on doxycycline, the frequency of fevers and high-grade temperatures gradually decreased then resolved for about a day before recurring. Wound drainage culture grew Klebsiella oxytoca sensitive to tetracycline, resistant to Zosyn and ceftriaxone as well as Aura. Doxycycline was discontinued, the patient was started on oral levofloxacin and fevers resolved. #Small bowel obstruction with microperforation status post laparotomy x2 with lysis of adhesion on 06/08/2022 and 06/11/2022 and small bowel resection on 06/11/2022 #Abdominal cellulitis and drainage from laparotomy incision, now improving #Recurring fevers, probably resolved #Left pleural effusion likely due to mild to moderate volume overload #Normocytic anemia, stable #Type 2 diabetes mellitus #Essential hypertension #Chronic kidney disease stage III #Coronary artery disease, stable #GERD Plan -Continue oral levofloxacin 750 mg daily, treat 5 days. -Monitor for recurrent fevers. -Correction Humalog SSIlow. -Continue Toprol, amlodipine, losartan, hydrochlorothiazide, atorvastatin, gabapentin, Protonix. -Regular diet. -PT consult. -General surgery following for surgical cares, okay with discharge to SNF. -DVT prophylaxis: Heparin SQ. -CODE STATUS: Full -Disposition: If the patient does not have recurrent fevers will discharge the patient to low intensity rehab. Case management working on placement options. Time Spent With Patient Time: Total time spent is greater than 50% in coordination of care (as documented) at patient's floor/unit and/or counseling patient: QUALITY VTE Deep Vein Thrombosis/Pulmonary Embolism Present on Admission: No
--- NOTE | 2022-06-27 12:49 | Discharge Summary ---
Discharge Provider Provider IMPORTANT FOLLOW-UP INFORMATION FOR PCP: Patient information: Note initiated : 06/27/22 at 12:45 pm Service Date, if different from initiated Date: [] Patient: Neo Chamorro 71 y/o M admitted on 06/07/22 for Abdominal pain. Chief Complaint: [] Date of admission: 06/07/22 14:04 Discharge date: 06/27/22 Primary care physician: Kaylynn Lopes Consults: 06/07/22 Consult to Physician [CONS] Stat Comment: Consulting Provider: Waldemar Darnell Reason For Exam: Physician to Consult Consult to Physician [CONS] Stat Comment: Consulting Provider: Devon Nobles Reason For Exam: Physician to Consult COURSE Hospital Course Hospital course: Mr. Chamorro is a 71 year old M with a complex past medical history significant for multiple abdominal surgeries, diabetes mellitus type 2, CAD, hypertension, and CKD who presents to the hospital with 24-hour history of abdominal pain associate with nausea and vomiting. The patient's had prior episodes of bowel obstruction and states that this is very similar. As mentioned, he has had multiple abdominal surgeries including partial colectomy for diverticulitis, appendectomy, and cholecystectomy. The patient states that he was his usual self up until yesterday. He noticed that his abdomen was distended, and he was unable to have a bowel movement or pass gas. On presentation to the hospital, he was hemodynamically stable and afebrile. CT abdomen pelvis revealed mildly distended fluid-filled small bowel. Deep to the hernia patch and findings are consistent with partial mechanical small bowel obstruction. There was no closed-loop obstruction. He has a history of partial colectomy, partial cholecystectomy and appendectomy. There is previous anterior wall hernia repair. The hospitalist service was asked admit the patient in the setting of multiple medical comorbidities. General surgery were also consulted. 06/08: I evaluated the patient after he returned from the OR. The patient had l aparoscopic lysis of adhesions. He has an NG tube in place. Advance diet as tolerated per general surgery. He is on narcotic analgesics. A clamp trial will be performed once he has active bowel function. From a medical standpoint, we will continue to hold most of his oral medications from home. Continue insulin sliding scale. 06/09: The patient is febrile with a temp of 100.6 and is tachycardic. Due to his recent intra-abdominal surgery, we will start Zosyn. Once the patient has passed gas or has had a bowel movement, he will have a clamp trial and subsequent NG tube removal and then advance diet as tolerated. 06/10: Postop day #2. Fever to 103 yesterday afternoon. Remains tachycardic. Home meds include metoprolol XL, which has been held. Still with abdominal pain, minimal nausea. Not much NG tube output this morning, is picked up this afternoon. KUB with normal bowel gas pattern this afternoon. 06/11: Postop day #3. Had recurrent fever yesterday, then yesterday evening blood pressure dropped to the 60s systolic. Responded to IV fluids. Overnight had blood pressures right at a map of 65. Urine output dropped off and CAROLINE on this morning's labs. Urine output has picked up after further fluid boluses. CTAP yesterday evening generally unrevealing. Initially when Dr. Nobles and I reviewed scan, concern for possible mediastinitis. Official read less concerning for that. For barium swallow to check for esophageal extravasation today. White count has normalized. 06/12 Patient feeling a little better today after exploratory laparotomy yesterday with several small micro perforations noted and subsequent bowel resection. Urine output borderline at 30 cc/h the last 1 was 15 cc. Patient just went into A. fib RVR, asymptomatic. Patient denies history of A. fib. Abdominal pain relatively controlled. He has some nausea but no vomiting. Patient denies flatus or bowel movements 06/13 Patient is not passing gas. Patient has abdominal pain. Feels about the same as yesterday. Urine output mediocre. Creatinine mild minimally worse today. We will get renal ultrasound and consult nephrology. Patient started on diltiazem drip last night for difficult to control A. fib flutter. Converted to normal sinus rhythm early this morning. Will need to start nutrition today, TPN given his n.p.o. status. Leukocytosis but bandemia improving. Lactic acidosis improved. 06/14 Patient did spike a fever of 101.8 last night. His white blood cell count still elevated at 20 today 17 yesterday although his bandemia prior to that was 30% and no more bandemia yesterday or today. We will repeat blood cultures check procalcitonin. Patient did have a large bowel movement overnight which was quite positive sign. Renal function remains the same. Did have good urine output over the past 24 hours with the high-dose IV Lasix per nephrology. Patient did have confusion last night for some agitation concern for safety of IV's lines and patient did get Haldol. Patient with heme positive stool and gastric contents. We will stop heparin DVT prophylaxis and keep SCDs. protonix drip placed. Gen Surg to evaluate. CT c/a/p no acute path. 06/15 Patient seems to be feeling a little better today. Have a T-max of 101 last night. Tachycardic in the low 100s. Good urine output and creatinine improving today to 2.4. Patient complains of some shortness of breath but no coughing chest pain, stomach pain seems to be a bit better. Leukocytosis that went from 17-20 yesterday is now back down to 17 and no more bandemia. Thrombocytopenia noted at 87, down from 111 yesterday. likely from consumtion d/t bleeding, but will send HIT-ab's. 06/16 Patient feeling better today. Bowel movement last night still dark but gastric contents are now clear. Leukocytosis slowly trending in the right direction. Hemoglobin 9.9. Fever curve continues to improve. Still generally tenuous state. Respiratory tenuous at times likely compounded by abdominal process. No function improving. Hypo-phosphatemia replete. Patient states abdominal pain improving. 06/17 Patient started having low-grade fevers again over night. States he feels about the same as yesterday. No bowel movement or passing gas. Little more tachycardic for the past day or 2. Will obtain blood culture through the central line. Previous blood cultures from 126 unremarkable. Leukocytosis worsened again today. We will check manual differential. Obtain chest x-ray. Low Phos but better. Will start caspofungin given the continued low-grade fevers on broad-spectrum antibiotics already. And get fungal cultures as well as BC's. Given the mild tachycardia low-grade fevers. We will check a venous Doppler of the lower extremities. He has been on prophylactic anticoagulation entire stay with the exception of the last couple days when he was found to have a GI bleed but has been on SCDs during that time. However given his risk we will check ultrasound study. 06/18: Venous Doppler study negative for any DVT. Chest x-ray from yesterday also showing stable atelectasis and pleural effusion left lower thorax. All cultures no growth to date. Fever with T-max 38.1 this morning. WBC down trended from 19.1-16.6 this morning. Patient denies any abdominal pain. He is tolerating full liquid diet. He is complaining of subjective fever but denies any chills or diaphoresis. Denies any shortness of breath or chest pain or palpitations. Continue broad-spectrum antibiotics and antifungal with Zosyn and caspofungin while waiting for culture results. Resumed oral beta-neno for better heart rate control. Continue IV Protonix and TPN while advancing patient's diet. Overall patient is still very guarded. Continue physical therapy. 06/19: Fever with T-max 38.3 overnight. Patient is being switched from liquid diet to regular diet this morning, tolerate maybe half of the breakfast. WBC went up slightly from 16.6-17.1. Patient denies any abdominal pain. Denies any shortness of breath or chest pain or palpitations. Continue broad-spectrum antibiotics and antifungal with Zosyn and caspofungin while waiting for culture results. Protonix IV-->PO. d/c scheduled IV Lopressor. If the patient's can tolerate most of the regular diet provided for multiple meals, will consider stopping TPN. Overall patient is still very guarded. Continue physical therapy. 06/20: Low-grade fever with T-max 37.8 overnight. All cultures including blood culture, central line culture, type of central line culture no growth today. Central line was removed and PICC line inserted on 06/19. blood pressure stable. Patient tolerated somewhat regular diet yesterday, waiting to observe how he is doing for breakfast this morning. He is complain of mild abdominal pain. Denies fever or chills. Denies nausea or vomiting. Good appetite. Continue broad-spectrum antibiotics and antifungal with Zosyn and caspofungin while waiting for culture results. If the patient's can tolerate most of the regular diet provided for multiple meals, will consider stopping TPN. Overall patient is still very guarded. Continue physical therapy. Transfer from ICU to PCU. 06/21: Fever with Tmax 38.2 overnight. WBC 13.1, H/H 8.4/26.8. All cultures including blood culture, central line culture, type of central line culture no growth today. Patient is tolerating roughly 50% of the regular diet provided. TPN disco ntinued. Had bowel movement overnight. Denies abdominal pain. Denies fever or chills. Denies nausea or vomiting. Continue broad-spectrum antibiotics and antifungal with Zosyn and caspofungin while waiting for culture results. Overall patient is still very guarded. Continue physical therapy. Stays in PCU. 06/22: Low grade fever Tmax 37.9 overnight. WBC 11.6, H/H 8.0/25.3. All cultures including blood culture, central line culture, type of central line culture no growth to date. Patient is tolerating roughly 75% of the regular diet provided. Denies abdominal pain. Denies chills. Denies nausea or vomiting. Discontinue Woods catheter. Continue broad-spectrum antibiotics and antifungal with Zosyn and caspofungin while waiting for culture results. Overall patient is still very guarded. Continue physical therapy. Stays in PCU. 06/23:High-grade temperature this morning, had a fever last night. Leukocytosis stable. Blood cultures showing no growth. Hemoglobin stable. Patient has abdominal cellulitis and drainage from the lower portion of the laparotomy incision. Deescalated antimicrobials to ceftriaxone and doxycycline. Wound swab for culture. Resumed heparin subcutaneous for pharmacologic DVT prophylaxis. 06/24: The patient had a couple documented fevers of 100.5 yesterday evening but none today so far. Leukocytosis has resolved. Abdominal cellulitis improved today, laparotomy wound still draining. General surgery ok with discharge to SNF. Gave lasix 40 mg IV once, follow labs tomorrow. 06/25: No fevers overnight, abdominal cellulitis improving. Abdominal drainage swab did not grow any MRSA, positive for Klebsiella oxytoca sensitive to tetracycline and Aura and fluoroquinolones, resistant to ceftriaxone. Will discontinue ceftriaxone and continue doxycycline to complete 5 to 7 days for abdominal cellulitis. Slowly progressing towards discharge to [facility] facility for rehab. 06/26: Developed a fever of 100.4 once again overnight, started levofloxacin and discontinued doxycycline. Overall, drainage from abdominal surgical incision dehiscence has improved. Will monitor fever trend on levofloxacin. General surgery feels the patient could discharge from a surgical perspective. 06/27: No fevers since oral levofloxacin was started yesterday. The patient says he feels much better today overall.Discharged to SNF for rehab, will continue oral levofloxacin for five more days. Head: Atraumatic, normal inspection. Eyes: normal appearance, no scleral icterus. Neck: full ROM Respiratory: no respiratory distress. Cardiovascular: normal rate and rhythm, S1, S2. GI/Abdominal: Distended, laparotomy incision covered by clean bandage, mildly tender, no guarding. Extremities: full range of motion, nontender. Neurological: CN II-XII intact, intact motor, intact sensation. Psychiatric: normal mood. Skin: Resolved abdominal cellulitis. Discharge diagnosis: Small bowel obstruction complicated by small bowel perforat ion. Time Spent with Patient Time attestation: Total time spent providing and/or coordinating discharge services: Time spent: Greater than 30 minutes EXAM Constitutional Vitals: Temp Pulse Resp BP Pulse Ox O2 Del Method O2 Flow Rate 97.7 F 91 H 18 121/64 96 0 06/27/22 08:44 06/27/22 08:44 06/27/22 04:25 06/27/22 08:44 06/27/22 08:44 06/27/22 08:44 06/27/22 08:44 Discharge Data Data Completed and Pending Labs on day of discharge: Labs from last 24 hours 06/27/22 06/27/22 05:56 05:55 WBC 8.7 RBC 2.72 L Hgb 8.1 L Hct 25.4 L MCV 93.4 MCH 29.8 MCHC 31.9 RDW 13.2 Plt Count 373 MPV 9.7 Immature Gran % (Auto) 1.3 H Neut % (Auto) 74.6 Lymph % (Auto) 15.2 L [place] % (Auto) 7.8 Eos % (Auto) 0.5 Baso % (Auto) 0.6 Lymph # (Auto) 1.33 L [place] # (Auto) 0.68 Eos # (Auto) 0.04 Baso # (Auto) 0.05 Immature Gran # 0.11 H Absolute Neutrophils 6.52 Sodium 137 Potassium 4.6 Chloride 105 Carbon Dioxide 24 Anion Gap 8.0 BUN 22 Creatinine 1.3 H GFR Calculation 54 Glucose 122 H Uric Acid 4.8 Calcium 8.0 L Phosphorus 2.7 Magnesium 1.9 Total Bilirubin 0.4 Direct Bilirubin < 0.2 GGT 35 AST 16 ALT 21 Alkaline Phosphatase 74 Lactate Dehydrogenase 176 Total Protein 5.9 Albumin 2.2 L Globulin 3.7 Albumin/Globulin Ratio 0.6 L Triglycerides 103 Preliminary micro results at discharge 06/17/22 09:18 Blood Fungal Culture - Preliminary Blood Discharge Plan Patient/Caregiver Discharge Instructions Activity: increase activity as tolerated Diet: Consistent Carbohydrate Prescriptions: New pantoprazole 40 mg Tablet,Delayed Release (Dr/Ec) 40 mg PO DAILY Qty: 30 2RF levofloxacin 750 mg Tablet 750 mg PO DAILY 5 Days Qty: 5 0RF oxycodone 5 mg Tablet 5 mg PO Q4HP PRN (Reason: Per Pain Protocol) Qty: 5 0RF Continued metoprolol succinate 25 mg tablet extended release 24 hr 25 mg PO BID atorvastatin 20 mg tablet 20 mg PO HS losartan-hydrochlorothiazide 50-12.5 mg tablet 1 tab PO QDAY amlodipine 5 mg tablet 1 tab PO QDAY gabapentin 100 mg capsule 1 cap PO QID metformin 500 mg tablet extended release 24 hr 1 tab PO BID cholecalciferol (vitamin D3) 50 mcg capsule 50 mcg PO DAILY Discontinued Humira 40 MG/0.8 ML syringe kit 40 mg SQ WEEKLY loperamide [Anti-Diarrheal (loperamide)] 2 mg capsule 1 cap PO QDAY Pepcid 20 MG tablet 20 mg PO DAILY Other Ambulatory Orders: OT Discharge Order (Routine) Facility: [facility] - Location[facility] Ordered By: Sammy Kirkland Physical Therapy at Discharge - General (Routine) Facility: [facility] - Location[facility] Ordered By: Sammy Kirkland Follow Up Plan Follow up with: Kaylynn Lopes ARNP [Primary Care Provider] - Patient Disposition: Xfer SNF Prognosis: Fair Discharge Orders: Discharge Order (Routine); Ordered 06/27/22 Ordered By: Sammy Kirkland QUALITY VTE Deep Vein Thrombosis/Pulmonary Embolism Present on Admission: No
--- NOTE | 2022-06-27 16:21 | General Surgery Progress Note ---
SUBJECTIVE Subjective Patient information: Note initiated : 06/27/22 at 4:13 pm Service Date, if different from initiated Date: [] Patient: Neo Chamorro 71 y/o M admitted on 06/07/22 for Abdominal pain. Chief Complaint: [] Principal diagnosis: SBO Interval history: cont to tolerate PO, good bowel movements Constitutional Vitals: Vital Signs Temp Pulse Resp BP Pulse Ox O2 Del Method O2 Flow Rate 98.4 F 82 18 148/71 96 0 06/27/22 12:00 06/27/22 12:00 06/27/22 04:25 06/27/22 12:00 06/27/22 12:00 06/27/22 12:00 06/27/22 08:44 Period Temp Pulse Resp BP Sys/Med[place]in Pulse Ox O2 Del Method O2 Flow Rate Last 24 Hr 97.2 F-98.6 F 82-97 18 121-148/54-71 95-99 Room Air-Room Air 0 Intake and Output 06/27/22 06/27/22 06/27/22 05:59 13:59 21:59 Intake Total 840 Output Total 626 700 Balance -626 140 Weight 229 lb 5 oz Patient Weight 06/28/22 05:59 Weight 229 lb 5 oz Intake & Output: Intake & Output 06/27/22 06/27/22 06/27/22 05:59 13:59 21:59 Intake Total 840 Output Total 626 700 Balance -626 140 Weight 229 lb 5 oz Intake: Nourishment/Supplement quantity 240 (ml) Oral 600 Output: Void Amount 625 700 # of times incontinent of urine 1 Other: Meal Lunch Percent of Meal Consumed 25% Urine Appearance Cloudy Clear Urine Color Yellow Yellow Stool Size Smear Stool Color Brown Stool Consistency Soft # Voids 1 # Bowel Movements 1 # of times incontinent of 1 Bowels General appearance: cooperative and no acute distress GI/Abdominal GI/Abdominal exam: Present soft; Absent distended or tenderness Additional comments: no change in incision A/P Assessment and plan (1) SBO (small bowel obstruction): Plan: Doing as expected. Status: Acute Time Spent With Patient Time: Total time spent is greater than 50% in coordination of care (as documented) at patient's floor/unit and/or counseling patient:
== END 2022-06-27 16:00 | DRG 329 ==
LOC: ED 20:53 → MEDSUR 06-07 14:04 → ICU 06-10 23:16
PROVIDERS: ADMIT Student in an Organized Health Care Education/Training Program; ATTEND Student in an Organized Health Care Education/Training Program